=== PATIENT | male | born 1945 | race Caucasian/White ===

== ENCOUNTER 2022-08-15 14:15 | Observation (INO) ==
--- NOTE | 2022-08-15 14:29 | ED Triage Note ---
Date of Service August 15, 2022 History of Present Illness This patient was briefly evaluated while in triage. An abbreviated physical exam was performed. This patient is a 77-year-old Male who presents to the ED for evaluation of stroke like symptoms which have resolved. Patient had these symptoms yesterday which lasted for approximately 5 minutes. He reports numbness in the left arm and left side of the face as well as some difficulty with his speech. He had a similar episode of symptoms one week ago. He was at the [place] ED and waited for 20 hours before leaving. Physical Exam VITALS: Vitals are noted on the nurse's note and reviewed by myself. GENERAL: This is a 77-year-old male, in no acute distress, well-developed well- nourished. SKIN: The skin was without rashes. EYES: Pupils equal round and reactive to light and accommodation. MOUTH: Mucous membranes moist. HEART: Regular rate and rhythm without murmurs gallops or rubs. LUNGS: Clear to auscultation bilaterally without wheezes, rales or rhonchi. MUSCULOSKELETAL: Full ROM throughout. Strength 5/5 throughout. NEURO: Patient was alert and oriented to person place and time. Initial orders for labs and / or imaging were placed and patient was placed in the waiting area until a bed is available. Please see further documentation for the full ED course. MDM / Impression Impression Impression: Stroke-like symptoms
[2022-08-15 16:20] LABS: Basophils # (auto) 0.02 K/uL (0-0.2); Basophils % (auto) 0.2 %; Eosinophils # (auto) 0.19 K/uL (0-0.50); Eosinophils % (auto) 1.8 %; Hematocrit (blood only) 35.5 % (40.1-51.0); Immature Granulocytes # (auto) 0.04 K/uL (0.00-0.02); Immature Granulocytes % (auto) 0.4 %; Lymphocytes # (auto) 0.91 K/uL (1.2-3.4); Lymphocytes % (auto) 8.6 %; Mean Corpuscular Hemoglobin 29.2 pg (25.0-34.0); Mean Corpuscular Volume 94.2 fL (80.0-100.0); Mean Platelet Volume 10.9 fL (9.4-12.4); Monocytes # (auto) 1.32 K/uL (0.24-0.82); Monocytes % (auto) 12.4 %; Neutrophils # (auto) 8.14 K/uL (1.4-6.5); Neutrophils % (auto) 76.6 %; Platelet Count 222 K/uL (130-400); RDW Coefficient of Variation 13.5 % (11.5-14.5); RDW Standard Deviation 46.4 fL (36.4-46.3); Red Blood Count 3.77 M/uL (4.63-6.08); White Blood Count 10.62 K/ul (4.8-10.8)
[2022-08-15 16:32] LABS: INR 1.1 (0.9-1.1); Partial Thromboplastin Time 27.9 Seconds (21.0-31.0); Prothrombin Time 11.7 Seconds (9.0-12.0)
[2022-08-15 17:01] LABS: Albumin Globulin Ratio 1.2 (0.9-2); Albumin Level 4.4 gm/dl (3.4-5.0); BUN Creatinine Ratio 18.1 (10-20); Bilirubin,Total 0.7 mg/dl (0.2-1.0); Calcium 9.6 mg/dl (8.5-10.1); Est GFR (African American) 77.9 ml/min; Est GFR (Non-African American) 67.2 ml/min; Globulin 3.8 gm/dl (2.5-4.0); Magnesium 1.5 mg/dl (1.7-2.4); Potassium 4.9 mmol/L (3.5-5.1); Total Protein 8.2 gm/dl (6.0-8.3)
--- NOTE | 2022-08-15 17:40 | Emergency Department Note ---
Impression & Plan Stroke-like symptoms ED Provider Note INFORMANT: Patient and family ED PROVIDER(S): Ari Valdovinos MD CHIEF COMPLAINT: Stroke symptoms PLAN: Disposition: Admitted Condition: Good Outpatient prescription management: none Referral: None MEDICAL DECISION MAKING: Patient presented with history concerning for 2 episodes of strokelike symptoms. His examination was nonfocal. I did obtain old records from the [facility] visit. His CT angiography and CT of the head did not reveal any acute findings. I did not repeat the CT imaging as it was less than 24 hours from his contrast load. The patient was monitored and did well. His blood work was unremarkable. His ECG showed normal sinus rhythm. He will need further stroke evaluation in the hospital. [facility]. Patient was evaluated in the ER and admitted for further management. Triage Nursing notes reviewed and agree them. Vital Signs: reviewed and remarkable for no significant abnormalities Differential diagnosis: CVA, TIA, infection, dehydration, metabolic abnormality, hypo/hyperglycemia, electrolyte disturbance, anemia, hypoxia, cardiac sources, intracerebral event, toxicologic, neurologic, as well as other pathologies. Diagnostics interpreted by me: EC Lead ECG performed and revealed Normal sinus rhythm at 64, left [place], septal Q wave. No interval prolongation. No elevation or depression. No PACs or PVCs Cardiac Monitoring: Cardiac monitoring ordered by me: The patient was placed on continuous cardiac monitoring and observed. It revealed a normal sinus rhythm at 62 beats per minute without ectopy or evidence of dysrhythmia. Imaging studies: CT imaging report obtained from the [facility]. He not performed due to timing of contrast less than [address] angiography of the head neck reported as negative for any acute pathology. HPI: The patient is a 77year old male who presents to the Emergency Room with complaints of strokelike symptoms. This started yesterday around 5 PM and is described as lasting for 15 minutes. He states he had slurred speech and numbness in the left side of his face as well as left arm.. The patient also notes the following associated symptoms, none. Patient does state that he had an episode that was similar that lasted about 5 minutes 1 week prior. The patient has taken no medication for relieving factors. Current pain is rated as 0/10. Patient states that he went to the [facility]. He had work-up initiated in the waiting room. He stated after waiting for 20 hours he was frustrated and left to come here to complete his evaluation. Pt denies LOC, headache, fevers, chills, diaphoresis, visual changes, neck pain, chest pain, breathing difficulties, nausea, vomiting, abdominal pain, back pain, melena, hematochezia, urinary symptoms, lymphadenopathy, rash, or other complaints. ROS: See above HPI for pertinent positives & negatives. A total of 10 systems reviewed and were otherwise negative. PAST MEDICAL HISTORY:See Below , hypertension PAST SURGICAL HISTORY:See Below, FAMILY HISTORY:See Below SOCIAL HISTORY:See Below, HOME MEDICATIONS:See Below ALLERGIES:See Below VITALS:See Below PHYSICAL EXAMINATION: GENERAL: Awake, alert, well-appearing, in no distress HENT: Normocephalic, atraumatic. Oropharynx unremarkable. EYES: Normal conjunctiva. Sclera non-icteric. PERRLA. EOMI. NECK: Inspection normal. Non-tender. Supple. No nuchal rigidity. FROM. No masses. RESPIRATORY: Clear to auscultation. No wheezes. No rales. Normal respiratory effort. CARDIAC: Normal rate. Normal rhythm. No murmurs. No rubs. Extremities warm and well perfused. Pulses equal. No JVD. GI: Soft, non-distended. No tenderness to palpation. No rebound or guarding. No masses. RECTAL: Deferred. MUSCULOSKELETAL: Atraumatic. Chest examination reveals no tenderness. The back is symmetrical on inspection without obvious abnormality. There is no CVA te nderness to palpation. No joint edema. LOWER EXTREMITIES: Calves are equal size bilaterally and non-tender. No edema. No discoloration. NEURO: Normal sensorium. No sensory or motor deficits noted. Nerves II through XII intact. Speech normal. No drift. Normal rapid alternating movements. SKIN: No rash or jaundice noted. Ari Valdovinos MD Past Med/Surg History Social History Smoking Status: Never smoker Preferred Language: Nepali Feels Safe at Home: Yes Allergies Allergies Allergy/AdvReac Type Severity Reaction Status Date / Time No Known Allergies Allergy Unverified 08/15/22 17:59 Home Meds Home Medications Medication Instructions Recorded Confirmed amlodipine 5 mg tablet 5 mg PO DAILY 08/15/22 08/15/22 atenolol 50 mg tablet 50 mg PO DAILY 08/15/22 08/15/22 atorvastatin 20 mg tablet 20 mg PO DAILY 08/15/22 08/15/22 cyanocobalamin (vitamin B-12) 1,000 mcg PO DAILY 08/15/22 08/15/22 1,000 mcg tablet cyclobenzaprine 10 mg tablet 10 mg PO TID PRN Muscle Spasm 08/15/22 08/15/22 esomeprazole magnesium 40 mg 40 mg PO DAILY 08/15/22 08/15/22 capsule,delayed release olmesartan 40 mg tablet 40 mg PO DAILY 08/15/22 08/15/22 sildenafil 100 mg tablet 100 mg PO UD PRN Erectile 08/15/22 08/15/22 Dysfunction terazosin 2 mg capsule 2 mg PO DAILY 08/15/22 08/15/22 Results & Data (ED) Vital Signs Vital Signs - 24 hr 08/15/22 14:23 08/15/22 17:39 08/15/22 17:39 Temperature 36.2 C L Temperature Source Temporal Artery Scan Pulse Rate 70 Pulse Rate [Finger] 62 Pulse Rhythm Regular Pulse Rhythm [Finger] Regular Pulse Strength Normal Pulse Strength [Finger] Normal Respiratory Rate 20 18 Respiratory Effort / Characteristics Non-Labored Spontaneous Non-Labored Respiratory Depth Normal Normal Respiratory Pattern Regular Regular Blood Pressure 177/83 H Blood Pressure [Left Arm] 138/87 Blood Pressure Mean 114 Blood Pressure Mean [Left Arm] 104 Blood Pressure Position Sitting Blood Pressure Position [Left Arm] Lying Pulse Oximetry 98 99 98 Oxygen Delivery Method Room Air Room Air Room Air Sepsis Recent Fever Within 48 Hours No Sepsis New/Unexplained Change in Mental Status No Sepsis Action Taken by Nursing No Action Required 08/15/22 21:00 Temperature Temperature Source Pulse Rate Pulse Rate [Finger] Pulse Rhythm Pulse Rhythm [Finger] Pulse Strength Pulse Strength [Finger] Respiratory Rate Respiratory Effort / Characteristics Non-Labored Respiratory Depth Normal Respiratory Pattern Blood Pressure Blood Pressure [Left Arm] Blood Pressure Mean Blood Pressure Mean [Left Arm] Blood Pressure Position Blood Pressure Position [Left Arm] Pulse Oximetry Oxygen Delivery Method Sepsis Recent Fever Within 48 Hours Sepsis New/Unexplained Change in Mental Status Sepsis Action Taken by Nursing Laboratory Data Result diagrams: 08/15/22 16:05 08/15/22 16:05 Lab Results 08/15/22 08/15/22 08/15/22 Range/Units 16:05 16:05 16:05 WBC 10.62 (4.8-10.8) K/ul RBC 3.77 L (4.63-6.08) M/uL Hgb 11.0 L (14.0-18.0) g/dl Hct 35.5 L (40.1-51.0) % MCV 94.2 (80.0-100.0) fL MCH 29.2 (25.0-34.0) pg MCHC 31.0 L (32.0-36.0) g/dL RDW Std Deviation 46.4 H (36.4-46.3) fL RDW Coeff of Lane 13.5 (11.5-14.5) % Plt Count 222 (130-400) K/uL MPV 10.9 (9.4-12.4) fL Immature Gran % (Auto) 0.4 % Neut % (Auto) 76.6 % Lymph % (Auto) 8.6 % [place] % (Auto) 12.4 % Eos % (Auto) 1.8 % Baso % (Auto) 0.2 % Neut # (Auto) 8.14 H (1.4-6.5) K/uL Lymph # (Auto) 0.91 L (1.2-3.4) K/uL [place] # (Auto) 1.32 H (0.24-0.82) K/uL Eos # (Auto) 0.19 (0-0.50) K/uL Baso # (Auto) 0.02 (0-0.2) K/uL Immature Gran # (Auto) 0.04 H (0.00-0.02) K/uL PT 11.7 (9.0-12.0) Seconds INR 1.1 (0.9-1.1) APTT 27.9 (21.0-31.0) Seconds PTT Ratio 1.0 Sodium 136 (136-145) mmol/L Potassium 4.9 (3.5-5.1) mmol/L Chloride 102 (98-107) mmol/L Carbon Dioxide 26 (21-32) mmol/L Anion Gap 8 (3-11) BUN 19 (6-23) mg/dl Creatinine 1.05 (0.6-1.4) mg/dl Est Cr Clr Drug Dosing 62.0 ml/min Est GFR ( Amer) 77.9 ml/min Est GFR (Non-Af Amer) 67.2 ml/min BUN/Creatinine Ratio 18.1 (10-20) Glucose 82 (70-99(Fasting)) mg/dl Calcium 9.6 (8.5-10.1) mg/dl Magnesium 1.5 L (1.7-2.4) mg/dl Total Bilirubin 0.7 (0.2-1.0) mg/dl AST 18 (13-39) U/L ALT 11 (7-52) U/L Alkaline Phosphatase 108 H (34-104) U/L Troponin I High Sens 4.0 (0-20) pg/ml Total Protein 8.2 (6.0-8.3) gm/dl Albumin 4.4 (3.4-5.0) gm/dl Globulin 3.8 (2.5-4.0) gm/dl Albumin/Globulin Ratio 1.2 (0.9-2) SARS-CoV-2, RNA, NAAT (NEGATIVE) 08/15/22 Range/Units 17:15 WBC (4.8-10.8) K/ul RBC (4.63-6.08) M/uL Hgb (14.0-18.0) g/dl Hct (40.1-51.0) % MCV (80.0-100.0) fL MCH (25.0-34.0) pg MCHC (32.0-36.0) g/dL RDW Std Deviation (36.4-46.3) fL RDW Coeff of Lane (11.5-14.5) % Plt Count (130-400) K/uL MPV (9.4-12.4) fL Immature Gran % (Auto) % Neut % (Auto) % Lymph % (Auto) % [place] % (Auto) % Eos % (Auto) % Baso % (Auto) % Neut # (Auto) (1.4-6.5) K/uL Lymph # (Auto) (1.2-3.4) K/uL [place] # (Auto) (0.24-0.82) K/uL Eos # (Auto) (0-0.50) K/uL Baso # (Auto) (0-0.2) K/uL Immature Gran # (Auto) (0.00-0.02) K/uL PT (9.0-12.0) Seconds INR (0.9-1.1) APTT (21.0-31.0) Seconds PTT Ratio Sodium (136-145) mmol/L Potassium (3.5-5.1) mmol/L Chloride (98-107) mmol/L Carbon Dioxide (21-32) mmol/L Anion Gap (3-11) BUN (6-23) mg/dl Creatinine (0.6-1.4) mg/dl Est Cr Clr Drug Dosing ml/min Est GFR ( Amer) ml/min Est GFR (Non-Af Amer) ml/min BUN/Creatinine Ratio (10-20) Glucose (70-99(Fasting)) mg/dl Calcium (8.5-10.1) mg/dl Magnesium (1.7-2.4) mg/dl Total Bilirubin (0.2-1.0) mg/dl AST (13-39) U/L ALT (7-52) U/L Alkaline Phosphatase (34-104) U/L Troponin I High Sens (0-20) pg/ml Total Protein (6.0-8.3) gm/dl Albumin (3.4-5.0) gm/dl Globulin (2.5-4.0) gm/dl Albumin/Globulin Ratio (0.9-2) SARS-CoV-2, RNA, NAAT NEGATIVE (NEGATIVE) Discharge Plan Visit Data Chief Complaint: Stroke/CVA Symptoms Stated Complaint: LEFT SIDE NUMBNESS, EYE NUMBNESS, ED Provider: Ari Valdovinos Discharge Problem: Stroke-like symptoms Patient Disposition: Admitted As Inpatient Discharge Instructions Interventions: ED Discharge Assessment Last Done: 08/16/22 00:14
--- NOTE | 2022-08-15 22:49 | History and Physical Report ---
DATE OF ADMISSION: 08/15/2022. CHIEF COMPLAINT: Stroke-like symptoms. HISTORY OF PRESENT ILLNESS: A 77-year-old male with past medical history significant for hypertension, hyperlipidemia, GERD, presents with stroke-like symptoms. The patient says yesterday at 5:30 p.m., he had numbness on the left side of the face, left arm and hand and slurred speech, lasted for 15 minutes, started around 5:30 p.m. He was in [facility], he was there for 20 hours. 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 As it was getting too long before speaking to a physician, he came out of the hospital and he came here now. Since that episode, he is doing okay. No recurrence of systems. About a week ago, he had similar kind of systems, but milder, some numbness in the left face and the left hand that lasted for 5 minutes. The patient also complains of back pain, neck pain going on for several weeks, he has pain on movement of the neck. About a couple of weeks ago when he woke up, he could not walk because of pain in left ankle. He went to the [facility], had workup with MRI scan, everything looked good and nothing was found, and he is in a special boot, but it has not improved much. Denies any chest pain, no shortness of breath of breath. Once in a while, he gets cough, no difficulty swallowing. Appetite is okay. No dizziness, no blurred visions, no earache, no runny nose, no sore throat, no nausea, no abdominal pain. Normal bowel and bladder movements. Currently, resting comfortably and hemodynamically stable. ALLERGIES: No known drug allergies. PAST MEDICAL HISTORY: As mentioned above and also he had bowel obstructions and surgeries for that. PAST SURGICAL HISTORY: Cholecystectomy, appendectomy, bowel surgeries for bowel obstruction. He says no bowel resection was done, but they were untangled. He had back surgery, right carpal tunnel surgery and also bone spur taken out from the right fist, lower extremity bilateral bunionectomy. MEDICATIONS: The patient is on amlodipine 5 mg p.o. daily, atenolol 50 mg p.o. daily, atorvastatin 20 mg p.o. daily, vitamin B12 1000 mcg p.o. daily, cyclobenzaprine 10 mg p.o. t.i.d. p.r.n., esomeprazole 40 mg p.o. daily, olmesartan 40 mg p.o. daily, Viagra p.r.n., terazosin 2 mg p.o. daily. FAMILY HISTORY: Significant for mother had heart disease. SOCIAL HISTORY: No smoking. Alcohol, occasional. REVIEW OF SYSTEMS: As per HPI. Rest of review of systems is negative. PHYSICAL EXAMINATION: GENERAL: The patient is of moderate build, not in acute distress. VITAL SIGNS: Temperature 36.2, pulse 62, respiratory rate 18, blood pressure 138/87, oxygen 98% on room air. HEENT: Pupils equal, round and reactive to light. Extraocular muscles intact. Oral mucosa moist. NECK: No JVD. No neck masses. CARDIOVASCULAR: S1 and S2 heard. Regular rate and rhythm. No murmur, no gallop. RESPIRATORY SYSTEM: Normal AP diameter. No accessory muscle use. No wheezing, no crackles. ABDOMEN: Soft, bowel sounds present, nontender, no distention. CENTRAL NERVOUS SYSTEM: Alert and oriented. No facial droop. Speech is clear. Can raise his brows, close eyes. Power 5/5 in all extremities. Can raise and hold lower extremity for a few seconds. Coordination was normal. No pronator drift. [id number] test normal. Sensation is intact. EXTREMITIES: No edema, no erythema. LABORATORY DATA: WBC 10.6, hemoglobin 11, hematocrit 35.5, platelets 222. PT 11.7, INR 1.1, APTT 27.9. Sodium 136, potassium 4.9, chloride 102, bicarbonate 26, BUN 19, creatinine 1.05. Serum glucose 82, calcium 9.6, magnesium 1.5, total bilirubin 0.7, AST 18, ALT 11, alkaline phosphatase 108. Troponin I high sensitivity 4. SARS-CoV-2 rapid test negative. ELECTROCARDIOGRAM: Normal sinus rhythm at a rate of 64, left axis deviation, no acute ST-T changes seen. IMAGING: CTA of the head and neck, imaging studies reports are in the chart done in [place] yesterday. ASSESSMENT AND PLAN: This 77-year-old male presents with stroke-like symptoms. 1. Stroke-like symptoms: Possible transient ischemic attack versus cerebrovascular accident. He has left facial numbness, left upper extremity numbness and dysarthria, lasted for 15 minutes yesterday at 5:30 p.m.; , a week ago also similarly had some mild numbness in the left face and left hand, it lasted for 5 minutes. CTA of the head and neck done in [place] yesterday is unremarkable except for stenosis of the P1 segment of the left posterior cerebral artery. Imaging studies reports are on the chart. We will do full stroke workup with MRI of the head, echocardiogram, speech evaluation, neuro evaluation. Physical therapy and occupational therapy. Monitor in the med- telemetry. Holter per neurology. Started him on aspirin. The patient is on statin. We will follow the lipid profile, follow HbA1c levels. Closely monitor in the med-telemetry. 2. History of hypertension: Continue his home atenolol, olmesartan, terazosin and amlodipine. We will monitor the blood pressure. 3. Hyperlipidemia: On statin. Follow HbA1c levels. 4. Gastroesophageal reflux disease: On omeprazole. 5. Deep venous thrombosis prophylaxis: Sequential compression devices for now. DISPOSITION: Closely monitor in the med-tele. PT/OT prior to discharge. Social service to help with discharge planning. Level 1, full code. Job ID: [id number] [facility]
[2022-08-16] MEDS ORDERED: CYCLOBENZAPRINE HCL 10 MG TAB PO PRN (00:16)
[2022-08-16] MEDS ORDERED: ACETAMINOPHEN 325 MG TAB PO PRN (00:16)
[2022-08-16] MEDS ORDERED: NITROGLYCERIN SL 0.4 MG/TAB TAB SL PRN (00:16)
[2022-08-16] MEDS ORDERED: SODIUM CHLORIDE 0.9% 1000ML 1,000 ML IV SCH (00:16)
[2022-08-16] MEDS ORDERED: ASPIRIN 81 MG CHEW PO ONE (00:16)
[2022-08-16] MEDS ORDERED: POLYETHYLENE (MIRALAX) 17 GM PACK PO PRN (00:16)
[2022-08-16] MEDS ORDERED: PHARMACIST DISCHARGE MED REC CONSULT PRN (00:16)
[2022-08-16] MEDS: MAGNESIUM SULFATE / D5W 1 GM/100 ML BAG IV SCH ×4 (01:28→15:43)
[2022-08-16 05:23] LABS: Basophils # (auto) 0.03 K/uL (0-0.2); Basophils % (auto) 0.3 %; Eosinophils # (auto) 0.34 K/uL (0-0.50); Eosinophils % (auto) 3.3 %; Hematocrit (blood only) 31.6 % (40.1-51.0); Hemoglobin 9.9 g/dl (14.0-18.0); Immature Granulocytes # (auto) 0.04 K/uL (0.00-0.02); Immature Granulocytes % (auto) 0.4 %; Lymphocytes # (auto) 1.16 K/uL (1.2-3.4); Lymphocytes % (auto) 11.2 %; Mean Corpuscular Hemoglobin 29.4 pg (25.0-34.0); Mean Corpuscular Hgb Conc 31.3 g/dL (32.0-36.0); Mean Corpuscular Volume 93.8 fL (80.0-100.0); Mean Platelet Volume 11.2 fL (9.4-12.4); Monocytes % (auto) 19.3 %; Neutrophils % (auto) 65.5 %; Platelet Count 198 K/uL (130-400); RDW Coefficient of Variation 13.4 % (11.5-14.5); RDW Standard Deviation 46.3 fL (36.4-46.3); Red Blood Count 3.37 M/uL (4.63-6.08); White Blood Count 10.37 K/ul (4.8-10.8)
[2022-08-16 05:51] LABS: BUN Creatinine Ratio 18.2 (10-20); Calcium 8.7 mg/dl (8.5-10.1); Chol HDL Ratio 4.2 (0-5); Creatinine Clr Calc Pharmacy 66.4 ml/min; Est GFR (African American) 83.6 ml/min; Est GFR (Non-African American) 72.1 ml/min; Potassium 3.6 mmol/L (3.5-5.1)
[2022-08-16] MEDS ORDERED: ASPIRIN 81 MG ECTAB PO SCH (09:00)
--- NOTE | 2022-08-16 09:44 | CT Scan Report ---
CERVICAL SPINE CT CT DOSE: 963.73 mGy.cm HISTORY: neck pain TECHNIQUE: Multiaxial CT images of the cervical spine were performed and reformatted in the sagittal and coronal plane without the use of contrast. A dose lowering technique was utilized adhering to th e principles of ALARA. COMPARISON: None. FINDINGS: No fractures. No subluxation. Prevertebral soft tissues and the C1-C2 interval are intact. No pneumothorax. Severe disc space narrowing with endplate osteophytes at C5-C6 and C6-C7. There is s traightening of the cervical spine. Moderate facet degenerative changes within the upper cervical spi ne. Mild central canal narrowing from C4 through C6. Posterior fusion defect at C1 considered to be a normal variant. IMPRESSION: 1. No fracture or subluxation within the cervical spine. 2. Degenerative changes as described above. ACT 112: Negative or not required by law. Electronically signed by: Aj Churchill M.D. 08/16/2022 9:43 AM
--- NOTE | 2022-08-16 09:48 | CT Scan Report ---
LUMBAR SPINE CT CT DOSE: HISTORY: Low back pain TECHNIQUE: Multiaxial CT images of the lumbar spine were performed and reformatted in the sagittal an d coronal plane without the use of contrast. A dose lowering technique was utilized adhering to the principles of ALARA. COMPARISON: None. FINDINGS: No fracture or subluxation within the lumbar spine. There are severe disc space narrowing a t L5-S1. The remaining disc spaces are preserved. Moderate facet degenerative changes within the lowe r lumbar spine. The visualized sacrum is intact. There is 1 cm hypodense lesion within the left kidne y. This is incompletely characterized on this noncontrast study but statistically represents a cyst. Paravertebral soft tissues are unremarkable. Mild central canal narrowing at L4-5 due to a small broa d-based posterior disc bulge and ligamentum flavum and facet hypertrophy. No high-grade central canal narrowing. IMPRESSION: 1. No fracture or subluxation within the lumbar spine. 2. Degenerative changes as described above. ACT 112: Negative or not required by law. Electronically signed by: Aj Churchill M.D. 08/16/2022 9:46 AM
--- NOTE | 2022-08-16 09:59 | Neurology Consultation ---
Date of Consultation August 16, 2022 Assessment & Plan (1) Stroke-like symptoms: (2) Left upper extremity numbness: (3) Left facial numbness: (4) Dysarthria: (5) Hypertension: Plan this patient had the acute onset of left face and arm dysesthesias (numbness and tingling ) with some left facial droop and dysarthria lasting only 15 minutes in the evening of August 14. He had a very brief partial episode a week prior. Currently his neurologic examination is unremarkable with no focal findings, meningeal signs, or encephalopathy. I suspect he had a right hemispheric TIA likely secondary to small vessel disease ( history of hypertension and dyslipidemia). Embolic source cannot be excluded. Patient has had some nonspecific cervical and lumbar spine pain over the last month. CT scan of the cervical spine showed some mild to moderate diffuse degenerative changes with some mild spinal stenosis in the mid spine. CT scan of the lumbar spine again showed degenerative changes and some mild canal stenosis at L4-5 secondary to disc and bone. Recommendations: 1. Obtain all reports from [facility] emergency room from the last 2 days. 2. Awaiting MRI of the brain. 3. since the patient had some nose bleeds years ago on aspirin, I would initiate clopidogrel 75 mg once daily. 4. Control blood pressure as you are doing (already controlled ) 5. patients lipids are quite controlled on the current dose of atorvastatin 20 mg daily. I would not could increase this dose. 6. echocardiogram 7. Otherwise have no further neurologic testing or treatment recommendations as he is back to baseline. Overall, I spent a total of 60 minutes with this case including review of records, review of CT films, direct evaluation the patient at bedside, and discussion of the case with the patient as well as Dr. Narayan, including differential diagnosis and treatment options. History of Present Illness Reason for Consultation: Patient is a 77-year-old, who I was asked to see at the request of Dr. Solis, neurologic consultation regarding stroke versus TIA. Requesting Physician: Dr. Solis Attending Physician: Christopher Narayan MD History of Present Illness This patient has a 20-30 year history of hypertension and dyslipidemia. He has no heart disease or diabetes and was never a tobacco user. The patient was on aspirin about 5 years ago but stopped this on his own because of nosebleeds. he was in his usual state of health when approximately 5:30 p.m. on July 14, after waking from a nap and fixing himself something to eat, he had the sudden onset of numbness and tingling in his entire left upper extremity from fingers to shoulders as well as his left face particularly cheek and jaw. He also noted facial droop the left and some slurred speech. This entire event lasted 15 minutes and then resolved. It has not returned. In retrospect, he believes he had an episode about a week ago where he had the onset of numbness and tingling in the left 4th and 5th fingers into the left palm, slight numbness and tingling in his left cheek but no slurred speech or other issues. This episode lasted no more than 5 minutes. He has never had any other episodes before or since. He went to the [facility] Emergency room, and apparently had some evaluation including CT scan of the and CT angiography ( presumably of the head and neck ) which were unremarkable although I do not any of these reports. Because he was waiting for 20 hours in the waiting room (had some evaluation obviously while he was there ) he decided to come to [facility]. I do not have any records from [place] including vital signs either. He arrived at [facility] at 1422 on 08/15, with a temperature 36.2, pulse 70 regular, respiratory rate 20, blood pressure 177/83, and O2 sat of 98%. His neurologic examination was unremarkable here within an NIH stroke scale of 0. CBC showed some mild anemia M Chem profile was unremarkable. He had no further imaging here but he did have a CT scan of the cervical and lumbar spines about 5 minutes before I evaluated him. I do not have these results yet. The patient tells me that he has had some low back pain radiating up towards his cervical spine for about a month now on and off. He is now going for MRI. Currently he has no numbness, weakness, vision issues, speech problems, balance problems or cognitive issues. CBC this morning showed a more significant anemia with hemoglobin 9.9 and hematocrit 31.6. He has some elevated neutrophils. Chem profile was unremarkable although hemoglobin A1c is pending. Total cholesterol is 134 triglycerides are 94. blood pressure this morning is 128/63 with a pulse of 58 and regular. He is afebrile. Allergies Allergy/AdvReac Type Severity Reaction Status Date / Time No Known Allergies Allergy Unverified 08/15/22 17:59 Home Medications Medication Instructions Recorded Confirmed Type amlodipine 5 mg tablet 5 mg PO DAILY 08/15/22 08/15/22 History atenolol 50 mg tablet 50 mg PO DAILY 08/15/22 08/15/22 History atorvastatin 20 mg tablet 20 mg PO DAILY 08/15/22 08/15/22 History cyanocobalamin (vitamin B-12) 1,000 mcg PO DAILY 08/15/22 08/15/22 History 1,000 mcg tablet cyclobenzaprine 10 mg tablet 10 mg PO TID PRN Muscle Spasm 08/15/22 08/15/22 History esomeprazole magnesium 40 mg 40 mg PO DAILY 08/15/22 08/15/22 History capsule,delayed release olmesartan 40 mg tablet 40 mg PO DAILY 08/15/22 08/15/22 History sildenafil 100 mg tablet 100 mg PO UD PRN Erectile 08/15/22 08/15/22 History Dysfunction terazosin 2 mg capsule 2 mg PO DAILY 08/15/22 08/15/22 History Patient History Medical History Dyslipidemia Hypertension Family History Mother , age 82 with heart issues Heart disease Father , age 58 of diabetes complications Diabetes Social History Smoking Status: Never smoker Hx Alcohol Use: No Preferred Language: Bulgarian Current Living Situation: Spouse current occupational status: retired 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 Feels Safe at Home: Yes Review of Systems Constitutional: no fever, no fatigue and no weakness Eyes: no diplopia, no eye pain and no worsening vision Ear, Nose, Mouth, Throat: no ear pain, no tinnitus, no hearing loss, no dizziness, no snoring, no hoarseness and no dysphagia Respiratory: no cough and no dyspnea Cardiovascular: no chest pain, no palpitations and no lightheadedness Gastrointestinal: no abdominal pain, no nausea and no vomiting Musculoskeletal: + back pain and + neck pain; no radicular pain, no joint pain and no myalgia Integumentary: no rash and no lesions Neurologic: no gait abnormality, no localized weakness, no generalized weakness, no tingling, no numbness, no tremor(s), no abnormal movements, no headache(s), no abnormal speech, no confusion and no memory loss Psychiatric: no depression, no irritability, no anxiety, no difficulty concentrating, no confusion and no hallucinations Endocrine: no fatigue and no flushing Hematologic / Lymphatic: no easy bleeding and no easy bruising Allergy / Immunological: no urticaria and no problem reported Exam (Neuro) Physical Exam: The patient is right-handed. The patient is awake, alert, and attentive. Speech is normal without any aphasia or dysarthria. The patient can name objects, repeat phrases, and has normal spontaneous speech. Mentation and thought processes are intact, with orientation to person, place and time, and normal fund of knowledge. Attention and concentration are normal. Mood and affect are normal and appropriate. General appearance and grooming are normal. Short and long-term memory are in tact. Pupils are 4 mm bilaterally and reactive to light. Extraocular eye muscles are intact without nystagmus. Visual acuity and visual pulido seem normal grossly to confrontation. There are no deficits to sensation in the face in all 3 distributions of the fifth cranial nerve bilaterally. Corneal reflexes are positive bilaterally. Facial strength and symmetry was normal bilaterally. Hearing seems normal bilaterally. Palate moves well without asymmetry. There is normal sternocleidomastoid and trapezius (shoulder shrug) strength bilaterally. Tongue is midline with good strength bilaterally. Neck has a full range of motion without discomfort. There are no cervical bruits bilaterally. There are no cranial or ocular bruits. Heart is without murmur. There is a regular rhythm and rate. Cervical, thoracic, and lumbar spine are nontender to palpation. Gait is narrow based, with good arm swing, turns, and stance. Balance is normal eyes open. With outstretched arms there is no drift. There are no resting, postural, or action tremors. There is no ataxia with finger to nose testing. There is good facility in the hands. No other abnormal involuntary movements are noted. Motor strength is 5/5 diffusely in the arms bilaterally including deltoids, biceps, triceps, brachioradialis, wrist flexors and extensors, dry room operator, and intrinsic hand muscles. Motor strength is 5/5 diffusely in the legs bilaterally including hip flexors, quadriceps, hamstrings, gastrocnemius, tibialis anterior, tibialis posterior, and Peroneii muscles. Toe extensors are normal and there is good bulk in the extensor digitorum brevis muscles bilaterally. The limbs have good tone without rigidity or spasticity. There is no atrophy noted in the muscles. Muscle bulk is normal, there is no tenderness to palpation, no myotonia to percussion, and no fasciculations seen. Sensory examination is intact to touch and pin throughout all 4 limbs diffusely. Reflexes are 1/4 in the biceps, triceps, brachioradialis, and quadriceps tendons bilaterally. Achilles tendon reflexes are absent bilaterally. There is no clonus bilaterally. Toes are downgoing with plantar stimulation bilaterally. Peripheral pulses are present and of normal quality distally in all 4 limbs. There is no peripheral edema noted in the limbs. Results & Data ([facility]) Vital Signs (Past 12 Hours) Vital Signs Pulse Pulse Resp BP Pulse Ox O2 Del Method 08/16/22 06:00 58 L 16 128/63 96 Room Air 08/16/22 04:00 63 18 116/57 L 94 Room Air 08/16/22 02:58 57 L 20 92/44 L 97 Room Air 08/16/22 02:14 56 L 20 92/44 L 97 Room Air 08/16/22 00:40 58 L 18 96 Room Air 08/16/22 00:40 58 L 18 136/60 96 Room Air PG Care Time/CCT Total # of Minutes Spent Total Time Spent with Patient: Total time spent is greater than 50% in coordination of care (as documented) at patient's floor/unit and/or counseling patient: Coding Level of Care Code 42795 Initial Inpt Care Lvl 3 Diagnoses Stroke-like symptoms R29.90 Left upper extremity numbness R20.0 Left facial numbness R20.0 Dysarthria R47.1 Hypertension I10 Time Spent (min) 60
[2022-08-16] MEDS ORDERED: GADOBUTROL 65ML VIAL IV ONE (10:22)
[2022-08-16] MEDS: PANTOprazole 40 MG TAB PO SCH (10:51)
[2022-08-16] MEDS: amLODIPine BESYLATE 5 MG TAB PO SCH (10:51)
[2022-08-16] MEDS: ATENOLOL 50 MG TABLET PO SCH (10:51)
[2022-08-16 10:54] LABS: Estimated Average Glucose 105 mg/dl; Hemoglobin A1C 5.3 % (4.5-5.6)
--- NOTE | 2022-08-16 11:04 | Magnetic Resonance Report ---
Brain MRI WITH AND WITHOUT CONTRAST HISTORY: Left-sided arm and facial numbness with slurred speech. stroke like symptoms TECHNIQUE: Multiplanar multisequence MRI of the brain was performed both before and after the intrave nous administration of contrast. COMPARISON STUDY: None. FINDINGS: There is no mass, hematoma, midline shift, or acute infarct. The paranasal sinuses are enw r. The mastoid air cells are clear. The ventricles and sulci demonstrate mild age-related involutiona l changes. Scattered foci of T2 hyperintensity seen within the periventricular and subcortical white matter are nonspecific but suggestive of mild microvascular ischemic changes. The major vascular flow voids at the skull base are well-maintained. 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 Subt le asymmetric cortical thickening with increased cortical signal best seen on the coronal the FLAIR s equences involving the majority the right cerebral hemisphere most pronounced laterally. There is als o subtle leptomeningeal enhancement within the right cerebral hemisphere. These findings are concerni ng for a developing right-sided encephalitis/meningitis. IMPRESSION: 1. Subtle asymmetric cortical thickening with increased T2 signal and mild leptomeningeal enhancement involving the majority of the right cerebral hemisphere. This is concerning for a developing right-s ided encephalitis/meningitis. 2. No acute infarct or intracranial hemorrhage. ACT 112: Negative or not required by law. Electronically signed by: Aj Churchill M.D. 08/16/2022 11:01 AM
--- NOTE | 2022-08-16 12:45 | Hospitalist Progress Note ---
Date of Service August 16, 2022 Assessment & Plan (1) Stroke-like symptoms: (2) Hypertension: (3) Hyperlipidemia: Plan Patient is a 77-year-old male with past medical history of hypertension, hyperlipidemia, GERD presented to the ED after episode of left facial numbness, upper extremity weakness and dysarthria which lasted for 15 minutes a day prior to the admission. He had similar episode 1 week ago for 5 minutes. He had initially presented to [facility]; CTA head and neck was done which was unremarkable except for stenosis of the P1 segment of the left posterior cerebral artery. Admitted to the hospital for full stroke work-up. 1) Transient Ischemic Attack -Patient had left facial numbness, upper extremity weakness and dysarthria lasting for 15 minutes. -CTA head and neck was done which was unremarkable except for stenosis of the P1 segment of the left posterior cerebral artery -MRI brainno acute stroke or hemorrhage.Subtle asymmetric cortical thickening with increased T2 signal and mild leptomeningeal enhancement involving the majority of the right cerebral hemisphere. Plan: Discussed regarding the MRI brain findings with neurology and radiology. Nonspecific finding; no clinical correlation as patient is afebrile with normal mentation. No meningeal sign or symptoms. Plan to monitor him over the course of the day. Started on Plavix; no aspirin as patient had repeated nosebleed in the past. Continue on Lipitor 20 mg. Follow-up on echo. 2) Back pain -Complains of chronic back pain in cervical and lumbar region. -CT cervical and lumbar spine done; no fracture subluxation. Degenerative changes noted. Chronic conditions: 3. Hyperlipidemia: On statin.A1c- 5.3%. 4. Gastroesophageal reflux disease: On omeprazole. 5. Deep venous thrombosis prophylaxis: lovenox Admission and Anticipated Discharge Date Admission Date: August 15, 2022 Subjective Patient seen and examined at bedside. He is comfortably sitting up on the bed; not in any distress. He denies any fever, chills, altered mental status, weakness/numbness of any body part. Review of Systems Review of Systems: All systems reviewed & are unremarkable except as noted in Subjective Physical Exam Physical Exam: GENERAL: The patient is of moderate build, not in acute distress. HEENT: Pupils equal, round and reactive to light. Extraocular muscles intact. Oral mucosa moist. NECK: No JVD. No neck masses. CARDIOVASCULAR: S1 and S2 heard. Regular rate and rhythm. No murmur, no gallop. RESPIRATORY SYSTEM: Normal AP diameter. No accessory muscle use. No wheezing, no crackles. ABDOMEN: Soft, bowel sounds present, nontender, no distention. CENTRAL NERVOUS SYSTEM: Alert and oriented. No facial droop. Speech is clear. Cranial nerve II to XII intact. No focal deficit appreciated. EXTREMITIES: No edema, no erythema. Results & Data Results & Data ([facility]) Vital Signs (Past 12 Hours) Vital Signs Temp Pulse Resp BP Pulse Ox O2 Del Method 08/16/22 11:46 36.5 C 58 L 16 137/71 100 Room Air 08/16/22 06:00 58 L 16 128/63 96 Room Air 08/16/22 04:00 63 18 116/57 L 94 Room Air 08/16/22 02:58 57 L 20 92/44 L 97 Room Air 08/16/22 02:14 56 L 20 92/44 L 97 Room Air Laboratory Results Laboratory Results WBC 10.37 K/ul (4.8-10.8) 08/16/22 04:26 RBC 3.37 M/uL (4.63-6.08) L 08/16/22 04:26 Hgb 9.9 g/dl (14.0-18.0) L 08/16/22 04:26 Hct 31.6 % (40.1-51.0) L 08/16/22 04:26 MCV 93.8 fL (80.0-100.0) 08/16/22 04:26 MCH 29.4 pg (25.0-34.0) 08/16/22 04:26 MCHC 31.3 g/dL (32.0-36.0) L 08/16/22 04:26 RDW Std Deviation 46.3 fL (36.4-46.3) 08/16/22 04:[address] 13.4 % (11.5-14.5) 08/16/22 04:26 Plt Count 198 K/uL (130-400) 08/16/22 04:26 MPV 11.2 fL (9.4-12.4) 08/16/22 04:26 Immature Gran % (Auto) 0.4 % 08/16/22 04:26 Neut % (Auto) 65.5 % 08/16/22 04:26 Lymph % (Auto) 11.2 % 08/16/22 04:26 Stark % (Auto) 19.3 % 08/16/22 04:26 Eos % (Auto) 3.3 % 08/16/22 04:26 Baso % (Auto) 0.3 % 08/16/22 04:26 Neut # (Auto) 6.80 K/uL (1.4-6.5) H 08/16/22 04:26 Lymph # (Auto) 1.16 K/uL (1.2-3.4) L 08/16/22 04:26 Stark # (Auto) 2.00 K/uL (0.24-0.82) H 08/16/22 04:26 Eos # (Auto) 0.34 K/uL (0-0.50) 08/16/22 04:26 Baso # (Auto) 0.03 K/uL (0-0.2) 08/16/22 04:26 Immature Gran # (Auto) 0.04 K/uL (0.00-0.02) H 08/16/22 04:26 PT 11.7 Seconds (9.0-12.0) 08/15/22 16:05 INR 1.1 (0.9-1.1) 08/15/22 16:05 APTT 27.9 Seconds (21.0-31.0) 08/15/22 16:05 PTT Ratio 1.0 08/15/22 16:05 Sodium 136 mmol/L (136-145) 08/16/22 04:26 Potassium 3.6 mmol/L (3.5-5.1) D 08/16/22 04:26 Chloride 104 mmol/L (98-107) 08/16/22 04:26 Carbon Dioxide 24 mmol/L (21-32) 08/16/22 04:26 Anion Gap 8 (3-11) 08/16/22 04:26 BUN 18 mg/dl (6-23) 08/16/22 04:26 Creatinine 0.99 mg/dl (0.6-1.4) 08/16/22 04:26 Est Cr Clr Drug Dosing 66.4 ml/min 08/16/22 04:26 Est GFR ( Amer) 83.6 ml/min 08/16/22 04:26 Est GFR (Non-Af Amer) 72.1 ml/min 08/16/22 04:26 BUN/Creatinine Ratio 18.2 (10-20) 08/16/22 04:26 Glucose 84 mg/dl (70-99(Fasting)) 08/16/22 04:26 Estimat Average Glucose 105 mg/dl 08/16/22 04:26 Hemoglobin A1c 5.3 % (4.5-5.6) 08/16/22 04:26 Calcium 8.7 mg/dl (8.5-10.1) 08/16/22 04:26 Magnesium 1.5 mg/dl (1.7-2.4) L 08/15/22 16:05 Total Bilirubin 0.7 mg/dl (0.2-1.0) 08/15/22 16:05 AST 18 U/L (13-39) 08/15/22 16:05 ALT 11 U/L (7-52) 08/15/22 16:05 Alkaline Phosphatase 108 U/L (34-104) H 08/15/22 16:05 Troponin I High Sens 4.0 pg/ml (0-20) 08/15/22 16:05 Total Protein 8.2 gm/dl (6.0-8.3) 08/15/22 16:05 Albumin 4.4 gm/dl (3.4-5.0) 08/15/22 16:05 Globulin 3.8 gm/dl (2.5-4.0) 08/15/22 16:05 Albumin/Globulin Ratio 1.2 (0.9-2) 08/15/22 16:05 Triglycerides 94 mg/dl (0-150) 08/16/22 04:26 Cholesterol 134 mg/dl (0-200) 08/16/22 04:26 LDL Cholesterol, Calc 83 mg/dl 08/16/22 04:26 VLDL Cholesterol, Calc 19 mg/dl (0-30) 08/16/22 04:26 HDL Cholesterol 32 mg/dl 08/16/22 04:26 Cholesterol/HDL Ratio 4.2 (0-5) 08/16/22 04:26 SARS-CoV-2, RNA, NAAT NEGATIVE (NEGATIVE) 08/15/22 17:15 Impressions Brain MRI 08/16/22 00:16 Brain MRI WITH AND WITHOUT CONTRAST HISTORY: Left-sided arm and facial numbness with slurred speech. stroke like symptoms TECHNIQUE: Multiplanar multisequence MRI of the brain was performed both before and after the intravenous administration of contrast. COMPARISON STUDY: None. FINDINGS: There is no mass, hematoma, midline shift, or acute infarct. The paranasal sinuses are clear. The mastoid air cells are clear. The ventricles and sulci demonstrate mild age-related involutional changes. Scattered foci of T2 hyperintensity seen within the periventricular and subcortical white matter are nonspecific but suggestive of mild microvascular ischemic changes. The major vascular flow voids at the skull base are well-maintained. 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 Subtle asymmetric cortical thickening with increased cortical signal best seen on the coronal the FLAIR sequences involving the majority the right cerebral hemisphere most pronounced laterally. There is also subtle leptomeningeal enhancement within the right cerebral hemisphere. These findings are concerning for a developing right-sided encephalitis/meningitis. IMPRESSION: 1. Subtle asymmetric cortical thickening with increased T2 signal and mild leptomeningeal enhancement involving the majority of the right cerebral hemisphere. This is concerning for a developing right-sided encephalitis/mening itis. 2. No acute infarct or intracranial hemorrhage. ACT 112: Negative or not required by law. Electronically signed by: Aj Churchill M.D. 08/16/2022 11:[address] 08/16/22 08:[address] DOSE: 963.73 mGy.cm HISTORY: neck pain TECHNIQUE: Multiaxial CT images of the cervical spine were performed and reformatted in the sagittal and coronal plane without the use of contrast. A dose lowering technique was utilized adhering to the principles of ALARA. COMPARISON: None. FINDINGS: No fractures. No subluxation. Prevertebral soft tissues and the C1-C2 interval are intact. No pneumothorax. Severe disc space narrowing with endplate osteophytes at C5-C6 and C6-C7. There is straightening of the cervical spine. Moderate facet degenerative changes within the upper cervical spine. Mild central canal narrowing from C4 through C6. Posterior fusion defect at C1 considered to be a normal variant. IMPRESSION: 1. No fracture or subluxation within the cervical spine. 2. Degenerative changes as described above. ACT 112: Negative or not required by law. Electronically signed by: Aj Churchill M.D. 08/16/2022 9:[address] 08/16/22 08:[address] DOSE: HISTORY: Low back pain TECHNIQUE: Multiaxial CT images of the lumbar spine were performed and reformatted in the sagittal and coronal plane without the use of contrast. A dose lowering technique was utilized adhering to the principles of ALARA. COMPARISON: None. FINDINGS: No fracture or subluxation within the lumbar spine. There are severe disc space narrowing at L5-S1. The remaining disc spaces are preserved. Moderate facet degenerative changes within the lower lumbar spine. The visualized sacrum is intact. There is 1 cm hypodense lesion within the left kidney. This is incompletely characterized on this noncontrast study but statistically represents a cyst. Paravertebral soft tissues are unremarkable. Mild central canal narrowing at L4-5 due to a small broad-based posterior disc bulge and ligamentum flavum and facet hypertrophy. No high-grade central canal narrowing. IMPRESSION: 1. No fracture or subluxation within the lumbar spine. 2. Degenerative changes as described above. ACT 112: Negative or not required by law. Electronically signed by: Aj Churchill M.D. 08/16/2022 9:46 AM
[2022-08-16] MEDS: CYANOCOBALAMIN (B-12) 500 MCG TABLET PO SCH (13:41)
[2022-08-16] MEDS: OLMESARTAN MEDOXOMIL 40 MG TAB PO SCH (13:41)
[2022-08-16] MEDS: TERAZOSIN HCL 1 MG CAP PO SCH (13:41)
[2022-08-16] MEDS: ATORVASTATIN 20 MG TAB PO SCH (13:41)
[2022-08-17 05:55] LABS: Basophils # (auto) 0.01 K/uL (0-0.2); Basophils % (auto) 0.1 %; Eosinophils # (auto) 0.32 K/uL (0-0.50); Eosinophils % (auto) 2.8 %; Hematocrit (blood only) 33.5 % (40.1-51.0); Hemoglobin 10.3 g/dl (14.0-18.0); Immature Granulocytes # (auto) 0.04 K/uL (0.00-0.02); Immature Granulocytes % (auto) 0.3 %; Lymphocytes # (auto) 1.14 K/uL (1.2-3.4); Mean Corpuscular Hemoglobin 28.9 pg (25.0-34.0); Mean Corpuscular Hgb Conc 30.7 g/dL (32.0-36.0); Mean Corpuscular Volume 94.1 fL (80.0-100.0); Mean Platelet Volume 11.2 fL (9.4-12.4); Monocytes # (auto) 1.65 K/uL (0.24-0.82); Monocytes % (auto) 14.4 %; Neutrophils # (auto) 8.29 K/uL (1.4-6.5); Neutrophils % (auto) 72.4 %; Platelet Count 198 K/uL (130-400); RDW Coefficient of Variation 13.4 % (11.5-14.5); RDW Standard Deviation 46.4 fL (36.4-46.3); Red Blood Count 3.56 M/uL (4.63-6.08); White Blood Count 11.45 K/ul (4.8-10.8)
[2022-08-17 06:42] LABS: BUN Creatinine Ratio 18.5 (10-20); Calcium 8.5 mg/dl (8.5-10.1); Creatinine Clr Calc Pharmacy 50.4 ml/min; Est GFR (African American) 60.1 ml/min; Est GFR (Non-African American) 51.9 ml/min; Potassium 4.4 mmol/L (3.5-5.1)
--- NOTE | 2022-08-17 08:02 | Consultation ---
Date of Consultation August 17, 2022 Assessment & Plan (1) Cervicalgia: I have reviewed cervical and lumbar CT scans. He has modest findings of stenosis both cervical and lumbar imaging. He has axial neck and back pain only. No radicular component to this. There is no acute surgical indication. I would recommend following up with physical therapy upon discharge. Activity as tolerated. Should he develop upper or lower extremity radicular complaints would recommend more detailed testing in the form of an MRI. Otherwise we will sign off. Please do not hesitate to contact us if you have any further questions. History of Present Illness Reason for Consultation: Chronic neck and back pain Attending Physician: Christopher Narayan MD History of Present Illness This is a pleasant 77-year-old gentleman who presented to the emergency room with an acute TIA. We were asked to see him regarding chronic cervical and lumbar pain. He states the symptoms have been ongoing for several months. He has no upper or lower extremity pain, paresthesia, numbness or weakness. He is right-hand dominant. He states lately he has been out with a walker due to a left foot injury. He does not take anything for pain control at home. Nothing really exacerbates or alleviates it at home. He states last week he started physical therapy focusing on his cervical spine in [place]. Allergies Allergy/AdvReac Type Severity Reaction Status Date / Time No Known Allergies Allergy Unverified 08/15/22 17:59 Home Medications Medication Instructions Recorded Confirmed Type amlodipine 5 mg tablet 5 mg PO DAILY 08/15/22 08/15/22 History atenolol 50 mg tablet 50 mg PO DAILY 08/15/22 08/15/22 History atorvastatin 20 mg tablet 20 mg PO DAILY 08/15/22 08/15/22 History cyanocobalamin (vitamin B-12) 1,000 mcg PO DAILY 08/15/22 08/15/22 History 1,000 mcg tablet cyclobenzaprine 10 mg tablet 10 mg PO TID PRN Muscle Spasm 08/15/22 08/15/22 History esomeprazole magnesium 40 mg 40 mg PO DAILY 08/15/22 08/15/22 History capsule,delayed release olmesartan 40 mg tablet 40 mg PO DAILY 08/15/22 08/15/22 History sildenafil 100 mg tablet 100 mg PO UD PRN Erectile 08/15/22 08/15/22 History Dysfunction terazosin 2 mg capsule 2 mg PO DAILY 08/15/22 08/15/22 History Patient History Medical History Dyslipidemia Hypertension Family History Mother , age 82 with heart issues Heart disease Father , age 58 of diabetes complications Diabetes Social History Smoking Status: Never smoker Second Hand Exposure: No; Do You Dip or Chew Tobacco: No; Tobacco Cessation Education Requested by Patient: No Hx Alcohol Use: Yes (socially) Hx Substance Use: No Preferred Language: Brazilian Communication Ability: Effective Communication Ability Comment: wears reading glasses [employer] 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: No Beliefs That Will Affect Care: None marital status: Current Living Situation: Spouse Current Living Situation Comment: One story home with stairs to the basement and a few to get inside current occupational status: retired 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 Feels Safe at Home: Yes Safety Concerns: Feels Safe At This Time Assistive Devices: None Assistive Devices Comment: pt uses ankle brace Review of Systems Review of Systems: All systems reviewed & are unremarkable except as noted in HPI & below Physical Exam Physical Exam: He sitting on the edge of the bed in no acute distress Alert and oriented x3 He has 5/5 bilateral finger intrinsics , finger extensors, wrist flexors, wrist extensors, biceps, triceps, deltoid I am unable to elicit any upper motor neuron signs Negative Lhermitte's Negative Spurling He has decent range of motion with full flexion-extension side or side rotation of his neck which does not reproduce any significant pain No palpable step-offs upon palpation of the posterior cervical region Lower extremity strength is 5 5 bilateral EHL, dorsiflexion, plantarflexion, quadriceps, hamstring Negative tension signs bilateral No evidence of ankle clonus bilaterally Nontender to palpation to the midline lower lumbar region. Nontender over the sciatic notch region. Constitutional: WD/WN, vitals as above Eyes: normal visual pulido by confrontation ENMT: external ear and nose normal, oropharynx normal Neck: normal visual inspection Respiratory: normal respiratory effort Cardiovascular: Extremities: normal capillary refill Gastrointestinal (Abdomen): Inspection/Auscultation: abdomen normal to inspection Musculoskeletal: Spine: + loss of normal cervical lordosis Extremities: extremities normal to inspection and strength 5/5 throughout Skin: no rashes, warm and dry Neurologic: normal touch/pain/proprioception and moves all extremities Psychiatric: A+Ox3, euthymic affect Eye Contact: good eye contact Speech: normal rate/rhythm/volume of speech Results & Data ([facility]) Vital Signs (Past 12 Hours) Vital Signs Temp Pulse Pulse Resp BP Pulse Ox O2 Del Method 08/17/22 07:07 66 08/17/22 03:00 36.9 C 69 20 111/56 L 97 Room Air 08/16/22 22:20 66 08/16/22 23:05 37.2 C 66 20 126/69 96 Room Air Diagnostic Findings [place], [place] [phone] CT Scan Report Patient:CHLOE MANN Admit Date:08/15/22 MR#:[id number] Address1:[address] [place] [address] Acct ID:[id number] Address2: Date:1945 [facility] Zip:[place] [address] Age:77 Location:[facility] Sex:M Room/Bed:[facility] 1- Att Phy:Christopher Narayan MD Diagnosis:STROKE-LIKE SYMPTOMS Ashley Phy:PCP,NO Service Date:08/16/22 Fam Phy: Interpreting Phy:Aj Churchill MDAdmit Phy:Ap Solis MD Ordering Phy:Ap Solis MD cc: ~ LUMBAR SPINE CT CT DOSE: HISTORY: Low back pain TECHNIQUE: Multiaxial CT images of the lumbar spine were performed and reformatted in the sagittal and coronal plane without the use of contrast. A dose lowering technique was utilized adhering to the principles of ALARA. COMPARISON: None. FINDINGS: No fracture or subluxation within the lumbar spine. There are severe disc space narrowing at L5-S1. The remaining disc spaces are preserved. Moderate facet degenerative changes within the lower lumbar spine. The visualized sacrum is intact. There is 1 cm hypodense lesion within the left kidney. This is incompletely characterized on this noncontrast study but statistically represent s a cyst. Paravertebral soft tissues are unremarkable. Mild central canal narrowing at L4-5 due to a small broad-based posterior disc bulge and ligamentum flavum and facet hypertrophy. No high-grade central canal narrowing. IMPRESSION: 1. No fracture or subluxation within the lumbar spine. 2. Degenerative changes as described above. ACT 112: Negative or not required by law. Electronically signed by: Aj Churchill M.D. 08/16/2022 9:46 AM Dictated:08/16/2243 Transcribed: 08/16/22942 [place], [place] [phone] CT Scan Report Patient:CHLOE MANN Admit Date:08/15/22 MR#:[id number] Address1:[address] [facility] [address] [facility] Acct ID:[id number] Address2: Date:1945 [facility] Zip:[place] [id number] Age:77 Location:[facility] Sex:M Room/Bed:[facility] 1-10 Att Phy:Christopher Narayan MD Diagnosis:STROKE-LIKE SYMPTOMS Ashley Phy:PCP,NO Service Date:08/16/22 Fam Phy: Interpreting Phy:Aj Churchill MDAdmit Phy:Ap Solis MD Ordering Phy:Ap Solis MD cc: ~ CERVICAL SPINE CT CT DOSE: 963.73 mGy.cm HISTORY: neck pain TECHNIQUE: Multiaxial CT images of the cervical spine were performed and reformatted in the sagittal and coronal plane without the use of contrast. A dose lowering technique was utilized adhering to the principles of ALARA. COMPARISON: None. FINDINGS: No fractures. No subluxation. Prevertebral soft tissues and the C1-C2 interval are intact. No pneumothorax. Severe disc space narrowing with endplate osteophytes at C5-C6 and C6-C7. There is straightening of the cervical spine. Moderate facet degenerative changes within the upper cervical spine. Mild central canal narrowing from C4 through C6. Posterior fusion defect at C1 considered to be a normal variant. IMPRESSION: 1. No fracture or subluxation within the cervical spine. 2. Degenerative changes as described above. ACT 112: Negative or not required by law. Electronically signed by: Aj Churchill M.D. 08/16/2022 9:43 AM Dictated:08/16/2240 Transcribed: 08/16/2240
[2022-08-17] MEDS: amLODIPine BESYLATE 5 MG TAB PO SCH (08:20)
[2022-08-17] MEDS: ATENOLOL 50 MG TABLET PO SCH (08:20)
[2022-08-17] MEDS: CYANOCOBALAMIN (B-12) 500 MCG TABLET PO SCH (08:20)
[2022-08-17] MEDS: PANTOprazole 40 MG TAB PO SCH (08:20)
[2022-08-17] MEDS: OLMESARTAN MEDOXOMIL 40 MG TAB PO SCH (08:21)
[2022-08-17] MEDS: TERAZOSIN HCL 1 MG CAP PO SCH (08:21)
[2022-08-17] MEDS: ATORVASTATIN 20 MG TAB PO SCH (08:21)
[2022-08-17] MEDS ORDERED: ENOXAPARIN INJ 40 MG/0.4 ML SYR SQ SCH (09:00)
[2022-08-17] MEDS ORDERED: CLOPIDOGREL BISULFATE 75 MG TAB PO SCH (09:00)
[2022-08-17] MEDS ORDERED: STROKE PATIENT DISCHARGE STA (09:18)
--- NOTE | 2022-08-17 10:00 | Neurology Progress Note ---
Date of Service August 17, 2022 Assessment & Plan (1) Stroke-like symptoms: (2) Aseptic meningitis: Plan 77-year-old male presenting with recurrent strokelike symptoms localizing to the right cerebral hemisphere, now with brain MRI findings potentially suggestive of focal meningitis to the right cerebral hemisphere. It is interesting that patient relays a history of more significant subacute onset neck pain and stiffness about 1 month prior to symptom onset. He is afebrile and does not have a significant leukocytosis although I see that his white count is slightly elevated today. Nonetheless, no fever or headache and his neck stiffness is considerably improved compared to how it had been 1 month ago. I wonder if he has resolving viral/aseptic meningitis further complicated by 2 strokelike episodes. Would also consider focal sensorimotor seizures although clinical description of motor or sensory symptoms seems more consistent with TIA. At this point, given patient's clinical stability, lack of fever, lack of significant leukocytosis, lack of nuchal rigidity (neck stiffness significantly improved compared with 1 month ago), I do not think a lumbar puncture is immediately necessary. However, if patient were to develop progressive headache, neck stiffness and pain, fever, recurrent strokelike symptoms, would recommend further evaluation including probable lumbar puncture and EEG. I would not recommend starting an empiric trial of an anticonvulsant medication at this time. Patient may continue with clopidogrel and atorvastatin. I would recommend obtaining a follow-up brain MRI in 1 to 2 weeks to reassess for significant interval change. Patient may follow-up with either Dr. Mejia or myself in neurology clinic in 2 to 3 weeks. Admission and Anticipated Discharge Date Admission Date: August 15, 2022 Subjective Follow-up for MRI results, left-sided numbness and tingling The patient is a 77-year-old male who had presented to the emergency department on August 15 complaining of left upper extremity and left facial numbness and tingling with associated slurred speech, lasting about 15 minutes. He recalls having a similar episode about 1 week prior, lasting about 5 minutes. Approximately 1 month ago, he developed relatively acute neck pain and stiffness. Denies any fever, upper respiratory, or gastrointestinal illness. 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 Due to the prolonged wait time, however, the patient apparently left the [facility] emergency department and came to [facility] for further evaluation and management. He was seen by Dr. Mejia in neurological consultation yesterday regarding the brief episode of left face and arm numbness and tingling with associated dysarthria. [place] to potentially have a right hemispheric TIA or stroke. A brain MRI was pending at that time. Brain MRI results reviewed. There is evidence of subtle asymmetric cortical thickening/mild leptomeningeal enhancement involving the radha ority of the right cerebral hemisphere potentially concerning for right-sided meningoencephalitis. I did independently review the images and was able to appreciate these findings as described by the interpreting radiologist. Notably, the patient has been afebrile. He has not had a significant leukocytosis although his white blood cell count is very mildly elevated this morning. He currently denies headache and reports that his neck stiffness have been much worse about 1 month ago. An orthopedics consultation was obtained yesterday regarding patient's cervicalgia and CT cervical spine. No surgical process identified, however. An echocardiogram completed yesterday revealed an ejection fraction of 55 to 60%, mild aortic regurgitation, normal left atrial size, no interatrial shunt. Review of Systems Eyes: no blind spots and no diplopia Musculoskeletal: as per Subjective / HPI and + neck pain; no myalgia Neurologic: as per Subjective / HPI; no headache(s) Results & Data ([facility]) Vital Signs (Past 12 Hours) Vital Signs Temp Pulse Pulse Resp BP BP Pulse Ox 08/17/22 08:07 37.1 C 76 20 127/73 95 08/17/22 07:07 66 08/17/22 03:00 36.9 C 69 20 111/56 L 97 08/16/22 22:20 66 08/16/22 23:05 37.2 C 66 20 126/69 96 O2 Del Method 08/17/22 08:07 Room Air 08/17/22 07:07 08/17/22 03:00 Room Air 08/16/22 22:20 08/16/22 23:05 Room Air Laboratory Results WBC 11.45, hemoglobin 10.3, hematocrit 33.5, MCV 94.1, platelet count 198, sodiu m 134, potassium 4.4, BUN 24, creatinine 1.30, glucose 93, calcium 8.5, triglycerides 94, cholesterol 134, LDL 83, VLDL 19, HDL 32. SARS-CoV-2 testing negative. Diagnostic Findings Brain MRI results are as described above. CT of the cervical spine completed yesterday negative for fracture or subluxation. Endplate osteophytes at C5-6 and C6-7 noted with straightening of the cervical spine. Moderate facet degenerative changes within the upper cervical spine. Mild central canal narrowing from C4-C6. Posterior fusion defect at C1 noted, normal anatomic variant. CT of the lumbar spine completed yesterday negative for fracture or subluxation, severe disc base narrowing at L5-S1, moderate facet degenerative changes of the lower lumbar spine. Hypodense lesion within the left kidney. Probable cyst. Mild central canal narrowing at L4-5 due to a small broad-based posterior disc bulge and ligamentum flavum and facet hypertrophy, no high-grade central canal narrowing. Exam (Neuro) Neurologic: Oriented to:: Person, Place and Time Memory: Short Term Intact and Remote Intact Attention: Span Intact and Concentration Intact Speech Fluency: negative Dysarthria or Dysfluency Fund of Knowledge: Current Events, Past History and Vocabulary Cranial Nerves: Normal II, III, IV, , V, VII, VIII, IX, X, XI and XII Motor Strength: Normal Lower Extremities and Normal Upper Extremities Muscle Bulk/Involuntary Movements: No Involuntary Movements; negative Muscle Atrophy Sensation: Light Touch Intact and Pain/Temperature Intact Coordination: Normal; negative Finger-Nose Abnormal or Heel-Souza Abnormal Deep Tendon Reflexes: Rt Biceps: 2+, Lt Biceps: 2+, Rt Patellar: 2+ and Lt Patellar: 2+ Coding Level of Care Code 67937 Subseq Hosp Care Lvl 2 Diagnoses Stroke-like symptoms R29.90 Aseptic meningitis G03.0
--- NOTE | 2022-08-17 15:00 | Pharmacy Report ---
Pharmacist Stroke Counseling - Date of Service August 17, 2022 - Scope: Pharmacy has been consulted to provide medication discharge counseling for this patient admitted with [ischemic stroke] [hemorrhagic stroke] [transient ischemic attack] as per the Pharmacist Discharge Counseling for Stroke Patients Pr otocol. - Medications on Discharge: Home Medications Medication Instructions Recorded Confirmed amlodipine 5 mg tablet 5 mg PO DAILY 08/15/22 08/15/22 atenolol 50 mg tablet 50 mg PO DAILY 08/15/22 08/15/22 atorvastatin 20 mg tablet 20 mg PO DAILY 08/15/22 08/15/22 cyanocobalamin (vitamin B-12) 1,000 mcg PO DAILY 08/15/22 08/15/22 1,000 mcg tablet cyclobenzaprine 10 mg tablet 10 mg PO TID PRN Muscle Spasm 08/15/22 08/15/22 esomeprazole magnesium 40 mg 40 mg PO DAILY 08/15/22 08/15/22 capsule,delayed release olmesartan 40 mg tablet 40 mg PO DAILY 08/15/22 08/15/22 sildenafil 100 mg tablet 100 mg PO UD PRN Erectile 08/15/22 08/15/22 Dysfunction terazosin 2 mg capsule 2 mg PO DAILY 08/15/22 08/15/22 New Rx's Medication Instructions Recorded clopidogrel 75 mg tablet 75 mg PO QAM #30 tabs 08/17/22 - Action: The above medications, specifically ones for stroke treatment/prophylaxis, have been reviewed in detail with the patient and/or patient financial representative(s) prior to discharge. This includes indication, common adverse reactions, drug i nteractions, and medication administration. Medication counseling has been employed using the teach-back method to ensure understanding. - Outcome: The patient and/or patient financial representative(s) have demonstrated understanding of the medications. Additional comments: Spoke with patient about new medication, plavix on discharge. He is aware to monitor for any increase in bruising/bleeding. I reached out to provider about potential drug interaction with plavix/esomeprazole and potential for decrease effectiveness of plavix, but did not hear back with response. When counseling patient, I mentioned potential drug interaction with esomeprazole/plavix and recommended using protonix instead of esomeprazole. He wrote down the name of the medication (protonix) and will let his provider know at his next visit to discuss. No other pertinent positives on interview Thank you for allowing pharmacy to be involved in the care of this patient. Please call [phone] with any additional questions
--- NOTE | 2022-08-17 15:58 | Discharge Summary ---
Date of Service August 17, 2022 Admission HPI Per Admitting Provider A 77-year-old male with past medical history significant for hypertension, hyperlipidemia, GERD, presents with stroke-like symptoms. The patient says yesterday at 5:30 p.m., he had numbness on the left side of the face, left arm and hand and slurred speech, lasted for 15 minutes, started around 5:30 p.m. He was in [facility], he was there for 20 hours. 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 As it was getting too long before speaking to a physician, he came out of the hospital and he came here now. Since that episode, he is doing okay. No recurrence of systems. About a week ago, he had similar kind of systems, but milder, some numbness in the left face and the left hand that lasted for 5 minutes. The patient also complains of back pain, neck pain going on for several weeks, he has pain on movement of the neck. About a couple of weeks ago when he woke up, he could not walk because of pain in left ankle. He went to the [facility], had workup with MRI scan, everything looked good and nothing was found, and he is in a special boot, but it has not improved much. Denies any chest pain, no shortness of breath of breath. Once in a while, he gets cough, no difficulty swallowing. Appetite is okay. No dizziness, no blurred visions, no earache, no runny nose, no sore throat, no nausea, no abdomi nal pain. Normal bowel and bladder movements. Currently, resting comfortably and hemodynamically stable. Admission Exam Per Admitting Provider GENERAL: The patient is of moderate build, not in acute distress. VITAL SIGNS: Temperature 36.2, pulse 62, respiratory rate 18, blood pressure 138/87, oxygen 98% on room air. HEENT: Pupils equal, round and reactive to light. Extraocular muscles intact. Oral mucosa moist. NECK: No JVD. No neck masses. CARDIOVASCULAR: S1 and S2 heard. Regular rate and rhythm. No murmur, no gallop. RESPIRATORY SYSTEM: Normal AP diameter. No accessory muscle use. No wheezing, no crackles. ABDOMEN: Soft, bowel sounds present, nontender, no distention. CENTRAL NERVOUS SYSTEM: Alert and oriented. No facial droop. Speech is clear. Can raise his brows, close eyes. Power 5/5 in all extremities. Can raise and hold lower extremity for a few seconds. Coordination was normal. No pronator drift. [id number] test normal. Sensation is intact. EXTREMITIES: No edema, no erythema. Principal Diagnosis Transient ischemic attack Discharge Exam GENERAL: The patient is of moderate build, not in acute distress. HEENT: Pupils equal, round and reactive to light. Extraocular muscles intact. Oral mucosa moist. NECK: No JVD. No neck masses. CARDIOVASCULAR: S1 and S2 heard. Regular rate and rhythm. No murmur, no gallop. RESPIRATORY SYSTEM: Normal AP diameter. No accessory muscle use. No wheezing, no crackles. ABDOMEN: Soft, bowel sounds present, nontender, no distention. CENTRAL NERVOUS SYSTEM: Alert and oriented. No facial droop. Speech is clear. Cranial nerve II to XII intact. No focal deficit appreciated. EXTREMITIES: No edema, no erythema. Discharge Data Allergies Allergy/AdvReac Type Severity Reaction Status Date / Time No Known Allergies Allergy Unverified 08/15/22 17:59 Consultations 08/16/22 08:00 Consult Neurology Routine Consult Orthopedic Surgery Routine Ordered Studies 08/16/22 00:16 MR brain wo/w con Urgent 08/16/22 08:00 CT cervical spine wo con Routine CT lumbar spine wo con Routine Hospital Course (1) Stroke-like symptoms: (2) Hypertension: (3) Hyperlipidemia: Plan Patient is a 77-year-old male with past medical history of hypertension, hyperlipidemia, GERD presented to the ED after episode of left facial numbness, upper extremity weakness and dysarthria which lasted for 15 minutes a day prior to the admission. He had similar episode 1 week ago for 5 minutes. He had initially presented to [place]; CTA head and neck was done which was unremarkable except for stenosis of the P1 segment of the left posterior cerebral artery. Admitted to the hospital for full stroke work-up. MRI brain was done which did not show any acute stroke or hemorrhage. "Subtle asymmetric cortical thickening with increased T2 signal and mild leptomeningeal enhancement involving the majority of the right cerebral hemisphere" was reported in the MRI brain. Neurology was consulted. The findings and the MRI brain are nonspecific; patient was recommended to undergo follow-up brain MRI in 1 to 2 weeks to reassess for significant interval change. Patient was started on Plavix for prevention of future TIA events. CT cervical and lumbar spine was done; no acute changes were noted. Transthoracic echo showed ejection fraction of 55 to 60%; no intra-atrial shunt was present. Patient was discharged home with instruction to follow-up with PCP and neurology. Patient was recommended to undergo MRI brain in 1 to 2 weeks after follow-up with the PCP. The instructions were communicated to the patient's and daughter who verbalized understanding. Total Time Total Time Spent Total Time Spent (In Minutes): 35 Total Time Includes: Examination of the Patient, Discharge Planning, Medication Reconciliation, Communication With Other Providers and Other Discharge Plan Discharge Items Patient Disposition: Home - Self-Care Reason For Visit: STROKE-LIKE SYMPTOMS Discharge Diagnosis: Transient Ischemic Attack Activity: Resume your previous activity Non-emergency contact: Primary Care Provider Call non-emergency contact if: you have any medication questions Follow-up/Referrals: PCP,NO [Primary Care Provider] - Diet: Regular Addtl Attending Provider Instructions: You were admitted to the hospital with strokelike symptoms. MRI brain did not show any stroke. There was a subtle asymmetrical cortical thickening with increased T2 signal and mild leptomeningeal enhancement involving majority of the right cerebral hemisphere. This finding is nonspecific as per the discussion with neurology and radiology. Please follow-up with your primary care doctor and get a repeat MRI brain in 1 to 2 weeks. You are also started on Plavix 75 mg once daily to prevent future events such like this. Please continue to take your other medication as prescribed. Pending Studies at Discharge: No Stand-Alone Forms: [facility] Sm[facility] Cess[facility] Medications and DC Order Prescriptions: New clopidogrel 75 mg Tablet 75 mg PO QAM Qty: 30 0RF Continued cyclobenzaprine 10 mg tablet 10 mg PO TID PRN (Reason: Muscle Spasm) atorvastatin 20 mg tablet 20 mg PO DAILY terazosin 2 mg capsule 2 mg PO DAILY esomeprazole magnesium 40 mg capsule,delayed release(DR/EC) 40 mg PO DAILY atenolol 50 mg tablet 50 mg PO DAILY olmesartan 40 mg tablet 40 mg PO DAILY cyanocobalamin (vitamin B-12) 1,000 mcg Tablet 1,000 mcg PO DAILY amlodipine 5 mg tablet 5 mg PO DAILY sildenafil 100 mg tablet 100 mg PO UD PRN (Reason: Erectile Dysfunction) Rx Instructions: take 1 hour prior to intercourse Discharge Orders: Discharge Order (Routine); Ordered 08/17/22 Ordered By: Christopher Narayan Admission Data Admit Date/Time: 08/15/22 21:26 Attending Provider: Christopher Narayan Admit Provider: Ap Solis Primary Care Provider: PCP,NO Other Providers: Jaspal Fonseca ; Moody Mejia ; Sumaya Soriano ; Nilsa Knight ; Ari Soto Kathleen ; Marcus Guardado ; Nedra Tate ; Demetri Le ; Natalia Lewis ; Vannesa Jasmine ; Ammon Castro Other Interventions: Discharge Summary Assessment (RN) Last Done: 08/17/22 12:01
--- NOTE | 2022-09-22 10:35 | Clinical Documentation Query ---
CODING QUERY To promote full compliance with coding requirements relating to patient care, provider participation is requested in all cases of ampoule filler uncertainty. Please assist us with the question(s) below: Coding Question(s): CAN YOU VERIFY IF THIS PATIENT HAD A TIA OR NOT? Physician's Response(s): Thank you Nehal Ivy Principal Diagnosis: "that condition established after study, to be chiefly responsible for occasioning the admission of the patient to the hospital for care." Co-Existing Principal Diagnosis: "when two or more diagnoses equally meet the criteria for principal diagnosis as determined by the circumstances of admission, diagnostic work up, and/or therapy provided, and the Alphabetic Index, Tabular List, or another coding guideline does not provide sequencing direction, any one of the diagnoses may be sequenced first." "When the physician has documented what appears to be a current diagnosis in the body of the record, but has not included the diagnosis in the final diagnostic statement, the physician should be asked whether the diagnosis should be added." (Source [facility]oding [facility] 2 QTR90. p3-4) REBEKAH
--- NOTE | 2022-09-25 09:32 | Coding Query ---
CODING QUERY To promote full compliance with coding requirements relating to patient care, provider participation is requested in all cases of clerk to justice uncertainty. Please assist us with the question(s) below: Coding Question(s): CAN YOU VERIFY IF THIS PATIENT HAD A TIA? Physician's Response(s): Possible TIA Thank you Nehal Ivy Principal Diagnosis: "that condition established after study, to be chiefly responsible for occasioning the admission of the patient to the hospital for care." Co-Existing Principal Diagnosis: "when two or more diagnoses equally meet the criteria for principal diagnosis as determined by the circumstances of admission, diagnostic work up, and/or therapy provided, and the Alphabetic Index, Tabular List, or another coding guideline does not provide sequencing direction, any one of the diagnoses may be sequenced first." "When the physician has documented what appears to be a current diagnosis in the body of the record, but has not included the diagnosis in the final diagnostic statement, the physician should be asked whether the diagnosis should be added." (Source [facility]oding [facility] 2 QTR90. p3-4) REBEKAH
== END 2022-08-17 12:41 | disposition home or self-care (01) ==
LOC: ED 14:15 → EDINP 21:26 → INTOOBSV 21:26 → 2N 08-16 00:14
DX: E78.5 Hyperlipidemia, unspecified; R29.90 Unspecified symptoms and signs involving the nervous system; R47.1 Dysarthria and anarthria; I10 Essential (primary) hypertension; R20.0 Anesthesia of skin; Z79.899 Other long term (current) drug therapy

== ENCOUNTER 2023-08-01 11:16 | Observation (INO) ==
[2023-08-01 12:05] LABS: Hematocrit (blood only) 36.4 % (42.0-52.0); Hemoglobin 11.3 g/dl (14.0-18.0); Mean Corpuscular Hemoglobin 30.4 pg (25.0-34.0); Mean Corpuscular Volume 97.8 fL (80.0-100.0); Mean Platelet Volume 12.3 fL (9.4-12.4); Platelet Count 208 K/uL (130-400); RDW Coefficient of Variation 13.6 % (11.5-14.5); RDW Standard Deviation 49.2 fL (36.4-46.3); Red Blood Count 3.72 M/uL (4.70-6.10); White Blood Count 25.06 K/ul (4.8-10.8)
[2023-08-01 12:11] LABS: Albumin Globulin Ratio 1.8 (0.9-2); Albumin Level 4.3 gm/dl (3.4-5.0); Bilirubin,Total 0.6 mg/dl (0.2-1.0); Calcium 8.9 mg/dl (8.6-10.3); Creatinine Clr Calc Pharmacy 39.8 ml/min; Est GFR (African American) 47.2 ml/min; Est GFR (Non-African American) 40.7 ml/min; Globulin 2.4 gm/dl (2.5-4.0); Magnesium 1.8 mg/dl (1.7-2.4); Total Protein 6.7 gm/dl (6.0-8.3)
--- NOTE | 2023-08-01 12:13 | XRay Report ---
XR chest 1V portable CLINICAL HISTORY: syncope TECHNIQUE: Single frontal radiograph of the chest was obtained. Comparison: None available at the time of this dictation. FINDINGS: A loop recorder is seen. The cardiomediastinal silhouette is normal. The lungs are clear. No evidence of pleural effusion or pneumothorax. IMPRESSION: No acute chest disease. ACT 112: Negative or not required by law. Electronically signed by: Fitz Potts M.D. 08/01/2023 12:10 PM
[2023-08-01 12:18] LABS: Troponin I High Sensitivity 3.9 pg/ml (0-20)
[2023-08-01 12:22] LABS: Basophils # (auto) 0.06 K/uL (0.00-0.20); Basophils % (auto) 0.2 %; Echinocytes 2+; Eosinophils # (auto) 0.55 K/uL (0.00-0.50); Eosinophils % (auto) 2.2 %; Immature Granulocytes # (auto) 0.64 K/uL (0.01-0.20); Immature Granulocytes % (auto) 2.6 %; Lymphocytes # (auto) 1.09 K/uL (1.20-3.40); Lymphocytes % (auto) 4.3 %; Monocytes # (auto) 4.15 K/uL (0.11-0.59); Monocytes % (auto) 16.6 %; Neutrophils # (auto) 18.57 K/uL (1.40-6.50); Neutrophils % (auto) 74.1 %
[2023-08-01 12:27] LABS: Thyroid Stimulating Hormone 7.205 uIu/ml (0.300-4.500)
[2023-08-01] MEDS ORDERED: SODIUM CHLORIDE 0.9% 1,000 ML IV ONE (12:34)
[2023-08-01 13:02] LABS: T4 Free Thyroxine 0.95 ng/dl (0.61-1.60)
[2023-08-01] MEDS ORDERED: ACETAMINOPHEN 325 MG TAB PO PRN (14:01)
[2023-08-01] MEDS ORDERED: ALUMINUM/MAGNESIUM SUSP 30 ML UDC PO PRN (14:01)
[2023-08-01] MEDS ORDERED: MAGNESIUM HYDROXIDE SUSP 30 ML UDC PO PRN (14:01)
[2023-08-01] MEDS ORDERED: ONDANSETRON INJ 2 MG/ML 2 ML VIAL IV PRN (14:01)
[2023-08-01] MEDS ORDERED: POLYETHYLENE (MIRALAX) 17 GM PACK PO PRN (14:01)
[2023-08-01] MEDS: SODIUM CHLORIDE 0.9% 1,000 ML IV SCH (14:02)
--- NOTE | 2023-08-01 14:16 | History & Physical Report ---
Date of Service August 01, 2023 Assessment & Plan (1) Syncope: (2) Hypertension: (3) QI (acute kidney injury): (4) Hyperlipidemia: (5) GERD (gastroesophageal reflux disease): (6) BPH (benign prostatic hyperplasia): Plan 78 year old with syncopal episode with eyes rolling back into his head while tailgating. Incidental finding leukocytosis: 25.06; will check blood and urine cultures - does not appear toxic at this time. Repeat ECHO; Neuro consult. Hold nephrotoxic medications. Suspect patient had a syncopal episode in the setting of QI and leukocytosis. Will provide fluids, obtain ECHO, blood and urine cultures, procalcitonin, Neuro consult per admitting physician. Syncope: acute uncontrolled Orthostatic BP done in ED and HR remains normal with minimal BP change CN II-XII grossly intact; has returned to baseline mental status ECHO ordered CXR negative Neurology consultation ordered due to repeat episode and eyes rolling back in head Check Vitamin B12 Leukocytosis: Acute uncontrolled appears non toxic; euvolemic and normal BP leukocytosis: 25.06; blood and urine cultures ordered Blood and urine cultures ordered; based on results consider abx. Procalcitonin ordered CXR negative QI: acute uncontrolled Creatinine: 1.58; baseline 1.05-1.09 Suspect related to dehydration 1 LNSB given in ED Continue IV fluids until 08/02 @ 75mL/hour x 2 bags; reassess in AM BMP in AM Hold nephrotoxic agents HTN: Chronic stable Takes Olmesartan, Amlodipine and Atenolol Continue Amlodipine and Atenolol Hold Olmesartan as nephrotoxic HLD: Chronic stable Takes Atorvastatin;continue fasting lipid panel in AM H/O TIA: chronic stable 07/2022: Head/Neck CTA negative at that time 07/2022: MRI without stroke, midline shift or ICH; left cerebella artery stenosis noted Follows with Neurology via telemedicine; last appt 06/11/23 Takes Plavix;continue BPH: chronic stable takes Terazosin; continue GERD: Chronic stable Takes Nexium;continue Muscle spasms: Takes Methocarbamol; hold as possibly nephrotoxic Disposition: PCP; Dr. Mello Code status: Full Code VTE Prophylaxis: Lovenox SQ I spent a total of 87 minutes coordinating, documenting, and providing care for this patient excluding time spent in the performance of separately billed services. All of the aforementioned completed while collaborating with the assigned attending physician for a full treatment plan. Please see their addendum for further details. History of Present Illness Chief Complaint: syncope Primary Care Provider: Mihir Mello Mr. Dias is an 78 year old male that presents to the ED via EMS from [facility]. 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 He reports that he was standing around and thought he wanted to go to the restroom. He didnt feel that he was able to get to the bathroom in time, and felt lightheaded and hot, but not sweating. Denies dizziness, thought his eyes rolled back into his head. He did have urinary incontinence. reports LOC x a few seconds. Did not sustain any injuries. and son lowered him to the ground. Similar episode has happened before and follows with Dr. Mejia for follow up for this. Denies any symptoms leading up to this event. No history of known seizures. Drank coffee this morning, no alcohol use. Does take beta-blockers; did not take his medications this morning. Leukocytosis WBC 25.06, non-toxic appearing. Creatinine 1.58, baseline 1.02 Otherwise, labs unremarkable with negative troponin. Denies tobacco, alcohol or illicit drug use. Last ECHO was 07/2022: EF 55-60%, mild AR, trace TR. Previous inpatient hospitalization for stroke like symptoms in 07/2022 in [place]. Head/Neck CTA negative. MRI negative at that time outside of left cerebellar artery stenosis. Follows with [facility] Neurology via telehealth; last appointment 06/11/23. Additional PMH includes: HTN, HLD, hypothyroidism, TIA, and BPH. Denies fevers, cough, CP, palpitations, dizziness, SOB, abdominal pain or tenderness, urine or bowel changes, other recent falls or trauma. Follows with Dr. Mello with [facility] PCP. Confirmed patient is a Full Code. CN II-XII grossly intact without slurred speech or facial droop. Appears patient has returned to baseline functional status. Suspect patient had a syncopal episode in the setting of QI and leukocytosis. Will provide fluid resuscitation, obtain ECHO, blood, urine and procalcitonin. Patient will be admitted for further evaluation and management. Please see A/P for further details. Allergies Allergy/AdvReac Type Severity Reaction Status Date / Time No Known Allergies Allergy Verified 06/11/23 10:13 Home Medications Medication Instructions Recorded Confirmed Type amlodipine 5 mg tablet 5 mg PO QAM 08/15/22 08/01/23 History atenolol 50 mg tablet (Tenormin) 25 mg PO QAM 08/15/22 08/01/23 History cyanocobalamin (vitamin B-12) 1,000 mcg PO DAILY 08/15/22 08/01/23 History 1,000 mcg tablet esomeprazole magnesium 40 mg 40 mg PO QAM 08/15/22 08/01/23 History capsule,delayed release (Nexium) olmesartan 40 mg tablet (Benicar) 40 mg PO QAM 08/15/22 08/01/23 History sildenafil 100 mg tablet 100 mg PO UD PRN Erectile 08/15/22 08/01/23 History Dysfunction terazosin 2 mg capsule 2 mg PO QPM 08/15/22 08/01/23 History atorvastatin 20 mg tablet 40 mg PO QAM 06/11/23 08/01/23 History methocarbamol 750 mg tablet 750 mg PO BID #180 tabs 06/11/23 08/01/23 Rx magnesium oxide 400 mg PO BID 90 days #180 tabs 07/16/23 08/01/23 Rx clopidogrel 75 mg tablet (Plavix) 75 mg PO QAM 08/01/23 08/01/23 History levothyroxine 50 mcg tablet 50 mcg PO QAM 08/01/23 08/01/23 History (Synthroid) Past Med/Surg History Medical History (Updated 08/01/23 @ 14:32 by KALLIE Morel) QI (acute kidney injury) BPH (benign prostatic hyperplasia) Cervicalgia Dysarthria Dyslipidemia GERD (gastroesophageal reflux disease) Hypertension Syncope Surgical History (Updated 08/01/23 @ 14:09 by KALLIE Morel) No pertinent past surgical history Family History Mother , age 82 with heart issues Heart disease Father , age 58 of diabetes complications Diabetes Social History Smoking Status: Never smoker Second Hand Exposure: No; Do You Dip or Chew Tobacco: No; Hx Alcohol Use: Yes (socially) Hx Substance Use: No Preferred Language: Yoruba Communication Ability: Effective Communication Ability Comment: wears reading glasses Die Set Up Worker Required: No Beliefs That Will Affect Care: None marital status: Current Living Situation: Spouse Current Living Situation Comment: One story home with stairs to the basement and a few to get inside current occupational status: retired 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 Mcdaniels's addendum for PE Results & Data Results & Data Vital Signs (Past 12 Hours) Vital Signs Temp Pulse Resp BP Pulse Ox O2 Del Method 08/01/23 13:30 99 08/01/23 13:30 122/61 08/01/23 13:00 100 08/01/23 13:00 122/65 08/01/23 12:41 126/70 08/01/23 12:41 99 08/01/23 12:39 66 98 08/01/23 12:39 121/47 L 08/01/23 12:36 109/44 L 08/01/23 12:36 62 18 99 08/01/23 12:30 62 18 100 08/01/23 12:30 113/57 L 08/01/23 12:00 56 L 13 99 08/01/23 12:00 109/53 L 08/01/23 11:30 59 L 18 97 08/01/23 11:30 115/60 08/01/23 11:21 62 13 97 08/01/23 11:21 114/55 L 08/01/23 11:43 Room Air 08/01/23 11:38 59 L 08/01/23 11:27 Room Air 08/01/23 11:27 36.7 C 62 18 114/55 L 98 Room Air Laboratory Results Short CBC 08/01/23 Range/Units 11:25 WBC 25.06 H (4.8-10.8) K/ul Hgb 11.3 L (14.0-18.0) g/dl Hct 36.4 L (42.0-52.0) % Plt Count 208 (130-400) K/uL BMP 08/01/23 11:25 Sodium 136 Potassium 4.0 Chloride 108 H Carbon Dioxide 19 L BUN 30 H Creatinine 1.58 H Glucose 172 H Calcium 8.9 Liver Function 08/01/23 Range/Units 11:25 Total Bilirubin 0.6 (0.2-1.0) mg/dl AST 25 (13-39) U/L ALT 16 (7-52) U/L Alkaline Phosphatase 70 (34-104) U/L Albumin 4.3 (3.4-5.0) gm/dl Diagnostic Findings Chest X-Ray 08/01/23 11:43 XR chest 1V portable CLINICAL HISTORY: syncope TECHNIQUE: Single frontal radiograph of the chest was obtained. Comparison: None available at the time of this dictation. FINDINGS: A loop recorder is seen. The cardiomediastinal silhouette is normal. The lungs are clear. No evidence of pleural effusion or pneumothorax. IMPRESSION: No acute chest disease. ACT 112: Negative or not required by law. Electronically signed by: Fitz Potts M.D. 08/01/2023 12:10 PM Code Status & VTE Plan Code Status Full Code in the event of cardiac or respiratory arrest VTE Prophylaxis Plan VTE Prophylaxis will be ordered: Yes Supervising Physician Co-Signing Physician Notes 78-year-old gentleman with history stroke, HTN, HLD, BPH, GERD presented today with complaint of syncopal event. Patient was out in the sun at [facility], [facility], standing for couple of hours, as he moved to go to the restroom he felt lightheaded and fell down. His was able to lower him down. His noted rolling of both eyes upwards and urinary incontinence along w/ LOC for few seconds. No abnormal limb movements or bowel incontinence. No warmth/nausea/dry heaves prior to fall per pt. Didn't hit head. He follows with neurology, will consult neurology. Labs fairly unremarkable except for elevated creatinine and chronic elevation in leukocytes. We will continue with IV fluid. Labs in AM. Continue telemetry monitoring, neurology consult, orthostatic vitals, echo. Patient has history of leukocytosis which patient is aware of, will get procalcitonin, no signs and symptoms of infection upon history and exam. Follow-up blood and urine culture. CXR at admission negative. Monitor off antibiotic for now. Acute kidney injury, continue with IV fluids. On exam: GENERAL: Alert and oriented x3. NAD, on RA. HEENT: No pallor, no icterus. Pupils equal, round and reactive to light. Oral mucosa moist. NECK: No JVD, no neck masses. HEART: S1 and S2 heard. Regular rate and rhythm. No murmur, no gallop. RESPIRATORY SYSTEM: Normal AP diameter. No accessory muscle use. No wheezing, no crackles. ABDOMEN: Soft, bowel sounds present, nontender, no distention. CENTRAL NERVOUS SYSTEM: No facial droop. Speech is clear. Obeys simple commands. Moves extremities. EXTREMITIES: No edema, no erythema seen. I have seen and examined the patient and have discussed the case with the provider above. I agree with the assessment and plan as stated.
[2023-08-01] MEDS ORDERED: CLOPIDOGREL BISULFATE 75 MG TAB PO STA (14:53)
[2023-08-01] MEDS ORDERED: ATORVASTATIN 40 MG TAB PO STA (14:53)
[2023-08-01] MEDS ORDERED: amLODIPine BESYLATE 5 MG TAB PO STA (15:04)
[2023-08-01] MEDS ORDERED: ATENOLOL 25 MG TABLET PO STA (15:05)
[2023-08-01 15:11] LABS: Appearance Urine Clear (Clear); Bacteria Urine Automated Negative (Negative); Bilirubin Urine Negative (Negative); Blood Urine Negative (Negative); Color Urine Yellow; Epithelial Cell Urine Auto 0-5 /lpf (0-5); Glucose Urine UA Negative (Negative); Ketones Urine Negative (Negative); Leukocyte Esterase Urine Negative (Negative); Nitrite Urine Negative (Negative); Protein Urine Trace (Negative); RBC Urine Automated 0-4 /hpf (0-4); Urobilinogen Urine Negative (Negative); pH Urine 5.5 (4.5-7.5)
--- NOTE | 2023-08-01 16:16 | Emergency Department Note ---
Impression & Plan Syncope, Leukocytosis ED Provider Note CHIEF COMPLAINT: Syncope HISTORY OF PRESENT ILLNESS: This 78-year-old male patient with past medical history of hypertension, TIA, hyperlipidemia, aseptic meningitis, hypomagnesemia, and syncope presents to the emergency department after a syncopal event [place] the football field. The patient was cooking sandwiches on a grill in the sun per his . He began to feel syncopal and she was able to catch him. He did not injure himself and was sat in a chair. He states he may have briefly lost consciousness but it was not for long. He denied any chest pain or palpitations prior to the event. He denies any recent illnesses, vomiting or diarrhea. He states his primary care physician is in [place], he does follow with [facility] neurology REVIEW OF SYSTEMS: A review of systems was performed with positives and pertinent negatives listed in the history of present illness. 10 systems were reviewed and are otherwise negative. ALLERGIES: see below MEDICATIONS: see below PMH: see below SOCIAL HISTORY: see below DDx: Vasovagal event, dehydration, infection, hypoglycemia, electrolyte abnormalities, cardiac sources, pulmonary embolism, as well as other pathologies. PHYSICAL EXAM: Vital signs reviewed. General: Well-appearing 78-year-old male, in no significant distress. HEENT: No scleral icterus, PERRLA, neck supple. Moist mucous membranes Cardiovascular: Regular rate and rhythm, no extra sounds. Pulmonary: Clear to auscultation bilaterally, normal work of breathing. Abdomen: Soft, nontender, nondistended, positive bowel sounds. Musculoskeletal: Atraumatic, no peripheral edema. Neurologic: Patient awake alert and oriented x 3, speech is clear. Cranial nerves II through XII are grossly intact. Moves all extremities equally Skin: Warm, dry, no rash EMERGENCY DEPARTMENT COURSE/MDM: This patient was evaluated and appeared to be in no significant distress. IV access was obtained and laboratory work was drawn. Patient's external medical records were reviewed. Patient was placed on the cardiac tech and noted to be in a normal sinus rhythm. EKG reveals no evidence of acute ischemia. Head CT was performed with CT angiograms and reveals no evidence of stenosis or occlusion. There is no evidence of acute i ntracranial hemorrhage or sign of stroke. Patient's laboratory work reveals a marked leukocytosis of 25. He is a bit prerenal with an elevated BUN and creatinine. Troponin is normal. After several hours in the emergency department, patient's noted that he had a loop recorder in place. This information was passed to the hospitalist service after discussion for admission due to the patient's recurrent syncopal episodes and leukocytosis. Patient was made aware of the plan and agreed. MONITORING: An order for cardiac monitoring was placed and the patient is noted to be in a normal sinus rhythm at 62 beats per minute. RADIOLOGY: Chest x-ray to my interpretation reveals no evidence of acute focal lung consolidation or failure. Otherwise defer to radiology EKG: To my interpretation reveals a normal sinus rhythm at 60 bpm. Left axis deviation. QTc is 422. When compared to previous dated August 15, 2022, criteria for septal infarct are no longer present DISPOSITION: Admission Past Med/Surg History Medical History QI (acute kidney injury) BPH (benign prostatic hyperplasia) Cervicalgia Dysarthria Dyslipidemia GERD (gastroesophageal reflux disease) Hypertension Syncope Surgical History No pertinent past surgical history Family History Mother , age 82 with heart issues Heart disease Father , age 58 of diabetes complications Diabetes Social History Smoking Status: Never smoker Second Hand Exposure: No; Do You Dip or Chew Tobacco: No; Hx Alcohol Use: Yes (socially) Alcohol type: beer Hx Substance Use: No Preferred Language: Czech Communication Ability: Effective Communication Ability Comment: wears reading glasses Photographic Spotter Required: No Beliefs That Will Affect Care: None marital status: Current Living Situation: Spouse Current Living Situation Comment: One story home with stairs to the basement and a few to get inside current occupational status: retired 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 Feels Safe at Home: Yes Assistive Devices: Glasses Allergies Allergies Allergy/AdvReac Type Severity Reaction Status Date / Time No Known Allergies Allergy Verified 06/11/23 10:13 Home Meds Home Medications Medication Instructions Recorded Confirmed amlodipine 5 mg tablet 5 mg PO QAM 08/15/22 08/01/23 atenolol 50 mg tablet (Tenormin) 25 mg PO QAM 08/15/22 08/01/23 cyanocobalamin (vitamin B-12) 1,000 mcg PO DAILY 08/15/22 08/01/23 1,000 mcg tablet esomeprazole magnesium 40 mg 40 mg PO QAM 08/15/22 08/01/23 capsule,delayed release (Nexium) olmesartan 40 mg tablet (Benicar) 40 mg PO QAM 08/15/22 08/01/23 sildenafil 100 mg tablet 100 mg PO UD PRN Erectile 08/15/22 08/01/23 Dysfunction terazosin 2 mg capsule 2 mg PO QPM 08/15/22 08/01/23 atorvastatin 20 mg tablet 40 mg PO QAM 06/11/23 08/01/23 clopidogrel 75 mg tablet (Plavix) 75 mg PO QAM 08/01/23 08/01/23 levothyroxine 50 mcg tablet 50 mcg PO QAM 08/01/23 08/01/23 (Synthroid) Previous Rx's Medication Instructions Recorded methocarbamol 750 mg tablet 750 mg PO BID #180 tabs 06/11/23 magnesium oxide 400 mg PO BID 90 days #180 tabs 07/16/23 Results & Data (ED) Vital Signs Vital Signs - 24 hr 08/01/23 11:27 08/01/23 11:27 08/01/23 11:27 Temperature 36.7 C Temperature Source Oral Oral Pulse Rate - Lying Pulse Rate - Sitting Pulse Rate - Standing Pulse Rate 62 Pulse Rate from SpO2 Sensor Respiratory Rate 18 Respiratory Effort / Characteristics Non-Labored Respiratory Depth Normal Blood Pressure - Lying Blood Pressure - Sitting Blood Pressure- Standing Blood Pressure 114/55 L Blood Pressure Mean 74 Blood Pressure Position Sitting Pulse Oximetry 98 Oxygen Delivery Method Room Air Room Air Sepsis Recent Fever Within 48 Hours No Sepsis New/Unexplained Change in Mental Status No Sepsis Action Taken by Nursing No Action Required 08/01/23 11:38 08/01/23 11:43 08/01/23 12:27 Temperature Temperature Source Pulse Rate - Lying 60 Pulse Rate - Sitting 66 Pulse Rate - Standing 66 Pulse Rate 59 L Pulse Rate from SpO2 Sensor Respiratory Rate Respiratory Effort / Characteristics Respiratory Depth Blood Pressure - Lying 109/44 L Blood Pressure - Sitting 121/47 L Blood Pressure- Standing 126/70 Blood Pressure Blood Pressure Mean Blood Pressure Position Pulse Oximetry Oxygen Delivery Method Room Air Sepsis Recent Fever Within 48 Hours Sepsis New/Unexplained Change in Mental Status Sepsis Action Taken by Nursing 08/01/23 11:21 08/01/23 11:21 08/01/23 11:30 Temperature Temperature Source Pulse Rate - Lying Pulse Rate - Sitting Pulse Rate - Standing Pulse Rate 62 Pulse Rate from SpO2 Sensor 62 Respiratory Rate 13 Respiratory Effort / Characteristics Respiratory Depth Blood Pressure - Lying Blood Pressure - Sitting Blood Pressure- Standing Blood Pressure 114/55 L 115/60 Blood Pressure Mean 90 82 Blood Pressure Position Pulse Oximetry 97 Oxygen Delivery Method Sepsis Recent Fever Within 48 Hours Sepsis New/Unexplained Change in Mental Status Sepsis Action Taken by Nursing 08/01/23 11:30 08/01/23 12:00 08/01/23 12:00 Temperature Temperature Source Pulse Rate - Lying Pulse Rate - Sitting Pulse Rate - Standing Pulse Rate 59 L 56 L Pulse Rate from SpO2 Sensor 52 L 56 L Respiratory Rate 18 13 Respiratory Effort / Characteristics Respiratory Depth Blood Pressure - Lying Blood Pressure - Sitting Blood Pressure- Standing Blood Pressure 109/53 L Blood Pressure Mean 69 Blood Pressure Position Pulse Oximetry 97 99 Oxygen Delivery Method Sepsis Recent Fever Within 48 Hours Sepsis New/Unexplained Change in Mental Status Sepsis Action Taken by Nursing 08/01/23 12:30 08/01/23 12:30 08/01/23 12:36 Temperature Temperature Source Pulse Rate - Lying Pulse Rate - Sitting Pulse Rate - Standing Pulse Rate 62 62 Pulse Rate from SpO2 Sensor 59 L 61 Respiratory Rate 18 18 Respiratory Effort / Characteristics Respiratory Depth Blood Pressure - Lying Blood Pressure - Sitting Blood Pressure- Standing Blood Pressure 113/57 L Blood Pressure Mean 74 Blood Pressure Position Pulse Oximetry 100 99 Oxygen Delivery Method Sepsis Recent Fever Within 48 Hours Sepsis New/Unexplained Change in Mental Status Sepsis Action Taken by Nursing 08/01/23 12:36 08/01/23 12:39 08/01/23 12:39 Temperature Temperature Source Pulse Rate - Lying Pulse Rate - Sitting Pulse Rate - Standing Pulse Rate 66 Pulse Rate from SpO2 Sensor 66 Respiratory Rate Respiratory Effort / Characteristics Respiratory Depth Blood Pressure - Lying Blood Pressure - Sitting Blood Pressure- Standing Blood Pressure 109/44 L 121/47 L Blood Pressure Mean 53 71 Blood Pressure Position Pulse Oximetry 98 Oxygen Delivery Method Sepsis Recent Fever Within 48 Hours Sepsis New/Unexplained Change in Mental Status Sepsis Action Taken by Nursing 08/01/23 12:41 08/01/23 12:41 08/01/23 13:00 Temperature Temperature Source Pulse Rate - Lying Pulse Rate - Sitting Pulse Rate - Standing Pulse Rate Pulse Rate from SpO2 Sensor 72 Respiratory Rate Respiratory Effort / Characteristics Respiratory Depth Blood Pressure - Lying Blood Pressure - Sitting Blood Pressure- Standing Blood Pressure 126/70 122/65 Blood Pressure Mean 82 73 Blood Pressure Position Pulse Oximetry 99 Oxygen Delivery Method Sepsis Recent Fever Within 48 Hours Sepsis New/Unexplained Change in Mental Status Sepsis Action Taken by Nursing 08/01/23 13:00 08/01/23 13:30 08/01/23 13:30 Temperature Temperature Source Pulse Rate - Lying Pulse Rate - Sitting Pulse Rate - Standing Pulse Rate Pulse Rate from SpO2 Sensor 62 61 Respiratory Rate Respiratory Effort / Characteristics Respiratory Depth Blood Pressure - Lying Blood Pressure - Sitting Blood Pressure- Standing Blood Pressure 122/61 Blood Pressure Mean 95 Blood Pressure Position Pulse Oximetry 100 99 Oxygen Delivery Method Sepsis Recent Fever Within 48 Hours Sepsis New/Unexplained Change in Mental Status Sepsis Action Taken by Nursing 08/01/23 14:00 08/01/23 14:00 08/01/23 14:30 Temperature Temperature Source Pulse Rate - Lying Pulse Rate - Sitting Pulse Rate - Standing Pulse Rate Pulse Rate from SpO2 Sensor 64 Respiratory Rate Respiratory Effort / Characteristics Respiratory Depth Blood Pressure - Lying Blood Pressure - Sitting Blood Pressure- Standing Blood Pressure 143/73 H 155/80 H Blood Pressure Mean 97 113 Blood Pressure Position Pulse Oximetry 100 Oxygen Delivery Method Sepsis Recent Fever Within 48 Hours Sepsis New/Unexplained Change in Mental Status Sepsis Action Taken by Nursing 08/01/23 14:30 08/01/23 15:49 Temperature Temperature Source Pulse Rate - Lying Pulse Rate - Sitting Pulse Rate - Standing Pulse Rate 62 Pulse Rate from SpO2 Sensor 69 Respiratory Rate 17 Respiratory Effort / Characteristics Respiratory Depth Blood Pressure - Lying Blood Pressure - Sitting Blood Pressure- Standing Blood Pressure 134/71 Blood Pressure Mean Blood Pressure Position Pulse Oximetry 98 99 Oxygen Delivery Method Room Air Sepsis Recent Fever Within 48 Hours Sepsis New/Unexplained Change in Mental Status Sepsis Action Taken by [facility] Medications Current Medication List: was personally reviewed by me Laboratory Data Attestation: I reviewed the patient's lab results. 08/01/23 11:25 08/01/23 11:25 Lab Results 08/01/23 08/01/23 08/01/23 Range/Units 11:25 11:25 11:25 WBC 25.06 H (4.8-10.8) K/ul RBC 3.72 L (4.70-6.10) M/uL Hgb 11.3 L (14.0-18.0) g/dl Hct 36.4 L (42.0-52.0) % MCV 97.8 (80.0-100.0) fL MCH 30.4 (25.0-34.0) pg MCHC 31.0 L (32.0-36.0) g/dL RDW Std Deviation 49.2 H (36.4-46.3) fL RDW Coeff of Lane 13.6 (11.5-14.5) % Plt Count 208 (130-400) K/uL MPV 12.3 (9.4-12.4) fL Immature Gran % (Auto) 2.6 % Neut % (Auto) 74.1 % Lymph % (Auto) 4.3 % [place] % (Auto) 16.6 % Eos % (Auto) 2.2 % Baso % (Auto) 0.2 % Neut # (Auto) 18.57 H (1.40-6.50) K/uL Lymph # (Auto) 1.09 L (1.20-3.40) K/uL [place] # (Auto) 4.15 H (0.11-0.59) K/uL Eos # (Auto) 0.55 H (0.00-0.50) K/uL Baso # (Auto) 0.06 (0.00-0.20) K/uL Immature Gran # (Auto) 0.64 H (0.01-0.20) K/uL Echinocytes 2+ Sodium 136 (136-145) mmol/L Potassium 4.0 (3.5-5.1) mmol/L Chloride 108 H (98-107) mmol/L Carbon Dioxide 19 L (21-32) mmol/L Anion Gap 9 (3-11) BUN 30 H (6-23) mg/dl Creatinine 1.58 H (0.6-1.4) mg/dl Est Cr Clr Drug Dosing 39.8 ml/min Est GFR ( Amer) 47.2 ml/min Est GFR (Non-Af Amer) 40.7 ml/min BUN/Creatinine Ratio 19.0 (10-20) Glucose 172 H (70-99(Fasting)) mg/dl Calcium 8.9 (8.6-10.3) mg/dl Magnesium 1.8 (1.7-2.4) mg/dl Total Bilirubin 0.6 (0.2-1.0) mg/dl AST 25 (13-39) U/L ALT 16 (7-52) U/L Alkaline Phosphatase 70 (34-104) U/L Troponin I High Sens 3.9 (0-20) pg/ml Total Protein 6.7 (6.0-8.3) gm/dl Albumin 4.3 (3.4-5.0) gm/dl Globulin 2.4 L (2.5-4.0) gm/dl Albumin/Globulin Ratio 1.8 (0.9-2) TSH 7.205 H (0.300-4.500) uIu/ml Free T4 0.95 (0.61-1.60) ng/dl Administered Medications Discontinued Medications Amlodipine Besylate (Amlodipine Besylate 5 Mg Tab) 5 mg PO NOW STA Stop: 08/01/23 15:05 Last Admin: 08/01/23 15:21 Dose: 5 mg Documented By: MARYSE Amlodipine Besylate (Amlodipine Besylate 5 Mg Tab) 5 mg PO [facility] Stop: 09/01/23 08:59 Last Admin: 08/03/23 08:40 Dose: 5 mg Documented By: Admin: 08/02/23 12:25 Dose: 5 mg Documented By: BHARGAV Atenolol (Atenolol 25 Mg Tablet) 25 mg PO [facility] Stop: 09/01/23 08:59 Last Admin: 08/03/23 08:39 Dose: 25 mg Documented By: Admin: 08/02/23 09:39 Dose: 25 mg Documented By: BHARGAV Atenolol (Atenolol 25 Mg Tablet) 25 mg PO NOW STA Stop: 08/01/23 15:06 Last Admin: 08/01/23 15:21 Dose: 25 mg Documented By: MARYSE Atorvastatin Calcium (Atorvastatin 40 Mg Tab) 40 mg PO [facility] Stop: 09/01/23 08:59 Last Admin: 08/03/23 08:39 Dose: 40 mg Documented By: Admin: 08/02/23 09:39 Dose: 40 mg Documented By: BHARGAV Atorvastatin Calcium (Atorvastatin 40 Mg Tab) 40 mg PO NOW STA Stop: 08/01/23 14:54 Last Admin: 08/01/23 15:21 Dose: 40 mg Documented By: ML Clopidogrel Bisulfate (Clopidogrel Bisulfate 75 Mg Tab) 75 mg PO QAM JENNY Stop: 09/01/23 08:59 Last Admin: 08/03/23 08:40 Dose: 75 mg Documented By: Admin: 08/02/23 09:39 Dose: 75 mg Documented By: BHARGAV Clopidogrel Bisulfate (Clopidogrel Bisulfate 75 Mg Tab) 75 mg PO NOW STA Stop: 08/01/23 14:54 Last Admin: 08/01/23 15:22 Dose: 75 mg Documented By: MARYSE Enoxaparin Sodium (Enoxaparin Inj 40 Mg/0.4 Ml Syr) 40 mg SQ QAM JENNY Stop: 09/01/23 08:59 Last Admin: 08/03/23 08:41 Dose: 40 mg Documented By: Admin: 08/02/23 09:39 Dose: 40 mg Documented By: BHARGAV Gadobutrol (Gadobutrol 7.5ml Vial) 7.5 ml IV ONCE ONE Stop: 08/02/23 14:32 Last Admin: 08/02/23 14:31 Dose: 7.5 ml Documented By: LUIS FERNANDO Sodium Chloride (Nss 1000ml) 1,000 mls @ 999 mls/hr IV .Q1H1M ONE Stop: 08/01/23 13:34 Last Infusion: 08/01/23 13:58 Dose: 0 mls/hr Documented By: Admin: 08/01/23 12:40 Dose: 999 mls/hr Documented By: SUZANNE Sodium Chloride (Nss 1000ml) 1,000 mls @ 75 mls/hr IV .[id number] JENNY Stop: 08/02/23 14:21 Last Infusion: 08/02/23 10:26 Dose: 0 mls/hr Documented By: Admin: 08/02/23 01:32 Dose: 75 mls/hr Documented By: MARIA GUADALUPE Infusion: 08/02/23 01:32 Dose: 75 mls/hr Documented By: MARIA GUADALUPE Infusion: 08/01/23 16:32 Dose: 75 mls/hr Documented By: Admin: 08/01/23 14:02 Dose: 125 mls/hr Documented By: SUZANNE Ioversol (Ioversol 350 Mg 125ml Prefilled Syringe) 116 ml IV ONCE ONE Stop: 08/03/23 11:23 Last Admin: 08/03/23 11:23 Dose: 116 ml Documented By: CHI Levothyroxine Sodium (Levothyroxine Sodium 50 Mcg Tablet) 50 mcg PO DAILYBB [facility] Stop: 09/01/23 06:29 Last Admin: 08/03/23 05:26 Dose: 50 mcg Documented By: MARIA GUADALUPE Admin: 08/02/23 04:42 Dose: 50 mcg Documented By: MARIA GUADALUPE Methocarbamol (Methocarbamol 750 Mg Tablet) 750 mg PO BID JENNY Stop: 08/31/23 20:59 Last Admin: 08/03/23 08:40 Dose: 750 mg Documented By: Admin: 08/02/23 20:08 Dose: 750 mg Documented By: MARIA GUADALUPE Admin: 08/02/23 09:39 Dose: 750 mg Documented By: Admin: 08/01/23 20:29 Dose: 750 mg Documented By: MARIA GUADALUPE Pantoprazole Sodium (Pantoprazole 40 Mg Tab) 40 mg PO QAM [facility] Stop: 09/01/23 08:59 Last Admin: 08/03/23 08:40 Dose: 40 mg Documented By: Admin: 08/02/23 09:39 Dose: 40 mg Documented By: BHARGAV Terazosin HCl (Terazosin Hcl 1 Mg Cap) 2 mg PO QPM JENNY Stop: 08/31/23 20:59 Last Admin: 08/02/23 20:08 Dose: 2 mg Documented By: MARIA GUADALUPE Admin: 08/01/23 20:29 Dose: 2 mg Documented By: MARIA GUADALUPE Imaging Data Radiologist's Impression: Chest X-Ray 08/01/23 11:43 XR chest 1V portable CLINICAL HISTORY: syncope TECHNIQUE: Single frontal radiograph of the chest was obtained. Comparison: None available at the time of this dictation. FINDINGS: A loop recorder is seen. The cardiomediastinal silhouette is normal. The lungs are clear. No evidence of pleural effusion or pneumothorax. IMPRESSION: No acute chest disease. ACT 112: Negative or not required by law. Electronically signed by: Fitz Potts M.D. 08/01/2023 12:10 PM Discharge Plan Visit Data Chief Complaint: Syncope Stated Complaint: SYNCOPE ED Provider: Genesis Brice Discharge Problem: Syncope, Leukocytosis Patient Disposition: Admitted As Inpatient Discharge Instructions Interventions: ED Discharge Assessment Last Done: 08/01/23 15:49
[2023-08-01 18:42] LABS: Appearance Urine Clear (Clear); Bilirubin Urine Negative (Negative); Blood Urine Negative (Negative); Color Urine Yellow; Glucose Urine UA Negative (Negative); Ketones Urine Negative (Negative); Leukocyte Esterase Urine Negative (Negative); Nitrite Urine Negative (Negative); Protein Urine Negative (Negative); Specific Gravity Urine 1.008 (1.000-1.030); Urobilinogen Urine Negative (Negative)
[2023-08-01] MEDS: METHOCARBAMOL 750 MG TABLET PO SCH (20:29)
[2023-08-01] MEDS: TERAZOSIN HCL 1 MG CAP PO SCH (20:29)
[2023-08-02] MEDS: SODIUM CHLORIDE 0.9% 1,000 ML IV SCH (01:32)
[2023-08-02] MEDS: LEVOTHYROXINE SODIUM 50 MCG TABLET PO SCH (04:42)
[2023-08-02 06:53] LABS: Hematocrit (blood only) 32.9 % (42.0-52.0); Mean Corpuscular Hemoglobin 29.7 pg (25.0-34.0); Mean Corpuscular Hgb Conc 30.4 g/dL (32.0-36.0); Mean Corpuscular Volume 97.6 fL (80.0-100.0); Mean Platelet Volume 12.1 fL (9.4-12.4); Platelet Count 198 K/uL (130-400); RDW Coefficient of Variation 13.6 % (11.5-14.5); RDW Standard Deviation 49.1 fL (36.4-46.3); Red Blood Count 3.37 M/uL (4.70-6.10); White Blood Count 21.24 K/ul (4.8-10.8)
[2023-08-02 07:57] LABS: Alanine Aminotransferase 13 U/L (7-52); Albumin Globulin Ratio 1.3 (0.9-2); Albumin Level 3.6 gm/dl (3.4-5.0); Alkaline Phosphatase 62 U/L (34-104); Anion Gap 4 (3-11); Aspartate Aminotransferase 19 U/L (13-39); BUN Creatinine Ratio 17.9 (10-20); Bilirubin,Total 0.4 mg/dl (0.2-1.0); Blood Urea Nitrogen 22 mg/dl (6-23); Calcium 8.4 mg/dl (8.6-10.3); Carbon Dioxide 23 mmol/L (21-32); Chloride 114 mmol/L (98-107); Creatinine Clr Calc Pharmacy 50.3 ml/min; Est GFR (African American) 63.9 ml/min; Est GFR (Non-African American) 55.1 ml/min; Globulin 2.7 gm/dl (2.5-4.0); Glucose 83 mg/dl (70-99(Fasting)); Magnesium 1.7 mg/dl (1.7-2.4); Phosphorus 3.1 mg/dl (2.5-4.9); Potassium 4.4 mmol/L (3.5-5.1); Sodium 141 mmol/L (136-145); Total Protein 6.3 gm/dl (6.0-8.3)
--- NOTE | 2023-08-02 08:13 | Neurology Consultation ---
Date of Consultation August 02, 2023 Assessment & Plan (1) Syncope: (2) Hypotension: (3) Bradycardia: (4) Neck pain: (5) Fatigue: (6) Headache: (7) Aseptic meningitis: Plan This patient had an episode of brief syncope likely secondary to hypotension/bradycardia accompanied by dehydration. There was no potentially epileptogenic activity clinically and the event is not consistent with a seizure. His neurologic examination is unremarkable without focal findings, meningeal signs, or encephalopathy. Patient has had syncope prior. One year ago he had a probable TIA with some brief stroke-like symptoms. He has been on clopidogrel since. He has some chronic neck pain and headaches have an intermittent, mild nature and fatigue which is improved and likely was secondary to hypothyroidism. His MRI 1 year ago showed changes consistent with possible aseptic meningitis. Currently he has an elevated white count of uncertain etiology. He has no fever and does not appear toxic. Although the patient wants to go home today, his wants him to be evaluated further Recommendations: 1. Check his loop recorder regarding his event yesterday around 11:00 a.m.. 2. Consider MRI of the brain, with and without contrast, and compare to previous (see if his meningeal issue resolved) 3. Consider ESR, CRP, Lyme antibody titers 4. Consider evaluating blood vessels of his head and neck with CT angiography. 5. I see no need for an EEG or an anticonvulsant. 6. Continue clopidogrel 75 mg daily. 7. Consider increasing Synthroid to 75 mcg daily (his TSH is still elevated) 8. Consider MRI of the cervical spine (could be done as an outpatient) Overall, I spent a total of 80 minutes with this case including review of records, direct evaluation the patient at bedside, report generation, and discussion of the case with the patient at bedside, RN at bedside, patient's via telephone, and Dr. Narayan including differential diagnosis and treatment options History of Present Illness Reason for Consultation: Patient is an 78-year-old, who I was asked to see the request of KALLIE Patel, for neurologic consultation regarding syncope and other issues. Requesting Physician: Gerri ARREGUIN Attending Physician: Christopher Narayan MD History of Present Illness This patient has a near 30 year history of hypertension and dyslipidemia. He also has hypothyroidism more recently put on Synthroid 50 mcg daily. I 1st saw this patient in July of 2022 when he had a 15 minute episode of left upper extremity tingling, left facial droop, and some mild speech issues. Neurologic examination was unremarkable and he was noted to have some hypertension. MRI of the brain revealed an area of focal change consistent with hemispheric meningitic process. The patient had no fever, white count, and did not look ill. His symptoms resolved and it was postulated he may have had an episode of aseptic meningitis. He was having considerable neck pain and some headache at the time. Over the fall of 2021 meloxicam did not help much but methocarbamol helped his neck pain. He was given some magnesium and this helped his headache. In November of 2022, I saw the patient via telehealth and he was still having some intermittent headaches, neck pain, and significant fatigue. A little later that month he was in physical therapy and was getting he treatment to his neck. He was sitting and felt hot and sweaty. He had a brief episode of syncope. He went to the [facility] where he apparently was evaluated. He claims to have had test to look at the blood vessels in his head and neck but I do not have these results. He did well and he is had no further episodes until yesterday. He was last seen in clinic June 11. He was not having much headache and his neck still had some pain. He was on Synthroid and his methocarbamol was increased. He states that over the last month he is had some neck stiffness intermittently but unchanged. He will get an occasional achy/annoying pain at the top of his head which waxes and wanes, comes and goes, most every day. His energy level is better and he is starting to play golf. He has no new issues in his limbs, except he has been experiencing some left lower extremity weakness, left ankle pain, and a little bit of off-balance feelings, without falling. This has been for the last month or 2. His vision, speech, mentation, and mood have been unremarkable/normal. 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 He only had a cup of coffee to drink and had a breakfast sandwich. Around 11:00 a.m. he was standing in the sun grilling. He realized that he had to urinate and felt that he was not going to make it to the bathroom in time. I spoke to the patient's via telephone and she verified this history. He suddenly became lighthead ed (not vertiginous) and she helped him down to the ground. He did not injure himself. After he was on the ground he woke up within a second or 2 (only) and was back to himself, right away with no confusion. The patient's son, who is standing in front of them thought the patient's eyes rolled up in his head. There was no stiffening or jerking of the limbs. He did wet himself but he did not bite his tongue. EMS reports that he was not responding for perhaps a minute. He arrived to the emergency room at 1127 on August 01 with a temperature of 36.7, pulse 62 and regular, respiratory rate 18, blood pressure 114/55, and O2 saturation 98%. His neurologic examination and mental status were normal. Blood pressure lying was 109/44 with a pulse of 60, sitting 121/47 with a pulse of 66, and standing 126/70 with a pulse of 66. CBC showed mild anemia and a white count of 25. Chem profile showed a BUN of 30, creatinine 1.58, glucose 172, and TSH is 7.5. Troponin was negative and u rinalysis was unremarkable. Chest x-ray showed a loop recorder placed but no acute changes. Echocardiogram showed some mild left ventricular hypertrophy but was otherwise unremarkable. The patient had no further lightheaded or syncopal episodes. Nursing reports no new issues overnight. This morning he is in sinus rhythm with a rate in the 50s or 60s. CBC shows slightly lower white count and some more anemia (after hydration). Chem profile is now largely unremarkable with a normal BUN creatinine and glucose. B12 was 1260 and procalcitonin is normal Allergies Allergy/AdvReac Type Severity Reaction Status Date / Time No Known Allergies Allergy Verified 06/11/23 10:13 Home Medications Medication Instructions Recorded Confirmed Type amlodipine 5 mg tablet 5 mg PO QAM 08/15/22 08/01/23 History atenolol 50 mg tablet (Tenormin) 25 mg PO QAM 08/15/22 08/01/23 History cyanocobalamin (vitamin B-12) 1,000 mcg PO DAILY 08/15/22 08/01/23 History 1,000 mcg tablet esomeprazole magnesium 40 mg 40 mg PO QAM 08/15/22 08/01/23 History capsule,delayed release (Nexium) olmesartan 40 mg tablet (Benicar) 40 mg PO QAM 08/15/22 08/01/23 History sildenafil 100 mg tablet 100 mg PO UD PRN Erectile 08/15/22 08/01/23 History Dysfunction terazosin 2 mg capsule 2 mg PO QPM 08/15/22 08/01/23 History atorvastatin 20 mg tablet 40 mg PO QAM 06/11/23 08/01/23 History methocarbamol 750 mg tablet 750 mg PO BID #180 tabs 06/11/23 08/01/23 Rx magnesium oxide 400 mg PO BID 90 days #180 tabs 07/16/23 08/01/23 Rx clopidogrel 75 mg tablet (Plavix) 75 mg PO QAM 08/01/23 08/01/23 History levothyroxine 50 mcg tablet 50 mcg PO QAM 08/01/23 08/01/23 History (Synthroid) Patient History Medical History QI (acute kidney injury) BPH (benign prostatic hyperplasia) Cervicalgia Dysarthria Dyslipidemia GERD (gastroesophageal reflux disease) Hypertension Syncope Surgical History No pertinent past surgical history Family History Mother , age 82 with heart issues Heart disease Father , age 58 of diabetes complications Diabetes Social History Smoking Status: Never smoker Second Hand Exposure: No; Do You Dip or Chew Tobacco: No; Hx Alcohol Use: Yes (socially) Alcohol type: beer Hx Substance Use: No Preferred Language: French Communication Ability: Effective Communication Ability Comment: wears reading glasses Rehabilitation Engineer Required: No Beliefs That Will Affect Care: None marital status: Current Living Situation: Spouse Current Living Situation Comment: One story home with stairs to the basement and a few to get inside current occupational status: retired 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 Feels Safe at Home: Yes Assistive Devices: Glasses Review of Systems Constitutional: + fatigue; no fever and no weakness Eyes: no diplopia, no eye pain and no worsening vision Ear, Nose, Mouth, Throat: no ear pain, no tinnitus, no hearing loss, no dizziness, no snoring, no hoarseness and no dysphagia Respiratory: no cough and no dyspnea Cardiovascular: no chest pain, no palpitations and no lightheadedness Gastrointestinal: no abdominal pain, no nausea and no vomiting Musculoskeletal: + neck pain; no back pain, no radicular pain, no joint pain and no myalgia Integumentary: no rash and no lesions Neurologic: no gait abnormality, no localized weakness, no generalized weakness, no tingling, no numbness, no tremor(s), no abnormal movements, no headache(s), no abnormal speech, no confusion and no memory loss Psychiatric: no depression, no irritability, no anxiety, no difficulty concentrating, no confusion and no hallucinations Endocrine: no fatigue and no flushing Hematologic / Lymphatic: no easy bleeding and no easy bruising Allergy / Immunological: no urticaria and no problem reported Exam (Neuro) Physical Exam: The patient is right-handed. The patient is awake, alert, and attentive. Speech is normal without any aphasia or dysarthria. The patient can name objects, repeat phrases, and has normal spontaneous speech. Mentation and thought processes are intact, with orientation to person, place and time, and normal fund of knowledge. Attention and concentration are normal. Mood and affect are normal and appropriate. General appearance and grooming are normal. Short and long-term memory are intact. Pupils are 3 mm bilaterally and reactive to light. Extraocular eye muscles are intact without nystagmus. Visual acuity and visual pulido seem normal grossly to confrontation. There are no deficits to sensation in the face in all 3 distributions of the fifth cranial nerve bilaterally. Corneal reflexes are positive bilaterally. Facial strength and symmetry was normal bilaterally. Hearing seems normal bilaterally. Palate moves well without asymmetry. There is normal sternocleidomastoid and trapezius (shoulder shrug) strength bilaterally. Tongue is midline with good strength bilaterally. Neck has a full range of motion, with no discomfort moving. There are no cervical bruits bilaterally. There are no cranial or ocular bruits. Heart is without murmur. There is a regular rhythm and rate. Cervical spine is mildly tender to palpation in the left upper paraspinal muscles, near the cervical occipital junction extending down a few cm. Thoracic and lumbar spine are nontender to palpation. Gait is narrow based, with good arm swing, turns, and stance. Balance is normal eyes open or closed. With outstretched arms there is no drift. There are no resting, postural, or action tremors. There is no ataxia with finger to nose testing. There is good facility in the hands. No other abnormal involuntary movements are noted. Motor strength is 5/5 diffusely in the arms bilaterally including deltoids, biceps, triceps, brachioradialis, wrist flexors and extensors, human resources department supervisor, and intrinsic hand muscles. Motor strength is 5/5 diffusely in the legs bilaterally including hip flexors, quadriceps, hamstrings, gastrocnemius, tibialis anterior, tibialis posterior, and Peroneii muscles. Toe extensors are normal and there is good bulk in the extensor digitorum brevis muscles bilaterally. The limbs have good tone without rigidity or spasticity. There is no atrophy noted in the muscles. Muscle bulk is normal, there is no tenderness to palpation, no myotonia to percussion, and no fasciculations seen. Sensory examination is intact to touch and pin throughout all 4 limbs diffusely. Reflexes are 1/4 in the biceps, triceps, brachioradialis, quadriceps, and Achilles tendons bilaterally. There is no clonus bilaterally. Toes are downgoing with plantar stimulation bilaterally. Peripheral pulses are present and of normal quality distally in all 4 limbs. There is no peripheral edema noted in the limbs. Results & Data Vital Signs (Past 12 Hours) Vital Signs Temp Pulse Pulse Resp BP Pulse Ox O2 Del Method 08/02/23 06:53 56 L 08/02/23 03:24 36.6 C 59 L 18 121/65 97 Room Air 08/01/23 23:41 37.1 C 61 18 139/71 96 Room Air 08/01/23 23:40 77 PG Care Time/CCT Total # of Minutes Spent Total Time Spent with Patient: Total time spent is greater than 50% in coordination of care (as documented) at patient's floor/unit and/or counseling patient: Coding Level of Care Code 95186 INT INP/OBS CARE 3/75MIN Diagnoses Syncope R55 Hypotension I95.9 Bradycardia R00.1 Neck pain M54.2 Fatigue R53.83 Headache R51.9 Aseptic meningitis G03.0 Time Spent (min) 80
[2023-08-02] MEDS: METHOCARBAMOL 750 MG TABLET PO SCH ×2 (09:39→20:08)
[2023-08-02] MEDS: PANTOprazole 40 MG TAB PO SCH (09:39)
[2023-08-02] MEDS: ATORVASTATIN 40 MG TAB PO SCH (09:39)
[2023-08-02] MEDS: ATENOLOL 25 MG TABLET PO SCH (09:39)
[2023-08-02] MEDS: ENOXAPARIN INJ 40 MG/0.4 ML SYR SQ SCH (09:39)
[2023-08-02] MEDS: CLOPIDOGREL BISULFATE 75 MG TAB PO SCH (09:39)
[2023-08-02 09:41] LABS: C Reactive Protein < 0.50 mg/dl (0-0.5)
[2023-08-02 10:28] LABS: Lyme Ab IgG w/WB Rflx Negative (Negative); Lyme Ab IgM w/WB Rflx Negative (Negative)
--- NOTE | 2023-08-02 11:35 | Hospitalist Progress Note ---
Date of Service August 02, 2023 Assessment & Plan (1) Syncope: (2) Hypertension: (3) QI (acute kidney injury): (4) Hyperlipidemia: (5) GERD (gastroesophageal reflux disease): (6) BPH (benign prostatic hyperplasia): Plan 78 year old with syncopal episode with eyes rolling back into his head while tailgating. Incidental finding leukocytosis: 25.06; will check blood and urine cultures - does not appear toxic at this time. Repeat ECHO; Neuro consult. Hold nephrotoxic medications. Suspect patient had a syncopal episode in the setting of QI and leukocytosis. Will provide fluids, obtain ECHO, blood and urine cultures, procalcitonin, Neuro consult per admitting physician. Syncope: Likely secondary to heat exhaustion/dehydration. Presented to the ED with low blood pressure and acute kidney injury. EKG on admission personally reviewed; normal sinus rhythm; left axis deviation. No significant change from EKG last year. Echocardiogram done; EF of 60 to 65%. Grade 1 diastolic dysfunction. No other significant finding. CXR on admission personally reviewed; no acute chest disease. Vitamin B12 within normal limits. Neurology on board; recommended to consider MRI brain with and without contrast, ESR, CRP and Lyme antibodies. Lyme antibodies negative, ESR negative Contacted patient's loop recorder company; closed on holidays. Continue on telemetry while patient is here. MRI brain cannot be be done after obtaining results from the loop recorder. Leukocytosis: appears non toxic; euvolemic and normal BP Leukocytosis present Afebrile Blood culture pending. Procalcitonin ordered CXR negative QI: Creatinine: 1.58 on presentation Creatinine diet and trended with IV hydration. BMP in AM Hold nephrotoxic agents HTN: Chronic stable Takes Olmesartan, Amlodipine and Atenolol Continue Amlodipine and Atenolol We will resume olmesartan tomorrow AM. HLD: Chronic stable Takes Atorvastatin;continue H/O TIA: chronic stable 07/2022: Head/Neck CTA negative at that time 07/2022: MRI without stroke, midline shift or ICH; left cerebella artery stenosis noted Takes Plavix;continue BPH: chronic stable takes Terazosin; continue GERD: Chronic stable Takes Nexium;continue Muscle spasms: Takes Methocarbamol; hold as possibly nephrotoxic Disposition: PCP; Dr. Mello Code status: Full Code VTE Prophylaxis: Lovenox SQ Time spent evaluating patient, direct bedside care, chart review, placing o rders, interpretation of diagnostic studies, discussion with consultants, patient, and family members, as well as other required patient management activities is 60 minutes. Please note the above document was generated using voice recognition software. It may contain grammatical, syntax or spelling errors. Any formal questions or concerns about the content, text or information contained within the body of this dictation should be directly addressed to the provider for clarification Admission and Anticipated Discharge Date Admission Date: August 01, 2023 Subjective Patient seen and examined at bedside. He is lying in the bed comfortably; not in distress. No significant overnight events. He reports that he is feeling at baseline. He is going back and forth to the bathroom. Review of Systems Review of Systems: All systems reviewed & are unremarkable except as noted in Subjective Physical Exam Physical Exam: Constitutional: WD/WN, vitals as above, NAD, sitting up in bed, pleasant, conversing easily Chest- loop recorder in place. Respiratory: normal respiratory effort, lungs clear to auscultation, no wheeze, rales, rhonchi. Normal insp/exp effort, no accessory muscle use Cardiovascular: RRR, no murmur, no edema Vessels: no JVD or carotid bruit Chest: normal inspection of chest Abdomen: normal bowel sounds, soft, nontender, no hepatosplenomegaly Musculoskeletal: no cyanosis or clubbing, extremities motor strength 5/5 Skin: no rashes, warm and dry normal turgor Neurologic: PERRL, EOMI, accommodation nl, no face palsy, no dysarthria CN's II- XI intact bilaterally and moves all extremities Psychiatric: A+Ox3, euthymic affect Results & Data Results & Data Vital Signs (Past 12 Hours) Vital Signs Temp Pulse Pulse Resp BP BP Pulse Ox 08/02/23 08:03 36.5 C 61 14 150/72 H 98 08/02/23 06:53 56 L 08/02/23 03:24 36.6 C 59 L 18 121/65 97 08/01/23 23:41 37.1 C 61 18 139/71 96 08/01/23 23:40 77 O2 Del Method 08/02/23 08:03 Room Air 08/02/23 06:53 08/02/23 03:24 Room Air 08/01/23 23:41 Room Air 08/01/23 23:40 Laboratory Results Laboratory Results WBC 21.24 K/ul (4.8-10.8) H 08/02/23 06:10 RBC 3.37 M/uL (4.70-6.10) L 08/02/23 06:10 Hgb 10.0 g/dl (14.0-18.0) L 08/02/23 06:10 Hct 32.9 % (42.0-52.0) L 08/02/23 06:10 MCV 97.6 fL (80.0-100.0) 08/02/23 06:10 MCH 29.7 pg (25.0-34.0) 08/02/23 06:10 MCHC 30.4 g/dL (32.0-36.0) L 08/02/23 06:10 RDW Std Deviation 49.1 fL (36.4-46.3) H 08/02/23 06:[address] 13.6 % (11.5-14.5) 08/02/23 06:10 Plt Count 198 K/uL (130-400) 08/02/23 06:10 MPV 12.1 fL (9.4-12.4) 08/02/23 06:10 Immature Gran % (Auto) 2.6 % 08/01/23 11:25 Neut % (Auto) 74.1 % 08/01/23 11:25 Lymph % (Auto) 4.3 % 08/01/23 11:25 [place] % (Auto) 16.6 % 08/01/23 11:25 Eos % (Auto) 2.2 % 08/01/23 11:25 Baso % (Auto) 0.2 % 08/01/23 11:25 Neut # (Auto) 18.57 K/uL (1.40-6.50) H 08/01/23 11:25 Lymph # (Auto) 1.09 K/uL (1.20-3.40) L 08/01/23 11:25 [place] # (Auto) 4.15 K/uL (0.11-0.59) H 08/01/23 11:25 Eos # (Auto) 0.55 K/uL (0.00-0.50) H 08/01/23 11:25 Baso # (Auto) 0.06 K/uL (0.00-0.20) 08/01/23 11:25 Immature Gran # (Auto) 0.64 K/uL (0.01-0.20) H 08/01/23 11:25 Echinocytes 2+ 08/01/23 11:25 ESR < 1 mm/hr (0-20) 08/02/23 06:10 Sodium 141 mmol/L (136-145) 08/02/23 06:10 Potassium 4.4 mmol/L (3.5-5.1) 08/02/23 06:10 Chloride 114 mmol/L (98-107) H 08/02/23 06:10 Carbon Dioxide 23 mmol/L (21-32) 08/02/23 06:10 Anion Gap 4 (3-11) 08/02/23 06:10 BUN 22 mg/dl (6-23) 08/02/23 06:10 Creatinine 1.23 mg/dl (0.6-1.4) D 08/02/23 06:10 Est Cr Clr Drug Dosing 50.3 ml/min 08/02/23 06:10 Est GFR ( Amer) 63.9 ml/min 08/02/23 06:10 Est GFR (Non-Af Amer) 55.1 ml/min 08/02/23 06:10 BUN/Creatinine Ratio 17.9 (10-20) 08/02/23 06:10 Glucose 83 mg/dl (70-99(Fasting)) 08/02/23 06:10 Calcium 8.4 mg/dl (8.6-10.3) L 08/02/23 06:10 Phosphorus 3.1 mg/dl (2.5-4.9) 08/02/23 06:10 Magnesium 1.7 mg/dl (1.7-2.4) 08/02/23 06:10 Total Bilirubin 0.4 mg/dl (0.2-1.0) 08/02/23 06:10 AST 19 U/L (13-39) 08/02/23 06:10 ALT 13 U/L (7-52) 08/02/23 06:10 Alkaline Phosphatase 62 U/L (34-104) 08/02/23 06:10 Troponin I High Sens 3.8 pg/ml (0-20) 08/01/23 15:12 C-Reactive Protein < 0.50 mg/dl (0-0.5) 08/02/23 06:10 Total Protein 6.3 gm/dl (6.0-8.3) 08/02/23 06:10 Albumin 3.6 gm/dl (3.4-5.0) 08/02/23 06:10 Globulin 2.7 gm/dl (2.5-4.0) 08/02/23 06:10 Albumin/Globulin Ratio 1.3 (0.9-2) 08/02/23 06:10 Vitamin B12 1260 pg/ml (180-914) H 08/01/23 15:12 Procalcitonin < 0.05 ng/ml (0-0.5) 08/02/23 06:10 TSH 7.205 uIu/ml (0.300-4.500) H 08/01/23 11:25 Free T4 0.95 ng/dl (0.61-1.60) 08/01/23 11:25 Urine Color Yellow 08/01/23 18:15 Urine Appearance Clear (Clear) 08/01/23 18:15 Urine pH 6.0 (4.5-7.5) 08/01/23 18:15 Ur Specific [place] 1.008 (1.000-1.030) 08/01/23 18:15 Urine Protein Negative (Negative) 08/01/23 18:15 Urine Glucose (UA) Negative (Negative) 08/01/23 18:15 Urine Ketones Negative (Negative) 08/01/23 18:15 Urine Blood Negative (Negative) 08/01/23 18:15 Urine Nitrite Negative (Negative) 08/01/23 18:15 Urine Bilirubin Negative (Negative) 08/01/23 18:15 Urine Urobilinogen Negative (Negative) 08/01/23 18:15 Ur Leukocyte Esterase Negative (Negative) 08/01/23 18:15 Urine WBC (Auto) 1-5 /hpf (0-5) 08/01/23 14:40 Urine RBC (Auto) 0-4 /hpf (0-4) 08/01/23 14:40 U Hyaline Cast (Auto) 1-5 /lpf (0-5) 08/01/23 14:40 U Epithel Cells (Auto) 0-5 /lpf (0-5) 08/01/23 14:40 Urine Bacteria (Auto) Negative (Negative) 08/01/23 14:40 Lyme Disease IgG Ab Negative (Negative) 08/02/23 06:10 Lyme Disease IgM Ab Negative (Negative) 08/02/23 06:10 Impressions Chest X-Ray 08/01/23 11:43 XR chest 1V portable CLINICAL HISTORY: syncope TECHNIQUE: Single frontal radiograph of the chest was obtained. Comparison: None available at the time of this dictation. FINDINGS: A loop recorder is seen. The cardiomediastinal silhouette is normal. The lungs are clear. No evidence of pleural effusion or pneumothorax. IMPRESSION: No acute chest disease. ACT 112: Negative or not required by law. Electronically signed by: Fitz Potts M.D. 08/01/2023 12:10 PM
[2023-08-02] MEDS: amLODIPine BESYLATE 5 MG TAB PO SCH (12:25)
[2023-08-02] MEDS ORDERED: GADOBUTROL 7.5ML VIAL IV ONE (14:31)
--- NOTE | 2023-08-02 15:01 | Magnetic Resonance Report ---
Brain MRI WITH AND WITHOUT CONTRAST HISTORY: Syncopal episode, compared with previous TECHNIQUE: Multiplanar multisequence MRI of the brain was performed both before and after the intrave nous administration of contrast. COMPARISON STUDY: Brain MRI 08/19/2022. FINDINGS: There is no mass, hematoma, midline shift, or acute infarct. The paranasal sinuses are new r. The mastoid air cells are clear. The ventricles and sulci demonstrate mild age-related involutiona l changes. Scattered foci of T2 hyperintensity seen within the periventricular and subcortical white matter are nonspecific but suggestive of mild microvascular ischemic changes. The major vascular flow voids at the skull base are well-maintained. Small focus of encephalomalacia within the right fronta l lobe which is new from the prior study and is consistent with an old infarct. IMPRESSION: 1. No acute infarct or intracranial hemorrhage. 2. Atrophy and microvascular ischemic changes again noted. 3. 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 ACT 112: Negative or not required by law. Electronically signed by: Aj Churchill M.D. 08/02/2023 2:58 PM
[2023-08-02] MEDS: TERAZOSIN HCL 1 MG CAP PO SCH (20:08)
[2023-08-03] MEDS: LEVOTHYROXINE SODIUM 50 MCG TABLET PO SCH (05:26)
[2023-08-03 06:34] LABS: Hematocrit (blood only) 32.8 % (42.0-52.0); Hemoglobin 10.2 g/dl (14.0-18.0); Mean Corpuscular Hemoglobin 29.9 pg (25.0-34.0); Mean Corpuscular Hgb Conc 31.1 g/dL (32.0-36.0); Mean Corpuscular Volume 96.2 fL (80.0-100.0); Mean Platelet Volume 12.4 fL (9.4-12.4); Platelet Count 199 K/uL (130-400); RDW Coefficient of Variation 13.6 % (11.5-14.5); Red Blood Count 3.41 M/uL (4.70-6.10); White Blood Count 17.95 K/ul (4.8-10.8)
[2023-08-03 07:01] LABS: BUN Creatinine Ratio 17.2 (10-20); Calcium 8.4 mg/dl (8.6-10.3); Creatinine Clr Calc Pharmacy 47.8 ml/min; Est GFR (African American) 60.9 ml/min; Est GFR (Non-African American) 52.5 ml/min; Potassium 3.9 mmol/L (3.5-5.1)
[2023-08-03 07:02] LABS: ALC (manual) 1.26 K/uL (1.2-3.4); ANC (manual) 13.82 K/uL (1.4-6.5); Eosinophils # (manual) 0.54 K/uL (0-0.50); Eosinophils % (manual) 3 %; Lymphocytes # (manual) 1.26 K/uL (1.2-3.4); Lymphocytes % (manual) 7 %; Monocytes # (manual) 2.33 K/uL (0.11-0.59); Monocytes % (manual) 13 %; Neutrophils # (manual) 13.82 K/uL (1.40-6.50); Neutrophils % (manual) 77 %; RBC Morphology Unremarkable
[2023-08-03] MEDS: ATENOLOL 25 MG TABLET PO SCH (08:39)
[2023-08-03] MEDS: ATORVASTATIN 40 MG TAB PO SCH (08:39)
[2023-08-03] MEDS: CLOPIDOGREL BISULFATE 75 MG TAB PO SCH (08:40)
[2023-08-03] MEDS: amLODIPine BESYLATE 5 MG TAB PO SCH (08:40)
[2023-08-03] MEDS: PANTOprazole 40 MG TAB PO SCH (08:40)
[2023-08-03] MEDS: METHOCARBAMOL 750 MG TABLET PO SCH (08:40)
[2023-08-03] MEDS: ENOXAPARIN INJ 40 MG/0.4 ML SYR SQ SCH (08:41)
--- NOTE | 2023-08-03 09:29 | Neurology Progress Note ---
Date of Service August 03, 2023 Assessment & Plan (1) H/O: stroke: (2) H/O meningitis: Plan 78-year-old male with a history of focal right frontal leptomeningeal enhancement on MRI done in July 2022, without evidence of acute infarct at that time, now with evidence of a chronic right frontal infarct with associated encephalomalacia corresponding to the previous area of leptomeningeal enhancement. Differential diagnosis includes vasculitis, autoimmune, and viral etiologies. In any event, the recent findings are old and he does not endorse any significant current or active symptoms, other than perhaps mild neck pain which may not be related. A previous thromboembolic/ischemic infarct is also possible, in spite of the negative DWI on his 2 MRIs done last July. Would recommend additional evaluation for inflammatory/autoimmune. Recent ESR and CRP normal. Lyme screen normal. Would recommend PEYTON screen with titer, ANCA antibodies, SSA/SSB, CIARA. Given the normal inflammatory markers I think giant cell arteritis is unlikely and I would not recommend pursuing a temporal artery biopsy at this time. Would recommend CT angiography of the head and neck. I do not think a lumbar puncture is necessary at this time as he does not have symptoms or imaging findings suggestive of active meningitis or leptomeningeal disease at this time. Discussed with hospitalist. Admission and Anticipated Discharge Date Admission Date: August 01, 2023 Subjective Follow-up regarding brain MRI results The patient is an 78-year-old male who was admitted after a syncopal episode. Brain MRI completed yesterday negative for acute process although does reveal a chronic infarct within the right frontal lobe with associated encephalomalacia which corresponds to the previous area of leptomeningeal enhancement seen on MRI done August 27, 2022 and August 16, 2022. The leptomeningeal enhancement has resolved. I independently reviewed these images. Patient denies headache, myalgia, arthralgia, fevers. He complains of chronic low-grade neck pain. He denies episodes of vision loss, diplopia, dysarthria, or vertigo. He recalls his previous admission to the [facility] last July for strokelike symptoms characterized by left-sided weakness. It is notable that the above previous MRIs, done in July 2022 did not reveal any abnormalities on DWI which would tend to have ruled out an ischemic infarct at that time. He denies experiencing any interval strokelike episodes but does recall having a very similar syncopal episode about 3 months ago. Does not endorse any symptoms suggestive of seizure activity. Review of Systems Constitutional: no fever and no chills Eyes: no blind spots, no diplopia and no eye pain Musculoskeletal: no myalgia Results & Data Vital Signs (Past 12 Hours) Vital Signs Temp Pulse Pulse Resp BP BP Pulse Ox 08/03/23 08:46 36.8 C 55 L 17 143/73 H 96 08/03/23 07:07 51 L 08/03/23 02:58 36.8 C 63 16 114/66 97 08/02/23 23:34 61 08/02/23 22:59 36.9 C 61 16 148/71 H 97 O2 Del Method 08/03/23 08:46 Room Air 08/03/23 07:07 08/03/23 02:58 Room Air 08/02/23 23:34 08/02/23 22:59 Room Air Laboratory Results WBC 17.95, hemoglobin 10.2, hematocrit 32.8, platelet count 199, ESR less than 1, sodium 137, potassium 3.9, BUN 22, creatinine 1.28, glucose 83, magnesium 1.7, AST 19, ALT 13, high-sensitivity troponin 3.8, CRP less than 0.50, vitamin B12 1260, Lyme screening negative. Diagnostic Findings An echocardiogram completed yesterday revealed mild concentric LVH, normal left ventricular wall motion, EF 60 to 65%, normal left atrial size, no ASD Exam (Neuro) Constitutional: well developed; no acute distress Neurologic: Oriented to:: Person, Place and Time Memory: Short Term Intact and Remote Intact Attention: Span Intact and Concentration Intact Speech Fluency: negative Dysarthria or Dysfluency Fund of Knowledge: Current Events, Past History and Vocabulary Cranial Nerves: Normal II, III, IV, , V, VII, VIII, IX, X, XI and XII Motor Strength: Normal Lower Extremities and Normal Upper Extremities Coordination: Normal; negative Finger-Nose Abnormal Coding Level of Care Code 82326 SUB INP/OBS CARE 2/35MIN Diagnoses H/O: stroke Z86.73 H/O meningitis Z86.61
[2023-08-03] MEDS ORDERED: IOVERSOL 350 MG 125mL Prefilled Syringe IV ONE (11:22)
--- NOTE | 2023-08-03 12:06 | CT Scan Report ---
HEAD & NECK CTA HISTORY: Syncopal episode. old frontal stroke TECHNIQUE: Multiaxial CT images of the head were performed following the intravenous administration o f contrast to evaluate the major cerebral vessels. Multiaxial CT images of the neck were also perform ed following the intravenous administration of contrast to evaluate the major cervical vessels. 3D/NC P images were also obtained. Sagittal and coronal reformats were reviewed. A dose lowering technique was utilized adhering to the principles of ALARA. COMPARISON: Brain MRI 08/02/2023 FINDINGS: Small focus of encephalomalacia within the right frontal lobe again noted consistent with an old infa rct. There is no definite mass, hematoma, midline shift, or acute infarct. The visualized intracrania l internal carotid arteries and distal vertebral arteries are widely patent. The bilateral ACAs and M Liliana show no significant stenosis, occlusion, aneurysm. 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 There is moderate focal narrowing at the p roximal left OIL WELL ENGINEER on image 73. The remaining left OIL WELL ENGINEER branches are widely patent. The proximal right P CA may also represent a persistent circulation and is diminutive. The expected location of the mid right OIL WELL ENGINEER is not well visualized and may be severely hypoplastic or chronically occluded given th e lack of an infarct on the recent brain MRI. The distal branches of the right OIL WELL ENGINEER are attenuated but patent suggesting collaterals. Again, this could be developmental or due to chronic proximal occlusi on. The major dural venous sinuses appear patent. The aortic arch and proximal great vessels are widely patent. There is no significant stenosis, occ lusion, or dissection identified within the bilateral common carotid, internal carotid, or vertebral arteries. Mild calcified plaque within the bilateral carotid bulbs. IMPRESSION: 1. The expected location of the mid right OIL WELL ENGINEER is not well visualized and may be severely hypoplastic or chronically occluded given the lack of an infarct on the recent brain MRI. The distal branches of the right OIL WELL ENGINEER are attenuated but patent suggesting collaterals. Again, this could be developmental or due to chronic proximal occlusion of the right OIL WELL ENGINEER. 2. Focal moderate narrowing of the proximal left OIL WELL ENGINEER which also demonstrates a persistent circu lation. 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 3. No significant stenosis, occlusion, or dissection identified within the carotid or vertebral arter ies. ACT 112: Negative or not required by law. Electronically signed by: Aj Churchill M.D. 08/03/2023 12:04 PM
--- NOTE | 2023-08-03 12:06 | CT Scan Report ---
HEAD & NECK CTA HISTORY: Syncopal episode. old frontal stroke TECHNIQUE: Multiaxial CT images of the head were performed following the intravenous administration o f contrast to evaluate the major cerebral vessels. Multiaxial CT images of the neck were also perform ed following the intravenous administration of contrast to evaluate the major cervical vessels. 3D/NY P images were also obtained. Sagittal and coronal reformats were reviewed. A dose lowering technique was utilized adhering to the principles of ALARA. COMPARISON: Brain MRI 08/02/2023 FINDINGS: Small focus of encephalomalacia within the right frontal lobe again noted consistent with an old infa rct. There is no definite mass, hematoma, midline shift, or acute infarct. The visualized intracrania l internal carotid arteries and distal vertebral arteries are widely patent. The bilateral ACAs and M Liliana show no significant stenosis, occlusion, aneurysm. 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 There is moderate focal narrowing at the p roximal left SCALP TREATMENT SPECIALIST on image 73. The remaining left SCALP TREATMENT SPECIALIST branches are widely patent. The proximal right P CA may also represent a persistent circulation and is diminutive. The expected location of the mid right SCALP TREATMENT SPECIALIST is not well visualized and may be severely hypoplastic or chronically occluded given th e lack of an infarct on the recent brain MRI. The distal branches of the right SCALP TREATMENT SPECIALIST are attenuated but patent suggesting collaterals. Again, this could be developmental or due to chronic proximal occlusi on. The major dural venous sinuses appear patent. The aortic arch and proximal great vessels are widely patent. There is no significant stenosis, occ lusion, or dissection identified within the bilateral common carotid, internal carotid, or vertebral arteries. Mild calcified plaque within the bilateral carotid bulbs. IMPRESSION: 1. The expected location of the mid right SCALP TREATMENT SPECIALIST is not well visualized and may be severely hypoplastic or chronically occluded given the lack of an infarct on the recent brain MRI. The distal branches of the right SCALP TREATMENT SPECIALIST are attenuated but patent suggesting collaterals. Again, this could be developmental or due to chronic proximal occlusion of the right SCALP TREATMENT SPECIALIST. 2. Focal moderate narrowing of the proximal left SCALP TREATMENT SPECIALIST which also demonstrates a persistent circu lation. 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 3. No significant stenosis, occlusion, or dissection identified within the carotid or vertebral arter ies. ACT 112: Negative or not required by law. Electronically signed by: Aj Churchill M.D. 08/03/2023 12:04 PM
--- NOTE | 2023-08-03 12:52 | Discharge Summary ---
Date of Service August 03, 2023 Admission HPI Per Admitting Provider Mr. Dias is an 78 year old male that presents to the ED via EMS from [facility]. 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 He reports that he was standing around and thought he wanted to go to the restroom. He didnt feel that he was able to get to the bathroom in time, and felt lightheaded and hot, but not sweating. Denies dizziness, thought his eyes rolled back into his head. He did have urinary incontinence. reports LOC x a few seconds. Did not sustain any injuries. and son lowered him to the ground. Similar episode has happened before and follows with Dr. Mejia for follow up for this. Denies any symptoms leading up to this event. No history of known seizures. Drank coffee this morning, no alcohol use. Does take beta-blockers; did not take his medications this morning. Leukocytosis WBC 25.06, non-toxic appearing. Creatinine 1.58, baseline 1.02 Otherwise, labs unremarkable with negative troponin. Denies tobacco, alcohol or illicit drug use. Last ECHO was 07/2022: EF 55-60%, mild AR, trace TR. Previous inpatient hospitalization for stroke like symptoms in 07/2022 in [place]. Head/Neck CTA negative. MRI negative at that time outside of left cerebellar artery stenosis. Follows with [facility]rology via telehealth; last appointment 06/11/23. Additional PMH includes: HTN, HLD, hypothyroidism, TIA, and BPH. Denies fevers, cough, CP, palpitations, dizziness, SOB, abdominal pain or tenderness, urine or bowel changes, other recent falls or trauma. Follows with Dr. Mello with [facility]. Confirmed patient is a Full Code. CN II-XII grossly intact without slurred speech or facial droop. Appears patient has returned to baseline functional status. Suspect patient had a syncopal episode in the setting of QI and leukocytosis. Will provide fluid resuscitation, obtain ECHO, blood, urine and procalcitonin. Patient will be admitted for further evaluation and management. Please see A/P for further details. Admission Exam Per Admitting Provider GENERAL: Alert and oriented x3. NAD, on RA. HEENT: No pallor, no icterus. Pupils equal, round and reactive to light. Oral mucosa moist. NECK: No JVD, no neck masses. HEART: S1 and S2 heard. Regular rate and rhythm. No murmur, no gallop. RESPIRATORY SYSTEM: Normal AP diameter. No accessory muscle use. No wheezing, no crackles. ABDOMEN: Soft, bowel sounds present, nontender, no distention. CENTRAL NERVOUS SYSTEM: No facial droop. Speech is clear. Obeys simple comma nds. Moves extremities. EXTREMITIES: No edema, no erythema seen. Principal Diagnosis Syncope, likely digoxin stroke ruled out Discharge Exam Constitutional: WD/WN, vitals as above, NAD, sitting up in bed, pleasant, conversing easily Chest- loop recorder in place. Respiratory: normal respiratory effort, lungs clear to auscultation, no wheeze, rales, rhonchi. Normal insp/exp effort, no accessory muscle use Cardiovascular: RRR, no murmur, no edema Vessels: no JVD or carotid bruit Chest: normal inspection of chest Abdomen: normal bowel sounds, soft, nontender, no hepatosplenomegaly Musculoskeletal: no cyanosis or clubbing, extremities motor strength 5/5 Skin: no rashes, warm and dry normal turgor Neurologic: PERRL, EOMI, accommodation nl, no face palsy, no dysarthria CN's II- XI intact bilaterally and moves all extremities Psychiatric: A+Ox3, euthymic affect Discharge Data Allergies Allergy/AdvReac Type Severity Reaction Status Date / Time No Known Allergies Allergy Verified 06/11/23 10:13 Consultations 08/02/23 08:00 Consult Neurology Routine Ordered Studies 08/02/23 08:59 MRI Brain [MR brain wo/w con] Urgent 08/03/23 08:54 CT angio head w con Urgent CT angio neck with con Urgent Hospital Course (1) Syncope: (2) Hypertension: (3) QI (acute kidney injury): (4) Hyperlipidemia: (5) GERD (gastroesophageal reflux disease): (6) BPH (benign prostatic hyperplasia): Plan 78 year old with syncopal episode with eyes rolling back into his head while tailgating. Incidental finding leukocytosis: 25.06; will check blood and urine cultures - does not appear toxic at this time. Repeat ECHO; Neuro consult. Hold nephrotoxic medications. Suspect patient had a syncopal episode in the setting of QI and leukocytosis. Syncope: Likely secondary to heat exhaustion/dehydration. Presented to the ED with low blood pressure and acute kidney injury. EKG on admission personally reviewed; normal sinus rhythm; left axis deviation. No significant change from EKG last year. Echocardiogram done; EF of 60 to 65%. Grade 1 diastolic dysfunction. No other significant finding. CXR on admission personally reviewed; no acute chest disease. Vitamin B12 within normal limits. Neurology was consulted for comanagement. Recommended MRI brain with and without contrast. Also recommended ESR, CRP and Lyme antibodies which were negative. Discussion was done with renewals representative from loop recorder. No new events recently. MRI brain showed chronic right frontal infarct with associated encephalomalacia corresponding to the previous area of leptomeningeal enhancement seen in the MRI in July 2022. Neurology recommended CTA head and neck; the mid right BLACK AND WHITE PRINTER OPERATOR is not well visualized; may be severely hypoplastic/chronically occluded. Likely developmental or due to chronic proximal occlusion of right BLACK AND WHITE PRINTER OPERATOR. Also found to have focal moderate narrowing of proximal left BLACK AND WHITE PRINTER OPERATOR which also demonstrated a persistent circulation. Severely hypoplastic distal basilar artery; likely developmental. The findings were discussed with neurology; recommended PEYTON, ANCA and rheumatoid factor to check for inflammatory cause/vasculitis. Patient to follow-up with primary care doctor after discharged Please note the above document was generated using voice recognition software. It may contain grammatical, syntax or spelling errors. Any formal questions or concerns about the content, text or information contained within the body of this dictation should be directly addressed to the provider for clarification Total Time Total Time Spent Total Time Spent (In Minutes): 60 Total Time Includes: Examination of the Patient, Discharge Planning, Medication Reconciliation, Communication With Other Providers and Other Discharge Plan Discharge Items Patient Disposition: Home - Self-Care Reason For Visit: SYNCOPE Discharge Diagnosis: Syncope Likely secondary to heat exhaustion/dehydration Activity: Resume your previous activity Non-emergency contact: Primary Care Provider Call non-emergency contact if: you have any medication questions and your symptoms worsen Follow-up/Referrals: Mihir Mello [Primary Care Provider] - Diet: Regular Addtl Attending Provider Instructions: You were admitted to the hospital due to syncopal episode. The most likely cause for it is dehydration/CT exhaustion. You were evaluated by neurology during the hospitalization. MRI brain shows evidence of a chronic right frontal infarct corresponding to the area of leptomeningeal enhancement seen in the MRI last year. Differential diagnosis include vasculitis, autoimmune and viral etiology. Your inflammatory markers including ESR and CRP were within normal limits. Evaluation of the vessels of the head and neck was done with head and neck CT angiogram. It is reported as The expected location of the mid right BLACK AND WHITE PRINTER OPERATOR is not well visualized and may be severely hypoplastic or chronically occluded given the lack of an infarct on the recent brain MRI. The distal branches of the right BLACK AND WHITE PRINTER OPERATOR are attenuated but patent suggesting collaterals. Again, this could be developmental or due to chronic proximal occlusion of the right BLACK AND WHITE PRINTER OPERATOR. 2. Focal moderate narrowing of the proximal left BLACK AND WHITE PRINTER OPERATOR which also demonstrates a persistent circulation. 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 The findings were discussed with neurology; he recommended blood test to check for vasculitis. ANCA, PEYTON and rheumatoid factor test are sent. The results usually takes up to a week to come back. Please follow-up with your primary care doctor for next week. Continue to take your medication as prescribed. Keep yourself hydrated. Pending Studies at Discharge: Yes (ANCA, PEYTON and rheumatoid factor) Stand-Alone Forms: My [facility], Smoking Cessation Medications and DC Order Prescriptions: Continued magnesium oxide 400 mg magnesium tablet 400 mg PO BID 90 Days Qty: 180 3RF methocarbamol 750 mg tablet 750 mg PO BID Qty: 180 3RF levothyroxine [Synthroid] 50 mcg tablet 50 mcg PO QAM clopidogrel [Plavix] 75 mg tablet 75 mg PO QAM terazosin 2 mg capsule 2 mg PO QPM esomeprazole magnesium [Nexium] 40 mg capsule,delayed release(DR/EC) 40 mg PO QAM atenolol [Tenormin] 50 mg tablet 25 mg PO QAM olmesartan [Benicar] 40 mg tablet 40 mg PO QAM cyanocobalamin (vitamin B-12) 1,000 mcg Tablet 1,000 mcg PO DAILY amlodipine 5 mg tablet 5 mg PO QAM sildenafil 100 mg tablet 100 mg PO UD PRN (Reason: Erectile Dysfunction) Rx Instructions: take 1 hour prior to intercourse atorvastatin 20 mg tablet 40 mg PO QAM Discharge Orders: Discharge Order (Routine); Ordered 08/03/23 Ordered By: Christopher Narayan Admission Data Admit Date/Time: 08/01/23 14:01 Attending Provider: Christopher Narayan Admit Provider: Darrius Mcdaniels Primary Care Provider: Mihir Mello Other Providers: Moody Mejia ; Darrius Mcdaniels
--- NOTE | 2023-08-03 20:35 | Electrocardiogram Report ---
Test Reason : Blood Pressure : / mmHG Vent. Rate : 060 BPM Atrial Rate : 060 BPM P-R Int : 154 ms QRS Dur : 082 ms QT Int : 422 ms P-R-T Axes : 023 -36 055 degrees QTc Int : 422 ms Normal sinus rhythm Left axis deviation Abnormal ECG When compared with ECG of 15-AUG-2022 15:54, Criteria for Septal infarct are no longer Present Confirmed by Jono Levy ([id number]) on 08/03/2023 8:34:44 PM Referred By: REFERRED SELF Confirmed By:Jono Levy
[2023-08-09 16:18] LABS: ANCA Screen C-ANCA POS (Negative); Anti Nuclear Antibody Screen NEGATIVE (NEGATIVE); Rheumatoid Factor 20 IU/mL (<14)
== END 2023-08-03 14:44 | disposition home or self-care (01) | DRG 312 ==
LOC: ED 11:16 → INTOOBSV 14:01 → 2N 14:01 → SUATTDRO 14:01 → 2N 15:49

== ENCOUNTER 2023-11-18 05:47 | Inpatient (IN) ==
[2023-11-18] MEDS ORDERED: FAMOTIDINE 20MG IV PUSH 20 MG/5 ML SYR IV STA (05:58)
[2023-11-18] MEDS ORDERED: ACETAMINOPHEN 1,000 MG/100 ML VIAL IV STA (05:58)
[2023-11-18] MEDS ORDERED: SODIUM CHLORIDE 0.9% 1,000 ML IV STA (05:58)
[2023-11-18] MEDS ORDERED: ONDANSETRON INJ 2 MG/ML 2 ML VIAL IV STA (05:58)
[2023-11-18 06:30] LABS: Appearance Urine Clear (Clear); Bacteria Urine Automated Negative (Negative); Bilirubin Urine Negative (Negative); Blood Urine Negative (Negative); Color Urine Yellow; Epithelial Cell Urine Auto >30 /lpf (0-5); Glucose Urine UA Negative (Negative); Ketones Urine 1+ (Negative); Leukocyte Esterase Urine Negative (Negative); Nitrite Urine Negative (Negative); Protein Urine 1+ (Negative); RBC Urine Automated 0-4 /hpf (0-4); Specific Gravity Urine 1.016 (1.000-1.030); Urobilinogen Urine Negative (Negative)
--- NOTE | 2023-11-18 06:39 | Emergency Department Note ---
Impression & Plan Duodenitis, Elevated WBC count, Diverticulitis, Abdominal discomfort, epigastric ED Provider Note NAME: CHLOE MANN AGE: 78 SEX: M : 1945 ARRIVES VIA: Walk-In INFORMANT: Patient, ED PROVIDER(S): Ozzy Gudino DO CHIEF COMPLAINT: Abdominal pain HPI: The patient is an 78-year-old male who presented to the emergency department for an evaluation of abdominal pain. The patient has been noticing ongoing worsening abdominal pain over the last 3 to 4 days. He has a history of bowel obstruction in the past. The patient states that he has had bowel obstruction and had gone to the hospital in the past. He has started to manage this at home where he will start to treat himself by being n.p.o. until the pain resolves. Unfortunately this did not help his condition today. He presented to the emergency department for further evaluation. The patient denies having any fever. He does complain of some diarrhea as well as nausea and dry heaves. ROS: See above HPI for pertinent positives & negatives. A total of 10 systems reviewed and were otherwise negative. PAST MEDICAL HISTORY: See Below PAST SURGICAL HISTORY: See Below FAMILY HISTORY: See Below SOCIAL HISTORY: See Below HOME MEDICATIONS: See Below ALLERGIES: See Below VITALS: See Below PHYSICAL EXAMINATION: GENERAL: Patient is awake alert in no acute distress patient is resting comfortably and showing no signs of anxiety EYES: The conjunctivae are clear. The pupils are round and reactive. EARS, NOSE, MOUTH AND THROAT: The nose is without any evidence of any deformity. Mucous membranes are moist. Tongue is midline. NECK: The neck is nontender and supple. RESPIRATORY: Normal respiratory effort is noted there is no evidence of wheezing rhonchi or rales CARDIOVASCULAR: Regular rate and rhythm noted there no murmurs rubs or gallops normal S1 normal S2. GASTROINTESTINAL: The abdomen is soft and nondistended. There is periumbilical tenderness to palpation but no guarding or rigidity. MUSCULOSKELETAL/EXTREMITIES: There is no evidence of gross deformity full range of motion is noted in the hips and shoulders. SKIN: There is no obvious evidence of any rash. There are no petechiae, pallor or cyanosis noted. NEUROLOGIC: Patient is awake alert and oriented x3 MEDICAL DECISION MAKING: The patient is an 78-year-old male who presented to the emergency department for an evaluation of abdominal pain. The patient has a history of bowel obstruction in the past. Physical exam was not overly consistent with bowel obstruction but the patient was found to have a significant elevation in his white blood cell count. For this reason a peripheral smear was ordered and the patient was treated with IV antibiotics. CT angiography was obtained. I discussed the patient's laboratory and radiographic studies with him. CT angiography does appear to be consistent with duodenitis as well as some lymphadenopathy. It is possible that the patient's condition is tied together with his elevated white blood cell count and the duodenitis. He has been having some back pain as well as proteinuria as an outpatient. This also could be related to the patient's condition today. The patient was treated with IV fluids. He was reevaluated multiple times. He was also given Protonix and Pepcid. On reevaluation he was somewhat improved. Given the patient's findings however I do feel the patient would be a better candidate for inpatient management. He was agreeable with this plan. The [facility] hospitalist group was notified and will evaluate the patient in the emergency department. Triage Nursing notes reviewed. Prior medical records reviewed Vital Signs: reviewed and remarkable for elevated blood pressure. Differential diagnosis: Etiologies such as appendicitis, diverticulitis, obstruction, inflammatory bowel disease, renal colic, PUD, biliary pathology, pancreatitis, mesenteric ischemia, aortic pathology, infections, genitourinary, UTI, perforated viscus, as well as others were entertained. ER treatment provided: See below Diagnostics interpreted by me: ECG: EKG was obtained in the emergency department. My interpretation is normal sinus rhythm at 89 bpm. There is no ectopy. There is no acute ST segment abnormalities noted. This was compared to a tracing from August 01, 2023. No changes were noted. Cardiac Monitoring: An order was placed for continuous cardiac monitoring. The monitor shows a rate of 83 bpm with sinus rhythm. Laboratory studies: As stated above and show below. Imaging studies: See below. Radiographic imaging was reviewed by myself Consultation(s): The [facility] hospitalist group was notified about the patient. They will evaluate the patient in the emergency department for further management and disposition Past Med/Surg History Medical History H/O meningitis QI (acute kidney injury) BPH (benign prostatic hyperplasia) GERD (gastroesophageal reflux disease) Syncope Cervicalgia Dysarthria Dyslipidemia Hypertension Surgical History No pertinent past surgical history Family History Mother , age 82 with heart issues Heart disease Father , age 58 of diabetes complications Diabetes Social History Smoking Status: Never smoker Second Hand Exposure: No; Do You Dip or Chew Tobacco: No; Hx Alcohol Use: Yes (socially) Alcohol type: beer Hx Substance Use: No Preferred Language: Pashto Communication Ability: Effective Communication Ability Comment: wears reading glasses Pharmacy Innovation Assistant Required: No Beliefs That Will Affect Care: None marital status: Current Living Situation: Spouse Current Living Situation Comment: One story home with stairs to the basement and a few to get inside current occupational status: retired 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 Feels Safe at Home: Yes Assistive Devices: Glasses Allergies Allergies Allergy/AdvReac Type Severity Reaction Status Date / Time No Known Allergies Allergy Verified 06/11/23 10:13 Home Meds Home Medications Medication Instructions Recorded Confirmed amlodipine 5 mg tablet 5 mg PO QAM 08/15/22 11/18/23 atenolol 50 mg tablet (Tenormin) 25 mg PO QAM 08/15/22 11/18/23 cyanocobalamin (vitamin B-12) 1,000 mcg PO DAILY 08/15/22 11/18/23 1,000 mcg tablet esomeprazole magnesium 40 mg 40 mg PO QAM 08/15/22 11/18/23 capsule,delayed release (Nexium) olmesartan 40 mg tablet (Benicar) 40 mg PO QAM 08/15/22 11/18/23 sildenafil 100 mg tablet 100 mg PO UD PRN Erectile 08/15/22 11/18/23 Dysfunction terazosin 2 mg capsule 2 mg PO QPM 08/15/22 11/18/23 atorvastatin 20 mg tablet 40 mg PO QAM 06/11/23 11/18/23 clopidogrel 75 mg tablet (Plavix) 75 mg PO QAM 08/01/23 11/18/23 levothyroxine 50 mcg tablet 75 mcg PO QAM 08/01/23 11/18/23 (Synthroid) meloxicam 15 mg PO DAILY 11/18/23 11/18/23 methocarbamol 500 mg tablet 500 mg PO TID 11/18/23 11/18/23 tramadol 50 mg tablet 50 mg PO TID 11/18/23 11/18/23 Previous Rx's Medication Instructions Recorded magnesium oxide 400 mg PO BID 90 days #180 tabs 07/16/23 Results & Data (ED) Vital Signs Vital Signs - 24 hr 11/18/23 05:48 11/18/23 06:04 11/18/23 06:10 Temperature 36.8 C Temperature Source Oral Pulse Rate 95 H 77 72 Pulse Rhythm Regular Regular Pulse Strength Normal Respiratory Rate 18 14 Respiratory Effort / Characteristics Non-Labored Spontaneous Respiratory Depth Normal Respiratory Pattern Regular Blood Pressure 159/94 H Blood Pressure Mean 115 Blood Pressure Position Sitting Pulse Oximetry 99 99 Oxygen Delivery Method Room Air Room Air Sepsis Recent Fever Within 48 Hours No Sepsis New/Unexplained Change in Mental Status No Sepsis Action Taken by Nursing No Action Required 11/18/23 06:11 Temperature Temperature Source Pulse Rate 83 Pulse Rhythm Pulse Strength Respiratory Rate 16 Respiratory Effort / Characteristics Respiratory Depth Respiratory Pattern Blood Pressure 162/83 H Blood Pressure Mean 109 Blood Pressure Position Pulse Oximetry 98 Oxygen Delivery Method Room Air Sepsis Recent Fever Within 48 Hours Sepsis New/Unexplained Change in Mental Status Sepsis Action Taken by Residential Medications Current Medication List: was personally reviewed by me Laboratory Data Attestation: I reviewed the patient's lab results. 11/18/23 06:05 11/18/23 06:05 Lab Results 11/18/23 11/18/23 Range/Units 06:00 06:05 WBC 51.84 H* (4.8-10.8) K/ul RBC 3.80 L (4.70-6.10) M/uL Hgb 11.3 L (14.0-18.0) g/dl Hct 35.9 L (42.0-52.0) % MCV 94.5 (80.0-100.0) fL MCH 29.7 (25.0-34.0) pg MCHC 31.5 L (32.0-36.0) g/dL RDW Std Deviation 44.9 (36.4-46.3) fL RDW Coeff of Lane 13.1 (11.5-14.5) % Plt Count 337 (130-400) K/uL MPV 11.6 (9.4-12.4) fL Immature Gran % (Auto) 3.8 % Neut % (Auto) 73.1 % Lymph % (Auto) 3.0 % Loving % (Auto) 18.5 % Eos % (Auto) 1.2 % Baso % (Auto) 0.4 % Neut # (Auto) 37.88 H (1.40-6.50) K/uL Lymph # (Auto) 1.58 (1.20-3.40) K/uL Loving # (Auto) 9.60 H (0.11-0.59) K/uL Eos # (Auto) 0.62 H (0.00-0.50) K/uL Baso # (Auto) 0.21 H (0.00-0.20) K/uL Immature Gran # (Auto) 1.95 H (0.01-0.20) K/uL Sodium 133 L (136-145) mmol/L Potassium 4.7 (3.5-5.1) mmol/L Chloride 102 (98-107) mmol/L Carbon Dioxide 20 L (21-32) mmol/L Anion Gap 11 (3-11) BUN 31 H (6-23) mg/dl Creatinine 1.55 H (0.6-1.4) mg/dl Est Cr Clr Drug Dosing 37.2 ml/min Est GFR ( Amer) 48.3 ml/min Est GFR (Non-Af Amer) 41.7 ml/min BUN/Creatinine Ratio 20.0 (10-20) Glucose 103 H (70-99(Fasting)) mg/dl Calcium 9.7 (8.6-10.3) mg/dl Total Bilirubin 0.7 (0.2-1.0) mg/dl AST 32 (13-39) U/L ALT 26 (7-52) U/L Alkaline Phosphatase 97 (34-104) U/L Troponin I High Sens 5.4 (0-20) pg/ml Total Protein 8.5 H (6.0-8.3) gm/dl Albumin 4.9 (3.4-5.0) gm/dl Globulin 3.6 (2.5-4.0) gm/dl Albumin/Globulin Ratio 1.4 (0.9-2) Lipase 99 H (11-82) U/L Urine Color Yellow Urine Appearance Clear (Clear) Urine pH 5.0 (4.5-7.5) Ur Specific Trufant 1.016 (1.000-1.030) Urine Protein 1+ H (Negative) Urine Glucose (UA) Negative (Negative) Urine Ketones 1+ H (Negative) Urine Blood Negative (Negative) Urine Nitrite Negative (Negative) Urine Bilirubin Negative (Negative) Urine Urobilinogen Negative (Negative) Ur Leukocyte Esterase Negative (Negative) Urine WBC (Auto) 1-5 (0-5) /hpf Urine RBC (Auto) 0-4 (0-4) /hpf U Hyaline Cast (Auto) 1-5 (0-5) /lpf U Epithel Cells (Auto) >30 H (0-5) /lpf Urine Bacteria (Auto) Negative (Negative) Adenovirus (PCR) Not Detected (NotDetected) B. pertussis DNA (PCR) Not Detected (NotDetected) B.parapertussis DNA PCR Not Detected (NotDetected) C. pneumoniae DNA (PCR) Not Detected (NotDetected) Coronavirus OC43 (PCR) Not Detected (NotDetected) Coronavirus HKU1 (PCR) Not Detected (NotDetected) Coronavirus 229E (PCR) Not Detected (NotDetected) SARS-CoV-2 (PCR) Not Detected (NotDetected) Coronavirus NL63 (PCR) Not Detected (NotDetected) Human Metapneumovir PCR Not Detected (NotDetected) Influenza Type A (PCR) Not Detected (NotDetected) Influenza Type B (PCR) Not Detected (NotDetected) M. pneumoniae (PCR) Not Detected (NotDetected) Parainfluenza 1 (PCR) Not Detected (NotDetected) Parainfluenza 2 (PCR) Not Detected (NotDetected) Parainfluenza 3 (PCR) Not Detected (NotDetected) Parainfluenza 4 (PCR) Not Detected (NotDetected) RSV (PCR) Not Detected (NotDetected) Entero/Rhino (PCR) Not Detected (NotDetected) Administered Medications Discontinued Medications Sodium Chloride (Nss) 1,000 mls @ 999 mls/hr IV .Q1H1M STA Stop: 11/18/23 06:58 Last Infusion: 11/18/23 07:52 Dose: Infused Documented By: JUAN M Admin: 11/18/23 06:04 Dose: 999 mls/hr Documented By: ITALIA Acetaminophen (Ofirmev) 1,000 mg in 100 mls @ 400 mls/hr IV NOW STA Stop: 11/18/23 06:12 Last Infusion: 11/18/23 06:36 Dose: Infused Documented By: Admin: 11/18/23 06:04 Dose: 400 mls/hr Documented By: ITALIA Famotidine (Pepcid 20mg Iv Push) 20 mg in 5 mls @ 2.5 mls/min IV NOW STA Stop: 11/18/23 05:59 Last Admin: 11/18/23 06:04 Dose: 2.5 mls/min Documented By: ITALIA Piperacillin Sod/Tazobactam Sod (Zosyn) 4.5 gm in 100 mls @ 200 mls/hr IV NOW ONE Stop: 11/18/23 07:18 Last Infusion: 11/18/23 07:52 Dose: Infused Documented By: JUAN M Admin: 11/18/23 06:56 Dose: 200 mls/hr Documented By: ITALIA Ioversol (Optiray 320 125ml) 115 ml IV ONCE ONE Stop: 11/18/23 07:12 Last Admin: 11/18/23 07:12 Dose: 115 ml Documented By: KELI Ondansetron HCl (Ondansetron Inj 2 Mg/Ml 2 Ml Vial) 4 mg IV NOW STA Stop: 11/18/23 05:59 Last Admin: 11/18/23 06:05 Dose: 4 mg Documented By: ITALIA Imaging Data Attestation: I personally reviewed and interpreted this imaging study as follows: My Impression: 1 view chest x-ray was obtained in the emergency department. My interpretation is no free air or definite infiltrate, final report below. CT angiography of the abdomen was obtained. My interpretation is significant stranding and thickening in the right upper quadrant. This could be consistent with small intestine inflammation, there is no definite bowel obstruction or free air, final report below. Radiologist's Impression: Chest X-Ray 11/18/23 05:58 XR chest 1V portable CLINICAL HISTORY: Chest pain, nonspecific COMPARISON STUDY: Chest radiograph August 01, 2023. FINDINGS: A loop recorder is incidentally noted. Lung volumes are normal. Lungs are clear. There is no pneumothorax or pleural effusion. Cardiac size is normal. Mediastinal contours are normal. There is no evidence for pulmonary edema. IMPRESSION: No acute cardiopulmonary findings. ACT 112: Negative or not required by law. Electronically signed by: Kwabena De La Cruz M.D. 11/18/2023 6:51 AM Abdomen/Pelvis CTA 11/18/23 06:49 CT ANGIOGRAPHY OF THE ABDOMEN AND PELVIS CLINICAL HISTORY: Upper abdominal pain. COMPARISON STUDY: No previous studies for comparison. TECHNIQUE: Helical axial images of the abdomen and pelvis were obtained during arterial phase following intravenous injection 115 cc of Optiray 320 IV. Sagittal and coronal reconstructions were viewed as well as maximal intensity projections on an independent 3-D workstation. Automated exposure control was utilized for the study. A dose lowering technique was utilized adhering to the principles of ALARA. FINDINGS: Lung bases are unremarkable. No pneumatosis, free air or portal venous gas is present. Mild biliary ductal dilatation is likely related to cholecystectomy. No hepatic lesions are identified on arterial phase exam. There is mild splenomegaly. Adrenal glands and pancreas are unremarkable. Small low- attenuation bilateral renal lesions favor cysts although are difficult to characterize given small size. There is no hydronephrosis. There is mild wall thickening of the first and second portions of the duodenum with adjacent inflammation. No free air is present. There is no abscess. There is no evidence for a bowel obstruction. Extensive colonic diverticulosis is present. There is subtle stranding adjacent to the distal descending colon. There is no free air. There is no abscess. The appendix is surgically absent. Mildly enlarged marianela hepatis node on image 121 of 409 measures 1.8 x 1.4 cm. 1.2 x 1 cm enhancing nodule posterior to the duodenum on image 134 may also represent a prominent lymph node. There is no pelvic lymphadenopathy. Caliber of the abdominal aorta is normal. There is mild plaque within the abdominal aorta and branch vessels. The branch vessels are patent. 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 IMPRESSION: 1. Wall thickening of the first and second portions of the duodenum with adjacent inflammation. The findings favor duodenitis/peptic ulcer disease. No free air. No abscess. Although less likely, acute pancreatitis is also within the differential. 2. Normal caliber abdominal aorta with mild plaque. Patent vessels. 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 3. Extensive colonic diverticulosis. Subtle stranding adjacent to the distal descending colon. Mild acute diverticulitis would be difficult to exclude. 4. Mild splenomegaly. Several prominent upper abdominal lymph nodes. These may be reactive however a follow-up CT in 6 months to ensure stability/resolution is recommended. ACT 112: Negative or not required by law. Electronically signed by: Kwabena De La Cruz M.D. 11/18/2023 7:33 AM Discharge Plan Visit Data Chief Complaint: Abdominal Pain Stated Complaint: SEVERE STOMACH PAIN,SORENESS IN BACK LEFT SHOULDER ED Provider: Ozzy Gudino Discharge Problem: Duodenitis, Elevated WBC count, Diverticulitis, Abdominal discomfort, epigastric Patient Disposition: Being Evaluated by Hospitalist Forms Stand Alone Forms: [facility] Prescriptions Prescriptions: No Action magnesium oxide 400 mg magnesium tablet 400 mg PO BID 90 Days Qty: 180 3RF levothyroxine [Synthroid] 50 mcg tablet 75 mcg PO QAM clopidogrel [Plavix] 75 mg tablet 75 mg PO QAM methocarbamol 500 mg tablet 500 mg PO TID tramadol 50 mg tablet 50 mg PO TID meloxicam 15 mg 15 mg PO DAILY terazosin 2 mg capsule 2 mg PO QPM esomeprazole magnesium [Nexium] 40 mg capsule,delayed release(DR/EC) 40 mg PO QAM atenolol [Tenormin] 50 mg tablet 25 mg PO QAM olmesartan [Benicar] 40 mg tablet 40 mg PO QAM cyanocobalamin (vitamin B-12) 1,000 mcg Tablet 1,000 mcg PO DAILY amlodipine 5 mg tablet 5 mg PO QAM sildenafil 100 mg tablet 100 mg PO UD PRN (Reason: Erectile Dysfunction) Rx Instructions: take 1 hour prior to intercourse atorvastatin 20 mg tablet 40 mg PO QAM Referrals Referrals: Mihir Mello [Primary Care Provider] - Discharge Problem: Elevated WBC count Qualifiers: Leukocytosis type: unspecified Qualified Code(s): D72.829 - Elevated white blood cell count, unspecified
[2023-11-18 06:41] LABS: Hematocrit (blood only) 35.9 % (42.0-52.0); Hemoglobin 11.3 g/dl (14.0-18.0); Mean Corpuscular Hemoglobin 29.7 pg (25.0-34.0); Mean Corpuscular Hgb Conc 31.5 g/dL (32.0-36.0); Mean Corpuscular Volume 94.5 fL (80.0-100.0); Mean Platelet Volume 11.6 fL (9.4-12.4); Platelet Count 337 K/uL (130-400); RDW Coefficient of Variation 13.1 % (11.5-14.5); RDW Standard Deviation 44.9 fL (36.4-46.3); White Blood Count 51.84 K/ul (4.8-10.8)
[2023-11-18 06:47] LABS: Albumin Globulin Ratio 1.4 (0.9-2); Albumin Level 4.9 gm/dl (3.4-5.0); Bilirubin,Total 0.7 mg/dl (0.2-1.0); Calcium 9.7 mg/dl (8.6-10.3); Creatinine Clr Calc Pharmacy 37.2 ml/min; Est GFR (African American) 48.3 ml/min; Est GFR (Non-African American) 41.7 ml/min; Globulin 3.6 gm/dl (2.5-4.0); Potassium 4.7 mmol/L (3.5-5.1); Total Protein 8.5 gm/dl (6.0-8.3)
[2023-11-18] MEDS ORDERED: PIPERACILLIN/TAZOBACTAM 4.5 GM/100 ML BAG IV ONE (06:49)
[2023-11-18 06:50] LABS: Basophils # (auto) 0.21 K/uL (0.00-0.20); Basophils % (auto) 0.4 %; Eosinophils # (auto) 0.62 K/uL (0.00-0.50); Eosinophils % (auto) 1.2 %; Immature Granulocytes # (auto) 1.95 K/uL (0.01-0.20); Immature Granulocytes % (auto) 3.8 %; Lymphocytes # (auto) 1.58 K/uL (1.20-3.40); Monocytes % (auto) 18.5 %; Neutrophils # (auto) 37.88 K/uL (1.40-6.50); Neutrophils % (auto) 73.1 %
[2023-11-18 06:52] LABS: Troponin I High Sensitivity 5.4 pg/ml (0-20)
--- NOTE | 2023-11-18 06:52 | XRay Report ---
XR chest 1V portable CLINICAL HISTORY: Chest pain, nonspecific COMPARISON STUDY: Chest radiograph August 01, 2023. FINDINGS: A loop recorder is incidentally noted. Lung volumes are normal. Lungs are clear. There is n o pneumothorax or pleural effusion. Cardiac size is normal. Mediastinal contours are normal. There is no evidence for pulmonary edema. IMPRESSION: No acute cardiopulmonary findings. ACT 112: Negative or not required by law. Electronically signed by: Kwabena De La Cruz M.D. 11/18/2023 6:51 AM
[2023-11-18 07:10] LABS: Adenovirus PCR Not Detected (NotDetected); Bordetella parapertussis PCR Not Detected (NotDetected); Bordetella pertussis PCR Not Detected (NotDetected); Chlamydia pneumoniae PCR Not Detected (NotDetected); Coronavirus 229E PCR Not Detected (NotDetected); Coronavirus CoV-2 (COVID19)PCR Not Detected (NotDetected); Coronavirus HKU1 PCR Not Detected (NotDetected); Coronavirus NL63 PCR Not Detected (NotDetected); Coronavirus OC43PCR Not Detected (NotDetected); Human Metapneumovirus PCR Not Detected (NotDetected); Influenza A PCR Not Detected (NotDetected); Influenza B PCR Not Detected (NotDetected); Mycoplasma pneumoniae PCR Not Detected (NotDetected); Parainfluenza Virus 1 PCR Not Detected (NotDetected); Parainfluenza Virus 2 PCR Not Detected (NotDetected); Parainfluenza Virus 3 PCR Not Detected (NotDetected); Parainfluenza Virus 4 PCR Not Detected (NotDetected); Respiratory Syncytial VirusPCR Not Detected (NotDetected); Rhinovirus/Enterovirus PCR Not Detected (NotDetected)
[2023-11-18] MEDS ORDERED: OPTIRAY 320 125ml IV ONE (07:11)
[2023-11-18] MEDS ORDERED: SODIUM CHLORIDE 0.9% 1,000 ML IV ONE (07:26)
--- NOTE | 2023-11-18 07:36 | CT Scan Report ---
CT ANGIOGRAPHY OF THE ABDOMEN AND PELVIS CLINICAL HISTORY: Upper abdominal pain. COMPARISON STUDY: No previous studies for comparison. TECHNIQUE: Helical axial images of the abdomen and pelvis were obtained during arterial phase followi ng intravenous injection 115 cc of Optiray 320 IV. Sagittal and coronal reconstructions were viewed a s well as maximal intensity projections on an independent 3-D workstation. Automated exposure control was utilized for the study. A dose lowering technique was utilized adhering to the principles of AL SUNIL. FINDINGS: Lung bases are unremarkable. No pneumatosis, free air or portal venous gas is present. Mild biliary ductal dilatation is likely related to cholecystectomy. No hepatic lesions are identified on arterial phase exam. There is mild splenomegaly. Adrenal glands and pancreas are unremarkable. Small low-attenuation bilateral renal lesions favor cysts although are difficult to characterize given sma ll size. There is no hydronephrosis. There is mild wall thickening of the first and second portions o f the duodenum with adjacent inflammation. No free air is present. There is no abscess. There is no e vidence for a bowel obstruction. Extensive colonic diverticulosis is present. There is subtle strandi ng adjacent to the distal descending colon. There is no free air. There is no abscess. The appendix i s surgically absent. Mildly enlarged marianela hepatis node on image 121 of 409 measures 1.8 x 1.4 cm. 1. 2 x 1 cm enhancing nodule posterior to the duodenum on image 134 may also represent a prominent lymph node. There is no pelvic lymphadenopathy. Caliber of the abdominal aorta is normal. There is mild pl aque within the abdominal aorta and branch vessels. The branch vessels are patent. There is mild aneu rysmal dilatation of the proximal celiac axis, measuring 1.1 cm. IMPRESSION: 1. Wall thickening of the first and second portions of the duodenum with adjacent inflammation. The f indings favor duodenitis/peptic ulcer disease. No free air. No abscess. Although less likely, acute p ancreatitis is also within the differential. 2. Normal caliber abdominal aorta with mild plaque. Patent vessels. 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 3. Extensive colonic diverticulosis. Subtle stranding adjacent to the distal descending colon. Mild a cute diverticulitis would be difficult to exclude. 4. Mild splenomegaly. Several prominent upper abdominal lymph nodes. These may be reactive however a follow-up CT in 6 months to ensure stability/resolution is recommended. ACT 112: Negative or not required by law. Electronically signed by: Kwabena De La Cruz M.D. 11/18/2023 7:33 AM
[2023-11-18] MEDS ORDERED: PANTOprazole 40 MG in SYRINGE 0 ML IV ONE (07:41)
--- NOTE | 2023-11-18 10:01 | History & Physical Report ---
Date of Service November 18, 2023 Assessment & Plan (1) Abdominal discomfort, epigastric: (2) Duodenitis: (3) Leukocytosis: (4) QI (acute kidney injury): (5) Abnormal ANCA (antineutrophil cytoplasmic antibody): Plan This is an 78-year-old male who has a significant past medical history of HTN, HLD, TIA, hypothyroidism and BPH who presents to ED secondary to abdominal pain x 3 to 4 days. Abdominal pain Duodenitis admit to tele will keep NPO for now consult GI - discussed with KALLIE Connolly likely needs EGD - to be done today IV PPI BID continue IV zosyn for now obtain stool study if able - pt reports loose bowel last few days Leukocytosis consult Dr. Craven peripheral smear worrisome for MPD, possible CML may also be partially reactive in setting of possible infection, continue antibiotics for now QI baseline cr 1-1.1 cr 1.5 today with poor intake last several days continue IV LR for now given npo status re evaluate fluid needs daily and d/c as soon as able Elevated C-ANCA prior hospitalization 07/2023 was eval by neuro due to hx of stroke and imaging revealing chronic frontal infarct corresponding to previous area of leptomeningeal enhancement at that time autoimmune work up ordered revealed elevated RF at 20 and elevated C-anca titer 1:160 given additional constitutional sx, reported 20lb weight loss I did discuss with Rheumatology Dr. Booth at this point will order ANCA specific MPO and PR3 serologies, if positive will reach out to Dr. Leobardo Booth is product distribution specialist throughout the weekend and if any specific issues arises he is happy to discuss via phone and follow closely at discharge if needed Will repeat UA in a.m. as well to determine if protein possibly related to dehydration HTN given lack of PO intake and bp currently normal will hold olmesartan, amlodipine continue atenolol for now HLD chronic, stable on statin as op Hx of TIA/CVA on plavix, statin holding plavix due to upcoming egd procedure Hx of Syncope loop recorder in place DVT ppx: SCDS for now due to EGD today, initiate chemical ppx when able FULL CODE Dispo: admit to tele PCP: [facility] warner Pt was seen and examined in collaboration with Dr. Sanchez, please see addendum A total of 81 was spent coordinating, documenting, and providing care for this patient excluding time spent in the performance of separately billed services. This included personally viewing all current laboratories and imaging studies, medication reconciliation, outpatient chart review, and discussion with specialists. History of Present Illness Chief Complaint: abd pain x 3-4 days. Primary Care Provider: Mihir Mello This is an 78-year-old male who has a significant past medical history of HTN, HLD, TIA, hypothyroidism and BPH who presents to ED secondary to abdominal pain x 3 to 4 days. Unfortunately patient seeks medical care at [facility] and [facility] including his primary care, rheumatology and was recently got referred to nephrology there as well. Over the last 3 to 4 days he has had a persistent epigastric/umbilical abdominal pain. Pain has been constant, does not wax and wane in severity, has not tried anything at home to make it better, is rated consistently a 6 out of 10 and has not had anything to eat for the last 3 days. He states typically he gets these episodes at home and if he does not eat for 2 or 3 days it will resolve on its own. He does have prior history of small bowel obstruction and pancreatitis in the past. His previous small bowel obstruction he states was a long time ago and he previously did require exploratory surgery but never had any resections. He did state during 1 of those exploratory surgeries he did have his appendix removed. He does not have any associated nausea or vomiting. He has had approximately 20 pound weight loss unintentionally over the last year. Generally he just does not feel well. He has this chronic persistent left scapular pain for which she is scheduled a bone scan in the outpatient setting. The pain is significant enough that it keeps him up mostly every night. He has tried [id number]-hcg-rmenhyy analgesia and most recently PCP prescribed him tramadol without significant relief. He denies any fever, chills, sweats, lightheadedness, dizziness, chest pain, shortness with, cough, melena or hematochezia. His last normal bowel movement was approximately a week ago. Over the last few days he has has a very small loose bowel movements. is at bedside who also helps elicit history. He has no known prior history of cancer. states that he was referred to a camp housekeeper oncologist due to his elevated white count as an outpatient, but they were told he has nothing wrong. In ED patient remained hemodynamically stable. He has a significant leukocytosis at 51, anemia with H&H 11.3 and 35.9, monocytosis, elevated urine creatinine at 31 and 1.55 and elevated lipase at 99. His urinalysis is significant for +1 protein but otherwise negative. His bio fire is negative. He underwent CT abdomen pelvis which reveal wall thickening of his first and second portions of duodenum with adjacent inflammation which could favor duodenitis versus peptic ulcer disease. Also noted is several prominent upper abdominal lymph nodes and mild splenomegaly. Although these may be reactive it is recommended he has repeat CT in 6 months. Empirically he was placed on IV Zosyn. He also received IV Protonix, Tylenol, IV fluid and famotidine. Allergies Allergy/AdvReac Type Severity Reaction Status Date / Time No Known Allergies Allergy Verified 06/11/23 10:13 Home Medications Medication Instructions Recorded Confirmed Type amlodipine 5 mg tablet 5 mg PO QAM 08/15/22 11/18/23 History atenolol 50 mg tablet (Tenormin) 50 mg PO QAM 08/15/22 11/18/23 History cyanocobalamin (vitamin B-12) 1,000 mcg PO DAILY 08/15/22 11/18/23 History 1,000 mcg tablet esomeprazole magnesium 40 mg 40 mg PO QAM 08/15/22 11/18/23 History capsule,delayed release (Nexium) olmesartan 40 mg tablet (Benicar) 40 mg PO QAM 08/15/22 11/18/23 History sildenafil 100 mg tablet 100 mg PO UD PRN Erectile 08/15/22 11/18/23 History Dysfunction terazosin 2 mg capsule 2 mg PO QPM 08/15/22 11/18/23 History atorvastatin 20 mg tablet 40 mg PO QAM 06/11/23 11/18/23 History magnesium oxide 400 mg PO BID 90 days #180 tabs 07/16/23 11/18/23 Rx clopidogrel 75 mg tablet (Plavix) 75 mg PO QAM 08/01/23 11/18/23 History levothyroxine 50 mcg tablet 75 mcg PO QAM 08/01/23 11/18/23 History (Synthroid) meloxicam 15 mg PO DAILY 11/18/23 11/18/23 History methocarbamol 500 mg tablet 500 mg PO TID 11/18/23 11/18/23 History tramadol 50 mg tablet 50 mg PO TID PRN Pain 11/18/23 11/18/23 History Past Med/Surg History Medical History (Updated 11/18/23 @ 11:40 by Maurice Jones MD) Encounter for pre-operative examination H/O meningitis QI (acute kidney injury) BPH (benign prostatic hyperplasia) GERD (gastroesophageal reflux disease) Syncope Cervicalgia Dysarthria Dyslipidemia Hypertension Surgical History Hx of exploratory laparotomy Family History Mother , age 82 with heart issues Heart disease Father , age 58 of diabetes complications Diabetes Social History Smoking Status: Never smoker Second Hand Exposure: No; Do You Dip or Chew Tobacco: No; Hx Alcohol Use: Yes (socially) Alcohol type: beer Hx Substance Use: No Preferred Language: British Communication Ability: Effective Communication Ability Comment: wears reading glasses Stitcher Tape Controlled Machine Required: No Beliefs That Will Affect Care: None marital status: Current Living Situation: Spouse Current Living Situation Comment: One story home with stairs to the basement an d a few to get inside current occupational status: retired current occupation: former [employer] Other Information That Helps Us Care for You: No Feels Safe at Home: Yes Safety Concerns: Feels Safe At This Time Assistive Devices: Glasses Review of Systems Review of Systems: All systems reviewed & are unremarkable except as noted in HPI & below Physical Exam Physical Exam: Constitutional: WD/WN, appears acutely ill vitals as above, NAD, sitting up in bed, pleasant, conversing easily Head: Normocephalic, Atraumatic Eyes: PERRL, conjunctivae normal, anicteric sclerae ENMT: external ear and nose normal, oropharynx normal dry membranes Neck: trachea midline, no thyromegaly normal visual inspection Respiratory: normal respiratory effort, lungs clear to auscultation, no wheeze, rales, rhonchi. Normal insp/exp effort, no accessory muscle use Cardiovascular: RRR, no murmur, no edema Vessels: no JVD or carotid bruit Chest: normal inspection of chest Abdomen: normal bowel sounds, soft, nontender, no hepatosplenomegaly Musculoskeletal: no cyanosis or clubbing, extremities motor strength 5/5 Skin: no rashes, warm and dry normal turgor Neurologic: PERRL, EOMI, accommodation nl, no face palsy, no dysarthria CN's II-XI intact bilaterally and moves all extremities Psychiatric: A+Ox3, euthymic affect : deferred Results & Data Results & Data Vital Signs (Past 12 Hours) Vital Signs Temp Pulse Resp BP Pulse Ox O2 Del Method 11/18/23 07:30 72 15 121/61 99 11/18/23 06:11 83 16 162/83 H 98 Room Air 11/18/23 06:10 72 11/18/23 06:04 77 14 99 Room Air 11/18/23 05:48 36.8 C 95 H 18 159/94 H 99 Room Air Laboratory Results I have independently reviewed and interpreted patient's admitting labs including CBC, peripheral smear, CMP, lipase and troponin. UA and resp biofire also reviewed and independently interpreted by myself. Diagnostic Findings Chest X-Ray 11/18/23 05:58 XR chest 1V portable CLINICAL HISTORY: Chest pain, nonspecific COMPARISON STUDY: Chest radiograph August 01, 2023. FINDINGS: A loop recorder is incidentally noted. Lung volumes are normal. Lungs are clear. There is no pneumothorax or pleural effusion. Cardiac size is normal. Mediastinal contours are normal. There is no evidence for pulmonary edema. IMPRESSION: No acute cardiopulmonary findings. ACT 112: Negative or not required by law. Electronically signed by: Kwabena De La Cruz M.D. 11/18/2023 6:51 AM Abdomen/Pelvis CTA 11/18/23 06:49 CT ANGIOGRAPHY OF THE ABDOMEN AND PELVIS CLINICAL HISTORY: Upper abdominal pain. COMPARISON STUDY: No previous studies for comparison. TECHNIQUE: Helical axial images of the abdomen and pelvis were obtained during a rterial phase following intravenous injection 115 cc of Optiray 320 IV. Sagittal and coronal reconstructions were viewed as well as maximal intensity projections on an independent 3-D workstation. Automated exposure control was utilized for the study. A dose lowering technique was utilized adhering to the principles of ALARA. FINDINGS: Lung bases are unremarkable. No pneumatosis, free air or portal venous gas is present. Mild biliary ductal dilatation is likely related to cholecystectomy. No hepatic lesions are identified on arterial phase exam. There is mild splenomegaly. Adrenal glands and pancreas are unremarkable. Small low- attenuation bilateral renal lesions favor cysts although are difficult to characterize given small size. There is no hydronephrosis. There is mild wall thickening of the first and second portions of the duodenum with adjacent inflammation. No free air is present. There is no abscess. There is no evidence for a bowel obstruction. Extensive colonic diverticulosis is present. There is subtle stranding adjacent to the distal descending colon. There is no free air. There is no abscess. The appendix is surgically absent. Mildly enlarged marianela hepatis node on image 121 of 409 measures 1.8 x 1.4 cm. 1.2 x 1 cm enhancing nodule posterior to the duodenum on image 134 may also represent a prominent lymph node. There is no pelvic lymphadenopathy. Caliber of the abdominal aorta is normal. There is mild plaque within the abdominal aorta and branch vessels. The branch vessels are patent. 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 IMPRESSION: 1. Wall thickening of the first and second portions of the duodenum with adjacent inflammation. The findings favor duodenitis/peptic ulcer disease. No free air. No abscess. Although less likely, acute pancreatitis is also within the differential. 2. Normal caliber abdominal aorta with mild plaque. Patent vessels. 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 3. Extensive colonic diverticulosis. Subtle stranding adjacent to the distal descending colon. Mild acute diverticulitis would be difficult to exclude. 4. Mild splenomegaly. Several prominent upper abdominal lymph nodes. These may be reactive however a follow-up CT in 6 months to ensure stability/resolution is recommended. ACT 112: Negative or not required by law. Electronically signed by: Kwabena De La Cruz M.D. 11/18/2023 7:33 AM Medications Administered Medication List Discontinued Medications Sodium Chloride (Nss) 1,000 mls @ 999 mls/hr IV .Q1H1M STA Stop: 11/18/23 06:58 Last Infusion: 11/18/23 07:52 Dose: Infused Documented By: JUAN M Admin: 11/18/23 06:04 Dose: 999 mls/hr Documented By: ITALIA Acetaminophen (Ofirmev) 1,000 mg in 100 mls @ 400 mls/hr IV NOW STA Stop: 11/18/23 06:12 Last Infusion: 11/18/23 06:36 Dose: Infused Documented By: Admin: 11/18/23 06:04 Dose: 400 mls/hr Documented By: ITALIA Famotidine (Pepcid 20mg Iv Push) 20 mg in 5 mls @ 2.5 mls/min IV NOW STA Stop: 11/18/23 05:59 Last Admin: 11/18/23 06:04 Dose: 2.5 mls/min Documented By: ITALIA Piperacillin Sod/Tazobactam Sod (Zosyn) 4.5 gm in 100 mls @ 200 mls/hr IV NOW ONE Stop: 11/18/23 07:18 Last Infusion: 11/18/23 07:52 Dose: Infused Documented By: JUAN M Admin: 11/18/23 06:56 Dose: 200 mls/hr Documented By: ITALIA Sodium Chloride (Nss) 1,000 mls @ 999 mls/hr IV .Q1H1M ONE Stop: 11/18/23 08:26 Last Admin: 11/18/23 07:35 Dose: 999 mls/hr Documented By: JUAN M Pantoprazole Sodium 40 mg/ (Syringe) 10 mls @ 5 mls/min IV NOW ONE Stop: 11/18/23 07:42 Last Admin: 11/18/23 08:27 Dose: 5 mls/min Documented By: JUAN M Ioversol (Optiray 320 125ml) 115 ml IV ONCE ONE Stop: 11/18/23 07:12 Last Admin: 11/18/23 07:12 Dose: 115 ml Documented By: KELI Ondansetron HCl (Ondansetron Inj 2 Mg/Ml 2 Ml Vial) 4 mg IV NOW STA Stop: 11/18/23 05:59 Last Admin: 11/18/23 06:05 Dose: 4 mg Documented By: ITALIA ECG Additional Comments: I have independently reviewed and interpreted patient's admitting EKG which revealed: 89 nsr, no s t t wave changes, qtc 438ms - changes from 08/01 reveal q wave septally COVID-19 Results Results COVID-19 Adm Lab Results: RBC 3.80 M/uL (4.70-6.10) L 11/18/23 WBC 51.84 K/ul (4.8-10.8) H* 11/18/23 Hgb 11.3 g/dl (14.0-18.0) L 11/18/23 Hct 35.9 % (42.0-52.0) L 11/18/23 Plt Count 337 K/uL (130-400) 11/18/23 Neutrophils (%) (Auto) 73.1 % 11/18/23 Lymphocytes (%) (Auto) 3.0 % 11/18/23 Monocytes # (Auto) 9.60 K/uL (0.11-0.59) H 11/18/23 Eosinophils # (Auto) 0.62 K/uL (0.00-0.50) H 11/18/23 Immature Granulocyte % (Auto) 3.8 % 11/18/23 Neutrophils # (Auto) 37.88 K/uL (1.40-6.50) H 11/18/23 Lymphocytes # (Auto) 1.58 K/uL (1.20-3.40) 11/18/23 Monocytes # (Auto) 9.60 K/uL (0.11-0.59) H 11/18/23 Eosinophils # (Auto) 0.62 K/uL (0.00-0.50) H 11/18/23 Basophils # (Auto) 0.21 K/uL (0.00-0.20) H 11/18/23 Immature Granulocyte # (Auto) 1.95 K/uL (0.01-0.20) H 11/18 Na 133 mmol/L (136-145) L 11/18/23 K 4.7 mmol/L (3.5-5.1) 11/18/23 Cl 102 mmol/L (98-107) 11/18/23 CO2 20 mmol/L (21-32) L 11/18/23 Anion Gap 11 (3-11) 11/18/23 BUN 31 mg/dl (6-23) H 11/18/23 Creatinine 1.55 mg/dl (0.6-1.4) H 11/18/23 BUN/Creatinine Ratio 20.0 (10-20) 11/18/23 Glucose Level 103 mg/dl (70-99(Fasting)) H 11/18/23 Ca 9.7 mg/dl (8.6-10.3) 11/18/23 Total Bilirubin 0.7 mg/dl (0.2-1.0) 11/18/23 AST/SGOT 32 U/L (13-39) 11/18/23 ALT/SGPT 26 U/L (7-52) 11/18/23 Alkaline Phosphatase 97 U/L (34-104) 11/18/23 Total Protein 8.5 gm/dl (6.0-8.3) H 11/18/23 Albumin 4.9 gm/dl (3.4-5.0) 11/18/23 Globulin 3.6 gm/dl (2.5-4.0) 11/18/23 Albumin/Globulin Ratio 1.4 (0.9-2) 11/18/23 Adenovirus (PCR) Not Detected (NotDetected) 11/18/23 B. parapertussis DNA (PCR) Not Detected (NotDetected) 10/31 B. pertussis DNA (PCR) Not Detected (NotDetected) 11/18/23 C. pneumoniae DNA (PCR) Not Detected (NotDetected) 3 Coronavirus Type OC43 (PCR) Not Detected (NotDetected) Coronavirus Type HKU1 (PCR) Not Detected (NotDetected) Coronavirus Type 229E (PCR) Not Detected (NotDetected) COVID-19 PCR Not Detected (NotDetected) 11/18/23 Coronavirus Type NL63 (PCR) Not Detected (NotDetected) Human Metapneumovirus (PCR) Not Detected (NotDetected) Influenza Virus Type A (PCR) Not Detected (NotDetected) Influenza Virus Type B (PCR) Not Detected (NotDetected) M. pneumoniae (PCR) Not Detected (NotDetected) 11/18/23 Parainfluenza Type 1 (PCR) Not Detected (NotDetected) 10/31 Parainfluenza Type 2 (PCR) Not Detected (NotDetected) 10/31 Parainfluenza Type 3 (PCR) Not Detected (NotDetected) 10/31 0 Parainfluenza Type 4 (PCR) Not Detected (NotDetected) 10/31 RSV (PCR) Not Detected (NotDetected) 11/18/23 Enterovirus/Rhinovirus (PCR) Not Detected (NotDetected) Chest CT 11/18/23 Chest X-Ray 11/18/23 Code Status & VTE Plan Code Status FULL CODE VTE Prophylaxis Plan VTE Prophylaxis will be ordered: Yes Supervising Physician Co-Signing Physician Notes 11/18/2023 The patient was seen and examined in telemetry unit in presence of the He has been complaining of abdominal pain with distention for some time So far resolution of the symptoms at home with no food by mouth for a day or 2 Did not resolve this time and also complaining of chronic back pain, towards the left back of the chest No fever and or chills On examination Generally weak but denies any significant symptoms Has been feeling better since admission Chest-clear to auscultate bilaterally Heart-S1, S2 Abdomen-mildly tender in the lower quadrants and also in epigastric region, no guarding and no rigidity, bowel sound present Extremities-negative for any edema Local exam of the back of the left upper chest did show some tenderness over the scapular area without any lump His admission labs, EKG and imaging studies reviewed Has significant elevation of the white count at 51,000 and 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
--- NOTE | 2023-11-18 10:39 | CT Scan Report ---
CT OF THE CHEST WITHOUT IV CONTRAST CLINICAL HISTORY: Elevated white blood cell count. COMPARISON STUDY: Chest radiographs August 01, 2023 and November 18, 2023. CT DOSE: 340.89 mGy.cm TECHNIQUE: Axial images of the chest were obtained without IV contrast. Images were reviewed in the axial, sagittal, and coronal planes. IV contrast was not administered for this examination. Automat ed exposure control was utilized for the study. A dose lowering technique was utilized adhering to t he principles of ALARA. FINDINGS: A loop recorder is incidentally noted. No enlarged axillary, mediastinal or hilar lymph no jessica are present. Size of the heart is normal. There is no pericardial effusion. No pneumothorax or pl eural effusion is present. Central airways are patent. Subpleural densities represent atelectasis. Th ere is no consolidation to suggest pneumonia. No pulmonary nodules are present. No suspicious lesions within the bony thorax are present. The gallbladder is surgically absent. Stranding adjacent to the proximal duodenum is better depicted on abdominal CTA performed earlier today. IMPRESSION: 1. No acute intrathoracic findings. No consolidation to suggest pneumonia. 2. No thoracic lymphadenopathy. 3. Inflammation adjacent to the proximal duodenum, better depicted on CTA of the abdomen and pelvis p erformed earlier today. ACT 112: Negative or not required by law. Electronically signed by: Kwabena De La Cruz M.D. 11/18/2023 10:37 AM
--- NOTE | 2023-11-18 10:54 | Gastrointestinal Consultation ---
Date of Consultation November 18, 2023 Assessment & Plan (1) Abdominal discomfort, epigastric: Duodenal wall thickening; also mention of distal descending colon mild thickening (2) Abnormal abdominal CT scan: Plan EGD today by Dr. Mak. Appreciate primary hospitalist management of mild QI, need for fluid resuscitation, and workup of shoulder pain, leukocytosis. Keep NPO. Further recommendations to follow EGD. Supervising Physician Co-Signing Physician Notes I have seen and examined the patient with KALLIE Ann whose note reflects our findings and plan. EGD today for persistent abd pain and duodenal wall thickening on CT. History of Present Illness Reason for Consultation: Abd pain Requesting Physician: Dr. Sanchez Attending Physician: Dr. Sanchez History of Present Illness Mr. Waylon Marmolejo is an 78-year-old male who typically gets his care at [facility] but felt that his issues were not being addressed so came instead to our emergency department this morning. He carries a history of HTN, HLD, TIA (on Plavix, most recent dose on the morning, 3 days ago), leukocytosis (following with hematology oncology in [place] but w/o specific dx or tx recommendation as of yet). He carries a history of bowel obstruction about 20 years ago during which time he underwent exploratory lap. He and his state he did not have a bowel resection. Since then, about 2 or 3 times a year he gets obstructive symptoms which he describes as diffuse severe abdominal pain. He typically self treats by not eating or drinking anything and it usually resolves. He had the sudden onset of this generalized abdominal pain similar to prior episodes on Thursday. After 3 days of not eating or drinking anything, having some dry heaves, and constant, worsening pain they decided, early this morning to present to [facility] ED, arriving around 6AM. He also mentions that for about 4 days prior to the onset of pain (about a week ago), he was passing 1 black, formed bowel movement per day and is not on iron and was not taking Pepto-Bismol. He tends toward chronic constipation, but manages this with taking 1 MiraLAX dose per day. His most recent bowel movement was a few days ago and was formed and brown. He does not have any abdominal distention. Abdominal pain is mostly in the upper, epigastric area. But is also generalized. In addition to the abdominal pain he also has pain between the left shoulder blade and his lumbar spine. He has not had fever chills sweats rashes chest pain or shortness of breath. No bloody BMs. CTA of the abdomen and pelvis suggested duodenal wall thickening.there is also mention of mild stranding at the distal descending colon, no other GI abnormalities. His baseline creatinine is 1.2. Creatinine is 1.5 on arrival. Hemoglobin is 11.3. BUN is 31. LFTs are normal, lipase is mildly elevated at 99. The patient is seen and examined in the emergency department where he is awake alert oriented, moderately uncomfortable with abdominal pain but no acute distress. His who is a very pleasant woman is at the bedside. They tell me he has had colonoscopies for colon cancer screening, not recently and he has never had an EGD. They believe he is status postcholecystectomy and appendectomy. Allergies Allergy/AdvReac Type Severity Reaction Status Date / Time No Known Allergies Allergy Verified 06/11/23 10:13 Home Medications Medication Instructions Recorded Confirmed Type amlodipine 5 mg tablet 5 mg PO QAM 08/15/22 11/18/23 History atenolol 50 mg tablet (Tenormin) 50 mg PO QAM 08/15/22 11/18/23 History cyanocobalamin (vitamin B-12) 1,000 mcg PO DAILY 08/15/22 11/18/23 History 1,000 mcg tablet esomeprazole magnesium 40 mg 40 mg PO QAM 08/15/22 11/18/23 History capsule,delayed release (Nexium) olmesartan 40 mg tablet (Benicar) 40 mg PO QAM 08/15/22 11/18/23 History sildenafil 100 mg tablet 100 mg PO UD PRN Erectile 08/15/22 11/18/23 History Dysfunction terazosin 2 mg capsule 2 mg PO QPM 08/15/22 11/18/23 History atorvastatin 20 mg tablet 40 mg PO QAM 06/11/23 11/18/23 History magnesium oxide 400 mg PO BID 90 days #180 tabs 07/16/23 11/18/23 Rx clopidogrel 75 mg tablet (Plavix) 75 mg PO QAM 08/01/23 11/18/23 History levothyroxine 50 mcg tablet 75 mcg PO QAM 08/01/23 11/18/23 History (Synthroid) meloxicam 15 mg PO DAILY 11/18/23 11/18/23 History methocarbamol 500 mg tablet 500 mg PO TID 11/18/23 11/18/23 History tramadol 50 mg tablet 50 mg PO TID PRN Pain 11/18/23 11/18/23 History Patient History Medical History (Updated 11/18/23 @ 10:52 by KALLIE Chirinos) H/O meningitis QI (acute kidney injury) BPH (benign prostatic hyperplasia) GERD (gastroesophageal reflux disease) Syncope Cervicalgia Dysarthria Dyslipidemia Hypertension Surgical History (Updated 11/18/23 @ 10:04 by Jodie Forrester PA-C) Hx of exploratory laparotomy Family History Mother , age 82 with heart issues Heart disease Father , age 58 of diabetes complications Diabetes Social History Smoking Status: Never smoker Second Hand Exposure: No; Do You Dip or Chew Tobacco: No; Hx Alcohol Use: Yes (socially) Alcohol type: beer Hx Substance Use: No Preferred Language: Tuvaluan Communication Ability: Effective Communication Ability Comment: wears reading glasses Triage Licensed Practical Nurse Required: No Beliefs That Will Affect Care: None marital status: Current Living Situation: Spouse Current Living Situation Comment: One story home with stairs to the basement and a few to get inside current occupational status: 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 Feels Safe at Home: Yes Assistive Devices: Glasses Review of Systems Review of Systems: ROS: Gen: Denies weakness, fevers, weight loss Eyes: No eye redness, or pain, no recent vision changes Resp: No SOB, no cough Cardio: No palpitations/irregular beats, no chest pain GI: As per HPI, otherwise (-) : Denies pain on urination Skin: No jaundice, itching or new rashes M/S Shoulder/upper abd pain Physical Exam Constitutional: WD/WN, vitals as above Eyes: PERRL, conjunctivae normal, anicteric sclerae ENMT: external ear and nose normal, oropharynx normal Neck: trachea midline, no thyromegaly Respiratory: normal respiratory effort, lungs clear to auscultation Cardiovascular: RRR, no murmur, no edema Gastrointestinal (Abdomen): Soft, non distended, active BS, mild diffuse tenderness on palpation - no rebound or guarding Skin: no rashes, warm and dry Neurologic: PERRL, EOMI, accommodation nl, no face palsy, no dysarthria Psychiatric: A+Ox3, euthymic affect Lymphatic: no cervical or axillary lymphadenopathy Results & Data Vital Signs (Past 12 Hours) Vital Signs Temp Pulse Resp BP Pulse Ox O2 Del Method 11/18/23 10:16 Room Air 11/18/23 10:09 72 19 151/78 H 99 11/18/23 07:30 72 15 121/61 99 11/18/23 06:11 83 16 162/83 H 98 Room Air 11/18/23 06:10 72 11/18/23 06:04 77 14 99 Room Air 11/18/23 05:48 36.8 C 95 H 18 159/94 H 99 Room Air Laboratory Results WBC 51, Hb 11, HCT 35, PLT 337, NA 133, K4.7, CL 102, CO2 20, BUN 31, CR 1.5, glucose 103 T. bili 0.7, AST 32, ALT 36, alk phos 97, lipase 99. Diagnostic Findings CTA abd/pelvis 11/18/23: 1. Wall thickening of the first and second portions of the duodenum with adjacent inflammation. The findings favor duodenitis/peptic ulcer disease. No free air. No abscess. Although less likely, acute pancreatitis is also within the differential. 2. Normal caliber abdominal aorta with mild plaque. Patent vessels. 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 3. Extensive colonic diverticulosis. Subtle stranding adjacent to the distal descending colon. Mild acute diverticulitis would be difficult to exclude. 4. Mild splenomegaly. Several prominent upper abdominal lymph nodes. These may be reactive however a follow-up CT in 6 months to ensure stability/resolution is recommended.
--- NOTE | 2023-11-18 11:11 | Anesthesiology Consultation ---
Date of Service November 18, 2023 History Surgery Operation Date: 11/18/23 17:00 Proposed Procedures p Esophagogastroduodenoscopy Dr Mak - Aniyah Mak, DO Height/Weight Height: 6 ft Weight: 69.2 kg Allergies Allergy/AdvReac Type Severity Reaction Status Date / Time No Known Allergies Allergy Verified 06/11/23 10:13 Medications Home Medications Medication Instructions Recorded Confirmed Last Taken amlodipine 5 mg tablet 5 mg PO QAM 08/15/22 11/18/23 11/15/23 atenolol 50 mg tablet (Tenormin) 50 mg PO QAM 08/15/22 11/18/23 11/15/23 cyanocobalamin (vitamin B-12) 1,000 mcg PO DAILY 08/15/22 11/18/23 11/15/23 1,000 mcg tablet esomeprazole magnesium 40 mg 40 mg PO QAM 08/15/22 11/18/23 11/15/23 capsule,delayed release (Nexium) olmesartan 40 mg tablet (Benicar) 40 mg PO QAM 08/15/22 11/18/23 11/15/23 sildenafil 100 mg tablet 100 mg PO UD PRN Erectile 08/15/22 11/18/23 11/15/23 Dysfunction terazosin 2 mg capsule 2 mg PO QPM 08/15/22 11/18/23 11/15/23 atorvastatin 20 mg tablet 40 mg PO QAM 06/11/23 11/18/23 11/15/23 magnesium oxide 400 mg PO BID 90 days #180 tabs 07/16/23 11/18/23 11/15/23 clopidogrel 75 mg tablet (Plavix) 75 mg PO QAM 08/01/23 11/18/23 11/15/23 levothyroxine 50 mcg tablet 75 mcg PO QAM 08/01/23 11/18/23 11/15/23 (Synthroid) meloxicam 15 mg PO DAILY 11/18/23 11/18/23 11/15/23 methocarbamol 500 mg tablet 500 mg PO TID 11/18/23 11/18/23 11/15/23 tramadol 50 mg tablet 50 mg PO TID PRN Pain 11/18/23 11/18/23 11/15/23 Past Medical History Medical History (Updated 11/18/23 @ 10:52 by KALLIE Chirinos) H/O meningitis QI (acute kidney injury) BPH (benign prostatic hyperplasia) GERD (gastroesophageal reflux disease) Syncope Cervicalgia Dysarthria Dyslipidemia Hypertension Past Family History Family History Mother , age 82 with heart issues Heart disease Father , age 58 of diabetes complications Diabetes Past Surgical History Surgical History (Updated 11/18/23 @ 10:04 by Jodie Forrester PA-C) Hx of exploratory laparotomy Social History Smoking Status: Never smoker Do You Dip or Chew Tobacco: No Hx Alcohol Use: Yes (socially) Alcohol type: beer alcohol intake frequency: holidays/special occasions only Hx Substance Use: No Physical Exam Vital Signs Last Vital Signs Temp 36.8 C 11/18/23 05:48 Pulse 72 11/18/23 10:09 Resp 19 11/18/23 10:09 BP 151/78 H 11/18/23 10:09 Pulse Ox 99 11/18/23 10:09 O2 Del Method Room Air 11/18/23 10:16 Testing Laboratory Results 11/18/23 06:05 11/18/23 06:05 Urine Color Yellow 11/18/23 06:00 Urine Appearance Clear (Clear) 11/18/23 06:00 Urine pH 5.0 (4.5-7.5) 11/18/23 06:00 Ur Specific [place] 1.016 (1.000-1.030) 11/18/23 06:00 Urine Protein 1+ (Negative) H 11/18/23 06:00 Urine Glucose (UA) Negative (Negative) 11/18/23 06:00 Urine Ketones 1+ (Negative) H 11/18/23 06:00 Urine Nitrite Negative (Negative) 11/18/23 06:00 Ur Leukocyte Esterase Negative (Negative) 11/18/23 06:00 Urine WBC (Auto) 1-5 /hpf (0-5) 11/18/23 06:00 Urine RBC (Auto) 0-4 /hpf (0-4) 11/18/23 06:00 U Hyaline Cast (Auto) 1-5 /lpf (0-5) 11/18/23 06:00 U Epithel Cells (Auto) >30 /lpf (0-5) H 11/18/23 06:00 Urine Bacteria (Auto) Negative (Negative) 11/18/23 06:00 Chest X-Ray Date: 11/18/23
[2023-11-18] MEDS ORDERED: ALUMINUM/MAGNESIUM SUSP 30 ML UDC PO PRN (11:24)
[2023-11-18] MEDS ORDERED: MAGNESIUM HYDROXIDE SUSP 30 ML UDC PO PRN (11:24)
[2023-11-18] MEDS ORDERED: ONDANSETRON INJ 2 MG/ML 2 ML VIAL IV PRN (11:24)
[2023-11-18] MEDS ORDERED: POLYETHYLENE (MIRALAX) 17 GM PACK PO PRN (11:24)
--- NOTE | 2023-11-18 11:36 | Anesthesiology Consultation ---
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 initiated Consults Requested none Proposed Anesthesia Anesthesia Type: MAC History Surgery Operation Date: 11/18/23 17:00 Proposed Procedures p Esophagogastroduodenoscopy Dr Mak - Aniyah Mak, DO Height/Weight Height: 6 ft Weight: 69.2 kg Allergies Allergy/AdvReac Type Severity Reaction Status Date / Time No Known Allergies Allergy Verified 06/11/23 10:13 Medications Home Medications Medication Instructions Recorded Confirmed Last Taken amlodipine 5 mg tablet 5 mg PO QAM 08/15/22 11/18/23 11/15/23 atenolol 50 mg tablet (Tenormin) 50 mg PO QAM 08/15/22 11/18/23 11/15/23 cyanocobalamin (vitamin B-12) 1,000 mcg PO DAILY 08/15/22 11/18/23 11/15/23 1,000 mcg tablet esomeprazole magnesium 40 mg 40 mg PO QAM 08/15/22 11/18/23 11/15/23 capsule,delayed release (Nexium) olmesartan 40 mg tablet (Benicar) 40 mg PO QAM 08/15/22 11/18/23 11/15/23 sildenafil 100 mg tablet 100 mg PO UD PRN Erectile 08/15/22 11/18/23 11/15/23 Dysfunction terazosin 2 mg capsule 2 mg PO QPM 08/15/22 11/18/23 11/15/23 atorvastatin 20 mg tablet 40 mg PO QAM 06/11/23 11/18/23 11/15/23 magnesium oxide 400 mg PO BID 90 days #180 tabs 07/16/23 11/18/23 11/15/23 clopidogrel 75 mg tablet (Plavix) 75 mg PO QAM 08/01/23 11/18/23 11/15/23 levothyroxine 50 mcg tablet 75 mcg PO QAM 08/01/23 11/18/23 11/15/23 (Synthroid) meloxicam 15 mg PO DAILY 11/18/23 11/18/23 11/15/23 methocarbamol 500 mg tablet 500 mg PO TID 11/18/23 11/18/23 11/15/23 tramadol 50 mg tablet 50 mg PO TID PRN Pain 11/18/23 11/18/23 11/15/23 NPO Date Last Intake of Fluids: 11/18/23 Time Last Intake of Fluids: 04:00 Date Last Intake of Solids: 11/15/23 Past Medical History Medical History (Updated 11/18/23 @ 11:40 by Maurice Jones MD) Encounter for pre-operative examination H/O meningitis QI (acute kidney injury) BPH (benign prostatic hyperplasia) GERD (gastroesophageal reflux disease) Syncope Cervicalgia Dysarthria Dyslipidemia Hypertension Past Family History Family History Mother , age 82 with heart issues Heart disease Father , age 58 of diabetes complications Diabetes Past Surgical History Surgical History Hx of exploratory laparotomy Social History Smoking Status: Never smoker Do You Dip or Chew Tobacco: No Hx Alcohol Use: Yes (socially) Alcohol type: beer alcohol intake frequency: holidays/special occasions only Hx Substance Use: No Physical Exam Vital Signs Last Vital Signs Temp 36.8 C 11/18/23 10:30 Pulse 61 11/18/23 10:30 Resp 18 11/18/23 10:30 BP 150/69 H 11/18/23 10:30 Pulse Ox 99 11/18/23 10:30 O2 Del Method Room Air 11/18/23 10:30 Testing Laboratory Results 11/18/23 06:05 11/18/23 06:05 Urine Color Yellow 11/18/23 06:00 Urine Appearance Clear (Clear) 11/18/23 06:00 Urine pH 5.0 (4.5-7.5) 11/18/23 06:00 Ur Specific [place] 1.016 (1.000-1.030) 11/18/23 06:00 Urine Protein 1+ (Negative) H 11/18/23 06:00 Urine Glucose (UA) Negative (Negative) 11/18/23 06:00 Urine Ketones 1+ (Negative) H 11/18/23 06:00 Urine Nitrite Negative (Negative) 11/18/23 06:00 Ur Leukocyte Esterase Negative (Negative) 11/18/23 06:00 Urine WBC (Auto) 1-5 /hpf (0-5) 11/18/23 06:00 Urine RBC (Auto) 0-4 /hpf (0-4) 11/18/23 06:00 U Hyaline Cast (Auto) 1-5 /lpf (0-5) 11/18/23 06:00 U Epithel Cells (Auto) >30 /lpf (0-5) H 11/18/23 06:00 Urine Bacteria (Auto) Negative (Negative) 11/18/23 06:00 Electrocardiogram Date: 11/18/23 ID:[id number] 18-NOV-2023 06:07:03 [facility]-EDSTAT ROUTINE RETRIEVAL Normal sinus rhythm Left axis deviation Septal infarct , age undetermined Abnormal ECG When compared with ECG of 01-AUG-2023 11:23, Vent. rate has increased BY 29 BPM Septal infarct is now Present 25mm/s10mm/[id number]: [id number] by: REFERRED SELF Unconfirmed Vent. rate 89 BPM NH interval 148 ms QRS duration 78 ms QT/QTc 360/438 ms Chest X-Ray Date: 11/18/23 XR chest 1V portable CLINICAL HISTORY: Chest pain, nonspecific COMPARISON STUDY: Chest radiograph August 01, 2023. FINDINGS: A loop recorder is incidentally noted. Lung volumes are normal. Lungs are clear. There is no pneumothorax or pleural effusion. Cardiac size is normal. Mediastinal contours are normal. There is no evidence for pulmonary edema. IMPRESSION: No acute cardiopulmonary findings. Echocardiogram Date: 08/01/23 EF: 60-65 LV Function: normal RWMA: + none Other Findings: + LVH (mild) and + diastolic dysfunction (Grade 1)
[2023-11-18] MEDS ORDERED: LIDOCAINE 2% 2 ML VIAL/AMP(20MG/ML) INFIL ONE ×2 (12:03→12:04)
[2023-11-18] MEDS ORDERED: PROPOFOL IV EMULSION 10 MG/ML 20 ML VIAL IV ONE (12:03)
--- NOTE | 2023-11-18 12:09 | GI REPORT ---
Patient Name: Waylon Marmolejo Procedure Date: 11/18/2023 11:31 AM Date of : 1945 Admit Type: Emergency Department Age: 78 Gender: Male Attending MD: Aniyah Mak DO, Procedure: Upper GI endoscopy Providers: Aniyah Mak DO Referring MD: Ozzy Gudino Indications: Upper abdominal pain, Abnormal CT of the GI tract Medicines: Monitored Anesthesia Care Complications: No immediate complications. Estimated blood loss: Minimal. Estimated Blood Loss: Estimated blood loss was minimal. Procedure: Pre-Anesthesia Assessment: - Prior to the procedure, a History and Physical was performed, and patient medications, allergies and sensitivities were reviewed. The patient's tolerance of previous anesthesia was reviewed. - The risks and benefits of the procedure and the sedation options and risks were discussed with the patient. All questions were answered and informed consent was obtained. - Patient identification and proposed procedure were verified prior to the procedure by the physician and the nurse. The procedure was verified in the pre-procedure area in the procedure room. - Mental Status Examination: alert and oriented. Airway Examination: normal oropharyngeal airway and neck mobility. Respiratory Examination: clear to auscultation. CV Examination: normal. Abdominal Examination: bowel sounds present, abdomen soft and non-tender, no masses or organomegaly noted. - ASA Grade Assessment: II - A patient with mild systemic disease. After obtaining informed consent, the endoscope was passed under direct vision. Throughout the procedure, the patient's blood pressure, pulse, and oxygen saturations were monitored continuously. The Endoscope was introduced through the mouth, and advanced to the second part of duodenum. The upper GI endoscopy was accomplished without difficulty. The patient tolerated the procedure well. Findings: The esophagus was normal. The entire examined stomach was normal. Biopsies were taken with a cold forceps for Helicobacter pylori testing. Verification of patient identification for the specimen was done by the physician and nurse using the patient's name and date. Estimated blood loss was minimal. Few non-bleeding cratered duodenal ulcers with no stigmata of bleeding were found in the duodenal bulb. Biopsies were taken with a cold forceps for histology. Verification of patient identification for the specimen was done by the physician and nurse using the patient's name and date. Estimated blood loss was minimal. The second portion of the duodenum was normal. Impression: - Normal esophagus. - Normal stomach. Biopsied. - Non-bleeding duodenal ulcers with no stigmata of bleeding. Biopsied. - Normal second portion of the duodenum. Recommendation: - Await pathology results. - Follow an antireflux regimen. - No ibuprofen, naproxen, or other non-steroidal anti-inflammatory drugs. - Use a proton pump inhibitor PO BID. - Return patient to hospital [facility]. Aniyah Mak D.O. Aniyah Mak, 11/18/2023 12:08:36 PM This report has been signed electronically. Note Initiated On: 11/18/2023 11:31 AM Number of Addenda: 0 I attest to the content of the Intraoperative Record and orders documented therein, exceptions below {[id number]}
--- NOTE | 2023-11-18 12:33 | Oncology Consultation ---
Date of Consultation November 18, 2023 Assessment & Plan (1) Elevated WBC count: (2) Duodenitis: (3) Abnormal ANCA (antineutrophil cytoplasmic antibody): Plan 78-year-old gentleman with weight loss of unclear etiology presenting with abdominal pain possibly due to duodenitis/duodenal ulcer. Imaging revealed mild splenomegaly mildly enlarged abdominal lymph nodes. Review of labs and history from indicates that he has had leukocytosis for close to 1 year with monocytosis. -Recommend MPN mutation analysis on peripheral blood -Anemia panel including iron studies, B12 and folate level -Bone marrow biopsy to evaluate for CMML -Consider obtaining bone scan inpatient Thank you for this consult. Oncology will continue following while patient is in the hospital. Please feel free to call if you have any other questions History of Present Illness Reason for Consultation: Leukocytosis Attending Physician: Tae Sanchez MD History of Present Illness 78-year-old gentleman who presented to [facility] with epigastric pain. labs obtained on admission revealed leukocytosis with white cell count of 51,000, anemia with hemoglobin of 11.3 and hematocrit of 35.9. Peripheral smear review by pathology revealed absolute monocyte count of 9,600 with findings concerning for myeloproliferative disorder such as CMML. Hematology was consulted for this reason. Patient was not present at the time of visit today as he is still in the recovery room after recent EGD. However, his was in the room and indicated that he has lost close to 20 pounds over the past few months. [facility] indicates [facility] been [facility] him. Denies ever having bone marrow biopsy. Patient's also indicates that he has had left scapular and mid back pain for several months now of unclear etiology. PCP recently ordered a bone scan which is scheduled for next week. CT chest obtained today was unremarkable except for inflammation adjacent to the proximal duodenum. CT abdomen and pelvis revealed wall thickening of the first and second portions of the duodenum with adjacent inflammation favoring duodenitis/peptic ulcer disease, extensive colonic diverticulosis and mild splenomegaly with several prominent upper abdominal lymph nodes.EGD which was performed today revealed duodenal ulcers.Of note, patient was recently [facility] in July, and white cell count was also elevated at 17,000 to 25,000 at that time with elevated monocyte count of 2330 Allergies Allergy/AdvReac Type Severity Reaction Status Date / Time No Known Allergies Allergy Verified 06/11/23 10:13 Home Medications Medication Instructions Recorded Confirmed Type amlodipine 5 mg tablet 5 mg PO QAM 08/15/22 11/18/23 History atenolol 50 mg tablet (Tenormin) 50 mg PO QAM 08/15/22 11/18/23 History cyanocobalamin (vitamin B-12) 1,000 mcg PO DAILY 08/15/22 11/18/23 History 1,000 mcg tablet esomeprazole magnesium 40 mg 40 mg PO QAM 08/15/22 11/18/23 History capsule,delayed release (Nexium) olmesartan 40 mg tablet (Benicar) 40 mg PO QAM 08/15/22 11/18/23 History sildenafil 100 mg tablet 100 mg PO UD PRN Erectile 08/15/22 11/18/23 History Dysfunction terazosin 2 mg capsule 2 mg PO QPM 08/15/22 11/18/23 History atorvastatin 20 mg tablet 40 mg PO QAM 06/11/23 11/18/23 History magnesium oxide 400 mg PO BID 90 days #180 tabs 07/16/23 11/18/23 Rx clopidogrel 75 mg tablet (Plavix) 75 mg PO QAM 08/01/23 11/18/23 History levothyroxine 50 mcg tablet 75 mcg PO QAM 08/01/23 11/18/23 History (Synthroid) meloxicam 15 mg PO DAILY 11/18/23 11/18/23 History methocarbamol 500 mg tablet 500 mg PO TID 11/18/23 11/18/23 History tramadol 50 mg tablet 50 mg PO TID PRN Pain 11/18/23 11/18/23 History Patient History Medical History (Updated 11/18/23 @ 11:40 by Maurice Jones MD) Encounter for pre-operative examination H/O meningitis QI (acute kidney injury) BPH (benign prostatic hyperplasia) GERD (gastroesophageal reflux disease) Syncope Cervicalgia Dysarthria Dyslipidemia Hypertension Surgical History Hx of exploratory laparotomy Family History Mother , age 82 with heart issues Heart disease Father , age 58 of diabetes complications Diabetes Social History Smoking Status: Never smoker Second Hand Exposure: No; Do You Dip or Chew Tobacco: No; Hx Alcohol Use: Yes (socially) Alcohol type: beer Hx Substance Use: No Preferred Language: Azerbaijani Communication Ability: Effective Communication Ability Comment: wears reading glasses Yacht Hand Required: No Beliefs That Will Affect Care: None marital status: Current Living Situation: Spouse Current Living Situation Comment: One story home with stairs to the basement and a few to get inside current occupational status: retired 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 Other Information That Helps Us Care for You: No Feels Safe at Home: Yes Safety Concerns: Feels Safe At This Time Assistive Devices: Glasses Results & Data Vital Signs (Past 12 Hours) Vital Signs Temp Pulse Pulse Resp BP BP Pulse Ox 11/18/23 12:20 58 L 16 126/69 98 11/18/23 12:05 63 14 105/50 L 100 11/18/23 11:30 36.7 C 60 16 153/67 H 98 11/18/23 10:30 36.8 C 61 18 150/69 H 99 11/18/23 10:16 11/18/23 10:09 72 19 151/78 H 99 11/18/23 07:30 72 15 121/61 99 11/18/23 06:11 83 16 162/83 H 98 11/18/23 06:10 72 11/18/23 06:04 77 14 99 11/18/23 05:48 36.8 C 95 H 18 159/94 H 99 O2 Del Method 11/18/23 12:20 Room Air 11/18/23 12:05 Room Air 11/18/23 11:30 Room Air 11/18/23 10:30 Room Air 11/18/23 10:16 Room Air 11/18/23 10:09 11/18/23 07:30 11/18/23 06:11 Room Air 11/18/23 06:10 11/18/23 06:04 Room Air 11/18/23 05:48 Room Air (1) Elevated WBC count Leukocytosis type: unspecified Qualified Code(s): D72.829 - Elevated white blood cell count, unspecified
[2023-11-18] MEDS: PIPERACILLIN/TAZOBACTAM 4.5 GM in DEXTROSE 5% MINI-B 100 ML IV SCH ×2 (13:20→20:23)
[2023-11-18] MEDS: LACTATED RINGER'S 1,000 ML IV SCH ×2 (13:24→21:41)
--- NOTE | 2023-11-18 15:06 | Anesthesiology Progress Note ---
Date of Service November 18, 2023 Anesthesia Post Procedure Vital Signs Vital Signs: Temp Pulse Pulse Resp BP BP Pulse Ox 11/18/23 12:38 61 16 134/67 99 11/18/23 12:20 58 L 16 126/69 98 11/18/23 12:05 63 14 105/50 L 100 11/18/23 11:30 36.7 C 60 16 153/67 H 98 11/18/23 10:48 62 11/18/23 10:30 36.8 C 61 18 150/69 H 99 11/18/23 10:16 11/18/23 10:09 72 19 151/78 H 99 11/18/23 07:30 72 15 121/61 99 11/18/23 06:11 83 16 162/83 H 98 11/18/23 06:10 72 11/18/23 06:04 77 14 99 11/18/23 05:48 36.8 C 95 H 18 159/94 H 99 O2 Del Method 11/18/23 12:38 Room Air 11/18/23 12:20 Room Air 11/18/23 12:05 Room Air 11/18/23 11:30 Room Air 11/18/23 10:48 11/18/23 10:30 Room Air 11/18/23 10:16 Room Air 11/18/23 10:09 11/18/23 07:30 11/18/23 06:11 Room Air 11/18/23 06:10 11/18/23 06:04 Room Air 11/18/23 05:48 Room Air Pain Intensity Abdomen: Pain Intensity: 6 Transfer of Care Handoff Completed per policy Notes Mental Status: alert / awake / arousable and participated in evaluation Patient Amnestic to Procedure: Yes Nausea / Vomiting: adequately controlled Pain: adequately controlled Airway Patency, RR, SpO2: stable & adequate BP & HR: stable & adequate Hydration State: stable & adequate Anesthetic Complications: no major complications apparent
[2023-11-18] MEDS: ACETAMINOPHEN 325 MG TAB PO PRN ×2 (16:29→21:34)
[2023-11-18] MEDS: PANTOprazole 40 MG in SYRINGE 0 ML IV SCH (20:23)
[2023-11-19] MEDS: PIPERACILLIN/TAZOBACTAM 4.5 GM in DEXTROSE 5% MINI-B 100 ML IV SCH ×3 (04:47→20:46)
[2023-11-19] MEDS: LEVOTHYROXINE SODIUM 75 MCG TABLET PO SCH (04:48)
[2023-11-19] MEDS: LACTATED RINGER'S 1,000 ML IV SCH ×4 (04:52→23:15)
[2023-11-19 06:16] LABS: Hematocrit (blood only) 32.6 % (42.0-52.0); Mean Corpuscular Hgb Conc 30.7 g/dL (32.0-36.0); Mean Corpuscular Volume 97.9 fL (80.0-100.0); Mean Platelet Volume 11.7 fL (9.4-12.4); Platelet Count 277 K/uL (130-400); RDW Coefficient of Variation 13.2 % (11.5-14.5); Red Blood Count 3.33 M/uL (4.70-6.10); White Blood Count 27.46 K/ul (4.8-10.8)
[2023-11-19] MEDS: ACETAMINOPHEN 325 MG TAB PO PRN (06:28)
[2023-11-19 06:35] LABS: Albumin Globulin Ratio 1.4 (0.9-2); Bilirubin,Total 0.5 mg/dl (0.2-1.0); Calcium 8.9 mg/dl (8.6-10.3); Creatinine Clr Calc Pharmacy 36.2 ml/min; Est GFR (African American) 46.1 ml/min; Est GFR (Non-African American) 39.8 ml/min; Globulin 2.9 gm/dl (2.5-4.0); Magnesium 1.8 mg/dl (1.7-2.4); Potassium 4.2 mmol/L (3.5-5.1); Total Protein 6.9 gm/dl (6.0-8.3)
[2023-11-19 06:41] LABS: INR 1.2 (0.9-1.1); Prothrombin Time 12.6 Seconds (9.0-12.0)
[2023-11-19 06:46] LABS: Basophils # (auto) 0.11 K/uL (0.00-0.20); Basophils % (auto) 0.4 %; Eosinophils % (auto) 2.2 %; Immature Granulocytes # (auto) 1.09 K/uL (0.01-0.20); Lymphocytes # (auto) 1.27 K/uL (1.20-3.40); Lymphocytes % (auto) 4.6 %; Monocytes % (auto) 19.3 %; Neutrophils # (auto) 19.09 K/uL (1.40-6.50); Neutrophils % (auto) 69.5 %; RBC Morphology Unremarkable
[2023-11-19] MEDS: PANTOprazole 40 MG in SYRINGE 0 ML IV SCH ×2 (08:38→20:46)
[2023-11-19 08:52] LABS: Bone Marrow Smear SLHOLD
--- NOTE | 2023-11-19 09:32 | Gastroenterology Progress Note ---
Date of Service November 19, 2023 Assessment & Plan (1) Abdominal discomfort, epigastric: (2) Abnormal abdominal CT scan: (3) Duodenal ulcer disease: Plan IV BID PPI here. On discharge po BID PPI x 2 months then back to daily (was on Nexium 40mg daily prior to arrival). Discussed no Meloxicam w the pt - no other NSAIDs. OK to take Tylenol prn shoulder pain. In the future if abd pain, OK to stop eating solids but continue liquid diet. No GI indication for antibiotics. Will defer w/u of leukocytosis to primary - and pt is seeing OP hem/onc. No further GI w/u. GI will sign off. Admission and Anticipated Discharge Date Admission Date: November 18, 2023 Supervising Physician Co-Signing Physician Notes I have seen and examined the patient with KALLIE Ann whose note reflects our findings and plan. Subjective 78 yr old male admitted yesterday for abd pain. EGD w non bleeding duodenal ulcers, likely secondary to NSAIDs (meloxicam for shoulder pain). Pt tells me feels better this morning. Still mild epigastric tenderness on exam. Review of Systems Review of Systems: ROS: Gen: Denies weakness, fevers, weight loss Eyes: No eye redness, or pain, no recent vision changes Resp: No SOB, no cough Cardio: No palpitations/irregular beats, no chest pain GI: As per HPI, otherwise (-) : Denies pain on urination Skin: No jaundice, itching or new rashes M/S Shoulder/upper abd pain Physical Exam Constitutional: WD/WN, vitals as above Eyes: PERRL, conjunctivae normal, anicteric sclerae ENMT: external ear and nose normal, oropharynx normal Neck: trachea midline, no thyromegaly Respiratory: normal respiratory effort, lungs clear to auscultation Cardiovascular: RRR, no murmur, no edema Gastrointestinal (Abdomen): BS present, soft, non distended, + mild epigastric tenderness. Skin: no rashes, warm and dry Neurologic: PERRL, EOMI, accommodation nl, no face palsy, no dysarthria Psychiatric: A+Ox3, euthymic affect Lymphatic: no cervical or axillary lymphadenopathy Results & Data Vital Signs (Past 12 Hours) Vital Signs Temp Pulse Pulse Resp BP Pulse Ox O2 Del Method 11/19/23 07:27 36.5 C 58 L 19 134/69 98 Room Air 11/19/23 06:00 53 L 11/19/23 04:10 36.6 C 58 L 17 141/66 H 98 Room Air 11/18/23 23:28 57 L 11/18/23 22:40 36.7 C 58 L 16 147/64 H 98 Room Air Laboratory Results WBC 27, Hb 10, Hct 32.6, Plts 277, PT 12.6, INR 12, Na 139, K 42. Cl 22, Co2 7, BUN 21, Cr 1.6, glucose 81. Diagnostic Findings CTA 11/18/23: 1. Wall thickening of the first and second portions of the duodenum with adjacent inflammation. The findings favor duodenitis/peptic ulcer disease. No free air. No abscess. Although less likely, acute pancreatitis is also within the differential. 2. Normal caliber abdominal aorta with mild plaque. Patent vessels. 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 3. Extensive colonic diverticulosis. Subtle stranding adjacent to the distal descending colon. Mild acute diverticulitis would be difficult to exclude. 4. Mild splenomegaly. Several prominent upper abdominal lymph nodes. These may be reactive however a follow-up CT in 6 months to ensure stability/resolution is recommended.
[2023-11-19 10:46] LABS: Adenovirus F 40/41 PCR Not Detected (NotDetected); Astrovirus PCR Not Detected (NotDetected); Campylobacter PCR Not Detected (NotDetected); Cryptosporidium PCR Not Detected (NotDetected); Cyclospora cayetanensis PCR Not Detected (NotDetected); Entamoeba histolytica PCR Not Detected (NotDetected); Enteroaggregative E.coli(EAEC) Not Detected (NotDetected); Enteropathogenic E.coli (EPEC) Not Detected (NotDetected); Enterotoxigenic E.coli (ETEC) Not Detected (NotDetected); Giardia lamblia PCR Not Detected (NotDetected); Norovirus GI/GII PCR Not Detected (NotDetected); Plesiomonas shigelloides PCR Not Detected (NotDetected); Rotavirus A PCR Not Detected (NotDetected); Salmonella PCR Not Detected (NotDetected); Sapovirus PCR Not Detected (NotDetected); Shiga-like Toxin E.coli (STEC) Not Detected (NotDetected); Shigella/Enteroinvasive E.coli Not Detected (NotDetected); Vibrio cholerae PCR Not Detected (NotDetected); Vibrio species PCR Not Detected (NotDetected); Yersinia enterocolitica PCR Not Detected (NotDetected)
[2023-11-19] MEDS ORDERED: fentaNYL citrate PF 100 MCG/2 ML VIAL ONE (10:53)
[2023-11-19] MEDS ORDERED: ACETAMINOPHEN 1000 MG/100 ML IV IV ONE (10:53)
[2023-11-19] MEDS: HYDROmorphone INJ 0.5 MG/0.5 ML SYR IV PRN ×2 (10:56→19:52)
--- NOTE | 2023-11-19 12:46 | CT Scan Report ---
CT-guided bone marrow biopsy INDICATION: Leukocytosis PROCEDURE: Procedure and risks were explained. Informed consent was obtained. A final timeout was com pleted. The patient was placed prone on the CT exam table. The left gluteal region was prepped and dr aped in sterile fashion. 1% buffered lidocaine was utilized for skin anesthesia. Utilizing CT guidance, an 11-gauge bone biopsy needle was advanced into the left iliac bone. Multiple aspirations and one bone core was obtained and given to the lab. The needle was removed and Band-Aid applied. The patient tolerated the procedure well. Vital signs will be monitored postprocedure. IMPRESSION: Bone marrow biopsy as detailed above. Performed, dictated, and signed by Demetrio Stanford PA-C; to be co-signed by Dr. Aj Churchill. Electronically signed by: Aj Churchill M.D. 11/19/2023 12:47 PM
[2023-11-19 14:48] LABS: Appearance Urine Clear (Clear); Bacteria Urine Automated Negative (Negative); Bilirubin Urine Negative (Negative); Blood Urine Negative (Negative); Cast Urine Automated 0 /lpf (0-5); Color Urine Yellow; Glucose Urine UA Negative (Negative); Ketones Urine Negative (Negative); Leukocyte Esterase Urine Negative (Negative); Nitrite Urine Negative (Negative); Protein Urine Trace (Negative); RBC Urine Automated 0-4 /hpf (0-4); Urobilinogen Urine Negative (Negative)
--- NOTE | 2023-11-19 14:52 | Hospitalist Progress Note ---
Date of Service November 19, 2023 Assessment & Plan (1) Abdominal discomfort, epigastric: (2) Duodenitis: (3) Leukocytosis: (4) QI (acute kidney injury): (5) Abnormal ANCA (antineutrophil cytoplasmic antibody): Plan This is an 78-year-old male who has a significant past medical history of HTN, HLD, TIA, hypothyroidism and BPH who presents to ED secondary to abdominal pain x 3 to 4 days. Abdominal pain-possible acute diverticulitis Duodenitis-nonbleeding duodenal ulcer disease admit to tele will keep NPO for now consult GI - discussed with KALLIE Connolly likely needs EGD - to be done today IV PPI BID continue IV zosyn for now obtain stool study if able - pt reports loose bowel last few days Stool has been negative for any C. difficile or other Has been getting intravenous Zosyn for possible diverticulitis Status post EGD which showed nonbleeding duodenal ulcer disease He has been feeling better and now on IV Protonix twice daily Will discharge on oral Protonix twice daily Leukocytosis consult Dr. Craven peripheral smear worrisome for MPD, possible CML may also be partially reactive in setting of possible infection, continue antibiotics for now Appreciate hematology input and recommendation Status post bone marrow biopsy today there is 11/18/2023 Will have bone scan today as well QI baseline cr 1-1.1 cr 1.5 today with poor intake last several days continue IV LR for now given npo status re evaluate fluid needs daily and d/c as soon as able Kidney function remains stable and was advised to drink more fluid Elevated C-ANCA prior hospitalization 07/2023 was eval by neuro due to hx of stroke and imaging revealing chronic frontal infarct corresponding to previous area of leptomeningeal enhancement at that time autoimmune work up ordered revealed elevated RF at 20 and elevated C-anca titer 1:160 given additional constitutional sx, reported 20lb weight loss I did discuss with Rheumatology Dr. Booth at this point will order ANCA specific MPO and PR3 serologies, if positive will reach out to Dr. Leobardo Booth is station baggage porter throughout the weekend and if any specific issues arises he is happy to discuss via phone and follow closely at discharge if needed Will repeat UA in a.m. as well to determine if protein possibly related to dehydration HTN given lack of PO intake and bp currently normal will hold olmesartan, amlodipine continue atenolol for now HLD chronic, stable on statin as op Hx of TIA/CVA on plavix, statin holding plavix due to upcoming egd procedure Hx of Syncope loop recorder in place DVT ppx: SCDS for now due to EGD today, initiate chemical ppx when able FULL CODE Dispo: admit to tele PCP: [facility] warner Will get PT and OT evaluation Possible discharge tomorrow Admission and Anticipated Discharge Date Admission Date: November 18, 2023 Subjective 11/19/2023 The patient was seen and examined in telemetry unit in presence of the He has been feeling much better Still has pain in the left posterior chest wall and scapular region Denies any abdominal pain and no nausea and or vomiting Review of Systems Review of Systems: All systems reviewed and are unremarkable except as noted below Physical Exam Physical Exam: Lying in bed without any acute distress Constitutional: well developed, well nourished, + ill appearing and average body habitus Eyes: PERRL, conjunctivae normal, anicteric sclerae ENMT: external ear and nose normal, oropharynx normal Neck: trachea midline, no thyromegaly Respiratory: normal respiratory effort, lungs clear to auscultation Cardiovascular: Rate/Rhythm: regular rate and regular rhythm; not tachycardic Heart Sounds: normal S1 and normal S2; no murmur Extremities: no edema Gastrointestinal (Abdomen): Inspection/Auscultation: normal bowel sounds; abdomen not distended Percussion/Palpation: + abdomen tender (Minimally tender lower quadrants) and abdomen soft Musculoskeletal: No acute arthritis involving any joint. Tender areas medial to the left scapula Neurologic: normal touch/pain/proprioception and moves all extremities; no focal motor deficits Lymphatic: no cervical or axillary lymphadenopathy Results & Data Results & Data Vital Signs (Past 12 Hours) Vital Signs Temp Pulse Pulse Resp BP BP Pulse Ox 11/19/23 10:38 36.5 C 61 20 150/67 H 99 11/19/23 07:27 36.5 C 58 L 19 134/69 98 11/19/23 06:00 53 L 11/19/23 04:10 36.6 C 58 L 17 141/66 H 98 O2 Del Method 11/19/23 10:38 Room Air 11/19/23 07:27 Room Air 11/19/23 06:00 11/19/23 04:10 Room Air Laboratory Results Short CBC 11/19/23 Range/Units 05:34 WBC 27.46 H (4.8-10.8) K/ul Hgb 10.0 L (14.0-18.0) g/dl Hct 32.6 L (42.0-52.0) % Plt Count 277 (130-400) K/uL BMP 11/19/23 05:34 Sodium 139 Potassium 4.2 Chloride 110 H Carbon Dioxide 22 BUN 21 Creatinine 1.61 H Glucose 81 Calcium 8.9 Liver Function 11/19/23 Range/Units 05:34 Total Bilirubin 0.5 (0.2-1.0) mg/dl AST 22 (13-39) U/L ALT 17 (7-52) U/L Alkaline Phosphatase 72 (34-104) U/L Albumin 4.0 (3.4-5.0) gm/dl Medications Administered Current Inpatient Medications Acetaminophen (Acetaminophen 325 Mg Tab) 650 mg PO Q4H PRN PRN Reason: Pain or Fever Stop: 12/18/23 11:23 Last Admin: 11/19/23 06:28 Dose: 650 mg Al Hydrox/Mg Hydrox/Simethicone (Aluminum/Magnesium Susp 30 Ml Udc) 15 ml PO Q4H PRN PRN Reason: Dyspepsia Stop: 12/18/23 11:23 Hydromorphone HCl (Hydromorphone Inj 0.5 Mg/0.5 Ml Syr) 0.5 mg IV Q6H PRN PRN Reason: Pain Stop: 12/03/23 08:36 Last Admin: 11/19/23 10:56 Dose: 0.5 mg Pantoprazole Sodium 40 mg/ (Syringe) 10 mls @ 5 mls/min IV BID JENNY Stop: 12/18/23 20:59 Last Admin: 11/19/23 08:38 Dose: 5 mls/min Piperacillin Sod/Tazobactam (Sod 4.5 gm/ Dextrose) 100 mls @ 25 mls/hr IV Q8H [facility]; Protocol Stop: 11/28/23 12:59 Last Admin: 11/19/23 14:12 Dose: 25 mls/hr Lactated Ringer's (Lr) 1,000 mls @ 125 mls/hr IV .Q8H JENNY Stop: 12/18/23 11:23 Last Admin: 11/19/23 14:13 Dose: 125 mls/hr Levothyroxine Sodium (Levothyroxine Sodium 75 Mcg Tablet) 75 mcg PO DAILYBB JENNY Stop: 12/19/23 06:29 Last Admin: 11/19/23 04:48 Dose: 75 mcg Magnesium Hydroxide (Magnesium Hydroxide Susp 30 Ml Udc) 30 ml PO Q12H PRN PRN Reason: Constipation Stop: 12/18/23 11:23 Ondansetron HCl (Ondansetron Inj 2 Mg/Ml 2 Ml Vial) 4 mg IV Q6H PRN PRN Reason: Nausea Stop: 12/18/23 11:23 Polyethylene Glycol (Polyethylene (Miralax) 17 Gm Pack) 17 gm PO DAILY PRN PRN Reason: Constipation Stop: 12/18/23 11:23 (3) Leukocytosis Leukocytosis type: unspecified Qualified Code(s): D72.829 - Elevated white blood cell count, unspecified
--- NOTE | 2023-11-19 16:53 | Nuclear Medicine Report ---
WHOLE BODY BONE SCAN HISTORY: Leukocytosis. bone pain, weight loss RADIOTRACER: 23.5 mCi Tc-99m MDP STUDY/IMAGES: Planar anterior and posterior whole body imaging was performed 3 hours following the i ntravenous administration of radiotracer. COMPARISON: Chest abdomen pelvis CT 11/18/2023. FINDINGS: Mild radiotracer uptake seen within the cervical spine, shoulders, sternoclavicular joints, and ankle/feet consistent with degenerative changes. Otherwise, no suspicious areas of radiotracer u ptake seen within the axial or appendicular skeleton. IMPRESSION: No suspicious areas of radiotracer uptake identified. ACT 112: Negative or not required by law. Electronically signed by: Aj Churchill M.D. 11/19/2023 4:51 PM
[2023-11-20] MEDS: PIPERACILLIN/TAZOBACTAM 4.5 GM in DEXTROSE 5% MINI-B 100 ML IV SCH ×3 (05:35→19:42)
[2023-11-20] MEDS: LEVOTHYROXINE SODIUM 75 MCG TABLET PO SCH (05:36)
[2023-11-20] MEDS: LACTATED RINGER'S 1,000 ML IV SCH ×2 (07:17→16:21)
[2023-11-20] MEDS: PANTOprazole 40 MG in SYRINGE 0 ML IV SCH ×2 (08:24→19:42)
[2023-11-20] MEDS: ACETAMINOPHEN 325 MG TAB PO PRN ×2 (09:29→16:16)
[2023-11-20 09:39] LABS: Hematocrit (blood only) 30.7 % (42.0-52.0); Hemoglobin 9.4 g/dl (14.0-18.0); Mean Corpuscular Hgb Conc 30.6 g/dL (32.0-36.0); Mean Corpuscular Volume 98.1 fL (80.0-100.0); Mean Platelet Volume 11.6 fL (9.4-12.4); Platelet Count 243 K/uL (130-400); RDW Coefficient of Variation 13.2 % (11.5-14.5); RDW Standard Deviation 47.4 fL (36.4-46.3); Red Blood Count 3.13 M/uL (4.70-6.10); White Blood Count 21.38 K/ul (4.8-10.8)
[2023-11-20 09:55] LABS: BUN Creatinine Ratio 8.1 (10-20); Calcium 8.5 mg/dl (8.6-10.3); Creatinine Clr Calc Pharmacy 36.6 ml/min; Est GFR (African American) 46.1 ml/min; Est GFR (Non-African American) 39.8 ml/min; Potassium 4.2 mmol/L (3.5-5.1)
[2023-11-20 10:01] LABS: Basophils # (auto) 0.07 K/uL (0.00-0.20); Basophils % (auto) 0.3 %; Eosinophils # (auto) 0.69 K/uL (0.00-0.50); Eosinophils % (auto) 3.2 %; Immature Granulocytes # (auto) 0.97 K/uL (0.01-0.20); Immature Granulocytes % (auto) 4.5 %; Lymphocytes % (auto) 5.1 %; Monocytes # (auto) 3.23 K/uL (0.11-0.59); Monocytes % (auto) 15.1 %; Neutrophils # (auto) 15.32 K/uL (1.40-6.50); Neutrophils % (auto) 71.8 %; Polychromasia 1+
[2023-11-20] MEDS: LOPERAMIDE HCL 2 MG CAP PO PRN ×2 (15:34→19:42)
--- NOTE | 2023-11-20 17:32 | Hospitalist Progress Note ---
Date of Service November 20, 2023 Assessment & Plan (1) Abdominal discomfort, epigastric: (2) Duodenitis: (3) Leukocytosis: (4) QI (acute kidney injury): (5) Abnormal ANCA (antineutrophil cytoplasmic antibody): Plan This is an 78-year-old male who has a significant past medical history of HTN, HLD, TIA, hypothyroidism and BPH who presents to ED secondary to abdominal pain x 3 to 4 days. Abdominal pain-possible acute diverticulitis Duodenitis-nonbleeding duodenal ulcer disease admit to tele will keep NPO for now consult GI - discussed with KALLIE Connolly likely needs EGD - to be done today IV PPI BID continue IV zosyn for now obtain stool study if able - pt reports loose bowel last few days Stool has been negative for any C. difficile or other Has been getting intravenous Zosyn for possible diverticulitis Status post EGD which showed nonbleeding duodenal ulcer disease He has been feeling better and now on IV Protonix twice daily Will discharge on oral Protonix twice daily Still has some abdominal discomfort without any nausea or vomiting Will continue current management Will get records from [facility] Leukocytosis consult Dr. Craven peripheral smear worrisome for MPD, possible CML may also be partially reactive in setting of possible infection, continue antibiotics for now Appreciate hematology input and recommendation Status post bone marrow biopsy today there is 11/18/2023 Will have bone scan today as well-bone scan and remained unremarkable Awaiting results of bone marrow biopsy but the white count has been improving QI baseline cr 1-1.1 cr 1.5 today with poor intake last several days continue IV LR for now given npo status re evaluate fluid needs daily and d/c as soon as able Kidney function remains stable and was advised to drink more fluid Creatinine remains stable with level at 1.67 as of 11/20/2023 Elevated C-ANCA prior hospitalization 07/2023 was eval by neuro due to hx of stroke and imaging revealing chronic frontal infarct corresponding to previous area of leptomeningeal enhancement at that time autoimmune work up ordered revealed elevated RF at 20 and elevated C-anca titer 1:160 given additional constitutional sx, reported 20lb weight loss I did discuss with Rheumatology Dr. Booth at this point will order ANCA specific MPO and PR3 serologies, if positive will reach out to Dr. Leobardo Booth is aeronautics teacher throughout the weekend and if any specific issues arises he is happy to discuss via phone and follow closely at discharge if needed Will repeat UA in a.m. as well to determine if protein possibly related to dehydration HTN given lack of PO intake and bp currently normal will hold olmesartan, amlodipine continue atenolol for now HLD chronic, stable on statin as op Hx of TIA/CVA on plavix, statin holding plavix due to upcoming egd procedure Hx of Syncope loop recorder in place DVT ppx: SCDS for now due to EGD today, initiate chemical ppx when able FULL CODE Dispo: admit to tele PCP: [facility] warner Will get PT and OT evaluation Possible discharge tomorrow Admission and Anticipated Discharge Date Admission Date: November 18, 2023 Subjective 11/19/2023 The patient was seen and examined in telemetry unit in presence of the He has been feeling much better Still has pain in the left posterior chest wall and scapular region Denies any abdominal pain and no nausea and or vomiting 11/20/2023 The patient was seen and examined in telemetry unit in presence of the He has been complaining of some abdominal pain mainly in the epigastrium Denies any shortness of breath, chest pain or palpitation Review of Systems Review of Systems: All systems reviewed and are unremarkable except as noted below Physical Exam Physical Exam: Lying in bed without any acute distress Constitutional: well developed, well nourished, + ill appearing and average body habitus Eyes: PERRL, conjunctivae normal, anicteric sclerae ENMT: external ear and nose normal, oropharynx normal Neck: trachea midline, no thyromegaly Respiratory: normal respiratory effort, lungs clear to auscultation Cardiovascular: Rate/Rhythm: regular rate and regular rhythm; not tachycardic Heart Sounds: normal S1 and normal S2; no murmur Extremities: no edema Gastrointestinal (Abdomen): Inspection/Auscultation: normal bowel sounds; abdomen not distended Percussion/Palpation: + abdomen tender (Minimally tender lower quadrants) and abdomen soft Musculoskeletal: No acute arthritis involving any joint Neurologic: normal touch/pain/proprioception and moves all extremities; no focal motor deficits Lymphatic: no cervical or axillary lymphadenopathy Results & Data Results & Data Vital Signs (Past 12 Hours) Vital Signs Temp Pulse Resp BP Pulse Ox O2 Del Method 11/20/23 10:42 36.4 C L 57 L 21 151/64 H 100 Room Air 11/20/23 07:36 36.6 C 62 19 168/74 H 98 Room Air Laboratory Results Short CBC 11/20/23 Range/Units 08:58 WBC 21.38 H (4.8-10.8) K/ul Hgb 9.4 L (14.0-18.0) g/dl Hct 30.7 L (42.0-52.0) % Plt Count 243 (130-400) K/uL BMP 11/20/23 08:58 Sodium 139 Potassium 4.2 Chloride 109 H Carbon Dioxide 25 BUN 13 Creatinine 1.61 H Glucose 138 H Calcium 8.5 L Medications Administered Current Inpatient Medications Acetaminophen (Acetaminophen 325 Mg Tab) 650 mg PO Q4H PRN PRN Reason: Pain or Fever Stop: 12/18/23 11:23 Last Admin: 11/20/23 16:16 Dose: 650 mg Al Hydrox/Mg Hydrox/Simethicone (Aluminum/Magnesium Susp 30 Ml Udc) 15 ml PO Q4H PRN PRN Reason: Dyspepsia Stop: 12/18/23 11:23 Hydromorphone HCl (Hydromorphone Inj 0.5 Mg/0.5 Ml Syr) 0.5 mg IV Q6H PRN PRN Reason: Pain Stop: 12/03/23 08:36 Last Admin: 11/19/23 19:52 Dose: 0.5 mg Pantoprazole Sodium 40 mg/ (Syringe) 10 mls @ 5 mls/min IV BID [facility] Stop: 12/18/23 20:59 Last Admin: 11/20/23 08:24 Dose: 5 mls/min Piperacillin Sod/Tazobactam (Sod 4.5 gm/ Dextrose) 100 mls @ 25 mls/hr IV Q8H [facility]; Protocol Stop: 11/28/23 12:59 Last Infusion: 11/20/23 17:10 Dose: Infused Lactated Ringer's (Lr) 1,000 mls @ 125 mls/hr IV .Q8H [facility] Stop: 12/18/23 11:23 Last Admin: 11/20/23 16:21 Dose: 125 mls/hr Levothyroxine Sodium (Levothyroxine Sodium 75 Mcg Tablet) 75 mcg PO DAILYBB [facility] Stop: 12/19/23 06:29 Last Admin: 11/20/23 05:36 Dose: 75 mcg Loperamide HCl (Loperamide Hcl 2 Mg Cap) 2 mg PO Q4H PRN PRN Reason: Diarrhea Stop: 12/20/23 15:18 Last Admin: 11/20/23 15:34 Dose: 2 mg Magnesium Hydroxide (Magnesium Hydroxide Susp 30 Ml Udc) 30 ml PO Q12H PRN PRN Reason: Constipation Stop: 12/18/23 11:23 Ondansetron HCl (Ondansetron Inj 2 Mg/Ml 2 Ml Vial) 4 mg IV Q6H PRN PRN Reason: Nausea Stop: 12/18/23 11:23 Last Admin: 11/20/23 07:22 Dose: 4 mg Polyethylene Glycol (Polyethylene (Miralax) 17 Gm Pack) 17 gm PO DAILY PRN PRN Reason: Constipation Stop: 12/18/23 11:23 (3) Leukocytosis Leukocytosis type: unspecified Qualified Code(s): D72.829 - Elevated white blood cell count, unspecified
--- NOTE | 2023-11-20 18:30 | Electrocardiogram Report ---
Test Reason : Blood Pressure : / mmHG Vent. Rate : 089 BPM Atrial Rate : 089 BPM P-R Int : 148 ms QRS Dur : 078 ms QT Int : 360 ms P-R-T Axes : 051 -37 069 degrees QTc Int : 438 ms Normal sinus rhythm Left axis deviation Septal infarct , age undetermined Abnormal ECG When compared with ECG of 01-AUG-2023 11:23, Vent. rate has increased BY 29 BPM Septal infarct is now Present Confirmed by Jono Levy ([id number]) on 11/20/2023 6:30:25 PM Referred By: REFERRED SELF Confirmed By:Jono Levy
[2023-11-20] MEDS: HYDROmorphone INJ 0.5 MG/0.5 ML SYR IV PRN (22:50)
[2023-11-21] MEDS: LACTATED RINGER'S 1,000 ML IV SCH ×3 (00:06→16:51)
[2023-11-21] MEDS: LEVOTHYROXINE SODIUM 75 MCG TABLET PO SCH (05:20)
[2023-11-21] MEDS: PIPERACILLIN/TAZOBACTAM 4.5 GM in DEXTROSE 5% MINI-B 100 ML IV SCH ×3 (05:21→20:46)
[2023-11-21 06:37] LABS: Hematocrit (blood only) 29.3 % (42.0-52.0); Mean Corpuscular Hemoglobin 29.9 pg (25.0-34.0); Mean Corpuscular Hgb Conc 30.7 g/dL (32.0-36.0); Mean Corpuscular Volume 97.3 fL (80.0-100.0); Mean Platelet Volume 11.9 fL (9.4-12.4); Platelet Count 243 K/uL (130-400); RDW Coefficient of Variation 13.2 % (11.5-14.5); RDW Standard Deviation 47.4 fL (36.4-46.3); Red Blood Count 3.01 M/uL (4.70-6.10); White Blood Count 18.78 K/ul (4.8-10.8)
[2023-11-21 06:59] LABS: ALC (manual) 1.13 K/uL (1.2-3.4); Basophils # (manual) 0.19 K/uL (0-0.2); Basophils % (manual) 1 %; Eosinophils # (manual) 0.94 K/uL (0-0.50); Eosinophils % (manual) 5 %; Lymphocytes # (manual) 1.13 K/uL (1.2-3.4); Lymphocytes % (manual) 6 %; Metamyelocytes # (manual) 0.19 K/uL (0-0); Metamyelocytes % (manual) 1 %; Monocytes # (manual) 2.44 K/uL (0.11-0.59); Monocytes % (manual) 13 %; Neutrophils % (manual) 74 %
[2023-11-21 07:04] LABS: BUN Creatinine Ratio 5.7 (10-20); Calcium 8.5 mg/dl (8.6-10.3); Creatinine Clr Calc Pharmacy 38.2 ml/min; Est GFR (African American) 47.2 ml/min; Est GFR (Non-African American) 40.7 ml/min; Potassium 4.2 mmol/L (3.5-5.1)
[2023-11-21] MEDS: PANTOprazole 40 MG in SYRINGE 0 ML IV SCH (08:52)
[2023-11-21] MEDS ORDERED: oxyCODONE HCL IR 5 MG TAB (IMMEDIATE RELEASE) PO PRN (15:06)
--- NOTE | 2023-11-21 15:12 | Hospitalist Progress Note ---
Date of Service November 21, 2023 Assessment & Plan (1) Abdominal discomfort, epigastric: (2) Duodenitis: (3) Leukocytosis: (4) QI (acute kidney injury): (5) Abnormal ANCA (antineutrophil cytoplasmic antibody): Plan This is an 78-year-old male who has a significant past medical history of HTN, HLD, TIA, hypothyroidism and BPH who presents to ED secondary to abdominal pain x 3 to 4 days. Abdominal pain-possible acute diverticulitis Duodenitis-nonbleeding duodenal ulcer disease admit to tele will keep NPO for now consult GI - discussed with KALLIE Connolly likely needs EGD - to be done today IV PPI BID continue IV zosyn for now obtain stool study if able - pt reports loose bowel last few days Stool has been negative for any C. difficile or other Has been getting intravenous Zosyn for possible diverticulitis Status post EGD which showed nonbleeding duodenal ulcer disease He has been feeling better and now on IV Protonix twice daily Will discharge on oral Protonix twice daily Still has some abdominal discomfort without any nausea or vomiting Will continue current management Will get records from [facility] Abdominal symptoms are better but having loose stool Has been getting Imodium and milk of magnesia just stopped Stool is negative for any blood and hemoglobin remains stable Left scapular pain Has been getting occasional Dilaudid intravenously Pain has been bothering him Bone scan has been negative Will try local Voltaren gel Start oral oxycodone Leukocytosis consult Dr. Craven peripheral smear worrisome for MPD, possible CML may also be partially reactive in setting of possible infection, continue antibiotics for now Appreciate hematology input and recommendation Status post bone marrow biopsy today there is 11/18/2023 Will have bone scan today as well-bone scan and remained unremarkable Awaiting results of bone marrow biopsy but the white count has been improving White count is a little better but awaiting bone marrow biopsy result QI baseline cr 1-1.1 cr 1.5 today with poor intake last several days continue IV LR for now given npo status re evaluate fluid needs daily and d/c as soon as able Kidney function remains stable and was advised to drink more fluid Creatinine remains stable with level at 1.67 as of 11/20/2023 Kidney function has been improving and was advised to drink more fluid Elevated C-ANCA prior hospitalization 07/2023 was eval by neuro due to hx of stroke and imaging revealing chronic frontal infarct corresponding to previous area of leptomeningeal enhancement at that time autoimmune work up ordered revealed elevated RF at 20 and elevated C-anca titer 1:160 given additional constitutional sx, reported 20lb weight loss I did discuss with Rheumatology Dr. Booth at this point will order ANCA specific MPO and PR3 serologies, if positive will reach out to Dr. Leobardo Booth is professional architect throughout the weekend and if any specific issues arises he is happy to discuss via phone and follow closely at discharge if needed Will repeat UA in a.m. as well to determine if protein possibly related to dehydration HTN given lack of PO intake and bp currently normal will hold olmesartan, amlodipine continue atenolol for now HLD chronic, stable on statin as op Hx of TIA/CVA on plavix, statin holding plavix due to upcoming egd procedure Will restart Plavix Hx of Syncope loop recorder in place DVT ppx: SCDS for now due to EGD today, initiate chemical ppx when able Will start Lovenox FULL CODE Dispo: admit to tele PCP: [facility] warner Will get PT and OT evaluation Possible discharge tomorrow Admission and Anticipated Discharge Date Admission Date: November 18, 2023 Subjective 11/19/2023 The patient was seen and examined in telemetry unit in presence of the He has been feeling much better Still has pain in the left posterior chest wall and scapular region Denies any abdominal pain and no nausea and or vomiting 11/20/2023 The patient was seen and examined in telemetry unit in presence of the He has been complaining of some abdominal pain mainly in the epigastrium Denies any shortness of breath, chest pain or palpitation 11/21/2023 The patient was seen and examined in telemetry unit in presence of the He has been feeling well Has been having diarrhea with magnet colitis stool but negative for any blood No nausea no vomiting Back pain is persisting Review of Systems Review of Systems: All systems reviewed and are unremarkable except as noted below Physical Exam Physical Exam: Lying in bed without any acute distress Constitutional: well developed, well nourished, + ill appearing and average body habitus Eyes: PERRL, conjunctivae normal, anicteric sclerae ENMT: external ear and nose normal, oropharynx normal Neck: trachea midline, no thyromegaly Respiratory: normal respiratory effort, lungs clear to auscultation Cardiovascular: Rate/Rhythm: regular rate and regular rhythm; not tachycardic Heart Sounds: normal S1 and normal S2; no murmur Extremities: no edema Gastrointestinal (Abdomen): Inspection/Auscultation: normal bowel sounds; abdomen not distended Percussion/Palpation: + abdomen tender (Minimally tender lower quadrants) and abdomen soft Neurologic: normal touch/pain/proprioception and moves all extremities; no focal motor deficits Lymphatic: no cervical or axillary lymphadenopathy Results & Data Results & Data Vital Signs (Past 12 Hours) Vital Signs Temp Pulse Resp BP BP Pulse Ox O2 Del Method 11/21/23 08:00 36.5 C 60 18 158/86 H 97 Room Air 11/21/23 03:29 36.4 C L 60 18 161/67 H 98 Room Air Laboratory Results Short CBC 11/21/23 Range/Units 05:29 WBC 18.78 H (4.8-10.8) K/ul Hgb 9.0 L (14.0-18.0) g/dl Hct 29.3 L (42.0-52.0) % Plt Count 243 (130-400) K/uL BMP 11/21/23 05:29 Sodium 141 Potassium 4.2 Chloride 110 H Carbon Dioxide 25 BUN 9 Creatinine 1.58 H Glucose 82 Calcium 8.5 L Medications Administered Current Inpatient Medications Acetaminophen (Acetaminophen 325 Mg Tab) 650 mg PO Q4H PRN PRN Reason: Pain or Fever Stop: 12/18/23 11:23 Last Admin: 11/20/23 16:16 Dose: 650 mg Al Hydrox/Mg Hydrox/Simethicone (Aluminum/Magnesium Susp 30 Ml Udc) 15 ml PO Q4H PRN PRN Reason: Dyspepsia Stop: 12/18/23 11:23 Diclofenac Sodium (Diclofenac Sod 1% Gel 100 Gm Tube) 2 gm EXT QID [facility]; Protocol Stop: 12/21/23 16:59 Piperacillin Sod/Tazobactam (Sod 4.5 gm/ Dextrose) 100 mls @ 25 mls/hr IV Q8H [facility]; Protocol Stop: 11/28/23 12:59 Last Admin: 11/21/23 13:48 Dose: 25 mls/hr Lactated Ringer's (Lr) 1,000 mls @ 125 mls/hr IV .Q8H [facility] Stop: 12/18/23 11:23 Last Admin: 11/21/23 08:52 Dose: 125 mls/hr Levothyroxine Sodium (Levothyroxine Sodium 75 Mcg Tablet) 75 mcg PO DAILYBB [facility] Stop: 12/19/23 06:29 Last Admin: 11/21/23 05:20 Dose: 75 mcg Loperamide HCl (Loperamide Hcl 2 Mg Cap) 2 mg PO Q4H PRN PRN Reason: Diarrhea Stop: 12/20/23 15:18 Last Admin: 11/20/23 19:42 Dose: 2 mg Ondansetron HCl (Ondansetron Inj 2 Mg/Ml 2 Ml Vial) 4 mg IV Q6H PRN PRN Reason: Nausea Stop: 12/18/23 11:23 Last Admin: 11/20/23 07:22 Dose: 4 mg Oxycodone HCl (Oxycodone Hcl Ir 5 Mg Tab (Immediate Release)) 5 mg PO Q6H PRN PRN Reason: Pain Stop: 12/05/23 15:05 Pantoprazole Sodium (Pantoprazole 40 Mg Tab) 40 mg PO BID [facility] Stop: 12/21/23 20:59 Polyethylene Glycol (Polyethylene (Miralax) 17 Gm Pack) 17 gm PO DAILY PRN PRN Reason: Constipation Stop: 12/18/23 11:23 (3) Leukocytosis Leukocytosis type: unspecified Qualified Code(s): D72.829 - Elevated white blood cell count, unspecified
[2023-11-21] MEDS: ACETAMINOPHEN 325 MG TAB PO PRN ×2 (15:59→23:45)
[2023-11-21] MEDS: ENOXAPARIN INJ 40 MG/0.4 ML SYR SQ SCH (16:47)
[2023-11-21] MEDS: DICLOFENAC SOD 1% GEL 100 GM TUBE EXT SCH ×2 (16:47→20:47)
[2023-11-21] MEDS: PANTOprazole 40 MG TAB PO SCH (20:48)
[2023-11-22] MEDS: LACTATED RINGER'S 1,000 ML IV SCH ×2 (01:54→10:13)
[2023-11-22] MEDS: PIPERACILLIN/TAZOBACTAM 4.5 GM in DEXTROSE 5% MINI-B 100 ML IV SCH ×2 (05:11→12:31)
[2023-11-22] MEDS: LEVOTHYROXINE SODIUM 75 MCG TABLET PO SCH (05:28)
[2023-11-22 06:11] LABS: Hematocrit (blood only) 28.8 % (42.0-52.0); Hemoglobin 9.1 g/dl (14.0-18.0); Mean Corpuscular Hemoglobin 30.3 pg (25.0-34.0); Mean Corpuscular Hgb Conc 31.6 g/dL (32.0-36.0); Mean Platelet Volume 11.8 fL (9.4-12.4); Platelet Count 244 K/uL (130-400); RDW Coefficient of Variation 13.2 % (11.5-14.5); RDW Standard Deviation 45.4 fL (36.4-46.3); White Blood Count 18.85 K/ul (4.8-10.8)
[2023-11-22 06:25] LABS: BUN Creatinine Ratio 5.4 (10-20); Calcium 8.3 mg/dl (8.6-10.3); Creatinine Clr Calc Pharmacy 36.4 ml/min; Est GFR (African American) 43.8 ml/min; Est GFR (Non-African American) 37.8 ml/min; Potassium 4.2 mmol/L (3.5-5.1)
[2023-11-22 06:37] LABS: Basophils # (auto) 0.06 K/uL (0.00-0.20); Basophils % (auto) 0.3 %; Eosinophils # (auto) 1.01 K/uL (0.00-0.50); Eosinophils % (auto) 5.4 %; Immature Granulocytes # (auto) 0.89 K/uL (0.01-0.20); Immature Granulocytes % (auto) 4.7 %; Lymphocytes % (auto) 7.4 %; Monocytes # (auto) 3.94 K/uL (0.11-0.59); Monocytes % (auto) 20.9 %; Neutrophils # (auto) 11.55 K/uL (1.40-6.50); Neutrophils % (auto) 61.3 %
[2023-11-22] MEDS: DICLOFENAC SOD 1% GEL 100 GM TUBE EXT SCH ×2 (08:30→12:29)
[2023-11-22] MEDS: PANTOprazole 40 MG TAB PO SCH (08:31)
[2023-11-22] MEDS: ENOXAPARIN INJ 40 MG/0.4 ML SYR SQ SCH (08:31)
[2023-11-22] MEDS: LOPERAMIDE HCL 2 MG CAP PO PRN (12:32)
--- NOTE | 2023-11-22 13:48 | Hospitalist Progress Note ---
Date of Service November 22, 2023 Assessment & Plan (1) Abdominal discomfort, epigastric: (2) Duodenitis: (3) Leukocytosis: (4) QI (acute kidney injury): (5) Abnormal ANCA (antineutrophil cytoplasmic antibody): Plan This is an 78-year-old male who has a significant past medical history of HTN, HLD, TIA, hypothyroidism and BPH who presents to ED secondary to abdominal pain x 3 to 4 days. Abdominal pain-possible acute diverticulitis Duodenitis-nonbleeding duodenal ulcer disease admit to tele will keep NPO for now consult GI - discussed with KALLIE Connolly likely needs EGD - to be done today IV PPI BID continue IV zosyn for now obtain stool study if able - pt reports loose bowel last few days Stool has been negative for any C. difficile or other Has been getting intravenous Zosyn for possible diverticulitis Status post EGD which showed nonbleeding duodenal ulcer disease He has been feeling better and now on IV Protonix twice daily Will discharge on oral Protonix twice daily Still has some abdominal discomfort without any nausea or vomiting Will continue current management Will get records from [facility] Abdominal symptoms are better but having loose stool Has been getting Imodium and milk of magnesia just stopped Diarrhea is controlled and hemoglobin remains stable just above 9 Has been tolerating diet and willing to go home this afternoon He will try more Imodium to improve the diarrhea and if it is better he will be discharged this afternoon Left scapular pain Has been getting occasional Dilaudid intravenously Pain has been bothering him Bone scan has been negative Will try local Voltaren gel Start oral oxycodone Pain is much better with local diclofenac Leukocytosis consult Dr. Craven peripheral smear worrisome for MPD, possible CML may also be partially reactive in setting of possible infection, continue antibiotics for now Appreciate hematology input and recommendation Status post bone marrow biopsy today there is 11/18/2023 Will have bone scan today as well-bone scan and remained unremarkable Awaiting results of bone marrow biopsy but the white count has been improving White count is a little better but awaiting bone marrow biopsy result White count remains stable at 810.85 thousand-awaiting bone marrow biopsy result Also awaiting bone marrow chromosome analysis, BCR/ABL FRANK that is FISH test, flow cytometry and miscellaneous pathology result QI baseline cr 1-1.1 cr 1.5 today with poor intake last several days continue IV LR for now given npo status re evaluate fluid needs daily and d/c as soon as able Kidney function remains stable and was advised to drink more fluid Creatinine remains stable with level at 1.67 as of 11/20/2023 Kidney function has been improving and was advised to drink more fluid Creatinine is slightly worse at 1.68-strongly advised to drink more fluid Elevated C-ANCA prior hospitalization 07/2023 was eval by neuro due to hx of stroke and imaging revealing chronic frontal infarct corresponding to previous area of leptomeningeal enhancement at that time autoimmune work up ordered revealed elevated RF at 20 and elevated C-anca titer 1:160 given additional constitutional sx, reported 20lb weight loss I did discuss with Rheumatology Dr. Booth at this point will order ANCA specific MPO and PR3 serologies, if positive will reach out to Dr. Leobardo Booth is tar distillation supervisor throughout the weekend and if any specific issues arises he is happy to discuss via phone and follow closely at discharge if needed Will repeat UA in a.m. as well to determine if protein possibly related to dehydration HTN given lack of PO intake and bp currently normal will hold olmesartan, amlodipine continue atenolol for now HLD chronic, stable on statin as op Hx of TIA/CVA on plavix, statin holding plavix due to upcoming egd procedure Will restart Plavix Hx of Syncope loop recorder in place DVT ppx: SCDS for now due to EGD today, initiate chemical ppx when able Will start Lovenox FULL CODE Dispo: admit to tele PCP: [facility] warner Will get PT and OT evaluation Possible discharge today if he has been feeling much better Admission and Anticipated Discharge Date Admission Date: November 18, 2023 Subjective 11/19/2023 The patient was seen and examined in telemetry unit in presence of the He has been feeling much better Still has pain in the left posterior chest wall and scapular region Denies any abdominal pain and no nausea and or vomiting 11/20/2023 The patient was seen and examined in telemetry unit in presence of the He has been complaining of some abdominal pain mainly in the epigastrium Denies any shortness of breath, chest pain or palpitation 11/21/2023 The patient was seen and examined in telemetry unit in presence of the He has been feeling well Has been having diarrhea with magnet colitis stool but negative for any blood No nausea no vomiting Back pain is persisting 11/22/2023 The patient was seen and examined in telemetry unit in presence of the He has been feeling much better Diarrhea seems to be stable but he has not been using any Imodium as was prescribed His pain at the scapular area has improved a lot with Voltaren and he has not used any narcotic pain medication He has been ambulating in the hallway without any difficulties and wants to go home in the afternoon if possible Review of Systems Review of Systems: All systems reviewed and are unremarkable except as noted below Physical Exam Physical Exam: Lying in bed without any acute distress Constitutional: well developed, well nourished, + ill appearing and average body habitus Eyes: PERRL, conjunctivae normal, anicteric sclerae ENMT: external ear and nose normal, oropharynx normal Neck: trachea midline, no thyromegaly Respiratory: normal respiratory effort, lungs clear to auscultation Cardiovascular: Rate/Rhythm: regular rate and regular rhythm; not tachycardic Heart Sounds: normal S1 and normal S2; no murmur Extremities: no edema Gastrointestinal (Abdomen): Inspection/Auscultation: normal bowel sounds; abdomen not distended Percussion/Palpation: + abdomen tender (Minimally tender lower quadrants) and abdomen soft Neurologic: normal touch/pain/proprioception and moves all extremities; no focal motor deficits Lymphatic: no cervical or axillary lymphadenopathy Results & Data Results & Data Vital Signs (Past 12 Hours) Vital Signs Temp Pulse Resp BP BP Pulse Ox O2 Del Method 11/22/23 08:00 36.5 C 71 20 158/79 H 138/79 96 Room Air 11/22/23 03:57 36.4 C L 67 18 162/82 H 99 Room Air Laboratory Results Short CBC 11/22/23 Range/Units 05:32 WBC 18.85 H (4.8-10.8) K/ul Hgb 9.1 L (14.0-18.0) g/dl Hct 28.8 L (42.0-52.0) % Plt Count 244 (130-400) K/uL BMP 11/22/23 05:32 Sodium 141 Potassium 4.2 Chloride 109 H Carbon Dioxide 27 BUN 9 Creatinine 1.68 H Glucose 82 Calcium 8.3 L Medications Administered Current Inpatient Medications Acetaminophen (Acetaminophen 325 Mg Tab) 650 mg PO Q4H PRN PRN Reason: Pain or Fever Stop: 12/18/23 11:23 Last Admin: 11/21/23 23:45 Dose: 650 mg Al Hydrox/Mg Hydrox/Simethicone (Aluminum/Magnesium Susp 30 Ml Udc) 15 ml PO Q4H PRN PRN Reason: Dyspepsia Stop: 12/18/23 11:23 Diclofenac Sodium (Diclofenac Sod 1% Gel 100 Gm Tube) 2 gm EXT QID [facility]; Protocol Stop: 12/21/23 16:59 Last Admin: 11/22/23 12:29 Dose: Not Given Enoxaparin Sodium (Enoxaparin Inj 40 Mg/0.4 Ml Syr) 40 mg SQ QAM [facility] Stop: 12/21/23 15:14 Last Admin: 11/22/23 08:31 Dose: 40 mg Piperacillin Sod/Tazobactam (Sod 4.5 gm/ Dextrose) 100 mls @ 25 mls/hr IV Q8H [facility]; Protocol Stop: 11/28/23 12:59 Last Admin: 11/22/23 12:31 Dose: 25 mls/hr Lactated Ringer's (Lr) 1,000 mls @ 125 mls/hr IV .Q8H [facility] Stop: 12/18/23 11:23 Last Admin: 11/22/23 10:13 Dose: 125 mls/hr Levothyroxine Sodium (Levothyroxine Sodium 75 Mcg Tablet) 75 mcg PO DAILYBB [facility] Stop: 12/19/23 06:29 Last Admin: 11/22/23 05:28 Dose: 75 mcg Loperamide HCl (Loperamide Hcl 2 Mg Cap) 2 mg PO Q4H PRN PRN Reason: Diarrhea Stop: 12/20/23 15:18 Last Admin: 11/22/23 12:32 Dose: 2 mg Ondansetron HCl (Ondansetron Inj 2 Mg/Ml 2 Ml Vial) 4 mg IV Q6H PRN PRN Reason: Nausea Stop: 12/18/23 11:23 Last Admin: 11/20/23 07:22 Dose: 4 mg Oxycodone HCl (Oxycodone Hcl Ir 5 Mg Tab (Immediate Release)) 5 mg PO Q6H PRN PRN Reason: Pain Stop: 12/05/23 15:05 Pantoprazole Sodium (Pantoprazole 40 Mg Tab) 40 mg PO BID [facility] Stop: 12/21/23 20:59 Last Admin: 11/22/23 08:31 Dose: 40 mg Polyethylene Glycol (Polyethylene (Miralax) 17 Gm Pack) 17 gm PO DAILY PRN PRN Reason: Constipation Stop: 12/18/23 11:23 (3) Leukocytosis Leukocytosis type: unspecified Qualified Code(s): D72.829 - Elevated white blood cell count, unspecified
--- NOTE | 2023-11-22 16:32 | Discharge Summary ---
Date of Service November 22, 2023 Admission HPI Per Admitting Provider This is an 78-year-old male who has a significant past medical history of HTN, HLD, TIA, hypothyroidism and BPH who presents to ED secondary to abdominal pain x 3 to 4 days. Unfortunately patient seeks medical care at [facility] and [facility] including his primary care, rheumatology and was recently got referred to nephrology there as well. Over the last 3 to 4 days he has had a persistent epigastric/umbilical abdominal pain. Pain has been constant, does not wax and wane in severity, has not tried anything at home to make it better, is rated consistently a 6 out of 10 and has not had anything to eat for the last 3 days. He states typically he gets these episodes at home and if he does not eat for 2 or 3 days it will resolve on its own. He does have prior history of small bowel obstruction and pancreatitis in the past. His previous small bowel obstruction he states was a long time ago and he previously did require exploratory surgery but never had any resections. He did state during 1 of those exploratory surgeries he did have his appendix removed. He does not have any associated nausea or vomiting. He has had approximately 20 pound weight loss unintentionally over the last year. Generally he just does not feel well. He has this chronic persistent left scapular pain for which she is scheduled a bone scan in the outpatient setting. The pain is significant enough that it keeps him up mostly every night. He has tried [id number] analgesia and most recently PCP prescribed him tramadol without significant relief. He denies any fever, chills, sweats, lightheadedness, dizziness, chest pain, shortness with, cough, melena or hematochezia. His last normal bowel movement was approximately a week ago. Over the last few days he has has a very small loose bowel movements. is at bedside who also helps elicit history. He has no known prior history of cancer. states that he was referred to a air bag stripper oncologist due to his elevated white count as an outpatient, but they were told he has nothing wrong. In ED patient remained hemodynamically stable. He has a significant leukocytosis at 51, anemia with H&H 11.3 and 35.9, monocytosis, elevated urine creatinine at 31 and 1.55 and elevated lipase at 99. His urinalysis is significant for +1 protein but otherwise negative. His bio fire is negative. He underwent CT abdomen pelvis which reveal wall thickening of his first and second portions of duodenum with adjacent inflammation which could favor duodenitis versus peptic ulcer disease. Also noted is several prominent upper abdominal lymph nodes and mild splenomegaly. Although these may be reactive it is recommended he has repeat CT in 6 months. Empirically he was placed on IV Zosyn. He also received IV Protonix, Tylenol, IV fluid and famo tidine. Admission Exam Per Admitting Provider Physical Exam: Constitutional: WD/WN, appears acutely ill vitals as above, NAD, sitting up in bed, pleasant, conversing easily Head: Normocephalic, Atraumatic Eyes: PERRL, conjunctivae normal, anicteric sclerae ENMT: external ear and nose normal, oropharynx normal dry membranes Neck: trachea midline, no thyromegaly normal visual inspection Respiratory: normal respiratory effort, lungs clear to auscultation, no wheeze, rales, rhonchi. Normal insp/exp effort, no accessory muscle use Cardiovascular: RRR, no murmur, no edema Vessels: no JVD or carotid bruit Chest: normal inspection of chest Abdomen: normal bowel sounds, soft, nontender, no hepatosplenomegaly Musculoskeletal: no cyanosis or clubbing, extremities motor strength 5/5 Skin: no rashes, warm and dry normal turgor Neurologic: PERRL, EOMI, accommodation nl, no face palsy, no dysarthria CN's II-XI intact bilaterally and moves all extremities Psychiatric: A+Ox3, euthymic affect : deferred Principal Diagnosis Acute diverticulitis, nonbleeding duodenal ulcer, leukocytosis to rule out CMML, left scapular pain Discharge Exam Lying in bed without any acute distress Constitutional well developed, well nourished, + ill appearing and average body habitus Eyes PERRL, conjunctivae normal, anicteric sclerae ENMT external ear and nose normal, oropharynx normal Neck trachea midline, no thyromegaly Respiratory normal respiratory effort, lungs clear to auscultation Cardiovascular Rate/Rhythm: regular rate and regular rhythm; not tachycardic Heart Sounds: normal S1 and normal S2; no murmur Extremities: no edema Gastrointestinal (Abdomen) Inspection/Auscultation: normal bowel sounds; abdomen not distended Percussion/Palpation: + abdomen tender (Minimally tender lower quadrants) and abdomen soft Neurologic normal touch/pain/proprioception and moves all extremities; no focal motor deficits Lymphatic no cervical or axillary lymphadenopathy Discharge Data Allergies Allergy/AdvReac Type Severity Reaction Status Date / Time No Known Allergies Allergy Verified 06/11/23 10:13 Consultations 11/18/23 07:49 ED Decision to Admit Stat 11/18/23 09:10 Consult Gastroenterology Routine 11/18/23 09:49 Consult Hematology Routine Procedures Performed Operation Date: 11/18/23 17:00 Actual Procedures p EGD Biopsy Cytology - Aniyah Mak, Ordered Studies 11/18/23 06:49 CT angio abdomen pelvis w con Stat 11/18/23 09:48 CT chest diagnostic wo con Stat 11/19/23 11:00 IR bone marrow bx & asp Routine Hospital Course (1) Abdominal discomfort, epigastric: (2) Duodenitis: (3) Leukocytosis: (4) QI (acute kidney injury): (5) Abnormal ANCA (antineutrophil cytoplasmic antibody): Plan This is an 78-year-old male who has a significant past medical history of HTN, HLD, TIA, hypothyroidism and BPH who presents to ED secondary to abdominal pain x 3 to 4 days. Abdominal pain-possible acute diverticulitis Duodenitis-nonbleeding duodenal ulcer disease admit to tele will keep NPO for now consult GI - discussed with KALLIE Connolly likely needs EGD - to be done today IV PPI BID continue IV zosyn for now obtain stool study if able - pt reports loose bowel last few days Stool has been negative for any C. difficile or other Has been getting intravenous Zosyn for possible diverticulitis Status post EGD which showed nonbleeding duodenal ulcer disease He has been feeling better and now on IV Protonix twice daily Will discharge on oral Protonix twice daily Still has some abdominal discomfort without any nausea or vomiting Will continue current management Will get records from [facility] Abdominal symptoms are better but having loose stool Has been getting Imodium and milk of magnesia just stopped Diarrhea is controlled and hemoglobin remains stable just above 9 Has been tolerating diet and willing to go home this afternoon He will try more Imodium to improve the diarrhea and if it is better he will be discharged this afternoon Left scapular pain Has been getting occasional Dilaudid intravenously Pain has been bothering him Bone scan has been negative Will try local Voltaren gel Start oral oxycodone Pain is much better with local diclofenac Leukocytosis consult Dr. Craven peripheral smear worrisome for MPD, possible CML may also be partially reactive in setting of possible infection, continue antibiotics for now Appreciate hematology input and recommendation Status post bone marrow biopsy today there is 11/18/2023 Will have bone scan today as well-bone scan and remained unremarkable Awaiting results of bone marrow biopsy but the white count has been improving White count is a little better but awaiting bone marrow biopsy result White count remains stable at 810.85 thousand-awaiting bone marrow biopsy result Also awaiting bone marrow chromosome analysis, BCR/ABL FRANK that is FISH test, flow cytometry and miscellaneous pathology result QI baseline cr 1-1.1 cr 1.5 today with poor intake last several days continue IV LR for now given npo status re evaluate fluid needs daily and d/c as soon as able Kidney function remains stable and was advised to drink more fluid Creatinine remains stable with level at 1.67 as of 11/20/2023 Kidney function has been improving and was advised to drink more fluid Creatinine is slightly worse at 1.68-strongly advised to drink more fluid Elevated C-ANCA prior hospitalization 07/2023 was eval by neuro due to hx of stroke and imaging revealing chronic frontal infarct corresponding to previous area of leptomeningeal enhancement at that time autoimmune work up ordered revealed elevated RF at 20 and elevated C-anca titer 1:160 given additional constitutional sx, reported 20lb weight loss I did discuss with Rheumatology Dr. Booth at this point will order ANCA specific MPO and PR3 serologies, if positive will reach out to Dr. Leobardo Booth is instrument/control technician throughout the weekend and if any specific issues arises he is happy to discuss via phone and follow closely at discharge if needed Will repeat UA in a.m. as well to determine if protein possibly related to dehydration HTN given lack of PO intake and bp currently normal will hold olmesartan, amlodipine continue atenolol for now HLD chronic, stable on statin as op Hx of TIA/CVA on plavix, statin holding plavix due to upcoming egd procedure Will restart Plavix Hx of Syncope loop recorder in place DVT ppx: SCDS for now due to EGD today, initiate chemical ppx when able Will start Lovenox FULL CODE Dispo: admit to tele PCP: [facility] warner Will get PT and OT evaluation Possible discharge today if he has been feeling much better Total Time Total Time Spent Total Time Spent (In Minutes): 35 minutes Discharge Plan Discharge Items Patient Disposition: Home - Self-Care Reason For Visit: ABDOMINAL PAIN Discharge Diagnosis: Acute diverticulitis, nonbleeding duodenal ulcer, leukocytosis to rule out CMML, left scapular pain Condition on Discharge: Fair Activity: Resume your previous activity Non-emergency contact: Primary Care Provider Call non-emergency contact if: you have any medication questions and your symptoms worsen Follow-up/Referrals: Mihir Mello [Primary Care Provider] - (Please make an appointment with your PCP within 7 days) Diet: Heart Healthy Addtl Attending Provider Instructions: Please take precautions to avoid falls Finish the course of antibiotic as advised You can try Imodium [id number] to control diarrhea Do not take any NSAIDs like aspirin, ibuprofen, Motrin, naproxen You will be seeing the air bag stripper Dr. Craven as an outpatient-will make an appointment with her in 1 week or so Pending Studies at Discharge: Yes Studies:: Bone marrow biopsy result Stand-Alone Forms: My [facility] [place], Smoking Cessation Medications and DC Order Prescriptions: New pantoprazole 40 mg Tablet,Delayed Release (Dr/Ec) 40 mg PO BID Qty: 60 0RF diclofenac sodium [Voltaren Arthritis Pain] 1 % Gel 2 g EXT QID Qty: 50 0RF amoxicillin-pot clavulanate 875-125 mg tablet 1 tab PO BID Qty: 10 0RF Continued magnesium oxide 400 mg magnesium tablet 400 mg PO BID 90 Days Qty: 180 3RF levothyroxine [Synthroid] 50 mcg tablet 75 mcg PO QAM clopidogrel [Plavix] 75 mg tablet 75 mg PO QAM methocarbamol 500 mg tablet 500 mg PO TID tramadol 50 mg tablet 50 mg PO TID PRN (Reason: Pain) terazosin 2 mg capsule 2 mg PO QPM atenolol [Tenormin] 50 mg tablet 50 mg PO QAM olmesartan [Benicar] 40 mg tablet 40 mg PO QAM cyanocobalamin (vitamin B-12) 1,000 mcg Tablet 1,000 mcg PO DAILY amlodipine 5 mg tablet 5 mg PO QAM sildenafil 100 mg tablet 100 mg PO UD PRN (Reason: Erectile Dysfunction) Rx Instructions: take 1 hour prior to intercourse atorvastatin 20 mg tablet 40 mg PO QAM Discontinued meloxicam 15 mg 15 mg PO DAILY esomeprazole magnesium [Nexium] 40 mg capsule,delayed release(DR/EC) 40 mg PO QAM Discharge Orders: Discharge Order (Routine); Ordered 11/22/23 Ordered By: Tae Sanchez Admission Data Admit Date/Time: 11/18/23 08:32 Attending Provider: Tae Sanchez Admit Provider: Tae Sanchez Primary Care Provider: Mihir Mello Other Providers: Aniyah Mak; Tae Sanchez; Michelle Craven Other Interventions: Discharge Summary Assessment (RN) Last Done: 11/22/23 15:44
[2023-11-24 21:42] LABS: ANCA Screen C-ANCA POS (Negative); Myeloperoxidase Ab <1.0 AI (<1.0); Proteinase-3 AB <1.0 AI (<1.0)
== END 2023-11-22 16:15 | disposition home or self-care (01) | DRG 392 ==
LOC: ED 05:47 → 4W 08:32

== ENCOUNTER 2025-10-05 16:33 | Inpatient (IN) ==
[2025-10-05] MEDS: ASPIRIN CHEW 324 MG ONE (17:19)
[2025-10-05 17:34] LABS: Base Excess VBG -5.8 mEq/L; HCO3 VBG 20 mmol/L; Oxygen Saturation VBG < 60.0 %; PCO2 VBG 37 mmHg (38-50); PO2 VBG 30 mmHg; pH VBG 7.33 (7.36-7.41)
[2025-10-05 17:56] LABS: Alanine Aminotransferase 17.0 U/L (7-52); Albumin Level 3.7 gm/dl (3.4-5.0); Alkaline Phosphatase 65.0 U/L (34-104); Anion Gap 13.0 (3-11); Bilirubin,Total 0.5 mg/dl (0.2-1.0); Blood Urea Nitrogen 71.0 mg/dl (6-23); Calcium 9.3 mg/dl (8.6-10.3); Carbon Dioxide 20.0 mmol/L (21-32); Chloride 105.0 mmol/L (98-107); Creatinine Clr Calc Pharmacy 14.7 ml/min; Glucose 107.0 mg/dl (70-99(Fasting)); Magnesium 1.8 mg/dl (1.7-2.4); Potassium 4.2 mmol/L (3.5-5.1); Sodium 138.0 mmol/L (136-145); Total Protein 7.4 gm/dl (6.0-8.3)
[2025-10-05 18:02] LABS: INR 1.2 (0.9-1.1); Partial Thromboplastin Time 33 Seconds (21-31); Prothrombin Time 12.6 Seconds (9.0-12.0)
--- NOTE | 2025-10-05 18:03 | History & Physical Report ---
Date of Service October 05, 2025 Assessment & Plan (1) Pericarditis: (2) Chronic kidney disease, stage 4 (severe): (3) Chronic myelomonocytic leukemia: (4) Hypertension: (5) BPH (benign prostatic hyperplasia): (6) Gout: Plan This is an 80 year old male with a PMH of CML, CKD stage 4, HTN, BPH - coming in with chest pain. Chest Pain - with recent pericardiocentesis (10/03) with 650cc removed - EKG changes likely due to the pericardial effusion recently; pericarditis? - cardiology consult - CT chest ordered and pending - likely needs limited echo to revaluate pericardial effusion - will use Vanc + Rocephin for possible bacterial pericarditis - cont Plavix CML - follows with Dr. Craven CKD stage 4 - creatinine at 3.66 around his baseline - avoid nephrotoxic agents if able BPH - cont home medications History of Present Illness Chief Complaint: chest Pain Primary Care Provider: Mihir Mello This is an 80 year old male with a PMH of CML, CKD stage 4, HTN, BPH - coming in with chest pain. Was at [facility] on Thursday for chest pain and on 10/03/25 was found to have significant fluid around the heart and had a pericardiocentesis with 650cc fluid removed. He was discharged yesterday with abx (family unsure of which ones). at home, patient felt palpitations and low oxygen level; found to have SPO2 at home of 87% and HR of 113; the geometry teacher at [place] was contacted and recommended ER visit. Patient decided to come to our ER instead of [place]. On arrival here, EKG was done and shows ST elevation; a heart alert was called and cardiology (Dr. Fry) saw the patient. He stated that this was not likely an acute NE, so patient not sent to the laboratory scientist. CT chest done and results pending. Allergies Allergy/AdvReac Type Severity Reaction Status Date / Time meloxicam Allergy Intermediate Gastrointestinal Verified 10/05/25 17:23 Upset Home Medications Medication Instructions Recorded Confirmed Type cyanocobalamin (vitamin B-12) 1,000 mcg PO DAILY 08/15/22 10/05/25 History 1,000 mcg tablet sildenafil 100 mg tablet 100 mg PO UD PRN Erectile 08/15/22 10/05/25 History Dysfunction terazosin 2 mg capsule 2 mg PO QPM 08/15/22 10/05/25 History clopidogrel 75 mg tablet (Plavix) 75 mg PO QAM 08/01/23 10/05/25 History TENS unit and electrodes combo pack #1 ea 12/04/23 08/29/25 Rx levothyroxine 75 mcg tablet 75 mcg PO QAM 01/19/24 10/05/25 History polyethylene glycol 3350 17 17 g PO HS 01/19/24 10/05/25 History gram/dose oral powder (Miralax) cholecalciferol (vitamin D3) 50 50 mcg PO DAILY 05/02/24 10/05/25 History mcg (2,000 unit) capsule pantoprazole 40 mg tablet,delayed 40 mg PO DAILY 04/10/25 10/05/25 History release atorvastatin 40 mg tablet 40 mg PO DAILY 07/05/25 10/05/25 History magnesium oxide 400 mg (241.3 mg 400 mg PO BID 07/05/25 10/05/25 History magnesium) tablet allopurinol 300 mg tablet 300 mg PO DAILY #90 tabs 08/08/25 10/05/25 Rx sodium bicarbonate 650 mg tablet 650 mg PO DAILY #90 tabs 09/06/25 10/05/25 Rx amlodipine 5 mg tablet 0 mg PO DAILY 10/05/25 10/05/25 History amoxicillin 500 mg-potassium 1 tab PO UD 10/05/25 10/05/25 History clavulanate 125 mg tablet colchicine 0.6 mg tablet 0.6 mg PO UD 10/05/25 10/05/25 History metoprolol succinate 25 mg 25 mg PO DAILY 10/05/25 10/05/25 History tablet,extended release 24 hr prednisone 5 mg tablet 0 mg PO DAILY 10/05/25 10/05/25 History Past Med/Surg History Problem List (Updated 10/05/25 @ 18:43 by Jonna Salamanca DO) Pericarditis Fistula Frequent epistaxis Chronic kidney disease, stage 4 (severe) Hyperuricemia Gout Stage 3b chronic kidney disease Vitamin D deficiency Pain of left scapula Paresthesia of left upper extremity Colon cancer screening Degeneration of cervical intervertebral disc Pre-procedural laboratory examination Duodenal ulcer disease Encounter for pre-operative examination Abnormal abdominal CT scan Abnormal ANCA (antineutrophil cytoplasmic antibody) Abdominal discomfort, epigastric (Acute) Diverticulitis (Acute) Elevated WBC count (Acute) Duodenitis (Acute) Leukocytosis (Acute) Syncope (Acute) H/O: stroke Bradycardia Hypotension QI (acute kidney injury) resolved Elevated C-reactive protein (CRP) Hypomagnesemia Nutritional deficiency Neck pain Anemia Fatigue Hypersomnolence Headache Cerebrovascular disease Aseptic meningitis Hyperlipidemia Left facial numbness Left upper extremity numbness Stroke-like symptoms (Acute) Cervical radiculopathy Facet joint disease of cervical region Cervical spondylosis ROM "is fine" Chronic myelomonocytic leukemia dx 11/2023; f/u dr. craven BPH (benign prostatic hyperplasia) GERD (gastroesophageal reflux disease) Syncope has had a couple of these episodes, none since fall 2022>had loop recorder implanted 05/2023 Hypertension Medical History History of stroke ~2021, taken to [place], lt arm and face numbness and tingling for a few minutes; f/u dr. felton, neuro>no current issues Hypothyroidism H/O meningitis ~2021 Cervicalgia Dysarthria Dyslipidemia Surgical History History of bunionectomy of both great toes Hx laparoscopic cholecystectomy History of carpal tunnel surgery of right wrist 09/2021, w/thumb joint replacement Hx of colonoscopy History of bone marrow biopsy 11/2023 Hx of myringoplasty lt ear History of loop recorder implanted 05/2023, for f/u of TIA and syncopal episodes, [facility]; f/u [facility] History of esophagogastroduodenoscopy (EGD) Hx of exploratory laparotomy x3, "for my bowels that kept kinking up, never removed any of them," w/removal appendix Family History Mother , age 82 with heart issues Heart disease Father , age 58 of diabetes complications Diabetes Other No family history of adverse response to anesthesia No family history of bleeding disorder Social History Smoking Status: Never smoker Second Hand Exposure: Yes (hx as child); Do You Dip or Chew Tobacco: No; Hx Alcohol Use: No Hx Substance Use: No Preferred Language: Welsh Communication Ability: Effective Communication Ability Comment: wears reading glasses Visual Impairment: No Limitations Hearing Ability: Normal Relief Master Required: No Beliefs That Will Affect Care: None marital status: Current Living Situation: Spouse Current Living Situation Comment: One story home with stairs to the basement and a few to get inside current occupational status: retired 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 Feels Safe at Home: Yes Diet: regular caffeine: Yes (2-3 coffee cups daily) during the past year weight has: remained stable Dental Care, Regularly: Yes Physical Activity Frequency: Does not Exercise Seatbelt Use: always Do you think of yourself as: straight/heterosexual Gender Identity: Male Assistive Devices: Glasses Review of Systems Review of Systems: Constitutional: No Weight Change, No Fever, No Chills, No Night Sweats, No Fatigue, No Malaise ENT/Mouth: No Hearing Changes, No Ear Pain, No Nasal Congestion, No Sinus Pain, No Hoarseness, No sore throat, No Rhinorrhea, No Swallowing Difficulty Eyes: No Eye Pain, No Swelling, No Redness, No Foreign Body, No Discharge, No Vision Changes Cardiovascular: No Chest Pain, No SOB, No PND, No Dyspnea on Exertion, No Orthopnea, No Claudication, No Edema, No Palpitations Respiratory: No Cough, No Sputum, No Wheezing, No Smoke Exposure, No Dyspnea Gastrointestinal: No Nausea, No Vomiting, No Diarrhea, No Constipation, No Pain, No Heartburn, No Anorexia, No Dysphagia, No Hematochezia, No Melena, No Flatulence, No Jaundice Genitourinary: No Dysmenorrhea, No DUB, No Dyspareunia, No Dysuria, No Urinary Frequency, No Hematuria, No Urinary Incontinence, No Urgency, No Flank Pain, No Urinary Flow Changes, No Hesitancy Musculoskeletal: No Arthralgias, No Myalgias, No Joint Swelling, No Joint Stiffness, No Back Pain, No Neck Pain, No Injury History Skin: No Skin Lesions, No Pruritis, No Hair Changes, No Breast/Skin Changes, No Nipple Discharge Neuro: No Weakness, No Numbness, No Paresthesias, No Loss of Consciousness, No Syncope, No Dizziness, No Headache, No Coordination Changes, No Recent Falls Psych: No Anxiety/Panic, No Depression, No Insomnia, No Personality Changes, No Delusions, No Rumination, No SI/HI/AH/VH, No Social Issues, No Memory Changes, No Violence/Abuse Hx., No Eating Concerns Heme/Lymph: No Bruising, No Bleeding, No Transfusions History, No Lymphadenopathy Endocrine: No Polyuria, No Polydipsia, No Temperature Intolerance Physical Exam Physical Exam: VITALS: Reviewed. WEIGHT/BMI reviewed. GEN: Healthy appearing, well-developed, NAD. PSYCH: Good Judgment. AOx3. Normal memory, mood, and affect. HEENT -Head: NC/AT; -Eyes: PERRL, EOMI. No discharge or redn ess; -Ears: External ears are normal. Normal TMs. -Nose: Normal nares. -Mouth and throat: MMM. Normal gums, muc claudia, palate,. Good dentition. NECK: Supple, with no masses. CV: RRR, no m/r/g. LUNGS: CTAB, no w/r/c. ABD: Soft, NT/ND, NBS, no masses or organomegaly. : N/A SKIN: Warm, well perfused. No skin rashes or abnormal lesions. MSK: No deformities, Normal gait. EXT: No clubbing, cyanosis, or edema. NEURO: Ambulating with no limitations. Normal muscle strength and tone. No focal deficits. Results & Data Results & Data Vital Signs (Past 12 Hours) Vital Signs Temp Pulse Pulse Resp BP BP Pulse Ox 10/05/25 17:45 115 H 18 113/73 94 10/05/25 17:35 119 H 10/05/25 17:30 116 H 22 94 10/05/25 17:30 125/75 10/05/25 17:30 125/75 10/05/25 17:30 125/75 10/05/25 17:30 125/75 10/05/25 17:25 133/89 10/05/25 17:25 133/89 10/05/25 17:25 133/89 10/05/25 17:25 133/89 10/05/25 17:25 133/89 10/05/25 17:24 114 H 26 H 95 10/05/25 17:21 118 H 17 94 10/05/25 17:15 117 H 23 94 10/05/25 16:58 114 H 18 94 10/05/25 16:58 114 H 18 94 10/05/25 16:37 36.8 C 120 H 20 137/75 96 10/05/25 16:34 117 H 18 135/76 94 10/05/25 16:34 96 O2 Del Method 10/05/25 17:45 Room Air 10/05/25 17:35 10/05/25 17:30 10/05/25 17:30 10/05/25 17:30 10/05/25 17:30 10/05/25 17:30 10/05/25 17:25 10/05/25 17:25 10/05/25 17:25 10/05/25 17:25 10/05/25 17:25 10/05/25 17:24 10/05/25 17:21 10/05/25 17:15 10/05/25 16:58 Room Air 10/05/25 16:58 Room Air 10/05/25 16:37 Room Air 10/05/25 16:34 10/05/25 16:34 Room Air PG Care Time/CCT Total # of Minutes Spent Total Time Spent with Patient: Total time spent is greater than 50% in coordination of care (as documented) at patient's floor/unit and/or counseling patient: Coding Level of Care Code 64788 INT INP/OBS CARE 3MIN Diagnoses Pericarditis I31.9 Chronic kidney disease, stage 4 (severe) N18.4 Chronic myelomonocytic leukemia C93.10 Hypertension I10 BPH (benign prostatic hyperplasia) N40.0 Gout, unspecified cause, unspecified chronicity, unspecified site M10.9 Gout site: unspecified site Gout etiology: unspecified cause Chronicity: unspecified (6) Gout Gout site: unspecified site Gout etiology: unspecified cause Chronicity: unspecified Qualified Code(s): M10.9 - Gout, unspecified
--- NOTE | 2025-10-05 18:04 | Emergency Department Note ---
History of Present Illness General Chief complaint: Cardiac Assessment Stated complaint: Illness Time Seen by Provider: 10/05/25 16:45 History of Present Illness Provider complaint: Illness 80-year-old male presents emergency department for illness. Patient reports that he feels weak and nauseous. Patient reports he was having diarrhea. No melena or medic easier. Daughter at bedside reports the patient is not eating well. Daughter at bedside reports the patient is currently on antibiotics to be prescribed after being discharged from [facility] yesterday. She states while he was in [place] they did a "drainage of his heart". Daughter states that they did not go back to [place] because they thought they were rushed out and they "like the care better here.". Home Medications Medication Instructions Recorded Confirmed Type cyanocobalamin (vitamin B-12) 1,000 mcg PO DAILY 08/15/22 10/05/25 History 1,000 mcg tablet sildenafil 100 mg tablet 100 mg PO UD PRN Erectile 08/15/22 10/05/25 History Dysfunction terazosin 2 mg capsule 2 mg PO QPM 08/15/22 10/05/25 History clopidogrel 75 mg tablet (Plavix) 75 mg PO QAM 08/01/23 10/05/25 History TENS unit and electrodes combo pack #1 ea 12/04/23 08/29/25 Rx levothyroxine 75 mcg tablet 75 mcg PO QAM 01/19/24 10/05/25 History polyethylene glycol 3350 17 17 g PO HS 01/19/24 10/05/25 History gram/dose oral powder (Miralax) cholecalciferol (vitamin D3) 50 50 mcg PO DAILY 05/02/24 10/05/25 History mcg (2,000 unit) capsule pantoprazole 40 mg tablet,delayed 40 mg PO DAILY 04/10/25 10/05/25 History release atorvastatin 40 mg tablet 40 mg PO DAILY 07/05/25 10/05/25 History magnesium oxide 400 mg (241.3 mg 400 mg PO BID 07/05/25 10/05/25 History magnesium) tablet allopurinol 300 mg tablet 300 mg PO DAILY #90 tabs 08/08/25 10/05/25 Rx sodium bicarbonate 650 mg tablet 650 mg PO DAILY #90 tabs 09/06/25 10/05/25 Rx amlodipine 5 mg tablet 0 mg PO DAILY 10/05/25 10/05/25 History amoxicillin 500 mg-potassium 1 tab PO UD 10/05/25 10/05/25 History clavulanate 125 mg tablet colchicine 0.6 mg tablet 0.6 mg PO UD 10/05/25 10/05/25 History metoprolol succinate 25 mg 25 mg PO DAILY 10/05/25 10/05/25 History tablet,extended release 24 hr prednisone 5 mg tablet 0 mg PO DAILY 10/05/25 10/05/25 History Allergies Allergy/AdvReac Type Severity Reaction Status Date / Time meloxicam Allergy Intermediate Gastrointestinal Verified 10/05/25 17:23 Upset Past Med/Surg History Problem List (Updated 10/05/25 @ 23:16 by Tan Simmons MD) Pericardial effusion (Acute) ST elevation Pleural effusion Pericarditis Fistula Frequent epistaxis Chronic kidney disease, stage 4 (severe) Hyperuricemia Gout Stage 3b chronic kidney disease Vitamin D deficiency Pain of left scapula Paresthesia of left upper extremity Colon cancer screening Degeneration of cervical intervertebral disc Pre-procedural laboratory examination Duodenal ulcer disease Encounter for pre-operative examination Abnormal abdominal CT scan Abnormal ANCA (antineutrophil cytoplasmic antibody) Abdominal discomfort, epigastric (Acute) Diverticulitis (Acute) Elevated WBC count (Acute) Duodenitis (Acute) Leukocytosis (Acute) Syncope (Acute) H/O: stroke Bradycardia Hypotension QI (acute kidney injury) resolved Elevated C-reactive protein (CRP) Hypomagnesemia Nutritional deficiency Neck pain Anemia Fatigue Hypersomnolence Headache Cerebrovascular disease Aseptic meningitis Hyperlipidemia Left facial numbness Left upper extremity numbness Stroke-like symptoms (Acute) Cervical radiculopathy Facet joint disease of cervical region Cervical spondylosis ROM "is fine" Chronic myelomonocytic leukemia dx 11/2023; f/u dr. cooper BPH (benign prostatic hyperplasia) GERD (gastroesophageal reflux disease) Syncope has had a couple of these episodes, none since fall 2022>had loop recorder implanted 05/2023 Hypertension Medical History History of stroke ~2021, taken to [place], lt arm and face numbness and tingling for a few minutes; f/u dr. felton, neuro>no current issues Hypothyroidism H/O meningitis ~2021 Cervicalgia Dysarthria Dyslipidemia Surgical History History of bunionectomy of both great toes Hx laparoscopic cholecystectomy History of carpal tunnel surgery of right wrist 09/2021, w/thumb joint replacement Hx of colonoscopy History of bone marrow biopsy 11/2023 Hx of myringoplasty lt ear History of loop recorder implanted 05/2023, for f/u of TIA and syncopal episodes, [facility]; f/u [facility] History of esophagogastroduodenoscopy (EGD) Hx of exploratory laparotomy x3, "for my bowels that kept kinking up, never removed any of them," w/removal appendix Family History Mother , age 82 with heart issues Heart disease Father , age 58 of diabetes complications Diabetes Other No family history of adverse response to anesthesia No family history of bleeding disorder Social History Smoking Status: Never smoker Second Hand Exposure: Yes (hx as child); Do You Dip or Chew Tobacco: No; Hx Alcohol Use: No Hx Substance Use: No Preferred Language: Vietnamese Communication Ability: Effective Communication Ability Comment: wears reading glasses Visual Impairment: No Limitations Hearing Ability: Normal 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 Beliefs That Will Affect Care: None marital status: Current Living Situation: Spouse Current Living Situation Comment: One story home with stairs to the basement and a few to get inside current occupational status: retired current occupation: former [employer] Other Information That Helps Us Care for You: No Feels Safe at Home: Yes Safety Concerns: Feels Safe At This Time Diet: regular caffeine: Yes (2-3 coffee cups daily) during the past year weight has: remained stable Dental Care, Regularly: Yes Physical Activity Frequency: Does not Exercise Seatbelt Use: always Do you think of yourself as: straight/heterosexual Gender Identity: Male Assistive Devices: Glasses Physical Exam Vital Signs Vital Signs - 24 hr 10/05/25 16:34 10/05/25 16:34 10/05/25 16:37 Temperature 36.8 C Temperature Source Temporal Artery Scan Pulse Rate 120 H Pulse Rate [Left Finger] 117 H Pulse Rate from SpO2 Sensor Respiratory Rate 18 20 Respiratory Effort / Characteristics Respiratory Depth Respiratory Pattern Blood Pressure 137/75 Blood Pressure [Right Arm] 135/76 Blood Pressure Mean 95 Blood Pressure Mean [Right Arm] 95 Pulse Oximetry 96 94 96 Oxygen Delivery Method Room Air Room Air Sepsis Recent Fever Within 48 Hours No Sepsis New/Unexplained Change in Mental Status No Sepsis Action Taken by Nursing No Action Required 10/05/25 16:58 10/05/25 16:58 10/05/25 17:15 Temperature Temperature Source Pulse Rate 114 H 117 H Pulse Rate [Left Finger] 114 H Pulse Rate from SpO2 Sensor 117 H Respiratory Rate 18 18 23 Respiratory Effort / Characteristics Respiratory Depth Respiratory Pattern Blood Pressure Blood Pressure [Right Arm] Blood Pressure Mean Blood Pressure Mean [Right Arm] Pulse Oximetry 94 94 94 Oxygen Delivery Method Room Air Room Air Sepsis Recent Fever Within 48 Hours Sepsis New/Unexplained Change in Mental Status Sepsis Action Taken by Nursing 10/05/25 17:21 10/05/25 17:24 10/05/25 17:25 Temperature Temperature Source Pulse Rate 118 H 114 H Pulse Rate [Left Finger] Pulse Rate from SpO2 Sensor 115 H 114 H Respiratory Rate 17 26 H Respiratory Effort / Characteristics Respiratory Depth Respiratory Pattern Blood Pressure 133/89 Blood Pressure [Right Arm] Blood Pressure Mean 97 Blood Pressure Mean [Right Arm] Pulse Oximetry 94 95 Oxygen Delivery Method Sepsis Recent Fever Within 48 Hours Sepsis New/Unexplained Change in Mental Status Sepsis Action Taken by Nursing 10/05/25 17:25 10/05/25 17:25 10/05/25 17:25 Temperature Temperature Source Pulse Rate Pulse Rate [Left Finger] Pulse Rate from SpO2 Sensor Respiratory Rate Respiratory Effort / Characteristics Respiratory Depth Respiratory Pattern Blood Pressure 133/89 133/89 133/89 Blood Pressure [Right Arm] Blood Pressure Mean 97 97 97 Blood Pressure Mean [Right Arm] Pulse Oximetry Oxygen Delivery Method Sepsis Recent Fever Within 48 Hours Sepsis New/Unexplained Change in Mental Status Sepsis Action Taken by Nursing 10/05/25 17:25 10/05/25 17:30 10/05/25 17:30 Temperature Temperature Source Pulse Rate Pulse Rate [Left Finger] Pulse Rate from SpO2 Sensor Respiratory Rate Respiratory Effort / Characteristics Respiratory Depth Respiratory Pattern Blood Pressure 133/89 125/75 125/75 Blood Pressure [Right Arm] Blood Pressure Mean 97 94 94 Blood Pressure Mean [Right Arm] Pulse Oximetry Oxygen Delivery Method Sepsis Recent Fever Within 48 Hours Sepsis New/Unexplained Change in Mental Status Sepsis Action Taken by Nursing 10/05/25 17:30 10/05/25 17:30 10/05/25 17:30 Temperature Temperature Source Pulse Rate 116 H Pulse Rate [Left Finger] Pulse Rate from SpO2 Sensor 116 H Respiratory Rate 22 Respiratory Effort / Characteristics Respiratory Depth Respiratory Pattern Blood Pressure 125/75 125/75 Blood Pressure [Right Arm] Blood Pressure Mean 94 94 Blood Pressure Mean [Right Arm] Pulse Oximetry 94 Oxygen Delivery Method Sepsis Recent Fever Within 48 Hours Sepsis New/Unexplained Change in Mental Status Sepsis Action Taken by Nursing 10/05/25 17:33 10/05/25 17:35 10/05/25 17:45 Temperature Temperature Source Pulse Rate 119 H Pulse Rate [Left Finger] 115 H Pulse Rate from SpO2 Sensor 115 H Respiratory Rate 18 Respiratory Effort / Characteristics Respiratory Depth Respiratory Pattern Blood Pressure Blood Pressure [Right Arm] 113/73 Blood Pressure Mean Blood Pressure Mean [Right Arm] 86 Pulse Oximetry 94 94 Oxygen Delivery Method Room Air Sepsis Recent Fever Within 48 Hours Sepsis New/Unexplained Change in Mental Status Sepsis Action Taken by Nursing 10/05/25 17:47 10/05/25 17:47 10/05/25 17:47 Temperature Temperature Source Pulse Rate Pulse Rate [Left Finger] Pulse Rate from SpO2 Sensor Respiratory Rate Respiratory Effort / Characteristics Respiratory Depth Respiratory Pattern Blood Pressure 113/73 113/73 113/73 Blood Pressure [Right Arm] Blood Pressure Mean 82 82 82 Blood Pressure Mean [Right Arm] Pulse Oximetry Oxygen Delivery Method Sepsis Recent Fever Within 48 Hours Sepsis New/Unexplained Change in Mental Status Sepsis Action Taken by Nursing 10/05/25 17:47 10/05/25 17:47 10/05/25 17:48 Temperature Temperature Source Pulse Rate 116 H Pulse Rate [Left Finger] Pulse Rate from SpO2 Sensor 116 H Respiratory Rate 25 H Respiratory Effort / Characteristics Respiratory Depth Respiratory Pattern Blood Pressure 113/73 113/73 Blood Pressure [Right Arm] Blood Pressure Mean 82 82 Blood Pressure Mean [Right Arm] Pulse Oximetry 96 Oxygen Delivery Method Sepsis Recent Fever Within 48 Hours Sepsis New/Unexplained Change in Mental Status Sepsis Action Taken by Nursing 10/05/25 17:51 10/05/25 18:00 10/05/25 18:00 Temperature Temperature Source Pulse Rate 116 H Pulse Rate [Left Finger] 115 H Pulse Rate from SpO2 Sensor 116 H Respiratory Rate 22 18 Respiratory Effort / Characteristics Respiratory Depth Respiratory Pattern Blood Pressure 118/66 Blood Pressure [Right Arm] 118/66 Blood Pressure Mean 83 Blood Pressure Mean [Right Arm] 83 Pulse Oximetry 95 94 Oxygen Delivery Method Room Air Sepsis Recent Fever Within 48 Hours Sepsis New/Unexplained Change in Mental Status Sepsis Action Taken by Nursing 10/05/25 18:00 10/05/25 18:00 10/05/25 18:00 Temperature Temperature Source Pulse Rate Pulse Rate [Left Finger] Pulse Rate from SpO2 Sensor Respiratory Rate Respiratory Effort / Characteristics Respiratory Depth Respiratory Pattern Blood Pressure 118/66 118/66 118/66 Blood Pressure [Right Arm] Blood Pressure Mean 83 83 83 Blood Pressure Mean [Right Arm] Pulse Oximetry Oxygen Delivery Method Sepsis Recent Fever Within 48 Hours Sepsis New/Unexplained Change in Mental Status Sepsis Action Taken by Nursing 10/05/25 18:00 10/05/25 18:00 10/05/25 18:12 Temperature Temperature Source Pulse Rate 115 H 113 H Pulse Rate [Left Finger] Pulse Rate from SpO2 Sensor 116 H 114 H Respiratory Rate 21 19 Respiratory Effort / Characteristics Respiratory Depth Respiratory Pattern Blood Pressure 118/66 Blood Pressure [Right Arm] Blood Pressure Mean 83 Blood Pressure Mean [Right Arm] Pulse Oximetry 94 94 Oxygen Delivery Method Sepsis Recent Fever Within 48 Hours Sepsis New/Unexplained Change in Mental Status Sepsis Action Taken by Nursing 10/05/25 18:21 10/05/25 18:30 10/05/25 18:30 Temperature Temperature Source Pulse Rate 115 H 114 H Pulse Rate [Left Finger] Pulse Rate from SpO2 Sensor 114 H 115 H Respiratory Rate 23 22 Respiratory Effort / Characteristics Respiratory Depth Respiratory Pattern Blood Pressure 95/65 L Blood Pressure [Right Arm] Blood Pressure Mean 73 Blood Pressure Mean [Right Arm] Pulse Oximetry 92 93 Oxygen Delivery Method Sepsis Recent Fever Within 48 Hours Sepsis New/Unexplained Change in Mental Status Sepsis Action Taken by Nursing 10/05/25 18:30 10/05/25 18:30 10/05/25 18:30 Temperature Temperature Source Pulse Rate Pulse Rate [Left Finger] Pulse Rate from SpO2 Sensor Respiratory Rate Respiratory Effort / Characteristics Respiratory Depth Respiratory Pattern Blood Pressure 95/65 L 95/65 L 95/65 L Blood Pressure [Right Arm] Blood Pressure Mean 73 73 73 Blood Pressure Mean [Right Arm] Pulse Oximetry Oxygen Delivery Method Sepsis Recent Fever Within 48 Hours Sepsis New/Unexplained Change in Mental Status Sepsis Action Taken by Nursing 10/05/25 18:30 10/05/25 18:42 10/05/25 19:00 Temperature Temperature Source Pulse Rate 113 H Pulse Rate [Left Finger] 114 H Pulse Rate from SpO2 Sensor 113 H Respiratory Rate 22 18 Respiratory Effort / Characteristics Respiratory Depth Respiratory Pattern Blood Pressure 95/65 L Blood Pressure [Right Arm] Blood Pressure Mean 73 Blood Pressure Mean [Right Arm] Pulse Oximetry 91 93 Oxygen Delivery Method Room Air Sepsis Recent Fever Within 48 Hours Sepsis New/Unexplained Change in Mental Status Sepsis Action Taken by Nursing 10/05/25 20:20 10/05/25 20:20 10/05/25 20:21 Temperature 36.4 C L Temperature Source Oral Pulse Rate Pulse Rate [Left Finger] 110 H Pulse Rate from SpO2 Sensor Respiratory Rate 18 Respiratory Effort / Characteristics Non-Labored Spontaneous Non-Labored Spontaneous Respiratory Depth Normal Normal Respiratory Pattern Regular Blood Pressure 101/77 Blood Pressure [Right Arm] 101/77 Blood Pressure Mean 90 Blood Pressure Mean [Right Arm] 85 Pulse Oximetry 95 Oxygen Delivery Method Room Air Room Air Sepsis Recent Fever Within 48 Hours Sepsis New/Unexplained Change in Mental Status Sepsis Action Taken by Nursing 10/05/25 20:21 Temperature Temperature Source Pulse Rate 111 H Pulse Rate [Left Finger] Pulse Rate from SpO2 Sensor 111 H Respiratory Rate 18 Respiratory Effort / Characteristics Respiratory Depth Respiratory Pattern Blood Pressure Blood Pressure [Right Arm] Blood Pressure Mean Blood Pressure Mean [Right Arm] Pulse Oximetry 95 Oxygen Delivery Method Room Air Sepsis Recent Fever Within 48 Hours Sepsis New/Unexplained Change in Mental Status Sepsis Action Taken by Nursing Physical Exam HENT: Exam performed. - Head: Normocephalic and atraumatic. EYES: Conjunctivae and EOM are normal. Right eye exhibits no discharge. Left eye exhibits no discharge. No scleral icterus. NECK: Normal range of motion. Neck supple. No JVD present. CV: Tachycardic rate, regular rhythm, normal heart sounds and intact distal pulses. There is no peripheral edema. Palpable radial pulses bue. PULM/CHEST: Effort normal and breath sounds normal. No respiratory distress. No stridor. no wheezes. no rales. ABD: The abdomen is soft. There is no tenderness. MUSC: Left upper extremity AV fistula present. NEURO: Motor and sensation grossly intact. SKIN: Dressing over the patient's anterior chest in the subxiphoid area. No surrounding erythema discharge bleeding or drainage. Course Course 164: The patient was evaluated in room B11. A complete history and physical exam was performed Cardiac monitoring: An order was placed for continuous cardiac monitoring. The monitor shows a rate of 120 with sinus tachycardia rhythm interpreted by me Bedside ultrasound performed by me shows a slight pericardial effusion no pericardial tamponade. 1706: EKG shows slight ST elevation in leads I II III V5 V6 with ST depression in aVR and T wave inversion in lead aVL. Heart alert paged. 1712: Stefania ZAPATA with Dr. Fry down to evaluate the patient. 1722: Daughter was able to obtain some results from the patient's [facility] portal on her laptop. On October 01, [address] of the chest which showed pericardial effusion and bilateral pleural effusions. On October 02, 2025 the patient had a VQ scan which showed no PE. On October 03, 2025 the patient had a TTE which showed a circumferential pericardial effusion with tamponade. Patient had 650 cc of fluid drained via pericardiocentesis. The results from the pericardiocentesis showed cloudy fluid with RBCs 83,573 nucleated cells 2689 protein 5.9 glucose 161% neutrophil 31% monocytes/macrophages. On October 04, 2025 the patient had a repeat echocardiogram done at [facility] which showed ejection fraction of 55 to 60% with a mass noted by the right ventricular apex that could be concerning for pericardial fat versus thrombus versus mass. There was no pericardial tamponade. Dr. Fry at bedside now. We reviewed the patient's results from pericardiocentesis his EKG and performed bedside ultrasound together. He confirmed there is no pericardial tamponade and confirmed that the patient has good cardiac activity. He states no need for emergent pericardiocentesis or cardiac catheterization at this time. Will continue with medical workup 173: [facility] hospitalist Dr. Salamanca came down to evaluate the patient. He will plan on admitting the patient but we are waiting on the remainder of the patient's workup to be completed including CTs. 2000: Vital signs stable. Labs show a white blood cell count of 188.64. Hemoglobin 10.1. Patient has 2% blast cells. On September 14, 2025 the patient did have 1% blast cells.Coagulation studies are unremarkable. VBG is unremarkable. Creatinine 3.66 at baseline. Procalcitonin 1.42. Imaging shows hepatosplenomegaly and diverticulosis. There is a T12 vertebral body compression fracture. CT chest shows moderate pericardial effusion. Large bilateral pleural effusions. Discussed case with Dr. Antonio on-call for oncology. He states that the patient can be admitted to the ICU here. Patient be admitted to the medicine team. Administered Medications Ceftriaxone Sodium (Rocephin) 2,000 mg in 50 mls @ 100 mls/hr IV Q24H JENNY Stop: 10/07/25 20:35 Last Infusion: 10/05/25 22:03 Dose: Infused Documented By: Admin: 10/05/25 21:33 Dose: 100 mls/hr Documented By: CR Lactated Ringer's (Lr) 1,000 mls @ 50 mls/hr IV .Q20H JENNY Stop: 10/08/25 22:14 Last Admin: 10/05/25 22:57 Dose: 50 mls/hr Documented By: ADAN Miscellaneous (Icu Protocol For Hyperglycemia) 1 each N/A ACHS JENNY Stop: 10/07/25 20:59 Last Admin: 10/05/25 20:59 Dose: Not Given Documented By: CR Polyethylene Glycol (Polyethylene (Miralax) 17 Gm Pack) 17 gm PO HS JENNY Stop: 11/04/25 20:59 Last Admin: 10/05/25 21:34 Dose: Not Given Documented By: CR Terazosin HCl (Terazosin Hcl 1 Mg Cap) 2 mg PO QPM JENNY Stop: 11/04/25 20:59 Last Admin: 10/05/25 21:31 Dose: 2 mg Documented By: ANITA Discontinued Medications Aspirin (Aspirin Chew 324 Mg) Confirm Administered Dose 324 mg .ROUTE .STK-MED ONE Stop: 10/05/25 17:16 Last Admin: 10/05/25 17:19 Dose: 324 mg Documented By: sybil Vancomycin HCl 1,250 mg/ (Sodium Chloride) 275 mls @ 200 mls/hr IV NOW STA Stop: 10/05/25 22:37 Last Infusion: 10/05/25 23:03 Dose: Infused Documented By: Admin: 10/05/25 21:33 Dose: 200 mls/hr Documented By: ANITA Critical Care Time Critical Care Time: Yes Total Critical Care Time: 43 I have personally spent greater than 43 minutes of critical care time in the direct management of this patient. This includes bedside care, interpretation of diagnostic studies, and testing, discussion with consultants, patient, and family members, and other required patient management activities. This 43 minutes is in excess of all separately billable procedures. Medical Decision Making Medical Records Attestation: I reviewed the patient's medical records. On October 01, [address] of the chest which showed pericardial effusion and bilateral pleural effusions. On October 02, 2025 the patient had a VQ scan which showed no PE. On October 03, 2025 the patient had a TTE which showed a circumferential pericardial effusion with tamponade. Patient had 650 cc of fluid drained via pericardiocentesis. The results from the pericardiocentesis showed cloudy fluid with RBCs 83,573 nucleated cells 2689 protein 5.9 glucose 161% neutrophil 31% monocytes/macrophages. On October 04, 2025 the patient had a repeat echocardiogram done at [facility] which showed ejection fraction of 55 to 60% with a mass noted by the right ventricular apex that could be concerning for pericardial fat versus thrombus versus mass. There was no pericardial tamponade. Laboratory Data Attestation: I reviewed the patient's lab results. 10/05/25 17:07 10/05/25 17:07 Lab Results 10/05/25 10/05/25 10/05/25 Range/Units 17:07 17:12 17:13 WBC 188.64 H* (4.8-10.8) K/ul RBC 3.25 L (4.70-6.10) M/uL Hgb 10.1 L (14.0-18.0) g/dl POC Hgb 12.6 L (14.0-18.0) g/dl Hct 31.8 L (42.0-52.0) % POC Hct 37 L (42-52) % MCV 97.8 (80.0-100.0) fL MCH 31.1 (25.0-34.0) pg MCHC 31.8 L (32.0-36.0) g/dL RDW Std Deviation 53.4 H (36.4-46.3) fL RDW Coeff of Lane 15.2 H (11.5-14.5) % Plt Count 140 (130-400) K/uL MPV 11.5 (9.4-12.4) fL Absolute Nucleated RBC 0.07 (0.00-0.12) K/uL Neutrophils % (Manual) 64 % Lymphocytes % (Manual) 4 % Monocytes % (Manual) 18 % Eosinophils % (Manual) 1 % Metamyelocytes % (Man) 4 % Myelocytes % (Man) 7 % Blast Cells % (Manual) 2 % Neutrophils # (Manual) 120.73 H (1.40-6.50) K/uL Total Absolute Neuts 120.73 H (1.4-6.5) K/uL Lymphocytes # (Manual) 7.55 H (1.2-3.4) K/uL Total Abs Lymphocytes 7.55 H (1.2-3.4) K/uL Monocytes # (Manual) 33.96 H (0.11-0.59) K/uL Eosinophils # (Manual) 1.89 H (0-0.50) K/uL Metamyelocytes # (Man) 7.55 H (0-0) K/uL Myelocytes # (Manual) 13.20 H (0-0) K/uL Blast Cells # (Man) 3.77 H (0-0) K/uL Polychromasia 2+ Tear Drop Cells 1+ Echinocytes 1+ PT 12.6 H (9.0-12.0) Seconds INR 1.2 H (0.9-1.1) APTT 33 H (21-31) Seconds PTT Ratio 1.2 VBG pH 7.33 L (7.36-7.41) VBG pCO2 37 L (38-50) mmHg VBG pO2 30 mmHg VBG HCO3 20 mmol/L VBG O2 Saturation < 60.0 % VBG Base Excess -5.8 mEq/L POC Sodium 137 (135-144) mmol/L Sodium 138 (136-145) mmol/L POC Potassium 4.4 (3.3-5.0) mmol/L Potassium 4.2 (3.5-5.1) mmol/L POC Chloride 106 (101-112) mmol/L Chloride 105 (98-107) mmol/L Carbon Dioxide 20 L (21-32) mmol/L POC Total CO2 19 L (24-31) mmol/L Anion Gap 13 H (3-11) POC Anion Gap 17.0 (16-25) mmol/L POC BUN 70 H (7-18) mg/dl BUN 71 H (6-23) mg/dl Creatinine 3.66 H (0.6-1.4) mg/dl POC Creatinine 4.3 H (0.6-1.3) mg/dl Est Cr Clr Drug Dosing 14.7 ml/min eGFR 15.84 BUN/Creatinine Ratio 19.4 (10-20) Glucose 107 H (70-99(Fasting)) mg/dl POC Glucose (other) 107 H (70-99) mg/dl Lactate 1.6 (0.4-2.0) mmol/L Calcium 9.3 (8.6-10.3) mg/dl POC Ioniz Calcium Niecy 1.21 (1.12-1.32) mmol/l Magnesium 1.8 (1.7-2.4) mg/dl Total Bilirubin 0.5 (0.2-1.0) mg/dl Direct Bilirubin 0.2 (0-0.2) mg/dl AST 26 (13-39) U/L ALT 17 (7-52) U/L Alkaline Phosphatase 65 (34-104) U/L Troponin I High Sens 19.2 (0-20) pg/ml Total Protein 7.4 (6.0-8.3) gm/dl Albumin 3.7 (3.4-5.0) gm/dl Procalcitonin 1.42 H (0-0.5) ng/ml Nasal Screen MRSA (PCR) (Negative) 10/05/25 10/05/25 Range/Units 20:07 20:21 WBC (4.8-10.8) K/ul RBC (4.70-6.10) M/uL Hgb (14.0-18.0) g/dl POC Hgb (14.0-18.0) g/dl Hct (42.0-52.0) % POC Hct (42-52) % MCV (80.0-100.0) fL MCH (25.0-34.0) pg MCHC (32.0-36.0) g/dL RDW Std Deviation (36.4-46.3) fL RDW Coeff of Lane (11.5-14.5) % Plt Count (130-400) K/uL MPV (9.4-12.4) fL Absolute Nucleated RBC (0.00-0.12) K/uL Neutrophils % (Manual) % Lymphocytes % (Manual) % Monocytes % (Manual) % Eosinophils % (Manual) % Metamyelocytes % (Man) % Myelocytes % (Man) % Blast Cells % (Manual) % Neutrophils # (Manual) (1.40-6.50) K/uL Total Absolute Neuts (1.4-6.5) K/uL Lymphocytes # (Manual) (1.2-3.4) K/uL Total Abs Lymphocytes (1.2-3.4) K/uL Monocytes # (Manual) (0.11-0.59) K/uL Eosinophils # (Manual) (0-0.50) K/uL Metamyelocytes # (Man) (0-0) K/uL Myelocytes # (Manual) (0-0) K/uL Blast Cells # (Man) (0-0) K/uL Polychromasia Tear Drop Cells Echinocytes PT (9.0-12.0) Seconds INR (0.9-1.1) APTT (21-31) Seconds PTT Ratio VBG pH (7.36-7.41) VBG pCO2 (38-50) mmHg VBG pO2 mmHg VBG HCO3 mmol/L VBG O2 Saturation % VBG Base Excess mEq/L POC Sodium (135-144) mmol/L Sodium (136-145) mmol/L POC Potassium (3.3-5.0) mmol/L Potassium (3.5-5.1) mmol/L POC Chloride (101-112) mmol/L Chloride (98-107) mmol/L Carbon Dioxide (21-32) mmol/L POC Total CO2 (24-31) mmol/L Anion Gap (3-11) POC Anion Gap (16-25) mmol/L POC BUN (7-18) mg/dl BUN (6-23) mg/dl Creatinine (0.6-1.4) mg/dl POC Creatinine (0.6-1.3) mg/dl Est Cr Clr Drug Dosing ml/min eGFR BUN/Creatinine Ratio (10-20) Glucose (70-99(Fasting)) mg/dl POC Glucose (other) (70-99) mg/dl Lactate (0.4-2.0) mmol/L Calcium (8.6-10.3) mg/dl POC Ioniz Calcium Niecy (1.12-1.32) mmol/l Magnesium (1.7-2.4) mg/dl Total Bilirubin (0.2-1.0) mg/dl Direct Bilirubin (0-0.2) mg/dl AST (13-39) U/L ALT (7-52) U/L Alkaline Phosphatase (34-104) U/L Troponin I High Sens 17.2 (0-20) pg/ml Total Protein (6.0-8.3) gm/dl Albumin (3.4-5.0) gm/dl Procalcitonin (0-0.5) ng/ml Nasal Screen MRSA (PCR) Negative (Negative) Imaging Data Attestation: I personally reviewed and interpreted this imaging study as follows: My Impression: Chest x-ray: Airway clear. No cardiomegaly or cephalization.. No free air under the diaphragm. No fractures of the skeletal structures. Left-sided pleural effusion Radiologist's Impression: Chest CT 10/05/25 16:57 EXAMINATION: Chest CT without CLINICAL HISTORY: Weakness, nausea, diarrhea COMPARISON: 11/27/2023 TECHNIQUE: Contiguous axial images were obtained through the chest without the use of intravenous contrast. Sagittal and coronal reformations are supplied. FINDINGS: Large bilateral pleural effusions are present, left greater than right with compressive atelectasis and/or airspace consolidation in the lung bases with air bronchograms. Heart size mildly enlarged. Moderate pericardial effusion present, appearing in the interval, measuring 1.4 cm. No mediastinal adenopathy. Trachea and mainstem bronchi are patent. No pneumothorax. Lung upper lobes are normal. In bone windows, no acute osseous abnormality. IMPRESSION: 1. Large bilateral pleural effusions, left greater than right. 2. Bibasilar airspace consolidation and air bronchograms, left greater than right, which could represent compressive atelectasis or possibly pneumonia in the proper clinical setting. 3. Moderate pericardial effusion. ACT 112: Positive. There are findings on this examination that require communication between the performing entity and the patient following Patient Test Result Information Act ([place] ACT 112) guidelines. Electronically signed by Ivanna Gaines 10-05-2025 7:00 PM Abdomen/Pelvis CT 10/05/25 16:58 EXAMINATION: Abdomen and pelvis CT without CLINICAL HISTORY: Weakness, nausea, diarrhea (chest CT dictated under separate heading) PRIORS: 11/18/2023 TECHNIQUE: Contiguous axial images were obtained through the abdomen and pelvis without the use of intravenous contrast. Sagittal and coronal reformations are supplied. FINDINGS: Pleural effusions present, left greater than right. Chest CT dictated under separate heading. Moderate pericardial effusion. The spleen is enlarged measuring 20 cm in craniocaudal dimension which compares to 15 cm on 11/18/2023. The liver is enlarged measuring 18.6 cm which compares to 16 cm previously. No ascites. Gallbladder surgically absent. Pancreas not well-seen and appears predominantly fatty replaced. The stomach is under distended. Aorta and IVC within normal limits. Moderate atherosclerotic disease of the abdominal aorta. Kidneys are symmetric. No obstructing calculus. Is small right renal cyst present, unchanged. Small retroperitoneal lymph nodes noted. Moderate to severe diverticulosis of the sigmoid colon. No pericolonic inflammatory change. No formed stool identified in the colon. Urinary bladder distends normally. Prostate mildly to moderately enlarged. No free fluid or adenopathy in the pelvis. Mild to moderate osseous demineralization. Moderate to advanced degenerative change at L5-S1. Moderate compression deformity of the superior endplate of T12, appearing in the interval. No high-grade compression fracture. IMPRESSION: 1. Hepatosplenomegaly, increased interval with severe enlargement of the spleen measuring 20 cm which compares to 15 cm on 11/18/2023. Please correlate clinically. 2. Moderate sigmoid colon diverticulosis without pericolonic inflammatory change. 3. Mild to moderate prostamegaly. 4. New mild compression fracture of the T12 vertebral body, appearing since 2022. ACT 112: Positive. There are findings on this examination that require communication between the performing entity and the patient following Patient Test Result Information Act ([place] ACT 112) guidelines. Electronically signed by Ivanna Gaines 10-05-2025 7:08 PM Chest X-Ray 10/05/25 16:58 EXAM: X-ray chest one-view portable CLINICAL HISTORY: Sepsis, weakness PRIORS: None TECHNIQUE: Frontal view chest FINDINGS: Left-sided cardiac device projecting over the chest. Pulmonary emphysema is suggested. Lung volumes are diminished. Small right and moderate left pleural effusion noted. Heart size is normal. No pneumothorax. Trachea is patent. Osseous structures demonstrate no acute abnormality. No radiopaque foreign body. IMPRESSION: Small to moderate bilateral pleural effusions. ACT 112: Positive. There are findings on this examination that require communication between the performing entity and the patient following Patient Test Result Information Act [place] ACT 112) guidelines. Electronically signed by Ivanna Gaines 10-05-2025 6:32 PM ECG Data Attestation: I personally reviewed and interpreted this ECG as follows: Additional Comments: EKG #1 at 1659: Sinus tachycardia with rate 117. CT 136 QRS [address] elevation in leads I II III, V5, V6. Mild ST depression in lead aVR. Mild T wave inversion in lead aVL. EKG #2 at 1701: Sinus tachycardia with a rate of 117. CT 138 QRS [address] elevation in leads I II III, V5, V6. Mild ST depression in lead aVR. Mild T wave inversion lead aVL. [facility] Narrative 1645: The patient was evaluated in room B11. A complete history and physical exam was performed Cardiac monitoring: An order was placed for continuous cardiac monitoring. The monitor shows a rate of 120 with sinus tachycardia rhythm interpreted by me Bedside ultrasound performed by me shows a slight pericardial effusion no pericardial tamponade. 1706: EKG shows slight ST elevation in leads I II III V5 V6 with ST depression in aVR and T wave inversion in lead aVL. Heart alert paged. 1712: Stefania ZAPATA with Dr. Fry down to evaluate the patient. 1722: Daughter was able to obtain some results from the patient's [facility] portal on her laptop. On October 01, [address] of the chest which showed pericardial effusion and bilateral pleural effusions. On October 02, 2025 the patient had a VQ scan which showed no PE. On October 03, 2025 the patient had a TTE which showed a circumferential pericardial effusion with tamponade. Patient had 650 cc of fluid drained via pericardiocentesis. The results from the pericardiocentesis showed cloudy fluid with RBCs 83,573 nucleated cells 2689 protein 5.9 glucose 161% neutrophil 31% monocytes/macrophages. On October 04, 2025 the patient had a repeat echocardiogram done at [facility] which showed ejection fraction of 55 to 60% with a mass noted by the right ventricular apex that could be concerning for pericardial fat versus thrombus versus mass. There was no pericardial tamponade. Dr. Fry at bedside now. We reviewed the patient's results from pericardiocentesis his EKG and performed bedside ultrasound together. He confirmed there is no pericardial tamponade and confirmed that the patient has good cardiac activity. He states no need for emergent pericardiocentesis or cardiac catheterization at this time. Will continue with medical workup [facility] the patient. He will plan on admitting the patient but we are waiting on the remainder of the patient's workup to be completed including CTs. 2001: Vital signs stable. Labs show a white blood cell count of 188.64. Hemoglobin 10.1. Patient has 2% blast cells. On September 14, 2025 the patient did have 1% blast cells.Coagulation studies are unremarkable. VBG is unremarkable. Creatinine 3.66 at baseline. Procalcitonin 1.42. Imaging shows hepatosplenomegaly and diverticulosis. There is a T12 vertebral body compression fracture. CT chest shows moderate pericardial effusion. Large bilateral pleural effusions. Discussed case with Dr. Antonio on-call for oncology. He states that the patient can be admitted to the ICU here. Patient be admitted to the medicine team. Impression & Plan Pericardial effusion Discharge Plan Visit Data Chief Complaint: Cardiac Assessment Stated Complaint: Illness ED Provider: Tan Simmons Discharge Problem: Pericardial effusion Patient Disposition: Admitted As Inpatient Condition: Serious Discharge Instructions Interventions: ED Discharge Assessment Last Done: 10/05/25 20:42
[2025-10-05 18:20] LABS: Hematocrit (blood only) 31.8 % (42.0-52.0); Hemoglobin 10.1 g/dl (14.0-18.0); Mean Corpuscular Hemoglobin 31.1 pg (25.0-34.0); Mean Corpuscular Volume 97.8 fL (80.0-100.0); Platelet Count 140 K/uL (130-400); RDW Standard Deviation 53.4 fL (36.4-46.3); Red Blood Count 3.25 M/uL (4.70-6.10); White Blood Count 188.64 K/ul (4.8-10.8)
--- NOTE | 2025-10-05 18:33 | XRay Report ---
EXAM: X-ray chest one-view portable CLINICAL HISTORY: Sepsis, weakness PRIORS: None TECHNIQUE: Frontal view chest FINDINGS: Left-sided cardiac device projecting over the chest. Pulmonary emphysema is suggested. Lung volumes are diminished. Small right and moderate left pleural effusion noted. Heart size is normal. No pneumothorax. Trachea is patent. Osseous structures demonstrate no acute abnormality. No radiopaque foreign body. IMPRESSION: Small to moderate bilateral pleural effusions. ACT 112: Positive. There are findings on this examination that require communication between the performing entity and the patient following Patient Test Result Information Act ([place] ACT 112) guidelines. Electronically signed by Ivanna Gaines 10-05-2025 6:32 PM
--- NOTE | 2025-10-05 19:01 | CT Scan Report ---
EXAMINATION: Chest CT without CLINICAL HISTORY: Weakness, nausea, diarrhea COMPARISON: 11/27/2023 TECHNIQUE: Contiguous axial images were obtained through the chest without the use of intravenous contrast. Sagittal and coronal reformations are supplied. FINDINGS: Large bilateral pleural effusions are present, left greater than right with compressive atelectasis and/or airspace consolidation in the lung bases with air bronchograms. Heart size mildly enlarged. Moderate pericardial effusion present, appearing in the interval, measuring 1.4 cm. No mediastinal adenopathy. Trachea and mainstem bronchi are patent. No pneumothorax. Lung upper lobes are normal. In bone windows, no acute osseous abnormality. IMPRESSION: 1. Large bilateral pleural effusions, left greater than right. 2. Bibasilar airspace consolidation and air bronchograms, left greater than right, which could represent compressive atelectasis or possibly pneumonia in the proper clinical setting. 3. Moderate pericardial effusion. ACT 112: Positive. There are findings on this examination that require communication between the performing entity and the patient following Patient Test Result Information Act ([place] ACT 112) guidelines. Electronically signed by Ivanna Gaines 10-05-2025 7:00 PM
--- NOTE | 2025-10-05 19:08 | CT Scan Report ---
EXAMINATION: Abdomen and pelvis CT without CLINICAL HISTORY: Weakness, nausea, diarrhea (chest CT dictated under separate heading) PRIORS: 11/18/2023 TECHNIQUE: Contiguous axial images were obtained through the abdomen and pelvis without the use of intravenous contrast. Sagittal and coronal reformations are supplied. FINDINGS: Pleural effusions present, left greater than right. Chest CT dictated under separate heading. Moderate pericardial effusion. The spleen is enlarged measuring 20 cm in craniocaudal dimension which compares to 15 cm on 11/18/2023. The liver is enlarged measuring 18.6 cm which compares to 16 cm previously. No ascites. Gallbladder surgically absent. Pancreas not well-seen and appears predominantly fatty replaced. The stomach is under distended. Aorta and IVC within normal limits. Moderate atherosclerotic disease of the abdominal aorta. Kidneys are symmetric. No obstructing calculus. Is small right renal cyst present, unchanged. Small retroperitoneal lymph nodes noted. Moderate to severe diverticulosis of the sigmoid colon. No pericolonic inflammatory change. No formed stool identified in the colon. Urinary bladder distends normally. Prostate mildly to moderately enlarged. No free fluid or adenopathy in the pelvis. Mild to moderate osseous demineralization. Moderate to advanced degenerative change at L5-S1. Moderate compression deformity of the superior endplate of T12, appearing in the interval. No high-grade compression fracture. IMPRESSION: 1. Hepatosplenomegaly, increased interval with severe enlargement of the spleen measuring 20 cm which compares to 15 cm on 11/18/2023. Please correlate clinically. 2. Moderate sigmoid colon diverticulosis without pericolonic inflammatory change. 3. Mild to moderate prostamegaly. 4. New mild compression fracture of the T12 vertebral body, appearing since 2022. ACT 112: Positive. There are findings on this examination that require communication between the performing entity and the patient following Patient Test Result Information Act ([place] ACT 112) guidelines. Electronically signed by Ivanna Gaines 10-05-2025 7:08 PM
[2025-10-05 19:15] LABS: ALC (manual) 7.55 K/uL (1.2-3.4); ANC (manual) 120.73 K/uL (1.4-6.5); Blast # (manual) 3.77 K/uL (0-0); Polychromasia 2+; Tear Drop Cells 1+
[2025-10-05] MEDS ORDERED: VANCOMYCIN CONSULT ACTIVE PRN (20:36)
[2025-10-05] MEDS ORDERED: MELATONIN 3 MG TAB PO PRN (20:36)
[2025-10-05] MEDS: TERAZOSIN HCL 1 MG CAP PO SCH (21:31)
[2025-10-05] MEDS: VANCOMYCIN HCL 1,250 MG in SODIUM CHLORIDE 0.9% 250 ML IV STA (21:33)
[2025-10-05] MEDS: cefTRIAXone SODIUM 2,000 MG/50 ML BAG IV SCH (21:33)
[2025-10-05] MEDS: POLYETHYLENE (MIRALAX) 17 GM PACK PO SCH (21:34)
--- NOTE | 2025-10-05 22:00 | Critical Care Consultation ---
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 Of note the patient was recently evaluated at [facility] on 10/03/2025 for chest pain and was found to have a pericardial effusion for which he had a pericardicentesis with 650ml of fluid removed. Patient was discharged on 10/04/25 after being started on antibiotics and colchicine for pericarditis. Today the patient felt palpitations and hypoxemia. Neuro: Hx of CVA -No acute issues -Monitor and image as appropriate -Cont plavix and atorvastatin CV: Pericarditis; pericardial effusion; Reactive ST changes in setting of pericardiocentesis -Seen at [facility] on 10/03 and had pericardiocentesis on with 650 ml drained -CT chest shows moderate pericardial effusion without tamponade -Cont colchicine and ABX. Concern for bacterial effusion and was ABX after d/c from [facility]. -Dr. Fry cardiology following HTN;HLD -Cont metoprolol -Cont amlodipine -Continue atorvastatin Pulm: Pleural effusions L>R -Small right and moderate left pleural effusion noted -No recent concerns for pneumonia -No smoking history GI: Nausea; Diarrhea -Zofran PRN -Monitor -C diff and stool biofire pending : CKD stage IIIb -Follow with Dr. Martinez with [place] [facility] -Left AV fistula approximately 4 weeks ago w/ Dr. Contreras at [facility] -Creatinine 3.66 on admission -Cont Bicarbonate Gout -Cont colchicine -Cont allopurinol BPH -Cont terazosin Heme/onc: CML -Follows with Dr. Craven and [facility] -WBC 188. Historically 30-80. -Noted splenomegaly on CT abdomen -Blast % 2 Mild Thrombocytopenia -Plts 140 -likely related to CML -Monitor Endo: Stress Hyperglycemia -BG 96-107 -Monitor and initiate hyperglycemia protocol if needed -Maintain BG 140-180 Hypothyroidism -Continue Synthroid ID: Possible bacterial pericarditis -WBC 188.64 -Afebrile -Procal 1.42 -Blood cultures pending -Was on vanco and zosyn at [facility] and transitioned to Augmentin -Cont ceftriaxone at this time -MRSA negative -C. Diff pending -Moderate effusion noted on CT chest Prophylaxis: -PPI for GI prophylaxis (Home med) -SCD for mechanical DVT prophylaxis -Consider sub q heparin in am once sure no procedure indicated. Disposition: ICU for continued evaluation and management of reactive ST elevations in setting of pericardial effusion related to likely pericarditis with high risk for decline. Patient is full code. Patient, , and daughter updated at bedside by ICU provider on 10/05/2025. I have personally spent 45 minutes of critical care time in the direct management of this patient. This is a life/limb threatening event. This includes time spent evaluating patient, direct bedside care, chart review, placing orders, interpretation of diagnostic studies, discussion with consultants, patient, and family members, as well as other required patient management activities. This time is exclusive of all separately billable procedures, and teaching time and separate from and in addition to any other critical care service time. 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 Of note the patient was recently evaluated at [facility] on 10/03/2025 for chest pain and was found to have a pericardial effusion for which he had a pericardicentesis with 650ml of fluid removed. Patient was discharged on 10/04/25 after being started on antibiotics and colchicine for pericarditis. Today the patient felt palpitations and noted his pulse oximeter was reading 87%. The patient came to [facility] ED where and EKG showed some generalized mild ST elevations in I, II, III, V5, V6, and ST depression in aVR. A heart alert was initiated and patient was evaluated by cardiology who reviewed the EKG and felt this was not likely a STEMI but rather reactive ST changes in setting of recent pericardiocentesis and did not need PCI at this time. CXR was performed which showed no consolidation but a small right and moderate left pleural effusion. CT chest showed the L>R effusion and moderate pericardial effusion. Patient was admitted to the ICU for continued evaluation and management of reactive ST elevations in setting of pericardial effusion related to likely pericarditis with high risk for decline. Allergies Allergy/AdvReac Type Severity Reaction Status Date / Time meloxicam Allergy Intermediate Gastrointestinal Verified 10/05/25 17:23 Upset Home Medications Medication Instructions Recorded Confirmed Type cyanocobalamin (vitamin B-12) 1,000 mcg PO DAILY 08/15/22 10/05/25 History 1,000 mcg tablet sildenafil 100 mg tablet 100 mg PO UD PRN Erectile 08/15/22 10/05/25 History Dysfunction terazosin 2 mg capsule 2 mg PO QPM 08/15/22 10/05/25 History clopidogrel 75 mg tablet (Plavix) 75 mg PO QAM 08/01/23 10/05/25 History TENS unit and electrodes combo pack #1 ea 12/04/23 08/29/25 Rx levothyroxine 75 mcg tablet 75 mcg PO QAM 01/19/24 10/05/25 History polyethylene glycol 3350 17 17 g PO HS 01/19/24 10/05/25 History gram/dose oral powder (Miralax) cholecalciferol (vitamin D3) 50 50 mcg PO DAILY 05/02/24 10/05/25 History mcg (2,000 unit) capsule pantoprazole 40 mg tablet,delayed 40 mg PO DAILY 04/10/25 10/05/25 History release atorvastatin 40 mg tablet 40 mg PO DAILY 07/05/25 10/05/25 History magnesium oxide 400 mg (241.3 mg 400 mg PO BID 07/05/25 10/05/25 History magnesium) tablet allopurinol 300 mg tablet 300 mg PO DAILY #90 tabs 08/08/25 10/05/25 Rx sodium bicarbonate 650 mg tablet 650 mg PO DAILY #90 tabs 09/06/25 10/05/25 Rx amlodipine 5 mg tablet 0 mg PO DAILY 10/05/25 10/05/25 History amoxicillin 500 mg-potassium 1 tab PO UD 10/05/25 10/05/25 History clavulanate 125 mg tablet colchicine 0.6 mg tablet 0.6 mg PO UD 10/05/25 10/05/25 History metoprolol succinate 25 mg 25 mg PO DAILY 10/05/25 10/05/25 History tablet,extended release 24 hr prednisone 5 mg tablet 0 mg PO DAILY 10/05/25 10/05/25 History Patient History Medical History History of stroke ~2021, taken to [place], lt arm and face numbness and tingling for a few minutes; f/u dr. felton, neuro>no current issues Hypothyroidism H/O meningitis ~2021 Cervicalgia Dysarthria Dyslipidemia Surgical History History of bunionectomy of both great toes Hx laparoscopic cholecystectomy History of carpal tunnel surgery of right wrist 09/2021, w/thumb joint replacement Hx of colonoscopy History of bone marrow biopsy 11/2023 Hx of myringoplasty lt ear History of loop recorder implanted 05/2023, for f/u of TIA and syncopal episodes, [facility]; f/u [facility] History of esophagogastroduodenoscopy (EGD) Hx of exploratory laparotomy x3, "for my bowels that kept kinking up, never removed any of them," w/removal appendix Family History Mother , age 82 with heart issues Heart disease Father , age 58 of diabetes complications Diabetes Other No family history of adverse response to anesthesia No family history of bleeding disorder Social History Smoking Status: Never smoker Second Hand Exposure: Yes (hx as child); Do You Dip or Chew Tobacco: No; Hx Alcohol Use: No Hx Substance Use: No Preferred Language: Kinyarwanda Communication Ability: Effective Communication Ability Comment: wears reading glasses Visual Impairment: No Limitations Hearing Ability: Normal Special Needs Bus Driver Required: No Beliefs That Will Affect Care: None marital status: Current Living Situation: Spouse Current Living Situation Comment: One story home with stairs to the basement and a few to get inside current occupational status: retired current occupation: former [employer] Other Information That Helps Us Care for You: No Feels Safe at Home: Yes Safety Concerns: Feels Safe At This Time Diet: regular caffeine: Yes (2-3 coffee cups daily) during the past year weight has: remained stable Dental Care, Regularly: Yes Physical Activity Frequency: Does not Exercise Seatbelt Use: always Do you think of yourself as: straight/heterosexual Gender Identity: Male Assistive Devices: Glasses Review of Systems Review of Systems: All systems reviewed & are unremarkable except as noted in HPI & below Physical Exam Physical Exam: VITALS: Reviewed. WEIGHT/BMI reviewed. GEN: Pleasant, well-developed, NAD. PSYCH: Good Judgment. AOx3. Normal memory, mood, and affect. HEENT -Head: NC/AT; -Eyes: PERRL, EOMI. No discharge or redn ess; -Ears: External ears are normal. -Nose: Normal nares. NECK: Supple, with no masses. CV: Sinus tachycardia, S1/S2 present though diminished. No murmurs, rubs, or gallops. LUNGS: Clear in b/l upper lobes, Diminished in b/l lower lobes. Chest rise symmetrical. Breathing nonlabored. ABD: Soft, NT/ND, NBS, no masses or organomegaly. : N/A SKIN: Warm, well perfused. No skin rashes or abnormal lesions. MSK: No deformities, Normal gait. EXT: No clubbing, cyanosis, or edema. NEURO: Normal muscle strength and tone. No focal deficits. Results & Data Results & Data Vital Signs (Past 12 Hours) Vital Signs Temp Pulse Pulse Resp BP BP Pulse Ox 10/05/25 20:20 36.4 C L 110 H 18 101/77 95 10/05/25 19:00 114 H 18 93 10/05/25 18:42 113 H 22 91 10/05/25 18:30 95/65 L 10/05/25 18:30 95/65 L 10/05/25 18:30 95/65 L 10/05/25 18:30 95/65 L 10/05/25 18:30 114 H 22 93 10/05/25 18:30 95/65 L 10/05/25 18:21 115 H 23 92 10/05/25 18:12 113 H 19 94 10/05/25 18:00 115 H 21 94 10/05/25 18:00 118/66 10/05/25 18:00 118/66 10/05/25 18:00 118/66 10/05/25 18:00 118/66 10/05/25 18:00 118/66 10/05/25 18:00 115 H 18 118/66 94 10/05/25 17:51 116 H 22 95 10/05/25 17:48 116 H 25 H 96 10/05/25 17:47 113/73 10/05/25 17:47 113/73 10/05/25 17:47 113/73 10/05/25 17:47 113/73 10/05/25 17:47 113/73 10/05/25 17:45 115 H 18 113/73 94 10/05/25 17:35 119 H 10/05/25 17:33 94 10/05/25 17:30 116 H 22 94 10/05/25 17:30 125/75 10/05/25 17:30 125/75 10/05/25 17:30 125/75 10/05/25 17:30 125/75 10/05/25 17:25 133/89 10/05/25 17:25 133/89 10/05/25 17:25 133/89 10/05/25 17:25 133/89 10/05/25 17:25 133/89 10/05/25 17:24 114 H 26 H 95 10/05/25 17:21 118 H 17 94 10/05/25 17:15 117 H 23 94 10/05/25 16:58 114 H 18 94 10/05/25 16:58 114 H 18 94 10/05/25 16:37 36.8 C 120 H 20 137/75 96 10/05/25 16:34 117 H 18 135/76 94 10/05/25 16:34 96 O2 Del Method 10/05/25 20:20 Room Air 10/05/25 19:00 Room Air 10/05/25 18:42 10/05/25 18:30 10/05/25 18:30 10/05/25 18:30 10/05/25 18:30 10/05/25 18:30 10/05/25 18:30 10/05/25 18:21 10/05/25 18:12 10/05/25 18:00 10/05/25 18:00 10/05/25 18:00 10/05/25 18:00 10/05/25 18:00 10/05/25 18:00 10/05/25 18:00 Room Air 10/05/25 17:51 10/05/25 17:48 10/05/25 17:47 10/05/25 17:47 10/05/25 17:47 10/05/25 17:47 10/05/25 17:47 10/05/25 17:45 Room Air 10/05/25 17:35 10/05/25 17:33 10/05/25 17:30 10/05/25 17:30 10/05/25 17:30 10/05/25 17:30 10/05/25 17:30 10/05/25 17:25 10/05/25 17:25 10/05/25 17:25 10/05/25 17:25 10/05/25 17:25 10/05/25 17:24 10/05/25 17:21 10/05/25 17:15 10/05/25 16:58 Room Air 10/05/25 16:58 Room Air 10/05/25 16:37 Room Air 10/05/25 16:34 10/05/25 16:34 Room Air Critical Care Results & Data Vital Signs (Past 12 Hours) Vital Signs Temp Pulse Pulse Resp BP BP Pulse Ox 10/05/25 20:20 36.4 C L 110 H 18 101/77 95 10/05/25 19:00 114 H 18 93 10/05/25 18:42 113 H 22 91 10/05/25 18:30 95/65 L 10/05/25 18:30 95/65 L 10/05/25 18:30 95/65 L 10/05/25 18:30 95/65 L 10/05/25 18:30 114 H 22 93 10/05/25 18:30 95/65 L 10/05/25 18:21 115 H 23 92 10/05/25 18:12 113 H 19 94 10/05/25 18:00 115 H 21 94 10/05/25 18:00 118/66 10/05/25 18:00 118/66 10/05/25 18:00 118/66 10/05/25 18:00 118/66 10/05/25 18:00 118/66 10/05/25 18:00 115 H 18 118/66 94 10/05/25 17:51 116 H 22 95 10/05/25 17:48 116 H 25 H 96 10/05/25 17:47 113/73 10/05/25 17:47 113/73 10/05/25 17:47 113/73 10/05/25 17:47 113/73 10/05/25 17:47 113/73 10/05/25 17:45 115 H 18 113/73 94 10/05/25 17:35 119 H 10/05/25 17:33 94 10/05/25 17:30 116 H 22 94 10/05/25 17:30 125/75 10/05/25 17:30 125/75 10/05/25 17:30 125/75 10/05/25 17:30 125/75 10/05/25 17:25 133/89 10/05/25 17:25 133/89 10/05/25 17:25 133/89 10/05/25 17:25 133/89 10/05/25 17:25 133/89 10/05/25 17:24 114 H 26 H 95 10/05/25 17:21 118 H 17 94 10/05/25 17:15 117 H 23 94 10/05/25 16:58 114 H 18 94 10/05/25 16:58 114 H 18 94 10/05/25 16:37 36.8 C 120 H 20 137/75 96 10/05/25 16:34 117 H 18 135/76 94 10/05/25 16:34 96 O2 Del Method 10/05/25 20:20 Room Air 10/05/25 19:00 Room Air 10/05/25 18:42 10/05/25 18:30 10/05/25 18:30 10/05/25 18:30 10/05/25 18:30 10/05/25 18:30 10/05/25 18:30 10/05/25 18:21 10/05/25 18:12 10/05/25 18:00 10/05/25 18:00 10/05/25 18:00 10/05/25 18:00 10/05/25 18:00 10/05/25 18:00 10/05/25 18:00 Room Air 10/05/25 17:51 10/05/25 17:48 10/05/25 17:47 10/05/25 17:47 10/05/25 17:47 10/05/25 17:47 10/05/25 17:47 10/05/25 17:45 Room Air 10/05/25 17:35 10/05/25 17:33 10/05/25 17:30 10/05/25 17:30 10/05/25 17:30 10/05/25 17:30 10/05/25 17:30 10/05/25 17:25 10/05/25 17:25 10/05/25 17:25 10/05/25 17:25 10/05/25 17:25 10/05/25 17:24 10/05/25 17:21 10/05/25 17:15 10/05/25 16:58 Room Air 10/05/25 16:58 Room Air 10/05/25 16:37 Room Air 10/05/25 16:34 10/05/25 16:34 Room Air Lab & Micro Results (Past 24 Hours) RBC 2.83 M/uL (4.70-6.10) L 10/06/25 WBC 137.45 K/ul (4.8-10.8) H* 10/06/25 Hgb 8.6 g/dl (14.0-18.0) L 10/06/25 Hct 27.7 % (42.0-52.0) L 10/06/25 MCV 97.9 fL (80.0-100.0) 10/06/25 MCH 30.4 pg (25.0-34.0) 10/06/25 MCHC 31.0 g/dL (32.0-36.0) L 10/06/25 RDW Standard Deviation 53.3 fL (36.4-46.3) H 10/06/25 RDW Coefficient of Variation 15.1 % (11.5-14.5) H 10/06/25 Plt Count 117 K/uL (130-400) L 10/06/25 MPV 11.4 fL (9.4-12.4) 10/06/25 Nucleated Red Blood Cells % (auto) 0.1 % 10/06 Nucleated RBC Absolute Count (auto) 0.07 K/uL (0.00-0.12) 1 12/06/24 ANC 94.84 K/uL (1.4-6.5) H 10/06/25 ALC 2.75 K/uL (1.2-3.4) 10/06/25 Neutrophils % (Manual) 69 % 10/06/25 Lymphocytes % (Manual) 2 % 10/06/25 Monocytes % (Manual) 14 % 10/06/25 Eosinophils % (Manual) 1 % 10/06/25 Basophils % (Manual) 1 % 10/06/25 Metamyelocytes % (manual) 5 % 10/06/25 Myelocytes % (Manual) 8 % 10/06/25 Blast Cells % (Manual) 2 % 10/05/25 Neutrophils # (Manual) 94.84 K/uL (1.40-6.50) H 10/06/25 Lymphocytes # (Manual) 2.75 K/uL (1.2-3.4) 10/06/25 Monocytes # (Manual) 19.24 K/uL (0.11-0.59) H 10/06/25 Eosinophils # (Manual) 1.37 K/uL (0-0.50) H 10/06/25 Basophils # (Manual) 1.37 K/uL (0-0.2) H 10/06/25 Metamyelocytes # (Manual) 6.87 K/uL (0-0) H 10/06/25 Myelocytes # (Manual) 11.00 K/uL (0-0) H 10/06/25 Blast Cells # (Manual) 3.77 K/uL (0-0) H 10/05/25 Polychromasia 1+ 10/06/25 Echinocytes 1+ 10/05/25 Tear Drop Cells 1+ 10/06/25 Toxic Vacuolation 1+ 10/06/25 Na 139 mmol/L (136-145) 10/06/25 K 4.2 mmol/L (3.5-5.1) 10/06/25 Cl 108 mmol/L (98-107) H 10/06/25 CO2 19 mmol/L (21-32) L 10/06/25 Anion Gap 12 (3-11) H 10/06/25 BUN 75 mg/dl (6-23) H 10/06/25 Creatinine 3.89 mg/dl (0.6-1.4) H 10/06/25 BUN/Creatinine Ratio 19.3 (10-20) 10/06/25 Glu 106 mg/dl (70-99(Fasting)) H 10/06/25 Ca 8.6 mg/dl (8.6-10.3) 10/06/25 Phosphorus Level 6.1 mg/dl (2.5-4.9) H 10/06/25 Total Bilirubin 0.4 mg/dl (0.2-1.0) 10/06/25 Direct Bilirubin 0.2 mg/dl (0-0.2) 10/05/25 AST 22 U/L (13-39) 10/06/25 ALT 14 U/L (7-52) 10/06/25 Alkaline Phosphatase 59 U/L (34-104) 10/06/25 TP 6.0 gm/dl (6.0-8.3) 10/06/25 Albumin 2.9 gm/dl (3.4-5.0) L 10/06/25 Globulin 3.1 gm/dl (2.5-4.0) 10/06/25 Albumin/Globulin Ratio 0.9 (0.9-2) 10/06/25 Lactate Dehydrogenase 249 U/L (86-244) H 10/06/25 2 Mg 1.7 mg/dl (1.7-2.4) 10/06/25 08:38 Calcium Level 8.6 mg/dl (8.6-10.3) 10/06/25 08:38 Ionized Calcium 1.19 mmol/L (1.12-1.32) 10/06/25 08:47 Prothromb Time International Ratio 1.2 (0.9-1.1) H 10/06/25 09 :49 Venous Blood pH 7.33 (7.36-7.41) L 10/05/25 17:13 Venous Blood Partial Pressure CO2 37 mmHg (38-50) L 10/05/25 17 :13 Venous Blood Partial Pressure O2 30 mmHg 10/05/25 17:13 Venous Blood HCO3 20 mmol/L 10/05/25 17:13 Venous Blood Base Excess -5.8 mEq/L 10/05/25 17:13 Venous Blood Oxygen Saturation < 60.0 % 10/05/25 17:13 Diagnostic Findings (Past 24 Hours) Chest CT 10/05/25 16:57 EXAMINATION: Chest CT without CLINICAL HISTORY: Weakness, nausea, diarrhea COMPARISON: 11/27/2023 TECHNIQUE: Contiguous axial images were obtained through the chest without the use of intravenous contrast. Sagittal and coronal reformations are supplied. FINDINGS: Large bilateral pleural effusions are present, left greater than right with compressive atelectasis and/or airspace consolidation in the lung bases with air bronchograms. Heart size mildly enlarged. Moderate pericardial effusion present, appearing in the interval, measuring 1.4 cm. No mediastinal adenopathy. Trachea and mainstem bronchi are patent. No pneumothorax. Lung upper lobes are normal. In bone windows, no acute osseous abnormality. IMPRESSION: 1. Large bilateral pleural effusions, left greater than right. 2. Bibasilar airspace consolidation and air bronchograms, left greater than right, which could represent compressive atelectasis or possibly pneumonia in the proper clinical setting. 3. Moderate pericardial effusion. ACT 112: Positive. There are findings on this examination that require communication between the performing entity and the patient following Patient Test Result Information Act ([place] ACT 112) guidelines. Electronically signed by Ivanna aGines 10-05-2025 7:00 PM Abdomen/Pelvis CT 10/05/25 16:58 EXAMINATION: Abdomen and pelvis CT without CLINICAL HISTORY: Weakness, nausea, diarrhea (chest CT dictated under separate heading) PRIORS: 11/18/2023 TECHNIQUE: Contiguous axial images were obtained through the abdomen and pelvis without the use of intravenous contrast. Sagittal and coronal reformations are supplied. FINDINGS: Pleural effusions present, left greater than right. Chest CT dictated under separate heading. Moderate pericardial effusion. The spleen is enlarged measuring 20 cm in craniocaudal dimension which compares to 15 cm on 11/18/2023. The liver is enlarged measuring 18.6 cm which compares to 16 cm previously. No ascites. Gallbladder surgically absent. Pancreas not well-seen and appears predominantly fatty replaced. The stomach is under distended. Aorta and IVC within normal limits. Moderate atherosclerotic disease of the abdominal aorta. Kidneys are symmetric. No obstructing calculus. Is small right renal cyst present, unchanged. Small retroperitoneal lymph nodes noted. Moderate to severe diverticulosis of the sigmoid colon. No pericolonic inflammatory change. No formed stool identified in the colon. Urinary bladder distends normally. Prostate mildly to moderately enlarged. No free fluid or adenopathy in the pelvis. Mild to moderate osseous demineralization. Moderate to advanced degenerative change at L5-S1. Moderate compression deformity of the superior endplate of T12, appearing in the interval. No high-grade compression fracture. IMPRESSION: 1. Hepatosplenomegaly, increased interval with severe enlargement of the spleen measuring 20 cm which compares to 15 cm on 11/18/2023. Please correlate clinically. 2. Moderate sigmoid colon diverticulosis without pericolonic inflammatory change. 3. Mild to moderate prostamegaly. 4. New mild compression fracture of the T12 vertebral body, appearing since 2022. ACT 112: Positive. There are findings on this examination that require communication between the performing entity and the patient following Patient Test Result Information Act ([place] ACT 112) guidelines. Electronically signed by Ivanna Gaines 10-05-2025 7:08 PM Chest X-Ray 10/05/25 16:58 EXAM: X-ray chest one-view portable CLINICAL HISTORY: Sepsis, weakness PRIORS: None TECHNIQUE: Frontal view chest FINDINGS: Left-sided cardiac device projecting over the chest. Pulmonary emphysema is suggested. Lung volumes are diminished. Small right and moderate left pleural effusion noted. Heart size is normal. No pneumothorax. Trachea is patent. Osseous structures demonstrate no acute abnormality. No radiopaque foreign body. IMPRESSION: Small to moderate bilateral pleural effusions. ACT 112: Positive. There are findings on this examination that require communication between the performing entity and the patient following Patient Test Result Information Act ([place] ACT 112) guidelines. Electronically signed by Ivanna Gaines 10-05-2025 6:32 PM I & O Totals 24 Hours 10/04/25 10/05/25 10/06/25 06:59 06:59 06:59 Intake Total 0 / 0 Balance 0 / 0 Cumulative 10/05/25 16:33 thru 10/05/25 20:20 Intake Total 0 Balance 0 RT Ventilator Mngmt (Last Documented) Ventilator Ordered Settings Respiratory Rate 18 10/05/25 20:20 Ventilator - PT Measurements Respiratory Rate 18 Coding Level of Care Code 37562 CRITICAL CARE 1ST 30-74M Diagnoses Pericarditis I31.9 Chronic kidney disease, stage 4 (severe) N18.4 Fistula L98.8 GERD (gastroesophageal reflux disease) K21.9 BPH (benign prostatic hyperplasia) N40.0 Hypertension I10 Hyperlipidemia E78.5 Gout, unspecified cause, unspecified chronicity, unspecified site M10.9 Chronicity: unspecified Gout etiology: unspecified cause Gout site: unspecified site Pleural effusion J90 ST elevation R94.31 (8) Gout Chronicity: unspecified Gout etiology: unspecified cause Gout site: unspecified site Qualified Code(s): M10.9 - Gout, unspecified
[2025-10-05] MEDS: LACTATED RINGER'S 1,000 ML IV SCH (22:57)
[2025-10-05 23:46] LABS: Appearance Urine Cloudy (Clear); Bacteria Urine Automated None Seen (None Seen); Glucose Urine UA Negative (Negative); RBC Urine Automated 0-2 /hpf (0-2); WBC Urine Automated 0-5 /hpf (0-5)
[2025-10-06 00:39] LABS: Cdiff Toxin B Gene (2yr or >) Positive Cdiff Gene (Neg)
[2025-10-06 01:07] LABS: Adenovirus F 40/41 PCR Not Detected (NotDetected); Campylobacter PCR Not Detected (NotDetected); Enteroaggregative E.coli(EAEC) Not Detected (NotDetected); Shiga-like Toxin E.coli (STEC) Not Detected (NotDetected); Vibrio species PCR Not Detected (NotDetected)
[2025-10-06 01:23] LABS: Cdiff Toxin A+B Negative Cdiff Toxin (Negative)
[2025-10-06] MEDS: LEVOTHYROXINE SODIUM 75 MCG TABLET PO SCH (05:54)
[2025-10-06] MEDS: 4.5GM X1 IV ONE (09:05)
[2025-10-06 09:06] LABS: Hematocrit (blood only) 27.7 % (42.0-52.0); Hemoglobin 8.6 g/dl (14.0-18.0); Mean Corpuscular Hemoglobin 30.4 pg (25.0-34.0); Mean Corpuscular Volume 97.9 fL (80.0-100.0); Platelet Count 117 K/uL (130-400); RDW Standard Deviation 53.3 fL (36.4-46.3); Red Blood Count 2.83 M/uL (4.70-6.10); White Blood Count 137.45 K/ul (4.8-10.8)
[2025-10-06 09:19] LABS: Uric Acid 7.8 mg/dl (2.6-7.2)
[2025-10-06 09:21] LABS: Alanine Aminotransferase 14.0 U/L (7-52); Albumin Globulin Ratio 0.9 (0.9-2); Albumin Level 2.9 gm/dl (3.4-5.0); Alkaline Phosphatase 59.0 U/L (34-104); Anion Gap 12.0 (3-11); Bilirubin,Total 0.4 mg/dl (0.2-1.0); Blood Urea Nitrogen 75.0 mg/dl (6-23); Calcium 8.6 mg/dl (8.6-10.3); Carbon Dioxide 19.0 mmol/L (21-32); Chloride 108.0 mmol/L (98-107); Creatinine Clr Calc Pharmacy 13.9 ml/min; Globulin 3.1 gm/dl (2.5-4.0); Glucose 106.0 mg/dl (70-99(Fasting)); Magnesium 1.7 mg/dl (1.7-2.4); Potassium 4.2 mmol/L (3.5-5.1); Sodium 139.0 mmol/L (136-145); Total Protein 6.0 gm/dl (6.0-8.3)
[2025-10-06] MEDS: PLASMA-LYTE A 1,000 ML IV SCH (09:23)
[2025-10-06 09:42] LABS: ALC (manual) 2.75 K/uL (1.2-3.4); ANC (manual) 94.84 K/uL (1.4-6.5); Polychromasia 1+; Tear Drop Cells 1+; Toxic Vacuolation 1+
[2025-10-06] MEDS: METOPROLOL SUCC 25MG EXT REL TAB PO SCH (10:06)
[2025-10-06] MEDS: SODIUM BICARBONATE 650 MG TAB PO SCH (10:07)
[2025-10-06] MEDS: CLOPIDOGREL BISULFATE 75 MG TAB PO SCH (10:07)
[2025-10-06 10:08] LABS: Fibrinogen 407 mg/dl (184-400)
[2025-10-06] MEDS: COLCHICINE 0.6 MG TAB PO SCH (10:11)
--- NOTE | 2025-10-06 10:28 | XCELERA ---
[id number] \\[email or web address]\[id number]
[2025-10-06 10:37] LABS: INR 1.2 (0.9-1.1); Prothrombin Time 12.8 Seconds (9.0-12.0)
[2025-10-06] MEDS: ATORVASTATIN 40 MG TAB PO SCH (10:41)
--- NOTE | 2025-10-06 10:45 | Cardiology Consultation ---
Date of Consultation October 06, 2025 Assessment & Plan (1) Pericardial effusion: -Trivial on current echocardiogram. -s/p pericardiocentesis yielding 650 cc of fluid, October 03. -Continue Zosyn for possible bacterial pericarditis. (2) Hypertension: - Adequate control on current regimen. (3) Hyperlipidemia: -Continue atorvastatin. (4) Chronic myelomonocytic leukemia: -Management per primary care team and oncology. History of Present Illness Attending Physician: Thiago Rosenthal MD, PhD History of Present Illness Mr. Marmolejo is an 80-year-old male admitted yesterday because of a recurrent pericardial effusion. This consultation was ordered to assist in his cardiac management. Of note, the patient typically follows with Dr. Zayas from [place]. The patient was in his usual state of health until October 01 when he developed the chest pain syndrome. He was eventually hospitalized on October 03 and found to have a significant pericardial effusion. He underwent a pericardiocentesis which resulted in 650 cc of pericardial fluid. He was placed on intravenous vancomycin and Zosyn for possible bacterial pericarditis. He was discharged home on oral Augmentin. On the day of presentation, the patient was noticing chest discomfort, palpi tations, and nausea. Therefore, he presented to our emergency room. He did experience a TIA back in May 2023 and a loop recorder was placed at that time. According to the patient's report, no atrial fibrillation has been identified. Currently, patient is resting comfortably in bed without complaints. Past medical and surgical history 1. Hypertension 2. Hypercholesterolemia 3. TIAJuly 2022 4. Loop recorderJuly 2022 5. Chronic myelomonocytic leukemia 6. Chronic renal failure 7. Hypothyroidism 8. GERD 9. Gout 10. Cervical spinal stenosis 11. Left upper extremity AV fistula 12. Appendectomy 13. Laparoscopic cholecystectomy 14. Right carpal tunnel release Social history and lives with his No tobacco or alcohol Family history No early coronary artery disease Review of systems A 10 point review of system was undertaken and negative except that described above. Allergies Allergy/AdvReac Type Severity Reaction Status Date / Time meloxicam Allergy Intermediate Gastrointestinal Verified 10/05/25 17:23 Upset Home Medications Medication Instructions Recorded Confirmed Type cyanocobalamin (vitamin B-12) 1,000 mcg PO DAILY 08/15/22 10/05/25 History 1,000 mcg tablet sildenafil 100 mg tablet 100 mg PO UD PRN Erectile 08/15/22 10/05/25 History Dysfunction terazosin 2 mg capsule 2 mg PO QPM 08/15/22 10/05/25 History clopidogrel 75 mg tablet (Plavix) 75 mg PO QAM 08/01/23 10/05/25 History TENS unit and electrodes combo pack #1 ea 12/04/23 08/29/25 Rx levothyroxine 75 mcg tablet 75 mcg PO QAM 01/19/24 10/05/25 History polyethylene glycol 3350 17 17 g PO HS 01/19/24 10/05/25 History gram/dose oral powder (Miralax) cholecalciferol (vitamin D3) 50 50 mcg PO DAILY 05/02/24 10/05/25 History mcg (2,000 unit) capsule pantoprazole 40 mg tablet,delayed 40 mg PO DAILY 04/10/25 10/05/25 History release atorvastatin 40 mg tablet 40 mg PO DAILY 07/05/25 10/05/25 History magnesium oxide 400 mg (241.3 mg 400 mg PO BID 07/05/25 10/05/25 History magnesium) tablet allopurinol 300 mg tablet 300 mg PO DAILY #90 tabs 08/08/25 10/05/25 Rx sodium bicarbonate 650 mg tablet 650 mg PO DAILY #90 tabs 09/06/25 10/05/25 Rx amlodipine 5 mg tablet 0 mg PO DAILY 10/05/25 10/05/25 History amoxicillin 500 mg-potassium 1 tab PO UD 10/05/25 10/05/25 History clavulanate 125 mg tablet colchicine 0.6 mg tablet 0.6 mg PO UD 10/05/25 10/05/25 History metoprolol succinate 25 mg 25 mg PO DAILY 10/05/25 10/05/25 History tablet,extended release 24 hr prednisone 5 mg tablet 0 mg PO DAILY 10/05/25 10/05/25 History Patient History Medical History History of stroke ~2021, taken to [place], lt arm and face numbness and tingling for a few minutes; f/u dr. felton, neuro>no current issues Hypothyroidism H/O meningitis ~2021 Cervicalgia Dysarthria Dyslipidemia Surgical History History of bunionectomy of both great toes Hx laparoscopic cholecystectomy History of carpal tunnel surgery of right wrist 09/2021, w/thumb joint replacement Hx of colonoscopy History of bone marrow biopsy 11/2023 Hx of myringoplasty lt ear History of loop recorder implanted 05/2023, for f/u of TIA and syncopal episodes, [facility]; f/u [facility] History of esophagogastroduodenoscopy (EGD) Hx of exploratory laparotomy x3, "for my bowels that kept kinking up, never removed any of them," w/removal appendix Family History Mother , age 82 with heart issues Heart disease Father , age 58 of diabetes complications Diabetes Other No family history of adverse response to anesthesia No family history of bleeding disorder Social History Smoking Status: Never smoker Second Hand Exposure: Yes (hx as child); Do You Dip or Chew Tobacco: No; Hx Alcohol Use: No Hx Substance Use: No Preferred Language: Upper Sorbian Communication Ability: Effective Communication Ability Comment: wears reading glasses Visual Impairment: No Limitations Hearing Ability: Normal Mannequin Decorator Required: No Beliefs That Will Affect Care: None marital status: Current Living Situation: Spouse Current Living Situation Comment: One story home with stairs to the basement and a few to get inside current occupational status: retired 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 HEENT exam is negative. Neck reveals normal carotid upstrokes without bruits. Jugular venous pressure is flat at 90. There is no thyromegaly. Cardiovascular exam reveals a regular rhythm with distant heart sounds. No obvious murmurs. Lungs are clear without rales, rhonchi, or wheezes. Abdomen is soft without bruits. Extremities reveal intact radial artery pulses bilaterally. There is no peripheral edema. Results & Data Vital Signs (Past 12 Hours) Vital Signs Temp Pulse Resp BP Pulse Ox O2 Del Method O2 Flow Rate 10/06/25 08:49 36.9 C 10/06/25 08:00 117 H 24 93 10/06/25 08:00 135/60 10/06/25 07:00 117 H 27 H 96 10/06/25 07:00 120/71 10/06/25 05:00 115 H 17 96 10/06/25 04:51 116 H 23 86 L 10/06/25 04:42 117 H 22 92 10/06/25 04:30 113 H 23 92 10/06/25 04:21 118 H 21 93 10/06/25 04:12 117 H 24 94 10/06/25 04:00 113/64 10/06/25 04:00 117 H 24 94 10/06/25 03:51 117 H 26 H 94 10/06/25 03:42 115 H 26 H 91 10/06/25 03:30 109 H 20 92 10/06/25 03:21 109 H 23 94 10/06/25 03:12 115 H 26 H 93 10/06/25 03:00 114 H 24 91 10/06/25 03:00 98/51 L 10/06/25 02:51 115 H 28 H 90 10/06/25 02:42 114 H 25 H 91 Nasal Cannula 1 10/06/25 02:30 112 H 26 H 89 L 10/06/25 02:21 114 H 21 93 10/06/25 02:12 117 H 27 H 91 10/06/25 02:00 108/63 10/06/25 02:00 116 H 23 93 10/06/25 01:51 116 H 20 92 10/06/25 01:42 115 H 26 H 92 10/06/25 01:30 116 H 25 H 93 10/06/25 01:21 116 H 23 92 10/06/25 01:12 120 H 24 93 10/06/25 01:00 106/58 L 10/06/25 01:00 117 H 25 H 92 10/06/25 00:51 116 H 26 H 92 10/06/25 00:42 117 H 25 H 91 10/06/25 00:30 118 H 24 92 10/06/25 00:21 118 H 27 H 90 10/06/25 00:12 119 H 26 H 93 10/06/25 00:00 96/54 L 10/06/25 00:00 96/54 L 10/06/25 00:00 96/54 L 10/06/25 00:00 96/54 L 10/06/25 00:00 96/54 L 10/06/25 00:00 117 H 25 H 93 10/05/25 23:59 115 H 10/05/25 23:51 117 H 26 H 93 10/05/25 23:42 118 H 24 93 10/05/25 23:30 117 H 21 94 10/05/25 23:21 116 H 20 94 10/05/25 23:12 120 H 19 94 10/05/25 23:00 117 H 20 92 10/05/25 23:00 122/83 10/05/25 22:51 117 H 19 95 10/05/25 22:42 120 H 22 93 Laboratory Results CBC notes hemoglobin of 8.6, hematocrit 27.7, white count 137.5, and a platelet count of 117,000. Electrolytes noted sodium 139, potassium 4.2, chloride 108, bicarb 19, BUN 75, creatinine 3.9, and a glucose of 106. Initial high- sensitivity troponin was 19 with follow-up values of 17 and 16. Diagnostic Findings Echocardiogram notes hyperdynamic left ventricular systolic function with ejection fraction of greater than 70%. There was mild LVH. There is a trivial pericardial effusion. EKG notes diffuse ST elevation. Chest x-ray notes bilateral pleural effusions, left greater than right. CT scan of the chest notes bilateral pleural effusions with left greater than right. There is a moderate pericardial effusion. PG Care Time/CCT Total # of Minutes Spent Total Time Spent with Patient: Total time spent is greater than 50% in coordination of care (as documented) at patient's floor/unit and/or counseling patient: Coding Level of Care Code 86629 INT INP/OBS CARE 3/75MIN Diagnoses Pericardial effusion I31.39 Hypertension I10 Hyperlipidemia E78.5 Chronic myelomonocytic leukemia C93.10
--- NOTE | 2025-10-06 11:49 | Critical Care Progress Note ---
Date of Service October 06, 2025 Assessment & Plan (1) QI (acute kidney injury): (2) Chronic kidney disease, stage 4 (severe): (3) Fistula: (4) CML (chronic myeloid leukemia): (5) Hyperuricemia: (6) ST elevation: (7) Pericarditis: (8) Gout: (9) GERD (gastroesophageal reflux disease): (10) Pleural effusion: (11) Diarrhea: Plan Patient is an 80-year-old male with a history of CMML, thrombocytopenia, splenomegaly, chronic anemia, hyperuricemia, CKD stage IIIb (fistula created approximately 1 month previously), history of duodenal ulcers previous CVA, hypertension, hyperlipidemia, BPH and GERD. The patient has a significant recent medical history of pericardial effusion and underwent pericardiocentesis on 10/03/2025 at [facility] with 650 cc of fluid drained. He was admitted to [facility] and discharged on 10/04/2025 with antibiotics and culture seen for p ericarditis. The patient presented back to our facility on 10/05/2025 with a complaints of nausea, diarrhea and chest pain. He had also had a low oxygen saturation at home at 87%. In the emergency department the patient was found to have mild diffuse ST elevation. Heart alert was called. Cardiology reviewed the EKG and did not think that this was likely a STEMI rather ST changes secondary to pericardiocentesis recently. Imaging of the chest with x-ray showed pleural effusions. A CT of the chest was also obtained which showed bilateral effusions, greater on the left as well as a pericardial effusion. Labs were significant for WBC of 188,000, mild anemia and thrombocytopenia. Procalcitonin around 1. Creatinine 3.66. The patient was started on Rocephin and vancomycin. Started on Osmolite fluid resuscitation and admitted to the medical ICU. Reason critically ill: Chronic myelomonocytic leukemia with WC 188 on admission, concern for hyperviscosity syndrome, TLS, blast crisis QI on top of CKD Pericarditis with diffuse ST elevation Pericardial effusion with recent drainage at [facility] 10/03/2025 with 650 cc removed Pleural effusions Diarrhea, C. difficile gene present, toxin negative Hyperuricemia with chronic gout Neuro: History of CVA, no acute neurologic concerns at this time. Cardiovascular: Pericarditis with diffuse ST elevation Pericardial effusion with recent drainage at [facility] 10/03/2025 with 650 cc removed Records were requested from [facility]. CT read as moderate pericardial effusion, echo was done today, this shows hyperdynamic LV without regional wall motion abnormalities, concentric LVH, EF greater than 70%, trivial pericardial effusion without evidence of cardiac tamponade. Patient was on colchicine after discharge from [facility] for pericarditis, given worsening renal function we will stop this for now. Continue antibiotics. Cardiology was consulted, they recommend continuing antibiotics for possible bacterial pericarditis. Holding amlodipine given acute illness, will continue metoprolol. Respiratory: Pleural effusions appreciated, left greater than right. Echo does not show any evidence of reduced EF. No respiratory distress, on room air. Will repeat x-ray in the morning. If effusion is worsening we could consider thoracentesis. GI: Nausea and diarrhea on presentation. C. difficile PCR is positive but toxin is negative. Zofran as needed. Can resume diet. Renal diet. Renal/electrolytes: CKD stage IIIb. Had fistula created approximately [address] a Lucas catheter for strict I's and O's. Renal function is slightly worse today. Uric acid is 7.8. We will increase IV fluids to 150 an hour with LR. Nephrology has been consulted, appreciate assistance with case. Will hold colchicine given worsening renal dysfunction. Continue bicarb tablets. Continue allopurinol. : Place Lucas catheter, hold terazosin. Heme: Underlying CMML, usually WBCs are around 100. Significant leukocytosis. Could represent blast crisis, hyperviscosity syndrome, tumor lysis syndrome. Uric acid is slightly elevated at 7.8. LDH is slightly elevated as well. Serum viscosity is pending. Did peripheral smear today due to seeing blasts on initial differential, per oncology there are no significant blast to warrant a blast crisis. Hematology is consulted, appreciate assistance with case. Will increase IV fluids. May need Lasix. Continue allopurinol. No evidence of DIC. Peripheral smear Performed. Final results pending. Endo: Monitor blood glucose every 6. Acceptable at this time. Hypothyroidism, continue Synthroid. ID: Possible bacterial pericarditis. Immunocompromise state with CMML. Will broaden antibiotics to Zosyn and vancomycin. Follow cultures. MRSA is negative. C. difficile toxin is negative. Will get ESR and CRP. Prophylaxis: -PPI for GI prophylaxis (Home med) -SCD for mechanical DVT prophylaxis Plan: Patient will remain in the ICU. We have changed IV fluids to LR at 150-hour. Hematology and nephrology have been consulted. Case was discussed with subspecialty services, appreciate assistance with case. Place Lucsa catheter, strict I's and O's. Follow serum viscosity. Cardiology recommending continuing antibiotics for possible pericarditis. Ideally we need the records from [facility] to see if anything grew from the pericardial fluid. Follow-up peripheral smear. I have personally spent 65 minutes of critical care time in the direct management of this patient. This is a life/limb threatening event. This includes time spent evaluating patient, direct bedside care, chart review, placing orders, interpretation of diagnostic studies, discussion with consultants, patient, and family members, as well as other required patient management act ivities. This time is exclusive of all separately billable procedures, and teaching time and separate from and in addition to any other critical care service time. Admission and Anticipated Discharge Date Admission Date: October 05, 2025 Subjective Past 24-hour events: Patient admitted to ICU overnight from ER. Had complained of chest pain, EKG showed some ST elevations, cardiology was consulted and did not believe that NC was occurring. Patient was found to have significant leukocytosis at 188,000. Imaging of the chest with left-sided effusion and pericardial effusion. The patient remained hemodynamically stable overnight. He was started on Rocephin and vancomycin. Had adequate urine output overnight. Had intermittent chest pain most significant when lying on his side last night. Repeat EKG this morning showing persistent ST elevation. Rounding: On evaluate the patient this morning he is resting company in bed. Hemodynamically stable, not on pressors. On room air. Family is at bedside. Questions addressed. Not having a significant shortness of breath or chest discomfort at this time. Intake: 904 mL Output: 876 mL Net: +28 mL Mechanical ventilation: None, ORA Feeding: N.p.o. IV infusions: Osmolite, switching to LR at 150 cc an hour Indwelling catheters: Peripheral IVs, placing Lucas catheter Laboratory: CBC: WBC 137, hemoglobin 8.6, platelet 117 Coags: INR 1.2, fibrinogen 407 Chemistry: Sodium 139, potassium 4.2, chloride 108, bicarb 19, BUN 75, creatinine 3.89, glucose 106, lactate 0.9, uric acid 7.8, calcium 8.6, phosphorus 6.1, magnesium 1.7, normal LFTs, LDH 249 ABG: None today, yesterday VBG was 7.33 pH. Review of Systems Review of Systems: Negative except as in HPI. Physical Exam Physical Exam: Physical examination: General: Appears stated age, well-kept, not in distress. HEENT: Normocephalic, atraumatic. Extraocular movements intact. Sclera are nonicteric. No JVD appreciated. Skin: Warm and dry. No rashes appreciated. No jaundice appreciated. Cardiovascular: Heart is a regular rate and rhythm, no murmurs appreciated on my exam. No significant lower extremity edema. Lungs: Clear bilaterally, no wheezing appreciated. No crackles. Nontachypneic. Resting comfortably on room air. Abdomen: Nondistended, nontender to palpation. Splenomegaly. Musculoskeletal: Normal muscle mass and tone. No gross joint deformity abnormalities. No effusions appreciated. Neurologic: Awake and alert, oriented. CN II through XII are grossly intact. Speech is fluent. Nonfocal exam. Psychiatric: Appropriate cooperative during my exam. Results & Data Results & Data Vital Signs (Past 12 Hours) Vital Signs Temp Pulse Resp BP Pulse Ox O2 Del Method O2 Flow Rate 10/06/25 11:25 Room Air 10/06/25 08:49 36.9 C 10/06/25 08:00 117 H 24 93 10/06/25 08:00 135/60 10/06/25 07:00 117 H 27 H 96 10/06/25 07:00 120/71 10/06/25 05:00 115 H 17 96 10/06/25 04:51 116 H 23 86 L 10/06/25 04:42 117 H 22 92 10/06/25 04:30 113 H 23 92 10/06/25 04:21 118 H 21 93 10/06/25 04:12 117 H 24 94 10/06/25 04:00 113/64 10/06/25 04:00 117 H 24 94 10/06/25 03:51 117 H 26 H 94 10/06/25 03:42 115 H 26 H 91 10/06/25 03:30 109 H 20 92 10/06/25 03:21 109 H 23 94 10/06/25 03:12 115 H 26 H 93 10/06/25 03:00 114 H 24 91 10/06/25 03:00 98/51 L 10/06/25 02:51 115 H 28 H 90 10/06/25 02:42 114 H 25 H 91 Nasal Cannula 1 10/06/25 02:30 112 H 26 H 89 L 10/06/25 02:21 114 H 21 93 10/06/25 02:12 117 H 27 H 91 10/06/25 02:00 108/63 10/06/25 02:00 116 H 23 93 10/06/25 01:51 116 H 20 92 10/06/25 01:42 115 H 26 H 92 10/06/25 01:30 116 H 25 H 93 10/06/25 01:21 116 H 23 92 10/06/25 01:12 120 H 24 93 10/06/25 01:00 106/58 L 10/06/25 01:00 117 H 25 H 92 10/06/25 00:51 116 H 26 H 92 10/06/25 00:42 117 H 25 H 91 10/06/25 00:30 118 H 24 92 10/06/25 00:21 118 H 27 H 90 10/06/25 00:12 119 H 26 H 93 10/06/25 00:00 96/54 L 10/06/25 00:00 96/54 L 10/06/25 00:00 96/54 L 10/06/25 00:00 96/54 L 10/06/25 00:00 96/54 L 10/06/25 00:00 117 H 25 H 93 10/05/25 23:59 115 H 10/05/25 23:51 117 H 26 H 93 10/05/25 23:42 118 H 24 93 Coding Level of Care Code 24376 CRITICAL CARE 1ST 30-74M Diagnoses QI (acute kidney injury) N17.9 Chronic kidney disease, stage 4 (severe) N18.4 Fistula L98.8 CML (chronic myeloid leukemia) C92.[address] elevation R94.31 Pericarditis I31.9 Gout, unspecified cause, unspecified chronicity, unspecified site M10.9 Gout site: unspecified site Gout etiology: unspecified cause Chronicity: unspecified GERD (gastroesophageal reflux disease) K21.9 Pleural effusion J90 Diarrhea R19.7 (8) Gout Gout site: unspecified site Gout etiology: unspecified cause Chronicity: unspecified Qualified Code(s): M10.9 - Gout, unspecified
[2025-10-06] MEDS: ONDANSETRON INJ 2 MG/ML 2 ML VIAL IV PRN (12:12)
--- NOTE | 2025-10-06 12:35 | Electrocardiogram Report ---
Test Reason : Blood Pressure : */* mmHG Vent. Rate : 117 BPM Atrial Rate : 117 BPM P-R Int : 136 ms QRS Dur : 72 ms QT Int : 320 ms P-R-T Axes : 19 -12 58 degrees QTcB Int : [address] elevation, consider early repolarization, pericarditis, or injury Abnormal ECG When compared with ECG of 27-Nov-2023 05:17, Vent. rate has increased by [address] elevation now present in Inferior leads ST elevation now present in Anterolateral leads Confirmed by Ozzy Banks ([id number]) on 10/06/2025 12:35:31 PM Referred By: REFERRED SELF Confirmed By: Ozzy Banks
[2025-10-06 12:38] LABS: Chlamydia pneumoniae PCR Not Detected (NotDetected); Coronavirus 229E PCR Not Detected (NotDetected); Coronavirus CoV-2 (COVID19)PCR Not Detected (NotDetected); Coronavirus HKU1 PCR Not Detected (NotDetected); Coronavirus NL63 PCR Not Detected (NotDetected); Coronavirus OC43PCR Not Detected (NotDetected); Human Metapneumovirus PCR Not Detected (NotDetected); Parainfluenza Virus 1 PCR Not Detected (NotDetected); Parainfluenza Virus 2 PCR Not Detected (NotDetected); Parainfluenza Virus 3 PCR Not Detected (NotDetected); Parainfluenza Virus 4 PCR Not Detected (NotDetected); Respiratory Syncytial VirusPCR Not Detected (NotDetected); Rhinovirus/Enterovirus PCR Not Detected (NotDetected)
--- NOTE | 2025-10-06 12:41 | Electrocardiogram Report ---
Test Reason : Blood Pressure : */* mmHG Vent. Rate : 108 BPM Atrial Rate : 108 BPM P-R Int : 144 ms QRS Dur : 74 ms QT Int : 332 ms P-R-T Axes : 32 -26 67 degrees QTcB Int : [address] elevation, consider early repolarization, pericarditis, or injury Abnormal ECG When compared with ECG of 05-Oct-2025 17:01, (unconfirmed) Premature atrial complexes are no longer Present Confirmed by Ozzy Banks ([id number]) on 10/06/2025 12:40:57 PM Referred By: REFERRED SELF Confirmed By: Ozzy Banks
--- NOTE | 2025-10-06 12:43 | Electrocardiogram Report ---
Test Reason : Blood Pressure : */* mmHG Vent. Rate : 104 BPM Atrial Rate : 104 BPM P-R Int : 152 ms QRS Dur : 80 ms QT Int : 338 ms P-R-T Axes : 73 42 57 degrees QTcB Int : 444 ms Sinus tachycardia Nonspecific ST abnormality Abnormal ECG When compared with ECG of 05-Oct-2025 20:43, (unconfirmed) QRS axis Shifted right ST no longer elevated in Anterolateral leads Confirmed by Ozzy Banks ([id number]) on 10/06/2025 12:43:29 PM Referred By: REFERRED SELF Confirmed By: Ozzy Banks
--- NOTE | 2025-10-06 13:01 | Hospitalist Progress Note ---
Date of Service October 06, 2025 Assessment & Plan (1) HAP (hospital-acquired pneumonia): Plan: cf., Retrocardiac infiltrate reported on 10/04/2025 portable CXR (performed at [facility], prior to hospital discharge home from [facility] on 10/04/2025, 4:00pm). Such retrocardiac infiltrate was not reported on 10/01/2025 admission portable CXR (performed at [facility] ER). CT chest without IV contrast (10/05/2025, 4:57pm): 1. Large bilateral pleural effusions, left greater than right. 2. Bibasilar airspace consolidation and air bronchograms, left greater than right, which could represent compressive atelectasis or possibly pneumonia in the proper clinical setting. 3. Moderate pericardial effusion. s/p vancomycin 1.25g IV x 1 dose (10/05/2025, 9:33pm). s/p ceftriaxone 2g IV daily x 1 dose (10/05/2025, 9:33pm). s/p zosyn 4.5g IV x 1 dose (10/06/2025, 9:05am). s/p vancomycin 750mg IV x 1 dose (10/06/2025, 2:28pm) with subsequent vancomycin dosing as per Hospital Pharmacy Service to treat acute bibasilar HAP with bilateral effusions.. Continue zosyn 4.5g IV q12 (start date/time, 10/06/2025, 5:00pm) to treat acute bibasilar HAP with bilateral effusions. I will check repeat vitals with patient breathing comfortably on room air with O2 saturation 94% (10/06/2025, 2:00pm), chest exam, WBC w/differential, lactic acid, and procalcitonin level in the 10/07/2025 am. (2) Chronic kidney disease, stage 4 (severe): Plan: cf., progressive decline in renal function in 2024 with CKD stage III: crea tinine 1.90 mg/dL (01/06/2025, 9:09am) to creatinine 2.21 mg/dL (02/01/2025, 10:36am). cf., progressive decline in renal function in 2024 with CKD stage IV : creatinine 3.50 mg/dL (09/21/2025, 8:43am) to creatinine 3.79 mg/dL (09/28/2025, 9:43am). cf., BUN 71, creatinine 3.66, GFR 15.84 (10/05/2025, 5:07pm)(admission date). cf., BUN 75, creatinine 3.89, GFR 14.72 (10/06/2025, 8:38am) Etiology of CKD stage III/stage IV is most probably due to long-standing HTN. (3) Chronic myelomonocytic leukemia: Plan: cf., WBC 188.64, N64 L4 M18 E1 metamyelocytes 4, myelocytes 7, blasts 2 (10/05/2025, 5:07pm). cf., WBC 137.45, N69 L2 M14 E1 B1, metamyelocytes 5, myelocytes 8, (10/06/2025, 8:47am). cf., WBC 25.06. N74 L4 M17 E2 (08/01/2023, 11:25am)(pre-CMML diagnosis WBC). cf., bone marrow biopsy (11/19/2023, [facility] Pathologist Dr. Dacia Driver): Chronic myelomonocytic leukemia-1 cf., bone marrow biopsy (12/11/2023, [facility] Pathologist Dr. Loly Reed): chronic myelomonocytic leukemia-1 Patient reports that he follows with [facility] Heme-Onc Dr. Michelle Craven, who has recommended continued observation. (4) Hypertension: Plan: Well-controlled with BP 116/60 (10/06/2025, 3:00pm) on home-scheduled metoprolol succinate 25mg PO daily, home-scheduled amlodipine 5mg PO daily. (5) BPH (benign prostatic hyperplasia): Plan: Asymptomatic OFF home-scheduled terazosin 2mg PO qpm and (6) Gout: Plan: Chronic gouty arthritis of left ankle, currently asymptomatic. Continue home- scheduled allopurinol 200mg PO daily. (7) Duodenal ulcer disease: Plan: Asymptomatic on home-scheduled protonix 40mg PO daily. (8) Hypothyroidism: Plan: Asymptomatic on home-scheduled levothyroxine 75ug PO daily with normal screening TSH 3.559 uIU/mL (03/07/2025, 12:00am). (9) Secondary hyperparathyroidism: Plan: Secondary hyperparathyroidism is most probably due to CKD stage III / stage IV, resulting in acute hyperphosphatemia as shown below: cf., Ca 8.6, PO4 6.1 (10/06/2025, 8:38am). Check iPTH (10/06/2025, 8:38am). In the interim, start non-calcium containing sevelamer 800mg PO tid with meals (10/06/2025, 5:00pm) to lower serum PO4 levels (in order to mitigate HTN, vascular calcification, and prophylax against CHF). I will check repeat PO4 level in the 10/07/2025 am to see if acute hyperphosphatemia resolves. (10) Pericarditis: Plan: NOT present on admission date 10/05/2025 or current date 10/06/2025. Plan This is an 80 year old male with a PMH of CML, CKD stage 4, HTN, BPH - coming in with chest pain. Chest Pain - with recent pericardiocentesis (10/03) with 650cc removed - EKG changes likely due to the pericardial effusion recently; pericarditis? - cardiology consult - CT chest ordered and pending - likely needs limited echo to revaluate pericardial effusion - will use Vanc + Rocephin for possible bacterial pericarditis - cont Plavix CML - follows with Dr. Craven CKD stage 4 - creatinine at 3.66 around his baseline - avoid nephrotoxic agents if able BPH - cont home medications Admission and Anticipated Discharge Date Admission Date: October 05, 2025 Subjective "I am feeling better today. My chest doesn't hurt anymore. I don't feel short of breath. No cough. No wheeze. The antibiotics (e.g., vancomycin 1.25g IV x 1 dose on 10/05/2025, 9:33pm, rocephi 2g IV daily x 1 dose on 10/05/2025, 9:33pm) are helping me." Review of Systems Constitutional: Negative for antecedent/coincident fevers, chills, diaphoresis, cough, wheeze, sore throat, hemoptysis, chest pains, palpitations, pleurisy, nausea, vomiting, diarrhea, abdominal pain, pelvic pain, hematemesis, hematochezia, melena, hematuria, dysuria, frequency, urgency, headaches, dizziness, lightheadedness, visual changes, hearing changes, weakness, falls, syncope, trauma, travel history, sick contacts, or food/drug ingestions novel or new. All other review of systems are reported as negative by the patient on 10/06/2025. Physical Exam Eyes: General: Comfortable, cooperative and coherent. Wide awake and alert. Not confused, lethargic, or obtunded. Patient speaks in complete, fluent, and articulate sentences, without pause, interruption, cough, or wheeze. HEENT: NC/AT. EOMI. PERRL. No nystagmus, gaze paresis, anisocoria, miosis, mydriasis, chemosis, hyphema, scleral injection, conjunctivitis, pterygium. No otorrhea. No rhinorrhea. Neck: Supple, no stridor, bruit, or goiter. Jugular venous pressure 3 cm above the sternal angle of [place], which is typically 5 cm above the right atrium. Lymph: No anterior/posterior cervical lymphadenopathy, supraclavicular/infraclavicular lymphadenopathy, axilla/epitrochlear/inguinal lymphadenopathy. Chest: Symmetric rise and fall with respirations. Non-tender to palpation. Heart: RRR, S1 and S2. No S3 or S4 summation gallop. No tripartite friction rub. No murmur. Lungs: Clear to auscultation and percussion. No audible expiratory wheeze, egophony, pectoriloquy, increase in tactile fremitus, or flatness/dullness to percussion at the bases. Abd: Soft, non-tender, non-distended. Bowel sounds auscultated in all 4 quadrants. No rebound, guarding, Tate's sign. Hepatosplenomegaly present. Ext: No clubbing, cyanosis, or edema. 2+ pedal pulses bilaterally. Skin: No decubitus ulcer or enanthem or exanthem. Neuro: Alert and oriented in regards to person, place, time, and situation. No tremors, tics, or myoclonus. DTR+. 5/5 motor strength in all 4 extremities, both proximally and distally. Urology: No rousseau catheter. No diaper. No urethral discharge. Results & Data Results & Data Vital Signs (Past 12 Hours) Vital Signs Temp Pulse Resp BP Pulse Ox O2 Del Method O2 Flow Rate 10/06/25 11:25 Room Air 10/06/25 08:49 36.9 C 10/06/25 08:00 115 H 10/06/25 08:00 117 H 24 93 10/06/25 08:00 135/60 10/06/25 07:00 117 H 27 H 96 10/06/25 07:00 120/71 10/06/25 05:00 115 H 17 96 10/06/25 04:51 116 H 23 86 L 10/06/25 04:42 117 H 22 92 10/06/25 04:30 113 H 23 92 10/06/25 04:21 118 H 21 93 10/06/25 04:12 117 H 24 94 10/06/25 04:00 113/64 10/06/25 04:00 117 H 24 94 10/06/25 03:51 117 H 26 H 94 10/06/25 03:42 115 H 26 H 91 10/06/25 03:30 109 H 20 92 10/06/25 03:21 109 H 23 94 10/06/25 03:12 115 H 26 H 93 10/06/25 03:00 114 H 24 91 10/06/25 03:00 98/51 L 10/06/25 02:51 115 H 28 H 90 10/06/25 02:42 114 H 25 H 91 Nasal Cannula 1 10/06/25 02:30 112 H 26 H 89 L 10/06/25 02:21 114 H 21 93 10/06/25 02:12 117 H 27 H 91 10/06/25 02:00 108/63 10/06/25 02:00 116 H 23 93 10/06/25 01:51 116 H 20 92 10/06/25 01:42 115 H 26 H 92 10/06/25 01:30 116 H 25 H 93 10/06/25 01:21 116 H 23 92 10/06/25 01:12 120 H 24 93 10/06/25 01:00 106/58 L 10/06/25 01:00 117 H 25 H 92 10/06/25 00:51 116 H 26 H 92 10/06/25 00:42 117 H 25 H 91 Laboratory Results WBC 188.64, N64 L4 M18 E1 metamyelocytes 4, myelocytes 7, blasts 2, RBC 3.25, Hb 10.1, MCV 97.8, MCHC 31.8, platelet 140 (10/05/2025, 5:07pm). WBC 137.45, N69 L2 M14 E1 B1, metamyelocytes 5, myelocytes 8, RBC 2.83, Hb 8.6, MCV 97.9, MCHC 31.0, platelet 117 (10/06/2025, 8:47am). Procalcitonin #1 1.42 ng/mL (10/05/2025, 5:07pm). Procalcitonin #2 1.10 ng/mL (10/06/2025, 8:38am). Lactic acid #1 1.6 mmol/L (10/05/2025, 5:07pm). Lactic acid #2 0.9 mmol/L (10/06/2025, 8:38am). U/A (10/05/2025, 4:58pm): cloudy yellow, LE 1+, nitrite-, WBC 0-5, RBC 0-5, epithelial cells 3-5, bacteria none seen Blood culture #1 (10/05/2025, 5:07pm): Blood culture #2 (10/05/2025, 5:15pm): Blood culture #3 (10/06/2025, 8:38am): BUN 71, creatinine 3.66, GFR 15.84 (10/05/2025, 5:07pm). BUN 75, creatinine 3.89, GFR 14.72 (10/06/2025, 8:38am). Ca 8.6, PO4 6.1, Mg 1.7 (10/06/2025, 8:38am). INR 1.2 (10/05/2025, 5:07pm). INR 1.2 (10/06/2025, 9:49am). Diagnostic Findings CT chest without IV contrast (10/05/2025, 4:57pm): 1. Large bilateral pleural effusions, left greater than right. 2. Bibasilar airspace consolidation and air bronchograms, left greater than right, which could represent compressive atelectasis or possibly pneumonia in the proper clinical setting. 3. Moderate pericardial effusion. CT abd/pelvis without IV contrast (10/05/2025, 4:58pm): 1. Hepatosplenomegaly, increased interval with severe enlargement of the spleen measuring 20 cm which compares to 15 cm on 11/18/2023. Please correlate clinically. 2. Moderate sigmoid colon diverticulosis without pericolonic inflammatory change. 3. Mild to moderate prostamegaly. 4. New mild compression fracture of the T12 vertebral body, appearing since 2022. Portable CXR (10/05/2025, 4:58pm): 1. Small to moderate bilateral pleural effusions. 2. No infiltrates, cardiomegaly, pulmonary vascular congestion, or pneumothorax (by my review). EKG #1 (10/05/2025, 8:43pm): sinus tach @ 108, [place] 144, QTC 444, 1mm ST elevations in II, III, aVF, V3, V4, V5; 0.5mmm ST elevations in V6, consistent with benign early repolarization, NOT acute pericarditis; no acute ST depressions (by my review). EKG #2 (10/06/2025, 11:01am): sinus tach @ 104, [place] 152, QTC 444, no acute ST elevations; no acute ST depressions (by my review). TTE (10/06/2025, 8:56am): 1. LVEF > 70%. 2. No regional wall motion abnormalities. 3. Mild concentric LVH. 4. RV systolic function normal. 5. LA normal size. Borderline KT. No ASD. Resolution does not allow assessment for PFO. 6. No . No AR. 7. PV not well visualized. 8. No MS. No MR. 9. No TS. No TR. 10.Aortic root normal size. 11.Trivial pericardial effusion. No cardiac tamponade. (as per CARDS Dr. Ozzy Banks). PG Care Time/CCT Total # of Minutes Spent Total Time Spent with Patient: Total time spent is greater than 50% in coordination of care (as documented) at patient's floor/unit and/or counseling patient: Coding Level of Care Code 66640 SUB INP/OBS CARE 2/35MIN Diagnoses HAP (hospital-acquired pneumonia) J18.9; Y95 Chronic kidney disease, stage 4 (severe) N18.4 Chronic myelomonocytic leukemia C93.10 Hypertension I10 BPH (benign prostatic hyperplasia) N40.0 Gout, unspecified cause, unspecified chronicity, unspecified site M10.9 Chronicity: unspecified Gout etiology: unspecified cause Gout site: unspecified site Duodenal ulcer disease K26.9 Acquired hypothyroidism E03.9 Hypothyroidism type: acquired Secondary hyperparathyroidism N25.81 Pericarditis I31.9 Pericarditis type: unspecified type (6) Gout Chronicity: unspecified Gout etiology: unspecified cause Gout site: unspecified site Qualified Code(s): M10.9 - Gout, unspecified (8) Hypothyroidism Hypothyroidism type: acquired Qualified Code(s): E03.9 - Hypothyroidism, unspecified (10) Pericarditis Pericarditis type: unspecified type
--- NOTE | 2025-10-06 13:50 | Pharmacy Report ---
Pharmacy PK ABX Note - Date of Service October 06, 2025 - Assessment and Plan Assessment 80 year old M receiving empiric vancomycin/zosyn for treatment of possible bacterial pericarditis. Hx of CML, CKD stage III. Pertinent microbiologic data includes:Blood cultures pending. Reportedly received vancomycin/zosyn at outside facility and was placed on Augmentin at discharge 10/04. SCr trending upward 3.66 --> 3.89 today. Will dose by levels. Random level 13.6 mcg/mL this afternoon, will redose with 750 mg x 1. Random level in AM. Plan Vancomycin * Loading dose: 1250 mg IV x 1 * Redose with 750 mg x 1, obtain random level in AM Pharmacy will continue to follow and will adjust dose/frequency as necessary. Thank you. Pharmacy has transitioned to AUC monitoring for vancomycin. AUC/MAGUE is the preferred PK/PD target and is associated with decreased risk of nephrotoxicity compared to traditional trough targets.
--- NOTE | 2025-10-06 14:24 | Oncology Consultation ---
Date of Consultation October 06, 2025 Assessment & Plan (1) Chronic myelomonocytic leukemia: (2) Chronic kidney disease, stage 4 (severe): Plan Patient with CMML, worsening monocytosis. Cytopenias persist with anemia and thrombocytopenia. Has been receiving erythropoietin supplementation weekly.As discussed with patient's daughter in the past, there have been rare case reports of worsening renal insufficiency/glomerulopathies in the setting of CMML. Patient also recently had pericardial effusion and is unclear if this could be related to CMML as they have also been case reports relating to this. Unclear if cytology was obtained on pericardial fluid at [facility]. Ideally would recommend patient consider starting treatment for CMML to see if these improve. This was discussed with patient and her daughter. Since treatment decisions are made by [facility] netezza architect, patient's daughter indicated that she would reach out to him to see if he would recommend starting treatment at this time. Options for treatment include hydroxyurea, decitabine, azacitidine. Recently approved Inqovi was mentioned by daughter, but this has not been studied in patients with advanced renal disease/patients with creatinine clearance of less than 30. History of Present Illness Reason for Consultation: CMML, worsening leukocytosis. Attending Physician: Thiago Rosenthal MD, PhD History of Present Illness 80-year-old gentleman with CMML 1, CKD stage IV admitted to [facility] on 10/05/2025 after complaining of palpitations and hypoxia. Of note, he was evaluated at [facility] on 10/03/2025 and was found to have pericardial effusion for which he underwent pericardiocentesis, unclear if cyt ology was obtained from fluid. Was admitted to the ICU for pericarditis and placed on antibiotic due to concern for bacterial infection. Hematology was consulted due to worsening leukocytosis in the setting of CMML. Of note, patient is followed locally by tx for supportive care, erythropoietin injections but most of his treatment decisions are made by his netezza architect at [facility]. Not currently on treatment for CMML.Peripheral smear review was discussed with pathology who did not see any evidence of immature cells to suggest progression to acute leukemia. Allergies Allergy/AdvReac Type Severity Reaction Status Date / Time meloxicam Allergy Intermediate Gastrointestinal Verified 10/05/25 17:23 Upset Home Medications Medication Instructions Recorded Confirmed Type cyanocobalamin (vitamin B-12) 1,000 mcg PO DAILY 08/15/22 10/05/25 History 1,000 mcg tablet sildenafil 100 mg tablet 100 mg PO UD PRN Erectile 08/15/22 10/05/25 History Dysfunction terazosin 2 mg capsule 2 mg PO QPM 08/15/22 10/05/25 History clopidogrel 75 mg tablet (Plavix) 75 mg PO QAM 08/01/23 10/05/25 History TENS unit and electrodes combo pack #1 ea 12/04/23 08/29/25 Rx levothyroxine 75 mcg tablet 75 mcg PO QAM 01/19/24 10/05/25 History polyethylene glycol 3350 17 17 g PO HS 01/19/24 10/05/25 History gram/dose oral powder (Miralax) cholecalciferol (vitamin D3) 50 50 mcg PO DAILY 05/02/24 10/05/25 History mcg (2,000 unit) capsule pantoprazole 40 mg tablet,delayed 40 mg PO DAILY 04/10/25 10/05/25 History release atorvastatin 40 mg tablet 40 mg PO DAILY 07/05/25 10/05/25 History magnesium oxide 400 mg (241.3 mg 400 mg PO BID 07/05/25 10/05/25 History magnesium) tablet allopurinol 300 mg tablet 300 mg PO DAILY #90 tabs 08/08/25 10/05/25 Rx sodium bicarbonate 650 mg tablet 650 mg PO DAILY #90 tabs 09/06/25 10/05/25 Rx amlodipine 5 mg tablet 0 mg PO DAILY 10/05/25 10/05/25 History amoxicillin 500 mg-potassium 1 tab PO UD 10/05/25 10/05/25 History clavulanate 125 mg tablet colchicine 0.6 mg tablet 0.6 mg PO UD 10/05/25 10/05/25 History metoprolol succinate 25 mg 25 mg PO DAILY 10/05/25 10/05/25 History tablet,extended release 24 hr prednisone 5 mg tablet 0 mg PO DAILY 10/05/25 10/05/25 History Patient History Medical History History of stroke ~2021, taken to [place], lt arm and face numbness and tingling for a few minutes; f/u dr. felton, neuro>no current issues Hypothyroidism H/O meningitis ~2022 Cervicalgia Dysarthria Dyslipidemia Surgical History History of bunionectomy of both great toes Hx laparoscopic cholecystectomy History of carpal tunnel surgery of right wrist 09/2021, w/thumb joint replacement Hx of colonoscopy History of bone marrow biopsy 11/2023 Hx of myringoplasty lt ear History of loop recorder implanted 05/2023, for f/u of TIA and syncopal episodes, [facility]; f/u dr. [place] History of esophagogastroduodenoscopy (EGD) Hx of exploratory laparotomy x3, "for my bowels that kept kinking up, never removed any of them," w/removal appendix Family History Mother , age 82 with heart issues Heart disease Father , age 58 of diabetes complications Diabetes Other No family history of adverse response to anesthesia No family history of bleeding disorder Social History Smoking Status: Never smoker Second Hand Exposure: Yes (hx as child); Do You Dip or Chew Tobacco: No; Hx Alcohol Use: No Hx Substance Use: No Preferred Language: Serbian Communication Ability: Effective Communication Ability Comment: wears reading glasses Visual Impairment: No Limitations Hearing Ability: Normal Booster Pump Oiler Required: No Beliefs That Will Affect Care: None marital status: Current Living Situation: Spouse Current Living Situation Comment: One story home with stairs to the basement and a few to get inside current occupational status: retired 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 Other Information That Helps Us Care for You: No Feels Safe at Home: Yes Safety Concerns: Feels Safe At This Time Diet: regular caffeine: Yes (2-3 coffee cups daily) during the past year weight has: remained stable Dental Care, Regularly: Yes Physical Activity Frequency: Does not Exercise Seatbelt Use: always Do you think of yourself as: straight/heterosexual Gender Identity: Male Assistive Devices: None Results & Data Vital Signs (Past 12 Hours) Vital Signs Temp Pulse Resp BP Pulse Ox O2 Del Method O2 Flow Rate 10/06/25 11:25 Room Air 10/06/25 08:49 36.9 C 10/06/25 08:00 115 H 10/06/25 08:00 117 H 24 93 10/06/25 08:00 135/60 10/06/25 07:00 117 H 27 H 96 10/06/25 07:00 120/71 10/06/25 05:00 115 H 17 96 10/06/25 04:51 116 H 23 86 L 10/06/25 04:42 117 H 22 92 10/06/25 04:30 113 H 23 92 10/06/25 04:21 118 H 21 93 10/06/25 04:12 117 H 24 94 10/06/25 04:00 113/64 10/06/25 04:00 117 H 24 94 10/06/25 03:51 117 H 26 H 94 10/06/25 03:42 115 H 26 H 91 10/06/25 03:30 109 H 20 92 10/06/25 03:21 109 H 23 94 10/06/25 03:12 115 H 26 H 93 10/06/25 03:00 114 H 24 91 10/06/25 03:00 98/51 L 10/06/25 02:51 115 H 28 H 90 10/06/25 02:42 114 H 25 H 91 Nasal Cannula 1 10/06/25 02:30 112 H 26 H 89 L
[2025-10-06] MEDS: VANCOMYCIN 750 MG in SODIUM CHLORIDE 0.9% 250 ML IV ONE (14:28)
--- NOTE | 2025-10-06 16:28 | Nephrology Consultation ---
Date of Consultation October 06, 2025 Assessment & Plan (1) QI (acute kidney injury): Non-oliguric. Intravascularly volume depleted. IVF infusing appropriately --> balance IVF with plasma-lyte @150 ml/hr. BP - hypotension improved. Electrolytes acceptable. There is no emergent indication for dialysis. Unfortunately, baseline kidney dysfunction is advanced. WBC is markedly elevated. Waylon has had chronic hyperuricemia. He does not have significant evidence of TLS but this certainly may be considered. I would not exclude leukemic infiltration of the kidneys. Certainly lysozyme induced nephropathy is also a concern. At this time, aggressive hydration (as tolerated) and hematology consultation remain primary management. A renal dietary restriction has been started. Renvela has been started with meals for hyperphosphatemia. Document strict I/O's. Monitor metabolic profile ~twice daily. Continue oral NaHCO3 as Rx. Medications are appropriately dosed for kidney function. Allopurinol 100 mg daily. Vanco dosing based on levels. 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 Followed by Dr. Martinez as outpatient. AVF placed ~4 weeks ago. The vessel is developing nicely and with good thrill and bruit. Ideally, I would advise more time to develop prior to use but I suspect that we may be able attempt cannulation if needed. Thankfully, there is no emergent indication. 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 Peripheral smear pending. Blasts noted but initial suspicion was not for an acute transformation or blast crisis. Thankfully, Waylon is non-oliguric. I would maintain high suspicion for progression. Serum viscosity has been requested. (4) Pericardial effusion: Cardiology consultation reviewed. Maintained on empiric antibiotic therapy for possible infection. Initial studies reassuring. Effusion certainly may be related to kidney disease and chronic leukemia. (5) Hyperuricemia: Continue allopurinol. IV hydration. (6) Hyperphosphatemia: Diet adjusted. Renvela QAC. Close monitoring. History of Present Illness Reason for Consultation: qi on ckd, cml, elevated uric acid Requesting Physician: Thiago Rosenthal MD, PhD Attending Physician: Thiago Rosenthal MD, PhD History of Present Illness Mr. Waylon Marmolejo is an 80 year-old male with chronic kidney disease IV-V A3. Baseline creatinine 3.2-3.5 mg/dL. PCR 1.2. Waylon follows in the [facility] nephrology clinic with Dr. Martinez. There have been multiple episodes of QI and concerning progression of CKD over the past year. A LUE AVF was placed by Dr. Contreras approximately 4 weeks ago. There were no complications with the procedure. Thankfully, Waylon has not had significant symptoms from his kidney disease or severe electrolyte abnormalities. He has had severe hyperuricemia and recent gout. 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 Waylon has not had a kidney biopsy. He follows the [facility] locally with Dr. Craven. He follows with Dr. Booth in the rheumatology clinic. Medical history is also notable for hypertension, hypothyroidism, BPH, and a history of gastric ulcer. He presented to the ER at [facility] yesterday with nausea, diarrhea, and chest pain. Waylon had presented to [facility] on 10/03/2025 for chest pain and was found to have a pericardial effusion for which pericardicentesis with 650ml of fluid removed. He was discharged on 10/04/25 after being started on antibiotics and colchicine for pericarditis. He was admitted to [facility] with hypotension and slight hypoxia. Waylon was seen and evaluated in the ICU this morning. I discussed his history with Dr. Martin. Waylon was resting comfortably in bed at the time of my assessment. He has been non-oliguric. Tma 37.6. WBC markedly elevated at 188-->139. Mild hyperuricemia and hyperphosphatemia noted. Thankfully, evaluation has not demonstrated significant pericardial effusion. There was concern for ST-T changes on EKG but cardiology consultation felt that acute ischemia was unlikely. IVF infusing. Antibiotic therapy started with vancomycin and ceftriaxone in the ER and now continued with vancomycin and Zosyn. Allergies Allergy/AdvReac Type Severity Reaction Status Date / Time meloxicam Allergy Intermediate Gastrointestinal Verified 10/05/25 17:23 Upset Home Medications Medication Instructions Recorded Confirmed Type cyanocobalamin (vitamin B-12) 1,000 mcg PO DAILY 08/15/22 10/05/25 History 1,000 mcg tablet sildenafil 100 mg tablet 100 mg PO UD PRN Erectile 08/15/22 10/05/25 History Dysfunction terazosin 2 mg capsule 2 mg PO QPM 08/15/22 10/05/25 History clopidogrel 75 mg tablet (Plavix) 75 mg PO QAM 08/01/23 10/05/25 History TENS unit and electrodes combo pack #1 ea 12/04/23 08/29/25 Rx levothyroxine 75 mcg tablet 75 mcg PO QAM 01/19/24 10/05/25 History polyethylene glycol 3350 17 17 g PO HS 01/19/24 10/05/25 History gram/dose oral powder (Miralax) cholecalciferol (vitamin D3) 50 50 mcg PO DAILY 05/02/24 10/05/25 History mcg (2,000 unit) capsule pantoprazole 40 mg tablet,delayed 40 mg PO DAILY 04/10/25 10/05/25 History release atorvastatin 40 mg tablet 40 mg PO DAILY 07/05/25 10/05/25 History magnesium oxide 400 mg (241.3 mg 400 mg PO BID 07/05/25 10/05/25 History magnesium) tablet allopurinol 300 mg tablet 300 mg PO DAILY #90 tabs 08/08/25 10/05/25 Rx sodium bicarbonate 650 mg tablet 650 mg PO DAILY #90 tabs 09/06/25 10/05/25 Rx amlodipine 5 mg tablet 0 mg PO DAILY 10/05/25 10/05/25 History amoxicillin 500 mg-potassium 1 tab PO UD 10/05/25 10/05/25 History clavulanate 125 mg tablet colchicine 0.6 mg tablet 0.6 mg PO UD 10/05/25 10/05/25 History metoprolol succinate 25 mg 25 mg PO DAILY 10/05/25 10/05/25 History tablet,extended release 24 hr prednisone 5 mg tablet 0 mg PO DAILY 10/05/25 10/05/25 History Patient History Medical History History of stroke ~2021, taken to [place], lt arm and face numbness and tingling for a few minutes; f/u dr. felton, neuro>no current issues Hypothyroidism H/O meningitis ~2021 Cervicalgia Dysarthria Dyslipidemia Surgical History History of bunionectomy of both great toes Hx laparoscopic cholecystectomy History of carpal tunnel surgery of right wrist 09/2021, w/thumb joint replacement Hx of colonoscopy History of bone marrow biopsy 11/2023 Hx of myringoplasty lt ear History of loop recorder implanted 05/2023, for f/u of TIA and syncopal episodes, [place] [employer]; f/u [employer] [place] History of esophagogastroduodenoscopy (EGD) Hx of exploratory laparotomy x3, "for my bowels that kept kinking up, never removed any of them," w/removal appendix Family History Mother , age 82 with heart issues Heart disease Father , age 58 of diabetes complications Diabetes Other No family history of adverse response to anesthesia No family history of bleeding disorder Social History Smoking Status: Never smoker Second Hand Exposure: Yes (hx as child); Do You Dip or Chew Tobacco: No; Hx Alcohol Use: No Hx Substance Use: No Preferred Language: Taiwanese Communication Ability: Effective Communication Ability Comment: wears reading glasses Visual Impairment: No Limitations Hearing Ability: Normal [employer] Estimator Required: No Beliefs That Will Affect Care: None marital status: Current Living Situation: Spouse Current Living Situation Comment: One story home with stairs to the basement and a few to get inside current occupational status: retired 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 Other Information That Helps Us Care for You: No Feels Safe at Home: Yes Safety Concerns: Feels Safe At This Time Diet: regular caffeine: Yes (2-3 coffee cups daily) during the past year weight has: remained stable Dental Care, Regularly: Yes Physical Activity Frequency: Does not Exercise Seatbelt Use: always Do you think of yourself as: straight/heterosexual Gender Identity: Male Assistive Devices: None Review of Systems 2 Review of Systems: All systems reviewed & are unremarkable except as noted in HPI & below Physical Exam 2 Constitutional: + thin; no acute distress Eyes: + anicteric sclerae; no conjunctival abn ormality ENMT: external ear and nose normal, oropharynx normal Neck: normal visual inspection and trachea midline Respiratory: + tachypneic Auscultation: lungs new r to auscultation bilaterally Cardiovascular: Rate/Rhythm: + tachycardic Heart Sounds: normal S1 and normal S2 Vessels: no JVD Extremities: + AV fistula; no edema Musculoskeletal: Extremities: no cyanosis and no clubbing Skin: normal turgor; no jaundice Neurologic: Motor/Sensory: no tremor and no asterixis Psychiatric: Orientation: alert and oriented x 3 Genitourinary: Lucas draining clear yellow urine Results & Data Vital Signs (Past 12 Hours) Vital Signs Temp Pulse Resp BP Pulse Ox O2 Del Method 10/06/25 16:00 111/57 L 10/06/25 16:00 111/57 L 10/06/25 16:00 111/57 L 10/06/25 16:00 111/57 L 10/06/25 16:00 37.5 C 103 H 19 95 10/06/25 15:00 116/60 10/06/25 15:00 116/60 10/06/25 15:00 116/60 10/06/25 15:00 116/60 10/06/25 15:00 116/60 10/06/25 15:00 116/60 10/06/25 15:00 116/60 10/06/25 15:00 116/60 10/06/25 15:00 116/60 10/06/25 15:00 36.9 C 104 H 22 95 10/06/25 14:00 36.6 C 104 H 22 94 10/06/25 14:00 125/60 10/06/25 14:00 125/60 10/06/25 14:00 125/60 10/06/25 14:00 125/60 10/06/25 13:00 107/61 10/06/25 13:00 107/61 10/06/25 13:00 107/61 10/06/25 13:00 107/61 10/06/25 13:00 107/61 10/06/25 13:00 37.5 C 103 H 22 95 10/06/25 12:00 37.6 C H 104 H 18 96 10/06/25 12:00 128/66 10/06/25 12:00 128/66 10/06/25 12:00 128/66 10/06/25 12:00 128/66 10/06/25 12:00 128/66 10/06/25 11:25 Room Air 10/06/25 11:00 109/62 10/06/25 11:00 109/62 10/06/25 11:00 109/62 10/06/25 11:00 109/62 10/06/25 11:00 109/62 10/06/25 11:00 37.6 C H 104 H 23 96 10/06/25 10:00 112 H 23 93 10/06/25 10:00 120/61 10/06/25 10:00 120/61 10/06/25 10:00 120/61 10/06/25 10:00 120/61 10/06/25 09:00 107/58 L 10/06/25 09:00 107/58 L 10/06/25 09:00 107/58 L 10/06/25 09:00 107/58 L 10/06/25 09:00 107/58 L 10/06/25 09:00 112 H 25 H 91 10/06/25 08:49 36.9 C 10/06/25 08:00 115 H 10/06/25 08:00 117 H 24 93 10/06/25 08:00 135/60 10/06/25 07:00 117 H 27 H 96 10/06/25 07:00 120/71 10/06/25 05:00 115 H 17 96 10/06/25 04:51 116 H 23 86 L 10/06/25 04:42 117 H 22 92 10/06/25 04:30 113 H 23 92 Laboratory Results Laboratory Results - last 24 hr 10/05/25 10/05/25 10/05/25 16:58 17:07 17:12 WBC 188.64 H* RBC 3.25 L Hgb 10.1 L POC Hgb 12.6 L Hct 31.8 L POC Hct 37 L MCV 97.8 MCH 31.1 MCHC 31.8 L RDW Std Deviation 53.[address] of [address] 15.2 H Plt Count 140 MPV 11.5 Absolute Nucleated RBC 0.07 Nucleated RBC % (auto) Neutrophils % (Manual) 64 Lymphocytes % (Manual) 4 Monocytes % (Manual) 18 Eosinophils % (Manual) 1 Basophils % (Manual) Metamyelocytes % (Man) 4 Myelocytes % (Man) 7 Blast Cells % (Manual) 2 Neutrophils # (Manual) 120.73 H Total Absolute Neuts 120.73 H Lymphocytes # (Manual) 7.55 H Total Abs Lymphocytes 7.55 H Monocytes # (Manual) 33.96 H Eosinophils # (Manual) 1.89 H Basophils # (Manual) Metamyelocytes # (Man) 7.55 H Myelocytes # (Manual) 13.20 H Blast Cells # (Man) 3.77 H Toxic Vacuolation Polychromasia 2+ Tear Drop Cells 1+ Echinocytes 1+ ESR Serum Viscosity PT 12.6 H INR 1.2 H APTT 33 H PTT Ratio 1.2 Fibrinogen VBG pH VBG pCO2 VBG pO2 VBG HCO3 VBG O2 Saturation VBG Base Excess POC Sodium 137 Sodium 138 POC Potassium 4.4 Potassium 4.2 POC Chloride 106 Chloride 105 Carbon Dioxide 20 L POC Total CO2 19 L Anion Gap 13 H POC Anion Gap 17.0 POC BUN 70 H BUN 71 H Creatinine 3.66 H POC Creatinine 4.3 H Est Cr Clr Drug Dosing 14.7 eGFR 15.84 BUN/Creatinine Ratio 19.4 Glucose 107 H POC Glucose POC Glucose (other) 107 H Lactate 1.6 Uric Acid Calcium 9.3 POC Ioniz Calcium Niecy 1.21 Ionized Calcium Phosphorus Magnesium 1.8 Total Bilirubin 0.5 Direct Bilirubin 0.2 AST 26 ALT 17 Alkaline Phosphatase 65 Lactate Dehydrogenase Troponin I High Sens 19.2 C-Reactive Protein Total Protein 7.4 Albumin 3.7 Globulin Albumin/Globulin Ratio Procalcitonin 1.42 H Urine Color Yellow Urine Appearance Cloudy A Urine pH 5.0 Ur Specific [place] 1.016 Urine Protein 2+ H Urine Glucose (UA) Negative Urine Ketones Negative Urine Blood Negative Urine Nitrite Negative Urine Bilirubin Negative Urine Urobilinogen Negative Ur Leukocyte Esterase 1+ H Urine WBC (Auto) 0-5 Urine RBC (Auto) 0-2 U Hyaline Cast (Auto) 3-5 H U Epithel Cells (Auto) 3-5 H Urine Bacteria (Auto) None Seen Urine Comment Nasal Screen MRSA (PCR) Stool Occult Bld Scrn Stl C. cayetanensis PCR Stool Rotavirus A PCR Stl Adenov F 40/41 PCR Stool Astrovirus (PCR) Stool Campylobacter PCR Stl C. diff Tox B Gene Stl C.difficile Tox A&B Stl C. diff [id number]-NAP1-[id number] Stool Cryptosporidium PCR Stl E.coli Shiga Tox PCR Stl Enterotoxigenic E PCR Stool EPEC (PCR) Stool EAEC (PCR) Stl E. histolytica PCR Stool Giardia Lamblia PCR Stool Salmonella PCR Stool Sapovirus (PCR) Stl P. shigelloides PCR Stl Shigella/EIEC PCR St Y.enterocolitica PCR Stool Vibrio (PCR) Stl Vibrio cholerae PCR Stl Norovirus GI/GII PCR Random Vancomycin Adenovirus (PCR) B. pertussis DNA (PCR) B.parapertussis DNA PCR C. pneumoniae DNA (PCR) Coronavirus OC43 (PCR) Coronavirus HKU1 (PCR) Coronavirus 229E (PCR) SARS-CoV-2 (PCR) Coronavirus NL63 (PCR) Human Metapneumovir PCR Influenza Type A (PCR) Influenza Type B (PCR) M. pneumoniae (PCR) Parainfluenza 1 (PCR) Parainfluenza 2 (PCR) Parainfluenza 3 (PCR) Parainfluenza 4 (PCR) RSV (PCR) Entero/Rhino (PCR) 10/05/25 10/05/25 10/05/25 17:13 20:07 20:21 WBC RBC Hgb POC Hgb Hct POC Hct MCV MCH MCHC RDW Std Deviation RDW Coeff of Lane Plt Count MPV Absolute Nucleated RBC Nucleated RBC % (auto) Neutrophils % (Manual) Lymphocytes % (Manual) Monocytes % (Manual) Eosinophils % (Manual) Basophils % (Manual) Metamyelocytes % (Man) Myelocytes % (Man) Blast Cells % (Manual) Neutrophils # (Manual) Total Absolute Neuts Lymphocytes # (Manual) Total Abs Lymphocytes Monocytes # (Manual) Eosinophils # (Manual) Basophils # (Manual) Metamyelocytes # (Man) Myelocytes # (Manual) Blast Cells # (Man) Toxic Vacuolation Polychromasia Tear Drop Cells Echinocytes ESR Serum Viscosity PT INR APTT PTT Ratio Fibrinogen VBG pH 7.33 L VBG pCO2 37 L VBG pO2 30 VBG HCO3 20 VBG O2 Saturation < 60.0 VBG Base Excess -5.8 POC Sodium Sodium POC Potassium Potassium POC Chloride Chloride Carbon Dioxide POC Total CO2 Anion Gap POC Anion Gap POC BUN BUN Creatinine POC Creatinine Est Cr Clr Drug Dosing eGFR BUN/Creatinine Ratio Glucose POC Glucose POC Glucose (other) Lactate Uric Acid Calcium POC Ioniz Calcium [place] Ionized Calcium Phosphorus Magnesium Total Bilirubin Direct Bilirubin AST ALT Alkaline Phosphatase Lactate Dehydrogenase Troponin I High Sens 17.2 C-Reactive Protein Total Protein Albumin Globulin Albumin/Globulin Ratio Procalcitonin Urine Color Urine Appearance Urine pH Ur Specific [place] Urine Protein Urine Glucose (UA) Urine Ketones Urine Blood Urine Nitrite Urine Bilirubin Urine Urobilinogen Ur Leukocyte Esterase Urine WBC (Auto) Urine RBC (Auto) U Hyaline Cast (Auto) U Epithel Cells (Auto) Urine Bacteria (Auto) Urine Comment Nasal Screen MRSA (PCR) Negative Stool Occult Bld Scrn Stl C. cayetanensis PCR Stool Rotavirus A PCR Stl Adenov F 40/41 PCR Stool Astrovirus (PCR) Stool Campylobacter PCR Stl C. diff Tox B Gene Stl C.difficile Tox A&B Stl C. diff [id number] Stool Cryptosporidium PCR Stl E.coli Shiga Tox PCR Stl Enterotoxigenic E PCR Stool EPEC (PCR) Stool EAEC (PCR) Stl E. histolytica PCR Stool Giardia Lamblia PCR Stool Salmonella PCR Stool Sapovirus (PCR) Stl P. shigelloides PCR Stl Shigella/EIEC PCR St Y.enterocolitica PCR Stool Vibrio (PCR) Stl Vibrio cholerae PCR Stl Norovirus GI/GII PCR Random Vancomycin Adenovirus (PCR) B. pertussis DNA (PCR) B.parapertussis DNA PCR C. pneumoniae DNA (PCR) Coronavirus OC43 (PCR) Coronavirus HKU1 (PCR) Coronavirus 229E (PCR) SARS-CoV-2 (PCR) Coronavirus NL63 (PCR) Human Metapneumovir PCR Influenza Type A (PCR) Influenza Type B (PCR) M. pneumoniae (PCR) Parainfluenza 1 (PCR) Parainfluenza 2 (PCR) Parainfluenza 3 (PCR) Parainfluenza 4 (PCR) RSV (PCR) Entero/Rhino (PCR) 10/05/25 10/05/25 10/06/25 20:39 23:20 02:32 WBC RBC Hgb POC Hgb Hct POC Hct MCV MCH MCHC RDW Std Deviation RDW Coeff of Lane Plt Count MPV Absolute Nucleated RBC Nucleated RBC % (auto) Neutrophils % (Manual) Lymphocytes % (Manual) Monocytes % (Manual) Eosinophils % (Manual) Basophils % (Manual) Metamyelocytes % (Man) Myelocytes % (Man) Blast Cells % (Manual) Neutrophils # (Manual) Total Absolute Neuts Lymphocytes # (Manual) Total Abs Lymphocytes Monocytes # (Manual) Eosinophils # (Manual) Basophils # (Manual) Metamyelocytes # (Man) Myelocytes # (Manual) Blast Cells # (Man) Toxic Vacuolation Polychromasia Tear Drop Cells Echinocytes ESR Serum Viscosity PT INR APTT PTT Ratio Fibrinogen VBG pH VBG pCO2 VBG pO2 VBG HCO3 VBG O2 Saturation VBG Base Excess POC Sodium Sodium POC Potassium Potassium POC Chloride Chloride Carbon Dioxide POC Total CO2 Anion Gap POC Anion Gap POC BUN BUN Creatinine POC Creatinine Est Cr Clr Drug Dosing eGFR BUN/Creatinine Ratio Glucose POC Glucose 105 H POC Glucose (other) Lactate Uric Acid Calcium POC Ioniz Calcium [place] Ionized Calcium Phosphorus Magnesium Total Bilirubin Direct Bilirubin AST ALT Alkaline Phosphatase Lactate Dehydrogenase Troponin I High Sens 15.9 C-Reactive Protein Total Protein Albumin Globulin Albumin/Globulin Ratio Procalcitonin Urine Color Urine Appearance Urine pH Ur Specific [place] Urine Protein Urine Glucose (UA) Urine Ketones Urine Blood Urine Nitrite Urine Bilirubin Urine Urobilinogen Ur Leukocyte Esterase Urine WBC (Auto) Urine RBC (Auto) U Hyaline Cast (Auto) U Epithel Cells (Auto) Urine Bacteria (Auto) Urine Comment Nasal Screen MRSA (PCR) Stool Occult Bld Scrn Stl C. cayetanensis PCR Not Detected Stool Rotavirus A PCR Not Detected Stl Adenov F 40/41 PCR Not Detected Stool Astrovirus (PCR) Not Detected Stool Campylobacter PCR Not Detected Stl C. diff Tox B Gene Positive Cdiff Gene A Stl C.difficile Tox A&B Negative Cdiff Toxin Stl C. diff [id number] NEGATIVE Stool Cryptosporidium PCR Not Detected Stl E.coli Shiga Tox PCR Not Detected Stl Enterotoxigenic E PCR Not Detected Stool EPEC (PCR) Not Detected Stool EAEC (PCR) Not Detected Stl E. histolytica PCR Not Detected Stool Giardia Lamblia PCR Not Detected Stool Salmonella PCR Not Detected Stool Sapovirus (PCR) Not Detected Stl P. shigelloides PCR Not Detected Stl Shigella/EIEC PCR Not Detected St Y.enterocolitica PCR Not Detected Stool Vibrio (PCR) Not Detected Stl Vibrio cholerae PCR Not Detected Stl Norovirus GI/GII PCR Not Detected Random Vancomycin Adenovirus (PCR) B. pertussis DNA (PCR) B.parapertussis DNA PCR C. pneumoniae DNA (PCR) Coronavirus OC43 (PCR) Coronavirus HKU1 (PCR) Coronavirus 229E (PCR) SARS-CoV-2 (PCR) Coronavirus NL63 (PCR) Human Metapneumovir PCR Influenza Type A (PCR) Influenza Type B (PCR) M. pneumoniae (PCR) Parainfluenza 1 (PCR) Parainfluenza 2 (PCR) Parainfluenza 3 (PCR) Parainfluenza 4 (PCR) RSV (PCR) Entero/Rhino (PCR) 10/06/25 10/06/25 10/06/25 07:34 08:38 08:47 WBC 137.45 H* RBC 2.83 L Hgb 8.6 L POC Hgb Hct 27.7 L POC Hct MCV 97.9 MCH 30.4 MCHC 31.0 L RDW Std Deviation 53.[address] 15.1 H Plt Count 117 L MPV 11.4 Absolute Nucleated RBC 0.07 Nucleated RBC % (auto) 0.1 Neutrophils % (Manual) 69 Lymphocytes % (Manual) 2 Monocytes % (Manual) 14 Eosinophils % (Manual) 1 Basophils % (Manual) 1 Metamyelocytes % (Man) 5 Myelocytes % (Man) 8 Blast Cells % (Manual) Neutrophils # (Manual) 94.84 H Total Absolute Neuts 94.84 H Lymphocytes # (Manual) 2.75 Total Abs Lymphocytes 2.75 Monocytes # (Manual) 19.24 H Eosinophils # (Manual) 1.37 H Basophils # (Manual) 1.37 H Metamyelocytes # (Man) 6.87 H Myelocytes # (Manual) 11.00 H Blast Cells # (Man) Toxic Vacuolation 1+ Polychromasia 1+ Tear Drop Cells 1+ Echinocytes ESR Serum Viscosity PT INR APTT PTT Ratio Fibrinogen VBG pH VBG pCO2 VBG pO2 VBG HCO3 VBG O2 Saturation VBG Base Excess POC Sodium Sodium 139 POC Potassium Potassium 4.2 POC Chloride Chloride 108 H Carbon Dioxide 19 L POC Total CO2 Anion Gap 12 H POC Anion Gap POC BUN BUN 75 H Creatinine 3.89 H POC Creatinine Est Cr Clr Drug Dosing 13.9 eGFR 14.72 BUN/Creatinine Ratio 19.3 Glucose 106 H POC Glucose 112 H POC Glucose (other) Lactate 0.9 Uric Acid 7.8 H Calcium 8.6 POC Ioniz Calcium [place] Ionized Calcium 1.19 Phosphorus 6.1 H Magnesium 1.7 Total Bilirubin 0.4 Direct Bilirubin AST 22 ALT 14 Alkaline Phosphatase 59 Lactate Dehydrogenase 249 H Troponin I High Sens 15.7 C-Reactive Protein Total Protein 6.0 Albumin 2.9 L Globulin 3.1 Albumin/Globulin Ratio 0.9 Procalcitonin 1.10 H Urine Color Urine Appearance Urine pH Ur Specific [place] Urine Protein Urine Glucose (UA) Urine Ketones Urine Blood Urine Nitrite Urine Bilirubin Urine Urobilinogen Ur Leukocyte Esterase Urine WBC (Auto) Urine RBC (Auto) U Hyaline Cast (Auto) U Epithel Cells (Auto) Urine Bacteria (Auto) Urine Comment Nasal Screen MRSA (PCR) Stool Occult Bld Scrn Stl C. cayetanensis PCR Stool Rotavirus A PCR Stl Adenov F 40 PCR Stool Astrovirus (PCR) Stool Campylobacter PCR Stl C. diff Tox B Gene Stl C.difficile Tox A&B Stl C. diff [id number] Stool Cryptosporidium PCR Stl E.coli Shiga Tox PCR Stl Enterotoxigenic E PCR Stool EPEC (PCR) Stool EAEC (PCR) Stl E. histolytica PCR Stool Giardia Lamblia PCR Stool Salmonella PCR Stool Sapovirus (PCR) Stl P. shigelloides PCR Stl Shigella/EIEC PCR St Y.enterocolitica PCR Stool Vibrio (PCR) Stl Vibrio cholerae PCR Stl Norovirus GI/GII PCR Random Vancomycin Adenovirus (PCR) B. pertussis DNA (PCR) B.parapertussis DNA PCR C. pneumoniae DNA (PCR) Coronavirus OC43 (PCR) Coronavirus HKU1 (PCR) Coronavirus 229E (PCR) SARS-CoV-2 (PCR) Coronavirus NL63 (PCR) Human Metapneumovir PCR Influenza Type A (PCR) Influenza Type B (PCR) M. pneumoniae (PCR) Parainfluenza 1 (PCR) Parainfluenza 2 (PCR) Parainfluenza 3 (PCR) Parainfluenza 4 (PCR) RSV (PCR) Entero/Rhino (PCR) 10/06/25 10/06/25 10/06/25 08:58 09:49 11:36 WBC RBC Hgb POC Hgb Hct POC Hct MCV MCH MCHC RDW Std Deviation RDW Coeff of Lane Plt Count MPV Absolute Nucleated RBC Nucleated RBC % (auto) Neutrophils % (Manual) Lymphocytes % (Manual) Monocytes % (Manual) Eosinophils % (Manual) Basophils % (Manual) Metamyelocytes % (Man) Myelocytes % (Man) Blast Cells % (Manual) Neutrophils # (Manual) Total Absolute Neuts Lymphocytes # (Manual) Total Abs Lymphocytes Monocytes # (Manual) Eosinophils # (Manual) Basophils # (Manual) Metamyelocytes # (Man) Myelocytes # (Manual) Blast Cells # (Man) Toxic Vacuolation Polychromasia Tear Drop Cells Echinocytes ESR Serum Viscosity Pending PT 12.8 H INR 1.2 H APTT PTT Ratio Fibrinogen 407 H VBG pH VBG pCO2 VBG pO2 VBG HCO3 VBG O2 Saturation VBG Base Excess POC Sodium Sodium POC Potassium Potassium POC Chloride Chloride Carbon Dioxide POC Total CO2 Anion Gap POC Anion Gap POC BUN BUN Creatinine POC Creatinine Est Cr Clr Drug Dosing eGFR BUN/Creatinine Ratio Glucose POC Glucose POC Glucose (other) Lactate Uric Acid Calcium POC Ioniz Calcium [place] Ionized Calcium Phosphorus Magnesium Total Bilirubin Direct Bilirubin AST ALT Alkaline Phosphatase Lactate Dehydrogenase Troponin I High Sens C-Reactive Protein Total Protein Albumin Globulin Albumin/Globulin Ratio Procalcitonin Urine Color Urine Appearance Urine pH Ur Specific [place] Urine Protein Urine Glucose (UA) Urine Ketones Urine Blood Urine Nitrite Urine Bilirubin Urine Urobilinogen Ur Leukocyte Esterase Urine WBC (Auto) Urine RBC (Auto) U Hyaline Cast (Auto) U Epithel Cells (Auto) Urine Bacteria (Auto) Urine Comment Nasal Screen MRSA (PCR) Stool Occult Bld Scrn Stl C. cayetanensis PCR Stool Rotavirus A PCR Stl Adenov F 40/41 PCR Stool Astrovirus (PCR) Stool Campylobacter PCR Stl C. diff Tox B Gene Stl C.difficile Tox A&B Stl C. diff [id number] Stool Cryptosporidium PCR Stl E.coli Shiga Tox PCR Stl Enterotoxigenic E PCR Stool EPEC (PCR) Stool EAEC (PCR) Stl E. histolytica PCR Stool Giardia Lamblia PCR Stool Salmonella PCR Stool Sapovirus (PCR) Stl P. shigelloides PCR Stl Shigella/EIEC PCR St Y.enterocolitica PCR Stool Vibrio (PCR) Stl Vibrio cholerae PCR Stl Norovirus GI/GII PCR Random Vancomycin 13.6 Adenovirus (PCR) B. pertussis DNA (PCR) B.parapertussis DNA PCR C. pneumoniae DNA (PCR) Coronavirus OC43 (PCR) Coronavirus HKU1 (PCR) Coronavirus 229E (PCR) SARS-CoV-2 (PCR) Coronavirus NL63 (PCR) Human Metapneumovir PCR Influenza Type A (PCR) Influenza Type B (PCR) M. pneumoniae (PCR) Parainfluenza 1 (PCR) Parainfluenza 2 (PCR) Parainfluenza 3 (PCR) Parainfluenza 4 (PCR) RSV (PCR) Entero/Rhino (PCR) 10/06/25 10/06/25 10/06/25 12:04 12:22 Unknown WBC RBC Hgb POC Hgb Hct POC Hct MCV MCH MCHC RDW Std Deviation RDW Coeff of Lane Plt Count MPV Absolute Nucleated RBC Nucleated RBC % (auto) Neutrophils % (Manual) Lymphocytes % (Manual) Monocytes % (Manual) Eosinophils % (Manual) Basophils % (Manual) Metamyelocytes % (Man) Myelocytes % (Man) Blast Cells % (Manual) Neutrophils # (Manual) Total Absolute Neuts Lymphocytes # (Manual) Total Abs Lymphocytes Monocytes # (Manual) Eosinophils # (Manual) Basophils # (Manual) Metamyelocytes # (Man) Myelocytes # (Manual) Blast Cells # (Man) Toxic Vacuolation Polychromasia Tear Drop Cells Echinocytes ESR 9 Serum Viscosity PT INR APTT PTT Ratio Fibrinogen VBG pH VBG pCO2 VBG pO2 VBG HCO3 VBG O2 Saturation VBG Base Excess POC Sodium Sodium POC Potassium Potassium POC Chloride Chloride Carbon Dioxide POC Total CO2 Anion Gap POC Anion Gap POC BUN BUN Creatinine POC Creatinine Est Cr Clr Drug Dosing eGFR BUN/Creatinine Ratio Glucose POC Glucose 105 H POC Glucose (other) Lactate Uric Acid Calcium POC Ioniz Calcium [place] Ionized Calcium Phosphorus Magnesium Total Bilirubin Direct Bilirubin AST ALT Alkaline Phosphatase Lactate Dehydrogenase Troponin I High Sens C-Reactive Protein 7.56 H Total Protein Albumin Globulin Albumin/Globulin Ratio Procalcitonin Urine Color Urine Appearance Urine pH Ur Specific [place] Urine Protein Urine Glucose (UA) Urine Ketones Urine Blood Urine Nitrite Urine Bilirubin Urine Urobilinogen Ur Leukocyte Esterase Urine WBC (Auto) Urine RBC (Auto) U Hyaline Cast (Auto) U Epithel Cells (Auto) Urine Bacteria (Auto) Urine Comment Nasal Screen MRSA (PCR) Stool Occult Bld Scrn Negative Stl C. cayetanensis PCR Stool Rotavirus A PCR Stl Adenov F 40/41 PCR Stool Astrovirus (PCR) Stool Campylobacter PCR Stl C. diff Tox B Gene Stl C.difficile Tox A&B Stl C. diff [id number] Stool Cryptosporidium PCR Stl E.coli Shiga Tox PCR Stl Enterotoxigenic E PCR Stool EPEC (PCR) Stool EAEC (PCR) Stl E. histolytica PCR Stool Giardia Lamblia PCR Stool Salmonella PCR Stool Sapovirus (PCR) Stl P. shigelloides PCR Stl Shigella/EIEC PCR St Y.enterocolitica PCR Stool Vibrio (PCR) Stl Vibrio cholerae PCR Stl Norovirus GI/GII PCR Random Vancomycin Adenovirus (PCR) Not Detected B. pertussis DNA (PCR) Not Detected B.parapertussis DNA PCR Not Detected C. pneumoniae DNA (PCR) Not Detected Coronavirus OC43 (PCR) Not Detected Coronavirus HKU1 (PCR) Not Detected Coronavirus 229E (PCR) Not Detected SARS-CoV-2 (PCR) Not Detected Coronavirus NL63 (PCR) Not Detected Human Metapneumovir PCR Not Detected Influenza Type A (PCR) Not Detected Influenza Type B (PCR) Not Detected M. pneumoniae (PCR) Not Detected Parainfluenza 1 (PCR) Not Detected Parainfluenza 2 (PCR) Not Detected Parainfluenza 3 (PCR) Not Detected Parainfluenza 4 (PCR) Not Detected RSV (PCR) Not Detected Entero/Rhino (PCR) Not Detected Diagnostic Findings CXR: PRIORS: None TECHNIQUE: Frontal view chest FINDINGS: Left-sided cardiac device projecting over the chest. Pulmonary emphysema is suggested. Lung volumes are diminished. Small right and moderate left pleural effusion noted. Heart size is normal. No pneumothorax. Trachea is patent. Osseous structures demonstrate no acute abnormality. No radiopaque foreign body. IMPRESSION: Small to moderate bilateral pleural effusions. Abdomen and pelvis CT without: PRIORS: 11/18/2023 FINDINGS: Pleural effusions present, left greater than right. Chest CT dictated under separate heading. Moderate pericardial effusion. The spleen is enlarged measuring 20 cm in craniocaudal dimension which compares to 15 cm on 11/18/2023. The liver is enlarged measuring 18.6 cm which compares to 16 cm previously. No ascites. Gallbladder surgically absent. Pancreas not well-seen and appears predominantly fatty replaced. The stomach is under distended. Aorta and IVC within normal limits. Moderate atherosclerotic disease of the abdominal aorta. Kidneys are symmetric. No obstructing calculus. Is small right renal cyst present, unchanged. Small retroperitoneal lymph nodes noted. Moderate to severe diverticulosis of the sigmoid colon. No pericolonic inflammatory change. No formed stool identified in the colon. Urinary bladder distends normally. Prostate mildly to moderately enlarged. No free fluid or adenopathy in the pelvis. Mild to moderate osseous demineralization. Moderate to advanced degenerative change at L5-S1. Moderate compression deformity of the superior endplate of T12, appearing in the interval. No high-grade compression fracture. IMPRESSION: 1. Hepatosplenomegaly, increased interval with severe enlargement of the spleen measuring 20 cm which compares to 15 cm on 11/18/2023. Please correlate clinically. 2. Moderate sigmoid colon diverticulosis without pericolonic inflammatory change. 3. Mild to moderate prostamegaly. 4. New mild compression fracture of the T12 vertebral body, appearing since 2022. 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
[2025-10-06] MEDS: SEVELAMER CARBONATE 800 MG TAB PO SCH (17:07)
[2025-10-06] MEDS: PIPERACILLIN/TAZOBACTAM 4.5 GM/100 ML BAG IV SCH (17:07)
[2025-10-06] MEDS: ACETAMINOPHEN 325 MG TAB PO PRN (18:18)
[2025-10-06] MEDS: MAGNESIUM SULFATE / D5W 1 GM/100 ML BAG IV ONE (20:06)
[2025-10-07 04:22] LABS: Hematocrit (blood only) 25.6 % (42.0-52.0); Hemoglobin 7.9 g/dl (14.0-18.0); Mean Corpuscular Hemoglobin 30.6 pg (25.0-34.0); Mean Corpuscular Volume 99.2 fL (80.0-100.0); Platelet Count 101 K/uL (130-400); RDW Standard Deviation 53.9 fL (36.4-46.3); Red Blood Count 2.58 M/uL (4.70-6.10); White Blood Count 127.85 K/ul (4.8-10.8)
[2025-10-07 04:27] LABS: Alanine Aminotransferase 12.0 U/L (7-52); Albumin Globulin Ratio 0.9 (0.9-2); Albumin Level 2.6 gm/dl (3.4-5.0); Alkaline Phosphatase 51.0 U/L (34-104); Anion Gap 11.0 (3-11); Bilirubin,Total 0.5 mg/dl (0.2-1.0); Blood Urea Nitrogen 70.0 mg/dl (6-23); Calcium 8.2 mg/dl (8.6-10.3); Carbon Dioxide 20.0 mmol/L (21-32); Chloride 107.0 mmol/L (98-107); Creatinine Clr Calc Pharmacy 13.1 ml/min; Globulin 3.0 gm/dl (2.5-4.0); Glucose 95.0 mg/dl (70-99(Fasting)); Potassium 4.4 mmol/L (3.5-5.1); Sodium 138.0 mmol/L (136-145); Total Protein 5.6 gm/dl (6.0-8.3)
[2025-10-07 04:39] LABS: ALC (manual) 2.56 K/uL (1.2-3.4); ANC (manual) 94.61 K/uL (1.4-6.5)
--- NOTE | 2025-10-07 08:15 | Nephrology Progress Note ---
Date of Service October 07, 2025 Assessment & Plan (1) QI (acute kidney injury): Plan: * Nonoliguric QI. UO 1800 cc last 24 hours. Patient remains within injury phase. Cr 4.15 this am * Volume status and electrolyte balance remain acceptable. No acute indication for SEX WORKER OR ESCORT * AVF assessed this morning. This was placed 4 weeks ago. 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 Baseline Cr 3.0 (3) Chronic myelomonocytic leukemia: Plan: * Await recommendations from hematology admissions consultant (4) Pericardial effusion: Plan: * s/p pericardiocentesis 10/03/2025 at [facility]. Culture results were no growth to date * [facility] cardiology consultation reviewed. Maintained on empiric antibiotic therapy for possible infection. Effusion possibly related to kidney disease and chronic leukemia. (5) Hyperuricemia: Plan: * Uric acid improved to 6.6 this a.m. * Continue allopurinol. IV hydration. (6) Hyperphosphatemia: Plan: * Diet adjusted. [facility] Admission and Anticipated Discharge Date Admission Date: October 05, 2025 Subjective Mr. Marmolejo was evaluated in the ICU this morning. His and 2 daughters were present at bedside. Mr. Marmolejo reports that his chest discomfort has resolved. He currently denies fever, angina, dyspnea or uremic symptoms. Review of Systems Constitutional: no fever Eyes: no problem reported Ear, Nose, Mouth, Throat: no problem reported Respiratory: no cough and no dyspnea Cardiovascular: no chest pain Gastrointestinal: no abdominal pain, no nausea, no vomiting and no diarrhea/loose stools Neurologic: no problem reported Physical Exam Constitutional: not in distress Eyes: PERRL, conjunctivae normal, anicteric sclerae ENMT: external ear and nose normal, oropharynx normal Neck: trachea midline, no thyromegaly Respiratory: normal respiratory effort, lungs clear to auscultation Cardiovascular: RRR, no murmur, no edema (No rub) Gastrointestinal (Abdomen): normal bowel sounds, soft, nontender, no hepatosplenomegaly Skin: no rashes, warm and dry Neurologic: no focal motor deficits Results & Data Vital Signs (Past 12 Hours) Vital Signs Temp Pulse Resp BP Pulse Ox O2 Del Method O2 Flow Rate 10/07/25 08:00 92 H 10/07/25 05:30 37.1 C 91 H 19 98 Nasal Cannula 2 10/07/25 05:00 37.2 C 93 H 21 125/66 98 Nasal Cannula 2 10/07/25 04:00 37.2 C 90 19 122/66 96 Nasal Cannula 2 10/07/25 03:00 37.2 C 89 19 126/57 L 93 Nasal Cannula 2 10/07/25 02:00 37.1 C 89 19 126/72 98 Nasal Cannula 2 10/07/25 01:30 37.4 C 91 H 21 98 Nasal Cannula 2 10/07/25 01:00 37.3 C 90 20 117/59 L 92 Nasal Cannula 2 10/07/25 00:00 37.3 C 94 H 21 120/62 95 Nasal Cannula 2 10/07/25 00:00 87 10/06/25 23:00 37.4 C 93 H 21 116/61 93 Nasal Cannula 2 10/06/25 22:00 37.5 C 93 H 22 94 Room Air 10/06/25 22:00 110/58 L 10/06/25 21:30 37.6 C H 94 H 22 94 Room Air 10/06/25 21:00 110/65 10/06/25 20:30 37.8 C H 100 H 14 93 Room Air Laboratory Results Laboratory Results - last 24 hr 10/06/25 10/06/25 10/06/25 08:38 08:47 08:58 WBC 137.45 H* RBC 2.83 L Hgb 8.6 L Hct 27.7 L MCV 97.9 MCH 30.4 MCHC 31.0 L RDW Std Deviation 53.[address] 15.1 H Plt Count 117 L MPV 11.4 Absolute Nucleated RBC 0.07 Nucleated RBC % (auto) 0.1 Neutrophils % (Manual) 69 Lymphocytes % (Manual) 2 Monocytes % (Manual) 14 Eosinophils % (Manual) 1 Basophils % (Manual) 1 Metamyelocytes % (Man) 5 Myelocytes % (Man) 8 Neutrophils # (Manual) 94.84 H Total Absolute Neuts 94.84 H Lymphocytes # (Manual) 2.75 Total Abs Lymphocytes 2.75 Monocytes # (Manual) 19.24 H Eosinophils # (Manual) 1.37 H Basophils # (Manual) 1.37 H Metamyelocytes # (Man) 6.87 H Myelocytes # (Manual) 11.00 H Toxic Vacuolation 1+ Polychromasia 1+ Tear Drop Cells 1+ ESR Serum Viscosity Pending PT INR Fibrinogen Sodium 139 Potassium 4.2 Chloride 108 H Carbon Dioxide 19 L Anion Gap 12 H BUN 75 H Creatinine 3.89 H Est Cr Clr Drug Dosing 13.9 eGFR 14.72 BUN/Creatinine Ratio 19.3 Glucose 106 H POC Glucose Lactate 0.9 Uric Acid 7.8 H Calcium 8.6 Ionized Calcium 1.19 Phosphorus 6.1 H Magnesium 1.7 Total Bilirubin 0.4 AST 22 ALT 14 Alkaline Phosphatase 59 Lactate Dehydrogenase 249 H Troponin I High Sens 15.7 C-Reactive Protein Total Protein 6.0 Albumin 2.9 L Globulin 3.1 Albumin/Globulin Ratio 0.9 Procalcitonin 1.10 H PTH Intact Stool Occult Bld Scrn Random Vancomycin Adenovirus (PCR) B. pertussis DNA (PCR) B.parapertussis DNA PCR C. pneumoniae DNA (PCR) Coronavirus OC43 (PCR) Coronavirus HKU1 (PCR) Coronavirus 229E (PCR) SARS-CoV-2 (PCR) Coronavirus NL63 (PCR) Human Metapneumovir PCR Influenza Type A (PCR) Influenza Type B (PCR) M. pneumoniae (PCR) Parainfluenza 1 (PCR) Parainfluenza 2 (PCR) Parainfluenza 3 (PCR) Parainfluenza 4 (PCR) RSV (PCR) Entero/Rhino (PCR) 10/06/25 10/06/25 10/06/25 09:49 11:36 12:04 WBC RBC Hgb Hct MCV MCH MCHC RDW Std Deviation RDW Coeff of Lane Plt Count MPV Absolute Nucleated RBC Nucleated RBC % (auto) Neutrophils % (Manual) Lymphocytes % (Manual) Monocytes % (Manual) Eosinophils % (Manual) Basophils % (Manual) Metamyelocytes % (Man) Myelocytes % (Man) Neutrophils # (Manual) Total Absolute Neuts Lymphocytes # (Manual) Total Abs Lymphocytes Monocytes # (Manual) Eosinophils # (Manual) Basophils # (Manual) Metamyelocytes # (Man) Myelocytes # (Manual) Toxic Vacuolation Polychromasia Tear Drop Cells ESR Serum Viscosity PT 12.8 H INR 1.2 H Fibrinogen 407 H Sodium Potassium Chloride Carbon Dioxide Anion Gap BUN Creatinine Est Cr Clr Drug Dosing eGFR BUN/Creatinine Ratio Glucose POC Glucose 105 H Lactate Uric Acid Calcium Ionized Calcium Phosphorus Magnesium Total Bilirubin AST ALT Alkaline Phosphatase Lactate Dehydrogenase Troponin I High Sens C-Reactive Protein Total Protein Albumin Globulin Albumin/Globulin Ratio Procalcitonin PTH Intact Stool Occult Bld Scrn Random Vancomycin 13.6 Adenovirus (PCR) B. pertussis DNA (PCR) B.parapertussis DNA PCR C. pneumoniae DNA (PCR) Coronavirus OC43 (PCR) Coronavirus HKU1 (PCR) Coronavirus 229E (PCR) SARS-CoV-2 (PCR) Coronavirus NL63 (PCR) Human Metapneumovir PCR Influenza Type A (PCR) Influenza Type B (PCR) M. pneumoniae (PCR) Parainfluenza 1 (PCR) Parainfluenza 2 (PCR) Parainfluenza 3 (PCR) Parainfluenza 4 (PCR) RSV (PCR) Entero/Rhino (PCR) 10/06/25 10/06/25 10/06/25 12:22 16:19 17:05 WBC RBC Hgb Hct MCV MCH MCHC RDW Std Deviation RDW Coeff of Lane Plt Count MPV Absolute Nucleated RBC Nucleated RBC % (auto) Neutrophils % (Manual) Lymphocytes % (Manual) Monocytes % (Manual) Eosinophils % (Manual) Basophils % (Manual) Metamyelocytes % (Man) Myelocytes % (Man) Neutrophils # (Manual) Total Absolute Neuts Lymphocytes # (Manual) Total Abs Lymphocytes Monocytes # (Manual) Eosinophils # (Manual) Basophils # (Manual) Metamyelocytes # (Man) Myelocytes # (Manual) Toxic Vacuolation Polychromasia Tear Drop Cells ESR 9 Serum Viscosity PT INR Fibrinogen Sodium Potassium Chloride Carbon Dioxide Anion Gap BUN Creatinine Est Cr Clr Drug Dosing eGFR BUN/Creatinine Ratio Glucose POC Glucose 104 H Lactate Uric Acid Calcium Ionized Calcium Phosphorus Magnesium Total Bilirubin AST ALT Alkaline Phosphatase Lactate Dehydrogenase Troponin I High Sens C-Reactive Protein 7.56 H Total Protein Albumin Globulin Albumin/Globulin Ratio Procalcitonin PTH Intact 26.1 Stool Occult Bld Scrn Random Vancomycin Adenovirus (PCR) B. pertussis DNA (PCR) B.parapertussis DNA PCR C. pneumoniae DNA (PCR) Coronavirus OC43 (PCR) Coronavirus HKU1 (PCR) Coronavirus 229E (PCR) SARS-CoV-2 (PCR) Coronavirus NL63 (PCR) Human Metapneumovir PCR Influenza Type A (PCR) Influenza Type B (PCR) M. pneumoniae (PCR) Parainfluenza 1 (PCR) Parainfluenza 2 (PCR) Parainfluenza 3 (PCR) Parainfluenza 4 (PCR) RSV (PCR) Entero/Rhino (PCR) 10/06/25 10/06/25 10/07/25 20:53 Unknown 03:59 WBC 127.85 H* RBC 2.58 L Hgb 7.9 L Hct 25.6 L MCV 99.2 MCH 30.6 MCHC 30.9 L RDW Std Deviation 53.[address] 15.1 H Plt Count 101 L MPV 11.2 Absolute Nucleated RBC 0.04 Nucleated RBC % (auto) Neutrophils % (Manual) 74 Lymphocytes % (Manual) 2 Monocytes % (Manual) 9 Eosinophils % (Manual) Basophils % (Manual) Metamyelocytes % (Man) 6 Myelocytes % (Man) 9 Neutrophils # (Manual) 94.61 H Total Absolute Neuts 94.61 H Lymphocytes # (Manual) 2.56 Total Abs Lymphocytes 2.56 Monocytes # (Manual) 11.51 H Eosinophils # (Manual) Basophils # (Manual) Metamyelocytes # (Man) 7.67 H Myelocytes # (Manual) 11.51 H Toxic Vacuolation Polychromasia Tear Drop Cells ESR Serum Viscosity PT INR Fibrinogen Sodium 138 Potassium 4.4 Chloride 107 Carbon Dioxide 20 L Anion Gap 11 BUN 70 H Creatinine 4.15 H Est Cr Clr Drug Dosing 13.1 eGFR 13.62 BUN/Creatinine Ratio 16.9 Glucose 95 POC Glucose 120 H Lactate 0.8 Uric Acid Calcium 8.2 L Ionized Calcium Phosphorus 6.5 H Magnesium Total Bilirubin 0.5 AST 19 ALT 12 Alkaline Phosphatase 51 Lactate Dehydrogenase Troponin I High Sens C-Reactive Protein Total Protein 5.6 L Albumin 2.6 L Globulin 3.0 Albumin/Globulin Ratio 0.9 Procalcitonin 0.78 H PTH Intact Stool Occult Bld Scrn Negative Random Vancomycin 15.9 Adenovirus (PCR) Not Detected B. pertussis DNA (PCR) Not Detected B.parapertussis DNA PCR Not Detected C. pneumoniae DNA (PCR) Not Detected Coronavirus OC43 (PCR) Not Detected Coronavirus HKU1 (PCR) Not Detected Coronavirus 229E (PCR) Not Detected SARS-CoV-2 (PCR) Not Detected Coronavirus NL63 (PCR) Not Detected Human Metapneumovir PCR Not Detected Influenza Type A (PCR) Not Detected Influenza Type B (PCR) Not Detected M. pneumoniae (PCR) Not Detected Parainfluenza 1 (PCR) Not Detected Parainfluenza 2 (PCR) Not Detected Parainfluenza 3 (PCR) Not Detected Parainfluenza 4 (PCR) Not Detected RSV (PCR) Not Detected Entero/Rhino (PCR) Not Detected 10/07/25 07:07 WBC RBC Hgb Hct MCV MCH MCHC RDW Std Deviation RDW Coeff of Lane Plt Count MPV Absolute Nucleated RBC Nucleated RBC % (auto) Neutrophils % (Manual) Lymphocytes % (Manual) Monocytes % (Manual) Eosinophils % (Manual) Basophils % (Manual) Metamyelocytes % (Man) Myelocytes % (Man) Neutrophils # (Manual) Total Absolute Neuts Lymphocytes # (Manual) Total Abs Lymphocytes Monocytes # (Manual) Eosinophils # (Manual) Basophils # (Manual) Metamyelocytes # (Man) Myelocytes # (Manual) Toxic Vacuolation Polychromasia Tear Drop Cells ESR Serum Viscosity PT INR Fibrinogen Sodium Potassium Chloride Carbon Dioxide Anion Gap BUN Creatinine Est Cr Clr Drug Dosing eGFR BUN/Creatinine Ratio Glucose POC Glucose 102 H Lactate Uric Acid Calcium Ionized Calcium Phosphorus Magnesium Total Bilirubin AST ALT Alkaline Phosphatase Lactate Dehydrogenase Troponin I High Sens C-Reactive Protein Total Protein Albumin Globulin Albumin/Globulin Ratio Procalcitonin PTH Intact Stool Occult Bld Scrn Random Vancomycin Adenovirus (PCR) B. pertussis DNA (PCR) B.parapertussis DNA PCR C. pneumoniae DNA (PCR) Coronavirus OC43 (PCR) Coronavirus HKU1 (PCR) Coronavirus 229E (PCR) SARS-CoV-2 (PCR) Coronavirus NL63 (PCR) Human Metapneumovir PCR Influenza Type A (PCR) Influenza Type B (PCR) M. pneumoniae (PCR) Parainfluenza 1 (PCR) Parainfluenza 2 (PCR) Parainfluenza 3 (PCR) Parainfluenza 4 (PCR) RSV (PCR) Entero/Rhino (PCR) PG Care Time/CCT Total # of Minutes Spent Total Time Spent with Patient: 50 minutes provided to review progress notes, laboratory results, daughter was able to pull up [facility] culture results for review, interview and examine patient, assess AVF, discuss indications for SEX WORKER OR ESCORT with patient and family, discussed POC with ICU attending, order am laboratory studies, update medical record Coding Level of Care Code 21178 SUB INP/OBS CARE MIN Diagnoses QI (acute kidney injury) N17.9 CKD (chronic kidney disease) N18.9 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
[2025-10-07 10:02] LABS: Uric Acid 6.6 mg/dl (2.6-7.2)
--- NOTE | 2025-10-07 10:57 | Critical Care Progress Note ---
Date of Service October 07, 2025 Assessment & Plan (1) QI (acute kidney injury): (2) Chronic kidney disease, stage 4 (severe): (3) Fistula: (4) CML (chronic myeloid leukemia): (5) Hyperuricemia: (6) ST elevation: (7) Pericarditis: (8) Gout: (9) GERD (gastroesophageal reflux disease): (10) Pleural effusion: (11) Diarrhea: Plan Patient is an 80-year-old male with a history of CMML, thrombocytopenia, splenomegaly, chronic anemia, hyperuricemia, CKD stage IIIb (fistula created approximately 1 month previously), history of duodenal ulcers previous CVA, hypertension, hyperlipidemia, BPH and GERD. The patient has a significant recent medical history of pericardial effusion and underwent pericardiocentesis on 10/03/2025 at [facility] with 650 cc of fluid drained (differential 61% neutrophils, 2% lymphocytes, monocytes/macrophages 31%, 6% eosinophils, cultures no growth to date). (He was admitted to [facility] and discharged on 10/04/2025 with antibiotics and culture seen for pericarditis. The patient presented back to our facility on 10/05/2025 with a complaints of nausea, diarrhea and chest pain. He had also had a low oxygen saturation at home at 87%. In the emergency department the patient was found to have mild diffuse ST elevation. Heart alert was called. Cardiology reviewed the EKG and did not think that this was likely a STEMI rather ST changes secondary to pericardiocentesis recently. Imaging of the chest with x-ray showed pleural effusions. A CT of the chest was also obtained which showed bilateral effusions, greater on the left as well as a pericardial effusion. Labs were significant for WBC of 188,000, mild anemia and thrombocytopenia. Procalcitonin around 1. Creatinine 3.66. The patient was started on Rocephin and vancomycin. Started on Osmolite fluid resuscitation and admitted to the medical ICU. Patient remained in the medical ICU. Case was discussed with hematology/oncology. Concern for hyperviscosity syndrome, blast crisis or tumor lysis syndrome was considered. Uric acid only mildly elevated. LDH only mildly elevated and trended down. Cardiology evaluated the patient, official echo does not show significant pericardial effusion. They recommend continuing antibiotics. The patient had worsening renal dysfunction. His colchicine was discontinued and nephrology was consulted. Lucas catheter was placed for strict monitoring of urine output. Patient is having good output even with worsening renal dysfunction. Cultures show no growth to date. 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 difficile gene present, toxin negative Hyperuricemia with chronic gout Neuro: History of CVA, no acute neurologic concerns at this time. Cardiovascular: Pericarditis with diffuse ST elevation Pericardial effusion with recent drainage at [facility] 10/03/2025 with 650 cc removed - differential 61% neutrophils, 2% lymphocytes, monocytes/macrophages 31%, 6% eosinophils, cultures no growth to date CT read as moderate pericardial effusion, echo was done today, this shows hyperdynamic LV without regional wall motion abnormalities, concentric LVH, EF greater than 70%, trivial pericardial effusion without evidence of cardiac tamponade. Patient was on colchicine after discharge from [facility] for pericarditis, given worsening renal function we will stop this for now. Continue antibiotics. Cardiology was consulted, they recommend continuing antibiotics for possible bacterial pericarditis. Would hold off on prednisone. Holding amlodipine given acute illness, will continue metoprolol. Pericardial effusion could be secondary to chronic uremia, bun is in the 70s at this time. Respiratory: Pleural effusions appreciated, left greater than right. Echo does not show any evidence of reduced EF. No respiratory distress, on room air. No indication for thoracentesis at this time. GI: Nausea and diarrhea on presentation. C. difficile PCR is positive but toxin is negative. Zofran as needed. Can resume diet. Renal diet. Renal/electrolytes: CKD stage 4, and QI. Had fistula created approximately 1 month ago. Cephalic vein to brachial artery in the left arm. Will place a Lucas catheter for strict I's and O's. Renal function is slightly worse today. Uric acid is 7.8, downtrending today. Will continue IV fluids with LR at 150 an hour for now. Nephrology has been consulted, appreciate assistance with case. Will hold colchicine given worsening renal dysfunction. Continue bicarb tablets. Continue allopurinol. Will get ultrasound of fistula today. : Place Lucas catheter, hold terazosin. Heme: Underlying CMML, usually WBCs are around 100. Significant leukocytosis. Peripheral smear was reviewed by pathology, no evidence of blast crisis at this time. Serum viscosity was ordered, was finally obtained yesterday afternoon, the results are still pending. Less likely tumor lysis syndrome given that uric acid is not rising and LDH is only mildly elevated. Case was discussed in detail with Dr. Craven with hematology oncology. 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 Will continue IV fluids for now. Continue allopurinol. No evidence of DIC. Will follow-up on viscosity. Endo: Monitor blood glucose every 6. Acceptable at this time. Hypothyroidism, continue Synthroid. ID: Possible bacterial pericarditis versus uremic pericarditis with chronic renal failure. Immunocompromise state with CMML. Will stop vancomycin and continue Zosyn. Patient has been on antibiotics since 10/02/2025. Would do a 7 to 10-day course total. MRSA is negative. C. difficile toxin is negative. All cultures are negative today including cultures from pericardiocentesis performed at [facility]. Prophylaxis: -PPI for GI prophylaxis (Home med) -SCD for mechanical DVT prophylaxis Plan: Patient can be transferred out of the ICU today. Recommend continue IV fluids until serum viscosity comes back. Keep Lucas catheter in place. Monitor strict I's and O's. Follow nephrology recommendations. Continue antibiotics for a total of 7 to 10 days (start date would be 10/02/2025) Follow-up on ultrasound of fistula. I have personally spent 55 minutes of critical care time in the direct management of this patient. This is a life/limb threatening event. This includes time spent evaluating patient, direct bedside care, chart review, placing orders, interpretation of diagnostic studies, discussion with consultants, patient, and family members, as well as other required patient management activities. This time is exclusive of all separately billable procedures, and teaching time and separate from and in addition to any other critical care service time. Admission and Anticipated Discharge Date Admission Date: October 05, 2025 Subjective Past 24-hour events: Patient remained in the ICU. Was continued on IV fluid resuscitation. Continued on antibiotics. Nephrology and cardiology evaluated the patient. Lucas catheter was placed. Had good urine output overnight. No fevers or chills. Rounding: Patient doing well this morning. Family is at bedside. No fevers overnight. Not having any chest pain. Making good urine. Intake: 3727 mL Output: 1810 mL Net: +1917 mL Mechanical ventilation: None, on room air Feeding: Taking p.o., regular diet IV infusions: LR running at 150 Indwelling catheters: Lucas catheter, peripheral IVs Laboratory: CBC: 127 WBC, hemoglobin 7.9, platelet 101 Chemistry: Sodium 138, potassium 4.4, chloride 107, bicarb 20, BUN 70, creatinine 4.15, glucose 95, uric acid 6.6, calcium 8.2, Phos 6.5, LDH 236, Pro- Marshal 0.78 ABG: None today Review of Systems Review of Systems: Negative except as in HPI. Physical Exam Physical Exam: Physical examination: General: Appears stated age, well-kept, not in distress. HEENT: Normocephalic, atraumatic. Extraocular movements intact. Sclera are nonicteric. No JVD appreciated. Skin: Warm and dry. No rashes appreciated. No jaundice appreciated. Cardiovascular: Heart is a regular rate and rhythm, no murmurs appreciated on my exam. No significant lower extremity edema. Lungs: Clear bilaterally, no wheezing appreciated. No crackles. Nontachypneic. Resting comfortably on room air. Abdomen: Nondistended, nontender to palpation. Splenomegaly. Musculoskeletal: Normal muscle mass and tone. No gross joint deformity abnormalities. No effusions appreciated. Neurologic: Awake and alert, oriented. CN II through XII are grossly intact. Speech is fluent. Nonfocal exam. Psychiatric: Appropriate cooperative during my exam. Results & Data Results & Data Vital Signs (Past 12 Hours) Vital Signs Temp Pulse Resp BP Pulse Ox O2 Del Method O2 Flow Rate 10/07/25 08:00 37.3 C 97 H 19 124/67 94 Room Air 10/07/25 08:00 92 H 10/07/25 07:45 Room Air 10/07/25 07:00 37.1 C 94 H 24 123/62 97 Nasal Cannula 2 10/07/25 05:30 37.1 C 91 H 19 98 Nasal Cannula 2 10/07/25 05:00 37.2 C 93 H 21 125/66 98 Nasal Cannula 2 10/07/25 04:00 37.2 C 90 19 122/66 96 Nasal Cannula 2 10/07/25 03:00 37.2 C 89 19 126/57 L 93 Nasal Cannula 2 10/07/25 02:00 37.1 C 89 19 126/72 98 Nasal Cannula 2 10/07/25 01:30 37.4 C 91 H 21 98 Nasal Cannula 2 10/07/25 01:00 37.3 C 90 20 117/59 L 92 Nasal Cannula 2 10/07/25 00:00 37.3 C 94 H 21 120/62 95 Nasal Cannula 2 10/07/25 00:00 87 10/06/25 23:00 37.4 C 93 H 21 116/61 93 Nasal Cannula 2 Coding Level of Care Code 74777 CRITICAL CARE 1ST 30-74M Diagnoses QI (acute kidney injury) N17.9 Chronic kidney disease, stage 4 (severe) N18.4 Fistula L98.8 CML (chronic myeloid leukemia) C92.[address] elevation R94.31 Pericarditis I31.9 Pericarditis type: unspecified type Gout, unspecified cause, unspecified chronicity, unspecified site M10.9 Chronicity: unspecified Gout etiology: unspecified cause Gout site: unspecified site GERD (gastroesophageal reflux disease) K21.9 Pleural effusion J90 Diarrhea R19.7 (7) Pericarditis Pericarditis type: unspecified type (8) Gout Chronicity: unspecified Gout etiology: unspecified cause Gout site: unspecified site Qualified Code(s): M10.9 - Gout, unspecified
--- NOTE | 2025-10-07 12:25 | Hospitalist Progress Note ---
Date of Service October 07, 2025 Assessment & Plan (1) HAP (hospital-acquired pneumonia): Plan: cf., Retrocardiac infiltrate reported on 10/04/2025 portable CXR (performed at [facility], prior to hospital discharge home from [facility] on 10/04/2025, 4:00pm). Such retrocardiac infiltrate was not reported on 10/01/2025 admission portable CXR (performed at [facility] ER). CT chest without IV contrast (10/05/2025, 4:57pm): 1. Large bilateral pleural effusions, left greater than right. 2. Bibasilar airspace consolidation and air bronchograms, left greater than right, which could represent compressive atelectasis or possibly pneumonia in the proper clinical setting. 3. Moderate pericardial effusion. s/p vancomycin 1.25g IV x 1 dose (10/05/2025, 9:33pm). s/p ceftriaxone 2g IV daily x 1 dose (10/05/2025, 9:33pm). s/p zosyn 4.5g IV x 1 dose (10/06/2025, 9:05am). s/p vancomycin 750mg IV x 1 dose (10/06/2025, 2:28pm) with antecedent MRSA nares screen negative (10/05/2025, 8:21pm). Hence, no further vancomycin dosing is warranted. Continue zosyn 4.5g IV q12 (start date/time, 10/06/2025, 5:00pm) to treat acute bibasilar HAP with bilateral effusions. I will check repeat vitals with patient breathing comfortably on room air with O2 saturation 94% (10/06/2025, 2:00pm), chest exam, WBC w/differential, lactic acid, and procalcitonin level in the 10/07/2025 am. I will check repeat vitals with patient breathing comfortably on room air with O2 saturation 93% (10/07/2025, 8:00am), chest exam, WBC w/differential, lactic acid, and procalcitonin level in the 10/08/2025 am. (2) Chronic kidney disease, stage 4 (severe): Plan: cf., progressive decline in renal function in 2024 with CKD stage III: cr eatinine 1.90 mg/dL (01/06/2025, 9:09am) to creatinine 2.21 mg/dL (02/01/2025, 10:36am). cf., progressive decline in renal function in 2024 with CKD stage IV : creatinine 3.50 mg/dL (09/21/2025, 8:43am) to creatinine 3.79 mg/dL (09/28/2025, 9:43am). cf., BUN 71, creatinine 3.66, GFR 15.84 (10/05/2025, 5:07pm)(admission date). cf., BUN 75, creatinine 3.89, GFR 14.72 (10/06/2025, 8:38am) cf., BUN 70, creatinine 4.15, GFR 13.62 (10/07/2025, 3:59am) Of note, the interval increase in creatinine level from 10/06/2025, 8:38am to 10/07/2025, 3:59am is probably due to vancomycin 750mg IV x 1 dose (10/06/2025, 2:28pm). Given antecedent MRSA nares screen negative (10/05/2025, 8:21pm), vancomycin is not warranted in this patient with bibasilar HAP with bibasilar effusions on 10/06/2025 or on 10/07/2025. Of note, etiology of CKD stage III/stage IV is most probably due to long- standing HTN. (3) Chronic myelomonocytic leukemia: Plan: cf., WBC 188.64, N64 L4 M18 E1 metamyelocytes 4, myelocytes 7, blasts 2 (10/05/2025, 5:07pm). cf., WBC 137.45, N69 L2 M14 E1 B1, metamyelocytes 5, myelocytes 8 (10/06/2025, 8:47am). cf., WBC 127.85, N74 L2 M 9 metamyelocytes 6, meylocytes 9 (10/07/2025, 3:59am). cf., WBC 25.06. N74 L4 M17 E2 (08/01/2023, 11:25am)(pre-CMML diagnosis WBC). cf., bone marrow biopsy (11/19/2023, [facility] Pathologist Dr. Dacia Driver): Chronic myelomonocytic leukemia-1 cf., bone marrow biopsy (12/11/2023, [facility] Pathologist Dr. Loly Reed): Chronic myelomonocytic leukemia-1 Patient reports that he follows with [facility] Heme-Onc Dr. Michelle Craven, who has recommended continued observation. (4) Hypertension: Plan: Well-controlled with BP 116/60 (10/06/2025, 3:00pm) and current BP 112/60 (10/07/2025, 11:00am) on home-scheduled metoprolol succinate 25mg PO daily, home-scheduled amlodipine 5mg PO daily. (5) BPH (benign prostatic hyperplasia): Plan: Asymptomatic OFF home-scheduled terazosin 2mg PO qpm. Patient maintains brisk urine output of 1.34 mL/kg of body weight per hour (10/06/2025, 12:38pm through 10/07/2025, 12:38pm) via rousseau catheter inserted into patient on 10/06/2025 @ [facility] ICU for strict I/O recordkeeping only, NOT acute urinary retention. (6) Gout: Plan: Chronic gouty arthritis of left ankle, currently asymptomatic. Continue home- scheduled allopurinol 200mg PO daily. (7) Duodenal ulcer disease: Plan: Asymptomatic on home-scheduled protonix 40mg PO daily. (8) Hypothyroidism: Plan: Asymptomatic on home-scheduled levothyroxine 75ug PO daily with normal screening TSH 3.559 uIU/mL (03/07/2025, 12:00am). 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 cf., Ca 8.2, albumin 2.6, Ca corrected 9.3, PO4 6.5 (10/07/2025, 3:59am). cf., intact PTH 26.1 pg/mL (10/06/2025, 4:19pm). cf., normal range for intact PTH, 12.0 - 88.0 pg/mL. Hence, patient does not suffer from secondary hyperparathyroidism, in which elevated PTH levels are seen in combination with low calcium levels and high phosphorus levels. Despite the absence of secondary hyperparathyroidism, I opted to start the patient on phosphate binder sevelamer 800mg PO tid with meals (10/06/2025, 5:00pm) to lower serum PO4 levels (in order to mitigate HTN, vascular calcification, and prophylax against CHF). I will check repeat PO4 level in the 10/08/2025 am to see if acute hyperphosphatemia resolves. (10) Secondary hyperparathyroidism: Plan: Secondary hyperparathyroidism is most probably due to CKD stage III / stage IV, resulting in acute hyperphosphatemia as shown below: (11) Pericarditis: Plan: Acute pericarditis is NOT present on admission date 10/05/2025 or current date 10/07/2025. Plan This is an 80 year old male with a PMH of CML, CKD stage 4, HTN, BPH - coming in with chest pain. Chest Pain - with recent pericardiocentesis (10/03) with 650cc removed - EKG changes likely due to the pericardial effusion recently; pericarditis? - cardiology consult - CT chest ordered and pending - likely needs limited echo to revaluate pericardial effusion - will use Vanc + Rocephin for possible bacterial pericarditis - cont Plavix CML - follows with Dr. Craven CKD stage 4 - creatinine at 3.66 around his baseline - avoid nephrotoxic agents if able BPH - cont home medications Admission and Anticipated Discharge Date Admission Date: October 05, 2025 Subjective "I feel fine. I feel better today (10/07/2025) than when I came in to the hospital (10/05/2025). No complaints at all." Review of Systems Constitutional: Negative for antecedent/coincident fevers, chills, diaphoresis, cough, wheeze, sore throat, hemoptysis, chest pains, palpitations, pleurisy, nausea, vomiting, diarrhea, abdominal pain, pelvic pain, hematemesis, hematochezia, melena, hematuria, dysuria, frequency, urgency, headaches, dizziness, lightheadedness, visual changes, hearing changes, weakness, falls, syncope, trauma, travel history, sick contacts, or food/drug ingestions novel or new. All other review of systems are reported as negative by the patient on 10/07/2025. Physical Exam Constitutional: General: Comfortable, cooperative and coherent. Wide awake and alert. Not confused, lethargic, or obtunded. Patient speaks in complete, fluent, and articulate sentences, without pause, interruption, cough, or wheeze. HEENT: NC/AT. EOMI. PERRL. No nystagmus, gaze paresis, anisocoria, miosis, mydriasis, chemosis, hyphema, scleral injection, conjunctivitis, pterygium. No otorrhea. No rhinorrhea. Neck: Supple, no stridor, bruit, or goiter. Jugular venous pressure 3 cm above the sternal angle of [place], which is typically 5 cm above the right atrium. Lymph: No anterior/posterior cervical lymphadenopathy, supraclavicular/infraclavicular lymphadenopathy, axilla/epitrochlear/inguinal lymphadenopathy. Chest: Symmetric rise and fall with respirations. Non-tender to palpation. Heart: RRR, S1 and S2. No S3 or S4 summation gallop. No tripartite friction rub. No murmur. Lungs: Clear to auscultation and percussion. No audible expiratory wheeze, egophony, pectoriloquy, increase in tactile fremitus, or flatness/dullness to percussion at the bases. Abd: Soft, non-tender, non-distended. Bowel sounds auscultated in all 4 quadrants. No rebound, guarding, Tate's sign. Hepatosplenomegaly present. Ext: No clubbing, cyanosis, or edema. 2+ pedal pulses bilaterally. Skin: No decubitus ulcer or enanthem or exanthem. Neuro: Alert and oriented in regards to person, place, time, and situation. No tremors, tics, or myoclonus. DTR+. 5/5 motor strength in all 4 extremities, both proximally and distally. Urology: + rousseau with 600 cc of clear yellow urine. No diaper. No urethral discharge. Results & Data Results & Data Vital Signs (Past 12 Hours) Vital Signs Temp Pulse Resp BP Pulse Ox O2 Del Method O2 Flow Rate 10/07/25 11:00 37.3 C 90 23 112/60 93 10/07/25 10:00 37.3 C 92 H 25 H 129/62 95 10/07/25 09:00 37.3 C 96 H 16 131/68 94 10/07/25 08:00 37.3 C 97 H 19 124/67 94 Room Air 10/07/25 08:00 92 H 10/07/25 07:45 Room Air 10/07/25 07:00 37.1 C 94 H 24 123/62 97 Nasal Cannula 2 10/07/25 05:30 37.1 C 91 H 19 98 Nasal Cannula 2 10/07/25 05:00 37.2 C 93 H 21 125/66 98 Nasal Cannula 2 10/07/25 04:00 37.2 C 90 19 122/66 96 Nasal Cannula 2 10/07/25 03:00 37.2 C 89 19 126/57 L 93 Nasal Cannula 2 10/07/25 02:00 37.1 C 89 19 126/72 98 Nasal Cannula 2 10/07/25 01:30 37.4 C 91 H 21 98 Nasal Cannula 2 10/07/25 01:00 37.3 C 90 20 117/59 L 92 Nasal Cannula 2 Laboratory Results WBC 188.64, N64 L4 M18 E1 metamyelocytes 4, myelocytes 7, blasts 2, RBC 3.25, Hb 10.1, MCV 97.8, MCHC 31.8, platelet 140 (10/05/2025, 5:07pm). WBC 137.45, N69 L2 M14 E1 B1, metamyelocytes 5, myelocytes 8, RBC 2.83, Hb 8.6, MCV 97.9, MCHC 31.0, platelet 117 (10/06/2025, 8:47am). WBC 127.85, N74 L2 M 9 metamyelocytes 6, meylocytes 9, RBC 2.58, Hb 7.9, MCV 99.2, MCHC 30.9, platelet 101 (10/07/2025, 3:59am). Procalcitonin #1 1.42 ng/mL (10/05/2025, 5:07pm). Procalcitonin #2 1.10 ng/mL (10/06/2025, 8:38am). Procalcitonin #3 0.78 ng/mL (10/07/2025, 3:59am). Lactic acid #1 1.6 mmol/L (10/05/2025, 5:07pm). Lactic acid #2 0.9 mmol/L (10/06/2025, 8:38am). Lactic acid #3 0.8 mmol/L (10/07/2025, 3:59am). U/A (10/05/2025, 4:58pm): cloudy yellow, LE 1+, nitrite-, WBC 0-5, RBC 0-5, epithelial cells 3-5, bacteria none seen Blood culture #1 (10/05/2025, 5:07pm): Blood culture #2 (10/05/2025, 5:15pm): Blood culture #3 (10/06/2025, 8:38am): BUN 71, creatinine 3.66, GFR 15.84 (10/05/2025, 5:07pm). BUN 75, creatinine 3.89, GFR 14.72 (10/06/2025, 8:38am). BUN 70, creatinine 4.15, GFR 13.62 (10/07/2025, 3:59am). Ca 8.6, albumin 2.9, Ca corrected 9.5, PO4 6.1, Mg 1.7 (10/06/2025, 8:38am). Ca 8.2, albumin 2.6, Ca corrected 9.3, PO4 6.5 (10/07/2025, 3:59am). INR 1.2 (10/05/2025, 5:07pm). INR 1.2 (10/06/2025, 9:49am). Diagnostic Findings CT chest without IV contrast (10/05/2025, 4:57pm): 1. Large bilateral pleural effusions, left greater than right. 2. Bibasilar airspace consolidation and air bronchograms, left greater than right, which could represent compressive atelectasis or possibly pneumonia in the proper clinical setting. 3. Moderate pericardial effusion. CT abd/pelvis without IV contrast (10/05/2025, 4:58pm): 1. Hepatosplenomegaly, increased interval with severe enlargement of the spleen measuring 20 cm which compares to 15 cm on 11/18/2023. Please correlate clinically. 2. Moderate sigmoid colon diverticulosis without pericolonic inflammatory change. 3. Mild to moderate prostamegaly. 4. New mild compression fracture of the T12 vertebral body, appearing since 2022. Portable CXR (10/05/2025, 4:58pm): 1. Small to moderate bilateral pleural effusions. 2. No infiltrates, cardiomegaly, pulmonary vascular congestion, or pneumothorax (by my review). EKG #1 (10/05/2025, 8:43pm): sinus tach @ 108, HI 144, QTC 444, 1mm ST elevations in II, III, aVF, V3, V4, V5; 0.5mmm ST elevations in V6, consistent with benign early repolarization, NOT acute pericarditis; no acute ST depressions (by my review). EKG #2 (10/06/2025, 11:01am): sinus tach @ 104, HI 152, QTC 444, no acute ST elevations; no acute ST depressions (by my review). TTE (10/06/2025, 8:56am): 1. LVEF > 70%. 2. No regional wall motion abnormalities. 3. Mild concentric LVH. 4. RV systolic function normal. 5. LA normal size. Borderline KT. No ASD. Resolution does not allow assessment for PFO. 6. No . No AR. 7. PV not well visualized. 8. No MS. No MR. 9. No TS. No TR. 10.Aortic root normal size. 11.Trivial pericardial effusion. No cardiac tamponade. (as per CARDS Dr. Ozzy Banks). PG Care Time/CCT Total # of Minutes Spent Total Time Spent with Patient: Total time spent is greater than 50% in coordination of care (as documented) at patient's floor/unit and/or counseling patient: Coding Level of Care Code 21920 SUB INP/OBS CARE 2/35MIN Diagnoses HAP (hospital-acquired pneumonia) J18.9; Y95 Chronic kidney disease, stage 4 (severe) N18.4 Chronic myelomonocytic leukemia C93.10 Hypertension I10 BPH (benign prostatic hyperplasia) N40.0 Gout, unspecified cause, unspecified chronicity, unspecified site M10.9 Gout site: unspecified site Gout etiology: unspecified cause Chronicity: unspecified Duodenal ulcer disease K26.9 Acquired hypothyroidism E03.9 Hypothyroidism type: acquired 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
[2025-10-08 07:36] LABS: Hematocrit (blood only) 26.2 % (42.0-52.0); Hemoglobin 8.2 g/dl (14.0-18.0); Mean Corpuscular Hemoglobin 31.1 pg (25.0-34.0); Mean Corpuscular Volume 99.2 fL (80.0-100.0); Platelet Count 106 K/uL (130-400); RDW Standard Deviation 53.1 fL (36.4-46.3); Red Blood Count 2.64 M/uL (4.70-6.10); White Blood Count 122.70 K/ul (4.8-10.8)
[2025-10-08 07:44] LABS: Alanine Aminotransferase 9.0 U/L (7-52); Albumin Globulin Ratio 0.9 (0.9-2); Albumin Level 2.9 gm/dl (3.4-5.0); Alkaline Phosphatase 49.0 U/L (34-104); Anion Gap 9.0 (3-11); Bilirubin,Total 0.4 mg/dl (0.2-1.0); Blood Urea Nitrogen 56.0 mg/dl (6-23); Calcium 8.6 mg/dl (8.6-10.3); Carbon Dioxide 23.0 mmol/L (21-32); Chloride 108.0 mmol/L (98-107); Creatinine Clr Calc Pharmacy 14.8 ml/min; Globulin 3.2 gm/dl (2.5-4.0); Glucose 98.0 mg/dl (70-99(Fasting)); Potassium 3.9 mmol/L (3.5-5.1); Sodium 140.0 mmol/L (136-145); Total Protein 6.1 gm/dl (6.0-8.3)
--- NOTE | 2025-10-08 09:19 | Nephrology Progress Note ---
Date of Service October 08, 2025 Assessment & Plan (1) QI (acute kidney injury): Plan: * Nonoliguric QI. UO 2250 cc last 24 hours. Patient remains within injury phase. Cr improved from 4.15-->3.78 this am * Volume status and electrolyte balance remain acceptable. 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 AVF placed 4 weeks ago. Awaiting maturation * Reduce Plasma-Lyte IV to 80 cc/hour * Continue NaHCO3 650 mg daily * Monitor daily UO, BMP (2) Chronic myelomonocytic leukemia: Plan: * Await recommendations from hematology job service consultant (3) Pericardial effusion: Plan: * s/p pericardiocentesis 10/03/2025 at [facility]. Culture results were no growth to date * [facility] cardiology consultation reviewed. Maintained on empiric antibiotic therapy for possible infection. Effusion possibly related to kidney disease and chronic leukemia. (4) Hyperuricemia: Plan: * Uric acid improved to 6.6 * Continue allopurinol. IV hydration. (5) Hyperphosphatemia: Plan: * Diet adjusted. [facility] Admission and Anticipated Discharge Date Admission Date: October 05, 2025 Subjective Mr. Marmolejo was evaluated in his hospital room this morning. His and daughter were present at bedside. Mr. Marmolejo denies chest discomfort, fever, dyspnea or uremic symptoms. Review of Systems Constitutional: no fever Eyes: no problem reported Ear, Nose, Mouth, Throat: no problem reported Respiratory: no cough and no dyspnea Cardiovascular: no chest pain Gastrointestinal: no abdominal pain, no nausea, no vomiting and no diarrhea/loose stools Neurologic: no problem reported Physical Exam Constitutional: not in distress Eyes: PERRL, conjunctivae normal, anicteric sclerae ENMT: external ear and nose normal, oropharynx normal Neck: trachea midline, no thyromegaly Respiratory: normal respiratory effort, lungs clear to auscultation Cardiovascular: RRR, no murmur, no edema (No rub) Gastrointestinal (Abdomen): normal bowel sounds, soft, nontender, no hepatosplenomegaly Skin: no rashes, warm and dry Neurologic: no focal motor deficits Results & Data Vital Signs (Past 12 Hours) Vital Signs Temp Pulse Resp BP Pulse Ox Pulse Ox O2 Del Method 10/08/25 07:07 36.9 C 95 H 16 120/66 94 Room Air 10/08/25 05:21 92 10/08/25 04:00 93 10/08/25 03:20 94 10/08/25 02:35 94 10/08/25 01:15 92 10/07/25 23:14 37.2 C 99 H 16 121/66 94 Room Air 10/07/25 23:00 93 10/07/25 22:15 93 10/07/25 21:20 94 O2 Del Method 10/08/25 07:07 10/08/25 05:21 Room Air 10/08/25 04:00 Room Air 10/08/25 03:20 Room Air 10/08/25 02:35 Room Air 10/08/25 01:15 Room Air 10/07/25 23:14 10/07/25 23:00 Room Air 10/07/25 22:15 Room Air 10/07/25 21:20 Room Air Laboratory Results Laboratory Results - last 24 hr 10/07/25 10/08/25 10/08/25 03:59 07:04 07:08 WBC 122.70 H* RBC 2.64 L Hgb 8.2 L Hct 26.2 L MCV 99.2 MCH 31.1 MCHC 31.3 L RDW Std Deviation 53.[address] 14.9 H Plt Count 106 L MPV 11.4 Absolute Nucleated RBC 0.05 Sodium 140 Potassium 3.9 Chloride 108 H Carbon Dioxide 23 Anion Gap 9 BUN 56 H Creatinine 3.78 H D Est Cr Clr Drug Dosing 14.8 eGFR 15.24 BUN/Creatinine Ratio 14.8 Glucose 98 Lactate 0.8 Uric Acid 6.6 Calcium 8.6 Phosphorus 4.8 D Total Bilirubin 0.4 AST 17 ALT 9 Alkaline Phosphatase 49 Lactate Dehydrogenase 236 Total Protein 6.1 Albumin 2.9 L Globulin 3.2 Albumin/Globulin Ratio 0.9 Procalcitonin 0.76 H PG Care Time/CCT Total # of Minutes Spent Total Time Spent with Patient: 50 minutes provided to review progress notes, laboratory results, interview and examine patient, assess AVF, discuss DIALYSIS 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
--- NOTE | 2025-10-08 15:07 | Ultrasound Report ---
Examination: Doppler venous ultrasound of the upper extremity Comparison: None Technique: Grayscale evaluation with compression, spectral flow, and color Doppler assessment of the deep venous system of the upper extremity Findings: Normal blood flow and waveforms are demonstrated in the internal jugular, subclavian, and axillary veins. Normal compressibility of the brachial, basilic veins, radial and ulnar veins. Occlusive thrombus is seen in the median cubital vein at the antecubital fossa and extending approximately 14 cm into the forearm involving the cephalic vein. A peripheral line is seen within one of the brachial veins. Impression: No evidence for DVT of the right upper extremity Occlusive thrombus within the median cubital vein and extending into the cephalic vein of the forearm as above. Electronically signed by Maurice Mendez 10-08-2025 3:07 PM
[2025-10-08] MEDS: PIPERACILLIN/TAZOBACTAM 4.5 GM/100 ML BAG IV SCH (18:13)
--- NOTE | 2025-10-08 18:40 | Hospitalist Progress Note ---
Date of Service October 08, 2025 Assessment & Plan (1) HAP (hospital-acquired pneumonia): Plan: cf., Retrocardiac infiltrate reported on 10/04/2025 portable CXR (performed at [facility], prior to hospital discharge home from [facility] on 10/04/2025, 4:00pm). Such retrocardiac infiltrate was not reported on 10/01/2025 admission portable CXR (performed at [facility] ER). CT chest without IV contrast (10/05/2025, 4:57pm): 1. Large bilateral pleural effusions, left greater than right. 2. Bibasilar airspace consolidation and air bronchograms, left greater than right, which could represent compressive atelectasis or possibly pneumonia in the proper clinical setting. 3. Moderate pericardial effusion. s/p vancomycin 1.25g IV x 1 dose (10/05/2025, 9:33pm). s/p ceftriaxone 2g IV daily x 1 dose (10/05/2025, 9:33pm). s/p zosyn 4.5g IV x 1 dose (10/06/2025, 9:05am). s/p vancomycin 750mg IV x 1 dose (10/06/2025, 2:28pm) with antecedent MRSA nares screen negative (10/05/2025, 8:21pm). Hence, no further vancomycin dosing is warranted. Continue zosyn 4.5g IV q12 (start date/time, 10/06/2025, 5:00pm) to treat acute bibasilar HAP with bilateral effusions. I will check repeat vitals with patient breathing comfortably on room air with O2 saturation 94% (10/06/2025, 2:00pm), chest exam, WBC w/differential, lactic acid, and procalcitonin level in the 10/07/2025 am. I will check repeat vitals with patient breathing comfortably on room air with O2 saturation 93% (10/07/2025, 8:00am), chest exam, WBC w/differential, lactic acid, and procalcitonin level in the 10/08/2025 am. I will check repeat vitals with patient breathing comfortably on room air with O2 saturation 94% (10/08/2025, 7:07am), chest exam, WBC w/differential, lactic acid, and procalcitonin level in the 10/09/2025 am. (2) Chronic kidney disease, stage 4 (severe): Plan: cf., progressive decline in renal function in 2024 with CKD stage III: creatinine 1.90 mg/dL (01/06/2025, 9:09am) to creatinine 2.21 mg/dL (02/01/2025, 10:36am). cf., progressive decline in renal function in 2024 with CKD stage IV : creatinine 3.50 mg/dL (09/21/2025, 8:43am) to creatinine 3.79 mg/dL (09/28/2025, 9:43am). cf., BUN 71, creatinine 3.66, GFR 15.84 (10/05/2025, 5:07pm)(admission date). cf., BUN 75, creatinine 3.89, GFR 14.72 (10/06/2025, 8:38am) cf., BUN 70, creatinine 4.15, GFR 13.62 (10/07/2025, 3:59am) cf., BUN 56, creatinine 3.78, GFR 15.24 (10/08/2025, 7:04am). Of note, the interval increase in creatinine level from 10/06/2025, 8:38am to 10/07/2025, 3:59am was most probably due to vancomycin 750mg IV x 1 dose (10/06/2025, 2:28pm). Given antecedent MRSA nares screen negative (10/05/2025, 8:21pm), vancomycin is not warranted in this patient with bibasilar HAP with bibasilar effusions on 10/06/2025, 10/07/2025, or on 10/08/2025. Of note, etiology of CKD stage III/stage IV is most probably due to long- standing HTN. (3) Chronic myelomonocytic leukemia: Plan: cf., WBC 188.64, N64 L4 M18 E1 metamyelocytes 4, myelocytes 7, blasts 2 (10/05/2025, 5:07pm). cf., WBC 137.45, N69 L2 M14 E1 B1, metamyelocytes 5, myelocytes 8 (10/06/2025, 8:47am). cf., WBC 127.85, N74 L2 M 9 metamyelocytes 6, myelocytes 9 (10/07/2025, 3:59am). cf., WBC 122.70, no differential, (10/08/2025, 7:04am). cf., WBC 25.06. N74 L4 M17 E2 (08/01/2023, 11:25am)(pre-CMML diagnosis WBC). cf., bone marrow biopsy (11/19/2023, [facility] Pathologist Dr. Dacia Driver): Chronic myelomonocytic leukemia-1 cf., bone marrow biopsy (12/11/2023, [facility] Pathologist Dr. Loly Reed): Chronic myelomonocytic leukemia-1 Patient reports that he follows with [facility] Heme-Onc Dr. Michelle Craven, who has recommended continued observation. (4) Hypertension: Plan: Well-controlled with BP 116/60 (10/06/2025, 3:00pm) and current BP 120/66 (10/08/2025, 7:07am) on home-scheduled metoprolol succinate 25mg PO daily, home- scheduled amlodipine 5mg PO daily. (5) BPH (benign prostatic hyperplasia): Plan: Asymptomatic OFF home-scheduled terazosin 2mg PO qpm. Patient maintains brisk urine output of 1.34 mL/kg of body weight per hour (10/06/2025, 12:38pm through 10/07/2025, 12:38pm) via rousseau catheter inserted into patient on 10/06/2025 @ [facility] ICU for strict I/O recordkeeping only, NOT acute urinary retention. (6) Gout: Plan: Chronic gouty arthritis of left ankle, currently asymptomatic. Continue home- scheduled allopurinol 200mg PO daily. (7) Duodenal ulcer disease: Plan: Asymptomatic on home-scheduled protonix 40mg PO daily. (8) Hypothyroidism: Plan: Asymptomatic on home-scheduled levothyroxine 75ug PO daily with normal screening TSH 3.559 uIU/mL (03/07/2025, 12:00am). Of note, patient has no goiter, lid lag, or proptosis on 10/06/2025 - 10/08/2025 exams. 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 cf., Ca 8.2, albumin 2.6, Ca corrected 9.3, PO4 6.5 (10/07/2025, 3:59am). cf., Ca 8.6, PO4 4.8 (10/08/2025, 7:04am). cf., intact PTH 26.1 pg/mL (10/06/2025, 4:19pm). cf., normal range for intact PTH, 12.0 - 88.0 pg/mL. Hence, patient does not suffer from secondary hyperparathyroidism, in which elevated PTH levels are seen in combination with low calcium levels and high phosphorus levels. Despite the absence of secondary hyperparathyroidism, I opted to start the patient on phosphate binder sevelamer 800mg PO tid x 6 doses with meals (10/06/2025, 5:07pm; 10/07/2025, 7:50am, 11:28am, 5:08pm; 10/08/2025, 8:12am, 12:00pm) to lower serum PO4 levels (in order to mitigate HTN, vascular calcification, and prophylax against CHF). Subsequently, acute hyperphosphatemia RESOLVED with post-treatment PO4 4.8 mg/dL (10/08/2025, 7:04am). Subsequently, I have opted to D/C sevelamer 800mg PO tid with meals after the 6th dose was administered on 10/08/2025, 12:00pm). I will check repeat PO4 level in the 10/09/2025 am to see if acute hy perphosphatemia recurs. (10) Secondary hyperparathyroidism: Plan: Secondary hyperparathyroidism is most probably due to CKD stage III / stage IV, resulting in acute hyperphosphatemia as shown below: (11) Pericarditis: Plan: Acute pericarditis is NOT present on admission date 10/05/2025 or current date 10/08/2025. (12) Acute thrombosis of right cephalic vein: Plan: Right antecubital fossa with infiltration and minimal edema noted at site of prior peripheral IVs x 2 on 10/08/2025; no palpable cord at site of prior peripheral IVs x 2 on 10/08/2025; no erythema, warmth, induration, tenderness, crepitus, fluctuance, discharge (sanguineous, serous, suppurative), ulceration, malodor, or lymphangitic streaking noted on 10/08/2025. Subsequent RUE venous doppler (10/08/2025, 10:38am) revealed no acute DVT, but did reveal an "occlusive thrombus within the median cubital vein and extending 14cm into the cephalic vein of the forearm." Given the complete lack of pain in right forearm and given the patient's chronic anemic/thrombocytopenic state (see lab data below) in the setting of CMML-1, I have opted to treat patient conservative with warm compresses and elevation of right forearm above the level of chest/heart with one pillow, and I have opted to hold OFF from starting patient on oral anticoagulation with eliquis in order to avoid potential hematologic embarrassment should eliquis be started for this right superficial medial cubital vein thrombus extending 14cm into the right cephalic vein. cf., Hb 10.1, MCV 97.8, MCHC 31.8, platelet 140 (10/05/2025, 5:07pm). cf., Hb 8.6, MCV 97.9, MCHC 31.0, platelet 117 (10/06/2025, 8:47am). cf., Hb 7.9, MCV 99.2, MCHC 30.9, platelet 101 (10/07/2025, 3:59am). cf., Hb 8.2, MCV 99.2, MCHC 31.3, platelet 106 (10/08/2025, 7:04am). Plan This is an 80 year old male with a PMH of CML, CKD stage 4, HTN, BPH - coming in with chest pain. Chest Pain - with recent pericardiocentesis (10/03) with 650cc removed - EKG changes likely due to the pericardial effusion recently; pericarditis? - cardiology consult - CT chest ordered and pending - likely needs limited echo to revaluate pericardial effusion - will use Vanc + Rocephin for possible bacterial pericarditis - cont Plavix CML - follows with Dr. Ajala CKD stage 4 - creatinine at 3.66 around his baseline - avoid nephrotoxic agents if able BPH - cont home medications Admission and Anticipated Discharge Date Admission Date: October 05, 2025 Subjective "I am breathing fine. No shortness of breath or coughing or wheezing. I did have IVs in my right forearm, at the crease, that didn't work well, and then my right forearm got a little large/swollen, but it doesn't hurt and it doesn't loo k red. I am ok." Review of Systems Constitutional: Negative for antecedent/coincident fevers, chills, diaphoresis, cough, wheeze, sore throat, hemoptysis, chest pains, palpitations, pleurisy, nausea, vomiting, diarrhea, abdominal pain, pelvic pain, hematemesis, hematochezia, melena, hematuria, dysuria, frequency, urgency, headaches, dizziness, lightheadedness, visual changes, hearing changes, weakness, falls, syncope, trauma, travel history, sick contacts, or food/drug ingestions novel or new. All other review of systems are reported as negative by the patient on 10/08/2025. Physical Exam Constitutional: General: Comfortable, cooperative and coherent. Wide awake and alert. Not confused, lethargic, or obtunded. Patient speaks in complete, fluent, and articulate sentences, without pause, interruption, cough, or wheeze. HEENT: NC/AT. EOMI. PERRL. No nystagmus, gaze paresis, anisocoria, miosis, mydriasis, chemosis, hyphema, scleral injection, conjunctivitis, pterygium, lid lag, or proptosis. No otorrhea. No rhinorrhea. Neck: Supple, no stridor, bruit, or goiter. Jugular venous pressure 3 cm above the sternal angle of [place], which is typically 5 cm above the right atrium. Lymph: No anterior/posterior cervical lymphadenopathy, supraclavicular/infraclavicular lymphadenopathy, axilla/epitrochlear/inguinal lymphadenopathy. Chest: Symmetric rise and fall with respirations. Non-tender to palpation. Heart: RRR, S1 and S2. No S3 or S4 summation gallop. No tripartite friction rub. No murmur. Lungs: Clear to auscultation and percussion. No audible expiratory wheeze, egophony, pectoriloquy, increase in tactile fremitus, or flatness/dullness to percussion at the bases. Abd: Soft, non-tender, non-distended. Bowel sounds auscultated in all 4 quadrants. No rebound, guarding, Tate's sign. Hepatosplenomegaly present. Ext: No clubbing, cyanosis, or edema. 2+ pedal pulses bilaterally. Right antecubital fossa with infiltration and minimal edema noted at site of prior peripheral IVs x 2 on 10/08/2025; no palpable cord at site of prior peripheral IVs x 2 on 10/08/2025; no erythema, warmth, induration, tenderness, crepitus, fluctuance, discharge (sanguineous, serous, suppurative), ulceration, malodor, or lymphangitic streaking noted on 10/08/2025. Subsequent RUE venous doppler (10/08/2025, 10:38am) revealed no acute DVT, but did reveal an "occlusive thrombus within the median cubital vein and extending 14cm into the cephalic vein of the forearm." Skin: No decubitus ulcer or enanthem or exanthem. Neuro: Alert and oriented in regards to person, place, time, and situation. No tremors, tics, or myoclonus. DTR+. 5/5 motor strength in all 4 extremities, both proximally and distally. Urology: + rousseau with 800 cc of clear yellow urine. No diaper. No urethral discharge. Results & Data Results & Data Vital Signs (Past 12 Hours) Vital Signs Temp Pulse Resp BP Pulse Ox Pulse Ox O2 Del Method 10/08/25 17:41 93 10/08/25 16:16 96 10/08/25 15:13 97 10/08/25 15:03 36.5 C 83 16 148/78 H 97 Room Air 10/08/25 14:00 96 10/08/25 13:00 93 10/08/25 12:07 10/08/25 11:00 93 10/08/25 10:17 93 10/08/25 09:00 93 10/08/25 08:00 Room Air 10/08/25 08:00 93 10/08/25 07:07 36.9 C 95 H 16 120/66 94 Room Air 10/08/25 07:00 94 O2 Del Method O2 Flow Rate 10/08/25 17:41 Room Air 10/08/25 16:16 Room Air 10/08/25 15:13 Room Air 10/08/25 15:03 10/08/25 14:00 Room Air 10/08/25 13:00 Room Air 10/08/25 12:07 Room Air 93 10/08/25 11:00 Room Air 10/08/25 10:17 Room Air 10/08/25 09:00 10/08/25 08:00 10/08/25 08:00 Room Air 10/08/25 07:07 10/08/25 07:00 Room Air Laboratory Results WBC 188.64, N64 L4 M18 E1 metamyelocytes 4, myelocytes 7, blasts 2, RBC 3.25, Hb 10.1, MCV 97.8, MCHC 31.8, platelet 140 (10/05/2025, 5:07pm). WBC 137.45, N69 L2 M14 E1 B1, metamyelocytes 5, myelocytes 8, RBC 2.83, Hb 8.6, MCV 97.9, MCHC 31.0, platelet 117 (10/06/2025, 8:47am). WBC 127.85, N74 L2 M 9 metamyelocytes 6, myelocytes 9, RBC 2.58, Hb 7.9, MCV 99.2, MCHC 30.9, platelet 101 (10/07/2025, 3:59am). WBC 122.70, no differential, RBC 2.64, Hb 8.2, MCV 99.2, MCHC 31.3, platelet 106 (10/08/2025, 7:04am). Procalcitonin #1 1.42 ng/mL (10/05/2025, 5:07pm). Procalcitonin #2 1.10 ng/mL (10/06/2025, 8:38am). Procalcitonin #3 0.78 ng/mL (10/07/2025, 3:59am). Procalcitonin #4 0.76 ng/mL (10/08/2025, 7:04am). Lactic acid #1 1.6 mmol/L (10/05/2025, 5:07pm). Lactic acid #2 0.9 mmol/L (10/06/2025, 8:38am). Lactic acid #3 0.8 mmol/L (10/07/2025, 3:59am). Lactic acid #4 0.8 mmol/L (10/08/2025, 7:08am). U/A (10/05/2025, 4:58pm): cloudy yellow, LE 1+, nitrite-, WBC 0-5, RBC 0-5, epithelial cells 3-5, bacteria none seen Blood culture #1 (10/05/2025, 5:07pm): Blood culture #2 (10/05/2025, 5:15pm): Blood culture #3 (10/06/2025, 8:38am): BUN 71, creatinine 3.66, GFR 15.84 (10/05/2025, 5:07pm). BUN 75, creatinine 3.89, GFR 14.72 (10/06/2025, 8:38am). BUN 70, creatinine 4.15, GFR 13.62 (10/07/2025, 3:59am). BUN 56, creatinine 3.78, GFR 15.24 (10/08/2025, 7:04am). Ca 8.6, albumin 2.9, Ca corrected 9.5, PO4 6.1, Mg 1.7 (10/06/2025, 8:38am). Ca 8.2, albumin 2.6, Ca corrected 9.3, PO4 6.5 (10/07/2025, 3:59am). Ca 8.6, PO4 4.8 (10/08/2025, 7:04am). INR 1.2 (10/05/2025, 5:07pm). INR 1.2 (10/06/2025, 9:49am). Diagnostic Findings CT chest without IV contrast (10/05/2025, 4:57pm): 1. Large bilateral pleural effusions, left greater than right. 2. Bibasilar airspace consolidation and air bronchograms, left greater than rig ht, which could represent compressive atelectasis or possibly pneumonia in the proper clinical setting. 3. Moderate pericardial effusion. CT abd/pelvis without IV contrast (10/05/2025, 4:58pm): 1. Hepatosplenomegaly, increased interval with severe enlargement of the spleen measuring 20 cm which compares to 15 cm on 11/18/2023. Please correlate clinically. 2. Moderate sigmoid colon diverticulosis without pericolonic inflammatory change. 3. Mild to moderate prostamegaly. 4. New mild compression fracture of the T12 vertebral body, appearing since 2022. Portable CXR (10/05/2025, 4:58pm): 1. Small to moderate bilateral pleural effusions. 2. No infiltrates, cardiomegaly, pulmonary vascular congestion, or pneumothorax (by my review). EKG #1 (10/05/2025, 8:43pm): sinus tach @ 108, MS 144, QTC 444, 1mm ST elevations in II, III, aVF, V3, V4, V5; 0.5mmm ST elevations in V6, consistent with benign early repolarization, NOT acute pericarditis; no acute ST depressions (by my review). EKG #2 (10/06/2025, 11:01am): sinus tach @ 104, MS 152, QTC 444, no acute ST elevations; no acute ST depressions (by my review). TTE (10/06/2025, 8:56am): 1. LVEF > 70%. 2. No regional wall motion abnormalities. 3. Mild concentric LVH. 4. RV systolic function normal. 5. LA normal size. Borderline KT. No ASD. Resolution does not allow assessment for PFO. 6. No . No AR. 7. PV not well visualized. 8. No MS. No MR. 9. No TS. No TR. 10.Aortic root normal size. 11.Trivial pericardial effusion. No cardiac tamponade. (as per CARDS Dr. Ozzy Banks). RUE venous doppler (10/08/2025, 10:38am)(to address infiltrate @ prior right antecubital fossa peripheral IV sites on 10/07/2025): 1. No acute DVT. 2. Occlusive thrombus within the median cubital vein and extending 14cm into the cephalic vein of the forearm. PG Care Time/CCT Total # of Minutes Spent Total Time Spent with Patient: Total time spent is greater than 50% in coordination of care (as documented) at patient's floor/unit and/or counseling patient: Coding Level of Care Code 67824 SUB INP/OBS CARE MIN Diagnoses HAP (hospital-acquired pneumonia) J18.9; Y95 Chronic kidney disease, stage 4 (severe) N18.4 Chronic myelomonocytic leukemia C93.10 Hypertension I10 BPH (benign prostatic hyperplasia) N40.0 Gout, unspecified cause, unspecified chronicity, unspecified site M10.9 Gout site: unspecified site Gout etiology: unspecified cause Chronicity: unspecified Duodenal ulcer disease K26.9 Acquired hypothyroidism E03.9 Hypothyroidism type: acquired Hyperphosphatemia due to chronic kidney disease E83.39; N18.9 Secondary hyperparathyroidism N25.81 Pericarditis I31.9 Pericarditis type: unspecified type Acute thrombosis of right cephalic vein I82.611 (6) Gout Gout site: unspecified site Gout etiology: unspecified cause Chronicity: unspecified Qualified Code(s): M10.9 - Gout, unspecified (8) Hypothyroidism Hypothyroidism type: acquired Qualified Code(s): E03.9 - Hypothyroidism, unspecified (11) Pericarditis Pericarditis type: unspecified type
[2025-10-09 07:36] LABS: Anion Gap 10.0 (3-11); Blood Urea Nitrogen 50.0 mg/dl (6-23); Calcium 8.7 mg/dl (8.6-10.3); Carbon Dioxide 23.0 mmol/L (21-32); Chloride 109.0 mmol/L (98-107); Creatinine Clr Calc Pharmacy 14.6 ml/min; Glucose 87.0 mg/dl (70-99(Fasting)); Potassium 4.1 mmol/L (3.5-5.1); Sodium 142.0 mmol/L (136-145); Uric Acid 6.9 mg/dl (2.6-7.2)
[2025-10-09 08:01] LABS: ALC (manual) 2.39 K/uL (1.2-3.4); ANC (manual) 94.48 K/uL (1.4-6.5); Blast # (manual) 1.20 K/uL (0-0); Hematocrit (blood only) 27.2 % (42.0-52.0); Hemoglobin 8.2 g/dl (14.0-18.0); Mean Corpuscular Hemoglobin 30.1 pg (25.0-34.0); Mean Corpuscular Volume 100.0 fL (80.0-100.0); Ovalocytes 1+; Platelet Count 108 K/uL (130-400); Polychromasia 1+; RDW Standard Deviation 54.5 fL (36.4-46.3); Red Blood Count 2.72 M/uL (4.70-6.10); White Blood Count 119.60 K/ul (4.8-10.8)
--- NOTE | 2025-10-09 08:35 | Electrocardiogram Report ---
Test Reason : Blood Pressure : */* mmHG Vent. Rate : 115 BPM Atrial Rate : 115 BPM P-R Int : 134 ms QRS Dur : 78 ms QT Int : 326 ms P-R-T Axes : 13 -33 54 degrees QTcB Int : 450 ms Sinus tachycardia Left axis deviation ST elevation, consider early repolarization, pericarditis, or injury Abnormal ECG When compared with ECG of 05-Oct-2025 20:43, No significant change was found Confirmed by Kam Merlos ([id number]) on 10/09/2025 8:35:03 AM Referred By: REFERRED SELF Confirmed By: Kam Merlos
--- NOTE | 2025-10-09 09:01 | Nephrology Progress Note ---
Date of Service October 09, 2025 Assessment & Plan (1) QI (acute kidney injury): Plan: * Nonoliguric QI. UO 3525 cc last 24 hours. Cr remains stable at 3.7 * Volume status and electrolyte balance remain acceptable. 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 AVF placed 4 weeks ago. Awaiting maturation * Continue NaHCO3 650 mg daily * D/c IVF and encourage oral hydration (~ 1200 cc/day) * D/c rousseau catheter * Advance activity as tolerated * Monitor daily UO, BMP * When discharge anticipated, please have patient follow up w/ Dr. Martinez in 1- 2 weeks (2) Chronic myelomonocytic leukemia: Plan: * Await recommendations from hematology hr business partner consultant (3) Pericardial effusion: Plan: * s/p pericardiocentesis 10/03/2025 at [facility]. Culture results were no growth to date * [facility] cardiology consultation reviewed. Maintained on empiric antibiotic therapy for possible infection. Effusion possibly related to kidney disease and chronic leukemia. (4) Hyperuricemia: Plan: * Uric acid remains < 7.0 * Continue allopurinol. Encourage oral hydration (5) Hyperphosphatemia: Plan: * Diet adjusted. [facility] Admission and Anticipated Discharge Date Admission Date: October 05, 2025 Subjective Mr. Marmolejo was evaluated in his hospital room this morning. His was present at bedside. His daughter was present by phone. Mr. Marmolejo stated that he felt poorly. Unfortunately he did not have a specific symptom. He denied chest discomfort, fever, dyspnea or uremic symptoms. Review of Systems Constitutional: no fever Eyes: no problem reported Ear, Nose, Mouth, Throat: no problem reported Respiratory: no cough and no dyspnea Cardiovascular: no chest pain Gastrointestinal: no abdominal pain, no nausea, no vomiting and no diarrhea/loose stools Neurologic: no problem reported Physical Exam Constitutional: not in distress Eyes: PERRL, conjunctivae normal, anicteric sclerae ENMT: external ear and nose normal, oropharynx normal Neck: trachea midline, no thyromegaly Respiratory: normal respiratory effort, lungs clear to auscultation Cardiovascular: RRR, no murmur, no edema (No rub) Gastrointestinal (Abdomen): normal bowel sounds, soft, nontender, no hepatosplenomegaly Skin: no rashes, warm and dry Neurologic: no focal motor deficits Results & Data Vital Signs (Past 12 Hours) Vital Signs Temp Pulse Resp BP Pulse Ox Pulse Ox O2 Del Method 10/09/25 07:37 36.9 C 96 H 16 148/69 H 95 Room Air 10/09/25 07:37 95 10/09/25 06:23 95 10/09/25 05:07 95 10/09/25 04:01 93 10/09/25 03:09 95 10/09/25 02:10 94 10/09/25 01:11 95 10/08/25 23:58 95 10/08/25 23:00 93 10/08/25 22:00 36.9 C 96 H 16 140/65 94 Room Air O2 Del Method 10/09/25 07:37 10/09/25 07:37 Room Air 10/09/25 06:23 Room Air 10/09/25 05:07 Room Air 10/09/25 04:01 Room Air 10/09/25 03:09 Room Air 10/09/25 02:10 Room Air 10/09/25 01:11 Room Air 10/08/25 23:58 Room Air 10/08/25 23:00 Room Air 10/08/25 22:00 Laboratory Results Laboratory Results - last 24 hr 10/09/25 07:03 WBC 119.60 H* RBC 2.72 L Hgb 8.2 L Hct 27.2 L MCV 100.0 MCH 30.1 MCHC 30.1 L RDW Std Deviation 54.[address] of [address] 15.3 H Plt Count 108 L MPV 11.5 Absolute Nucleated RBC 0.04 Neutrophils % (Manual) 79 Lymphocytes % (Manual) 2 Monocytes % (Manual) 11 Eosinophils % (Manual) 0 Basophils % (Manual) 0 Metamyelocytes % (Man) 1 Myelocytes % (Man) 6 Blast Cells % (Manual) 1 Neutrophils # (Manual) 94.48 H Total Absolute Neuts 94.48 H Lymphocytes # (Manual) 2.39 Total Abs Lymphocytes 2.39 Monocytes # (Manual) 13.16 H Eosinophils # (Manual) 0.00 Basophils # (Manual) 0.00 Metamyelocytes # (Man) 1.20 H Myelocytes # (Manual) 7.18 H Blast Cells # (Man) 1.20 H Polychromasia 1+ Ovalocytes 1+ Sodium 142 Potassium 4.1 Chloride 109 H Carbon Dioxide 23 Anion Gap 10 BUN 50 H Creatinine 3.72 H Est Cr Clr Drug Dosing 14.6 eGFR 15.53 BUN/Creatinine Ratio 13.4 Glucose 87 Lactate 0.9 Uric Acid 6.9 Calcium 8.7 Phosphorus 4.8 Procalcitonin 0.60 H PG Care Time/CCT Total # of Minutes Spent Total Time Spent with Patient: 50 minutes provided to review progress notes, laboratory results, interview and examine patient, assess AVF, stop IVF and discuss hydration goals, order d/c Rousseau but continue to measure I&O's, order am laboratory studies, update medical record Coding Level of Care Code 29020 SUB INP/OBS CARE 3/50MIN Diagnoses QI (acute kidney injury) N17.9 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
--- NOTE | 2025-10-09 09:08 | Hospitalist Progress Note ---
Date of Service October 09, 2025 Assessment & Plan (1) HAP (hospital-acquired pneumonia): Plan: cf., Retrocardiac infiltrate reported on 10/04/2025 portable CXR (performed at [facility], prior to hospital discharge home from [facility] on 10/04/2025, 4:00pm). Such retrocardiac infiltrate was not reported on 10/01/2025 admission portable CXR (performed at [facility] ER). CT chest without IV contrast (10/05/2025, 4:57pm): 1. Large bilateral pleural effusions, left greater than right. 2. Bibasilar airspace consolidation and air bronchograms, left greater than right, which could represent compressive atelectasis or possibly pneumonia in the proper clinical setting. 3. Moderate pericardial effusion. s/p vancomycin 1.25g and ceftriaxone 2g on presentation switched to Zosyn, vanco stopped with antecedent MRSA nares screen negative Acute pericarditis is NOT present on admission date 10/05/2025 or current date 10/08/2025. (2) Chronic myelomonocytic leukemia: Plan: persistent leukocytosis with comments of blast present cf., bone marrow biopsy (11/19/2023, [facility] Pathologist Dr. Dacia Driver): Chronic myelomonocytic leukemia-1 cf., bone marrow biopsy (12/11/2023, [facility] Pathologist Dr. Loly Reed): Chronic myelomonocytic leukemia-1 Patient reports that he follows with [facility] Heme-Onc Dr. Michelle Craven, who has recommended continued observation. (3) Hypertension: Plan: Well-controlled continues on scheduled metoprolol succinate 25mg PO daily, home- scheduled amlodipine 5mg PO daily. (4) BPH (benign prostatic hyperplasia): Plan: Asymptomatic OFF home-scheduled terazosin 2mg PO qpm. via rousseau catheter inserted into patient on 10/06/2025 @ [facility] ICU for strict I/O record keeping only, NOT acute urinary retention. (5) Gout: Plan: Chronic gouty arthritis of left ankle, currently asymptomatic. Continue home-scheduled allopurinol 200mg PO daily. (6) Acute thrombosis of right cephalic vein: Plan: treated conservatively Plan This is an 80 year old male with a PMH of CML, CKD stage 4, HTN, BPH - coming in with chest pain. Chest Pain CML - follows with Dr. Craven CKD stage 4 - creatinine at 3.66 around his baseline - avoid nephrotoxic agents if able BPH - cont home medications Admission and Anticipated Discharge Date Admission Date: October 05, 2025 Subjective Mr. Marmolejo was evaluated in his hospital room today. His was present at bedside. His daughter was present by phone. Mr. Marmolejo stated that he felt improved He denied chest discomfort, fever, dyspnea or uremic symptoms. he agreed to have rousseau removed, and was encouraged to ambulate in the halls Physical Exam Physical Exam: pleasant, no distress some diminished breath sounds at bases of lungs Results & Data Results & Data Vital Signs (Past 12 Hours) Vital Signs Temp Pulse Resp BP Pulse Ox Pulse Ox O2 Del Method 10/09/25 07:37 98.4 F 96 H 16 148/69 H 95 Room Air 10/09/25 07:37 95 10/09/25 06:23 95 10/09/25 05:07 95 10/09/25 04:01 93 10/09/25 03:09 95 10/09/25 02:10 94 10/09/25 01:11 95 10/08/25 23:58 95 10/08/25 23:00 93 10/08/25 22:00 98.4 F 96 H 16 140/65 94 Room Air O2 Del Method 10/09/25 07:37 10/09/25 07:37 Room Air 10/09/25 06:23 Room Air 10/09/25 05:07 Room Air 10/09/25 04:01 Room Air 10/09/25 03:09 Room Air 10/09/25 02:10 Room Air 10/09/25 01:11 Room Air 10/08/25 23:58 Room Air 10/08/25 23:00 Room Air 10/08/25 22:00 PG Care Time/CCT Total # of Minutes Spent Total Time Spent with Patient: Total time spent is greater than 50% in coordination of care (as documented) at patient's floor/unit and/or counseling patient: Coding Level of Care Code 13969 SUB INP/OBS CARE 3/50MIN Diagnoses HAP (hospital-acquired pneumonia) J18.9; Y95 Chronic myelomonocytic leukemia C93.10 Hypertension I10 BPH (benign prostatic hyperplasia) N40.0 Gout, unspecified cause, unspecified chronicity, unspecified site M10.9 Chronicity: unspecified Gout etiology: unspecified cause Gout site: unspecified site Acute thrombosis of right cephalic vein I82.611 (5) Gout Chronicity: unspecified Gout etiology: unspecified cause Gout site: unspecified site Qualified Code(s): M10.9 - Gout, unspecified
[2025-10-09] MEDS: EPOETIN ALFA 40,000 UNITS/ML VIAL SQ ONE (17:23)
--- NOTE | 2025-10-10 08:25 | Hospitalist Progress Note ---
Date of Service October 10, 2025 Assessment & Plan (1) HAP (hospital-acquired pneumonia): Plan: Retrocardiac infiltrate reported on 10/04/2025 portable CXR (performed at [facility], prior to hospital discharge home from [facility] on 10/04/2025, 4:00pm). Concern for hospital-acquired pneumonia as part of his symptom complex. CT chest without IV contrast (10/05/2025, 4:57pm): 1. Large bilateral pleural effusions, left greater than right. 2. Bibasilar airspace consolidation and air bronchograms, left greater than right, which could represent compressive atelectasis or possibly pneumonia in the proper clinical setting. 3. Moderate pericardial effusion. s/p vancomycin 1.25g and ceftriaxone 2g on presentation switched to Zosyn, vanco stopped with antecedent MRSA nares screen negative Acute pericarditis is NOT present on admission date 10/05/2025 antibiotics were continued for concern of bacterial pericarditis given this consideration patient will receive 4 weeks of total treatment for bacterial pericarditis in addition to his pneumonia last dose 11/02/2025 (2) Chronic myelomonocytic leukemia: Plan: persistent leukocytosis with comments of blast present cf., bone marrow biopsy (11/19/2023, [facility] Pathologist Dr. Dacia Driver): Chronic myelomonocytic leukemia-1 cf., bone marrow biopsy (12/11/2023, [facility] Pathologist Dr. Loly Reed): Chronic myelomonocytic leukemia-1 Patient reports that he follows with [facility] Heme-Onc Dr. Michelle Craven, who has recommended continued observation. (3) Hypertension: Plan: Well-controlled continues on scheduled metoprolol succinate 25mg PO daily, home- scheduled amlodipine 5mg PO daily. Acute kidney failure with history of chronic kidney disease stage IV creatinine is improving it did peak at 4.15. Current GFR is hovering just above 15 (4) BPH (benign prostatic hyperplasia): Plan: Asymptomatic OFF home-scheduled terazosin 2mg PO qpm. via rousseau catheter inserted into patient on 10/06/2025 @ [facility] ICU for strict I/O record keeping only, NOT acute urinary retention. (5) Gout: Plan: Chronic gouty arthritis of left ankle, currently asymptomatic. Continue home- scheduled allopurinol 200mg PO daily.. Patient's uric acid has been low even during this flare may consider this to be possibly pseudogout (6) Acute thrombosis of right cephalic vein: Plan: treated conservatively Admission and Anticipated Discharge Date Admission Date: October 05, 2025 Anticipated discharge likely would be the or 13 October Home with home health Subjective Patient proving every day. Son is in the room spoke to his daughter on the phone. Patient wants to target going home with home health services Patient is having increasing bowel movements does have C. difficile gene without toxin. Agreeable to trying cholestyramine to bulk up stools Physical Exam Physical Exam: Gentleman no apparent distress no cardiac rub is heard. Lungs are clear Lower extremities are without edema Results & Data Results & Data Vital Signs (Past 12 Hours) Vital Signs Temp Pulse Resp BP Pulse Ox Pulse Ox O2 Del Method 10/10/25 07:36 99.0 F 96 H 16 148/85 H 95 Room Air 10/10/25 03:39 96 10/10/25 01:54 92 10/10/25 00:03 95 10/09/25 23:23 98.6 F 99 H 16 159/70 H 92 Room Air O2 Del Method 10/10/25 07:36 10/10/25 03:39 Room Air 10/10/25 01:54 Room Air 10/10/25 00:03 Room Air 10/09/25 23:23 Laboratory Results Reviewed CBC with CMML white blood cell count is 139,000 with immature cells seen family feels his immature cells are typical he will follow-up with oncology as an outpatient Reviewed chemistry slowly improving chronic kidney disease with creatinine now down to 3.47 PG Care Time/CCT Total # of Minutes Spent Total Time Spent with Patient: Total time spent is greater than 50% in coordination of care (as documented) at patient's floor/unit and/or counseling patient: Coding Level of Care Code 15539 SUB INP/OBS CARE 3/50MIN Diagnoses HAP (hospital-acquired pneumonia) J18.9; Y95 Chronic myelomonocytic leukemia C93.10 Hypertension I10 BPH (benign prostatic hyperplasia) N40.0 Gout, unspecified cause, unspecified chronicity, unspecified site M10.9 Chronicity: unspecified Gout etiology: unspecified cause Gout site: unspecified site Acute thrombosis of right cephalic vein I82.611 (5) Gout Chronicity: unspecified Gout etiology: unspecified cause Gout site: unspecified site Qualified Code(s): M10.9 - Gout, unspecified
--- NOTE | 2025-10-10 09:15 | Nephrology Progress Note ---
Date of Service October 10, 2025 Assessment & Plan (1) QI (acute kidney injury): Plan: * Nonoliguric QI. UO 1400 cc last 24 hours. Cr has improved to 3.4 * Volume status and electrolyte balance remain acceptable. 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 AVF placed 4 weeks ago. Awaiting maturation * Continue NaHCO3 650 mg daily * IVF has been stopped. Encourage oral hydration (~ 1200 cc/day) * Lucas catheter removed 10/09/25. Patient is voiding on his own. Continue to monitor I&O * Advance activity as tolerated * Monitor daily BMP * When discharge anticipated, please have patient follow up w/ Dr. Martinez in 1- 2 weeks (2) Chronic kidney disease, stage 4 (severe): Plan: * Baseline Cr 3.5 w/ EGFR 16 cc/min due to recurrent QI, hypertensive nephrosclerosis (3) Chronic myelomonocytic leukemia: Plan: * Await recommendations from hematology php consultant (note in draft status) (4) Pericardial effusion: Plan: * s/p pericardiocentesis 10/03/2025 at [facility]. Culture results were no growth to date * [facility] cardiology consultation reviewed. Maintained on empiric antibiotic therapy for possible infection. Effusion possibly related to kidney disease and chronic leukemia. (5) Hyperuricemia: Plan: * Uric acid remains < 7.0 * Continue allopurinol. Encourage oral hydration (6) Hyperphosphatemia: Plan: * Diet adjusted. [facility] Admission and Anticipated Discharge Date Admission Date: October 05, 2025 Subjective Mr. Marmolejo was evaluated in his hospital room this morning. His son was present at bedside. His daughter was present by phone. Mr. Marmolejo stated that he feels weak and hopes to continue w/ PT today. Lucas catheter was removed late yesterday afternoon. Patient is voiding without complication. IVF was stopped by clinical staff anesthesiologist this morning. Review of Systems Constitutional: no fever Eyes: no problem reported Ear, Nose, Mouth, Throat: no problem reported Respiratory: no cough and no dyspnea Cardiovascular: no chest pain Gastrointestinal: no abdominal pain, no nausea, no vomiting and no diarrhea/loose stools Neurologic: no problem reported Physical Exam Constitutional: not in distress Eyes: PERRL, conjunctivae normal, anicteric sclerae ENMT: external ear and nose normal, oropharynx normal Neck: trachea midline, no thyromegaly Respiratory: normal respiratory effort, lungs clear to auscultation Cardiovascular: RRR, no murmur, no edema (No rub) Gastrointestinal (Abdomen): normal bowel sounds, soft, nontender, no h epatosplenomegaly Skin: no rashes, warm and dry Neurologic: no focal motor deficits Results & Data Vital Signs (Past 12 Hours) Vital Signs Temp Pulse Resp BP Pulse Ox Pulse Ox O2 Del Method 10/10/25 08:00 95 10/10/25 07:36 37.2 C 96 H 16 148/85 H 95 Room Air 10/10/25 07:00 95 10/10/25 03:39 96 10/10/25 01:54 92 10/10/25 00:03 95 10/09/25 23:23 37.0 C 99 H 16 159/70 H 92 Room Air O2 Del Method 10/10/25 08:00 Room Air 10/10/25 07:36 10/10/25 07:00 Room Air 10/10/25 03:39 Room Air 10/10/25 01:54 Room Air 10/10/25 00:03 Room Air 10/09/25 23:23 Laboratory Results Laboratory Results - last 24 hr 10/10/25 09:22 WBC 139.00 H* RBC 2.81 L Hgb 8.7 L Hct 27.8 L MCV 98.9 MCH 31.0 MCHC 31.3 L RDW Std Deviation 54.[address] 15.3 H Plt Count 104 L MPV 11.5 Absolute Nucleated RBC 0.06 Neutrophils % (Manual) 70 Lymphocytes % (Manual) 3 Monocytes % (Manual) 16 Eosinophils % (Manual) 0 Metamyelocytes % (Man) 4 Myelocytes % (Man) 7 Neutrophils # (Manual) 97.30 H Total Absolute Neuts 97.30 H Lymphocytes # (Manual) 4.17 H Total Abs Lymphocytes 4.17 H Monocytes # (Manual) 22.24 H Eosinophils # (Manual) 0.00 Metamyelocytes # (Man) 5.56 H Myelocytes # (Manual) 9.73 H Polychromasia 1+ Tear Drop Cells 1+ Sodium 141 Potassium 3.8 Chloride 109 H Carbon Dioxide 22 Anion Gap 10 BUN 42 H Creatinine 3.47 H Est Cr Clr Drug Dosing 15.6 eGFR 16.88 BUN/Creatinine Ratio 12.1 Glucose 127 H Calcium 8.6 Total Bilirubin 0.4 AST 25 ALT 9 Alkaline Phosphatase 52 Total Protein 6.5 Albumin 3.2 L Globulin 3.3 Albumin/Globulin Ratio 1.0 PG Care Time/CCT Total # of Minutes Spent Total Time Spent with Patient: 50 minutes provided to review progress notes, laboratory results, interview and examine patient, assess AVF, stop IVF and discuss hydration goals, order am laboratory studies, update medical record Coding Level of Care Code 99114 SUB INP/OBS CARE 3/50MIN Diagnoses QI (acute kidney injury) N17.9 Chronic kidney disease, stage 4 (severe) N18.4 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
[2025-10-10 10:00] LABS: Hematocrit (blood only) 27.8 % (42.0-52.0); Hemoglobin 8.7 g/dl (14.0-18.0); Mean Corpuscular Hemoglobin 31.0 pg (25.0-34.0); Mean Corpuscular Volume 98.9 fL (80.0-100.0); Platelet Count 104 K/uL (130-400); RDW Standard Deviation 54.5 fL (36.4-46.3); Red Blood Count 2.81 M/uL (4.70-6.10); White Blood Count 139.00 K/ul (4.8-10.8)
[2025-10-10 10:08] LABS: Alanine Aminotransferase 9.0 U/L (7-52); Albumin Globulin Ratio 1.0 (0.9-2); Albumin Level 3.2 gm/dl (3.4-5.0); Alkaline Phosphatase 52.0 U/L (34-104); Anion Gap 10.0 (3-11); Bilirubin,Total 0.4 mg/dl (0.2-1.0); Blood Urea Nitrogen 42.0 mg/dl (6-23); Calcium 8.6 mg/dl (8.6-10.3); Carbon Dioxide 22.0 mmol/L (21-32); Chloride 109.0 mmol/L (98-107); Creatinine Clr Calc Pharmacy 15.6 ml/min; Globulin 3.3 gm/dl (2.5-4.0); Glucose 127.0 mg/dl (70-99(Fasting)); Potassium 3.8 mmol/L (3.5-5.1); Sodium 141.0 mmol/L (136-145); Total Protein 6.5 gm/dl (6.0-8.3)
[2025-10-10 10:25] LABS: ALC (manual) 4.17 K/uL (1.2-3.4); ANC (manual) 97.30 K/uL (1.4-6.5); Polychromasia 1+; Tear Drop Cells 1+
[2025-10-10] MEDS: CHOLESTYRAMINE LIGHT 4 GM PKT PO SCH (20:29)
--- NOTE | 2025-10-11 08:57 | Nephrology Progress Note ---
Date of Service October 11, 2025 Assessment & Plan (1) QI (acute kidney injury): Plan: * Nonoliguric QI. UO 1400 cc last 24 hours. Cr has improved to 3.2 * Volume status and electrolyte balance remain acceptable. 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 AVF placed 4 weeks ago. Awaiting maturation * Continue NaHCO3 650 mg daily * IVF has been stopped. Encourage oral hydration (~ 1200 cc/day) * Lucas catheter removed 10/09/25. Patient is voiding on his own. Continue to monitor I&O * Advance activity as tolerated * Monitor daily BMP * Patient already has outpatient visit scheduled w/ Dr. Martinez 10/19/25 at 11am. Orders for nonfasting blood and urine studies prior to visit are active in outpatient EMR (2) Chronic kidney disease, stage 4 (severe): Plan: * Baseline Cr 3.5 w/ EGFR 16 cc/min due to recurrent QI, hypertensive nephrosclerosis (3) Chronic myelomonocytic leukemia: Plan: * Hematology is recommending that patient begin treatment for CMML as outpatient * Considering hydroxyurea, decitabine, azacitidine (4) Pericardial effusion: Plan: * s/p pericardiocentesis 10/03/2025 at [facility]. Culture results were no growth to date * [facility] cardiology consultation reviewed. Maintained on empiric antibiotic therapy for possible infection. Effusion possibly related to kidney disease and chronic leukemia. (5) Hyperuricemia: Plan: * Uric acid remains < 7.0 * Continue allopurinol. Encourage oral hydration (6) Hyperphosphatemia: Plan: * Diet adjusted. [facility] Admission and Anticipated Discharge Date Admission Date: October 05, 2025 Subjective Mr. Marmolejo was evaluated in his hospital room this morning. His was present at bedside. His daughter was present by phone. Mr. Marmolejo stated that he was able to ambulate w/ PT yesterday and hopes to return home w/ home PT. He denies difficulty voiding. He has diarrhea but reports that primary service has added cholestyramine to bulk up his stool Review of Systems Constitutional: no fever Eyes: no problem reported Ear, Nose, Mouth, Throat: no problem reported Respiratory: no cough and no dyspnea Cardiovascular: no chest pain Gastrointestinal: no abdominal pain, no nausea, no vomiting and no diarrhea/loose stools Neurologic: no problem reported Physical Exam Constitutional: not in distress Eyes: PERRL, conjunctivae normal, anicteric sclerae ENMT: external ear and nose normal, oropharynx normal Neck: trachea midline, no thyromegaly Respiratory: normal respiratory effort, lungs clear to auscultation Cardiovascular: RRR, no murmur, no edema (No rub) Gastrointestinal (Abdomen): normal bowel sounds, soft, nontender, no hepatosplenomegaly Skin: no rashes, warm and dry Neurologic: no focal motor deficits Results & Data Vital Signs (Past 12 Hours) Vital Signs Temp Pulse Resp BP Pulse Ox Pulse Ox O2 Del Method 10/11/25 08:03 36.8 C 90 18 167/74 H 95 Room Air 10/11/25 08:00 96 10/11/25 07:00 96 10/11/25 06:09 92 10/11/25 03:00 96 10/11/25 02:00 94 10/11/25 01:00 95 10/11/25 00:00 94 10/10/25 23:15 36.5 C 93 H 18 161/67 H 93 Room Air 10/10/25 23:00 96 10/10/25 22:04 96 O2 Del Method 10/11/25 08:03 10/11/25 08:00 Room Air 10/11/25 07:00 Room Air 10/11/25 06:09 Room Air 10/11/25 03:00 Room Air 10/11/25 02:00 Room Air 10/11/25 01:00 Room Air 10/11/25 00:00 Room Air 10/10/25 23:15 10/10/25 23:00 Room Air 10/10/25 22:04 Room Air Laboratory Results Laboratory Results - last 24 hr 10/10/25 09:22 WBC 139.00 H* RBC 2.81 L Hgb 8.7 L Hct 27.8 L MCV 98.9 MCH 31.0 MCHC 31.3 L RDW Std Deviation 54.[address] of [address] 15.3 H Plt Count 104 L MPV 11.5 Absolute Nucleated RBC 0.06 Neutrophils % (Manual) 70 Lymphocytes % (Manual) 3 Monocytes % (Manual) 16 Eosinophils % (Manual) 0 Metamyelocytes % (Man) 4 Myelocytes % (Man) 7 Neutrophils # (Manual) 97.30 H Total Absolute Neuts 97.30 H Lymphocytes # (Manual) 4.17 H Total Abs Lymphocytes 4.17 H Monocytes # (Manual) 22.24 H Eosinophils # (Manual) 0.00 Metamyelocytes # (Man) 5.56 H Myelocytes # (Manual) 9.73 H Polychromasia 1+ Tear Drop Cells 1+ Sodium 141 Potassium 3.8 Chloride 109 H Carbon Dioxide 22 Anion Gap 10 BUN 42 H Creatinine 3.47 H Est Cr Clr Drug Dosing 15.6 eGFR 16.88 BUN/Creatinine Ratio 12.1 Glucose 127 H Calcium 8.6 Total Bilirubin 0.4 AST 25 ALT 9 Alkaline Phosphatase 52 Total Protein 6.5 Albumin 3.2 L Globulin 3.3 Albumin/Globulin Ratio 1.0 Laboratory Results - last 24 hr 10/10/25 10/11/25 09:22 09:05 WBC 139.00 H* Pending RBC 2.81 L 2.94 L Hgb 8.7 L 8.9 L Hct 27.8 L 29.4 L MCV 98.9 100.0 MCH 31.0 30.3 MCHC 31.3 L 30.3 L RDW Std Deviation 54.5 H 55.2 H RDW Coeff of Alne 15.3 H 15.5 H Plt Count 104 L 103 L MPV 11.5 11.1 Absolute Nucleated RBC 0.06 Neutrophils % (Manual) 70 Lymphocytes % (Manual) 3 Monocytes % (Manual) 16 Eosinophils % (Manual) 0 Metamyelocytes % (Man) 4 Myelocytes % (Man) 7 Neutrophils # (Manual) 97.30 H Total Absolute Neuts 97.30 H Lymphocytes # (Manual) 4.17 H Total Abs Lymphocytes 4.17 H Monocytes # (Manual) 22.24 H Eosinophils # (Manual) 0.00 Metamyelocytes # (Man) 5.56 H Myelocytes # (Manual) 9.73 H Polychromasia 1+ Tear Drop Cells 1+ Sodium 141 140 Potassium 3.8 3.8 Chloride 109 H 109 H Carbon Dioxide 22 23 Anion Gap 10 8 BUN 42 H 36 H Creatinine 3.47 H 3.20 H Est Cr Clr Drug Dosing 15.6 17.1 eGFR 16.88 18.61 BUN/Creatinine Ratio 12.1 11.3 Glucose 127 H 140 H Calcium 8.6 8.9 Total Bilirubin 0.4 AST 25 ALT 9 Alkaline Phosphatase 52 Total Protein 6.5 Albumin 3.2 L Globulin 3.3 Albumin/Globulin Ratio 1.0 PG Care Time/CCT Total # of Minutes Spent Total Time Spent with Patient: 50 minutes provided to review progress notes, review PT notes, hematology recommendations, laboratory results, interview and examine patient, assess AVF, discuss POC w/ and daughter, order am laboratory studies, update medical record Coding Level of Care Code 90489 SUB INP/OBS CARE 3/50MIN Diagnoses QI (acute kidney injury) N17.9 Chronic kidney disease, stage 4 (severe) N18.4 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
[2025-10-11 09:29] LABS: Hematocrit (blood only) 29.4 % (42.0-52.0); Hemoglobin 8.9 g/dL (14.0-18.0); Mean Corpuscular Hemoglobin 30.3 pg (25.0-34.0); Mean Corpuscular Volume 100.0 fL (80.0-100.0); Platelet Count 103 K/uL (130-400); RDW Standard Deviation 55.2 fL (36.4-46.3); Red Blood Count 2.94 M/uL (4.70-6.10)
[2025-10-11 09:47] LABS: Anion Gap 8.0 (3-11); Blood Urea Nitrogen 36.0 mg/dl (6-23); Calcium 8.9 mg/dl (8.6-10.3); Carbon Dioxide 23.0 mmol/L (21-32); Chloride 109.0 mmol/L (98-107); Creatinine Clr Calc Pharmacy 17.1 ml/min; Glucose 140.0 mg/dl (70-99(Fasting)); Potassium 3.8 mmol/L (3.5-5.1); Sodium 140.0 mmol/L (136-145)
[2025-10-11 09:59] LABS: White Blood Count 140.48 K/ul (4.8-10.8)
[2025-10-11 10:15] LABS: ALC (manual) 2.81 K/uL (1.2-3.4); ANC (manual) 99.74 K/uL (1.4-6.5); Polychromasia 1+
[2025-10-11] MEDS: VANCOMYCIN HCL 125 MG CAP PO SCH (13:17)
[2025-10-11] MEDS: ADVANCED PROBIOTIC 625 MG CAPSULE PO SCH (13:17)
--- NOTE | 2025-10-11 21:57 | Hospitalist Progress Note ---
Date of Service October 11, 2025 Assessment & Plan (1) HAP (hospital-acquired pneumonia): Plan: Retrocardiac infiltrate reported on 10/04/2025 portable CXR (performed at [facility], prior to hospital discharge home from [facility] on 10/04/2025, 4:00pm). Concern for hospital-acquired pneumonia as part of his symptom complex. Along with positive procalcitonin. s/p vancomycin 1.25g and ceftriaxone 2g on presentation switched to Zosyn, vanco stopped with antecedent MRSA nares screen negative Acute pericarditis is NOT present on admission date 10/05/2025. Antibiotics were continued for concern of bacterial pericarditis given this consideration prior provider recommending 4 weeks of antibiotics. Will contact [facility] to see if any growth in culture and repeat procalcitonin to assess need for continued antibiotics. He was discharged on Augmentin and unclear reasons for this. Given history of c. diff will start PO vancomycin for prophylaxis while on antibiotics and for 7 days afterwards. C. diff gene positive but toxin negative on 10/05. (2) Chronic myelomonocytic leukemia: Plan: persistent leukocytosis with comments of blast present cf., bone marrow biopsy (11/19/2023, [facility] Pathologist Dr. Dacia Driver): Chronic myelomonocytic leukemia-1 cf., bone marrow biopsy (12/11/2023, [facility] Pathologist Dr. Loly Reed): Chronic myelomonocytic leukemia-1 Patient reports that he follows with [facility] Heme-Onc Dr. Michelle Craven, who has recommended continued observation. Planning on starting chemotherapy as outpatient. Daughter planning on reaching out to [facility] associate professor of media arts. (3) Hypertension: Plan: Well-controlled continues on scheduled metoprolol succinate 25mg PO daily, home- scheduled amlodipine 5mg PO daily. Amlodipine has been held since admission here. Acute kidney failure with history of chronic kidney disease stage IV creatinine is improving it did peak at 4.15. Current GFR is hovering just above 15. (4) BPH (benign prostatic hyperplasia): Plan: Asymptomatic OFF home-scheduled terazosin 2mg PO qpm. via rousseau catheter inserted into patient on 10/06/2025 @ [facility] ICU for strict I/O record keeping only, NOT acute urinary retention. (5) Gout: Plan: Chronic gouty arthritis of left ankle, currently asymptomatic. Allopurinol decreased to 100mg PO daily by nephrology. (6) Acute thrombosis of right cephalic vein: Plan: treat conservatively Admission and Anticipated Discharge Date Admission Date: October 05, 2025 Subjective Patient reports feeling well. No cough, fever, nasal congestion. Ongoing diarrhea but not watery. Physical Exam Respiratory: normal respiratory effort, lungs clear to auscultation Cardiovascular: RRR, no murmur, no edema Gastrointestinal (Abdomen): normal bowel sounds, soft, nontender, no hepatosplenomegaly Results & Data Results & Data Vital Signs (Past 12 Hours) Vital Signs Temp Pulse Resp BP Pulse Ox Pulse Ox O2 Del Method 10/11/25 15:07 36.9 C 89 18 149/65 H 95 Room Air 10/11/25 13:00 96 10/11/25 12:00 96 10/11/25 11:00 95 10/11/25 10:00 96 O2 Del Method 10/11/25 15:07 10/11/25 13:00 Room Air 10/11/25 12:00 Room Air 10/11/25 11:00 Room Air 10/11/25 10:00 Room Air PG Care Time/CCT Total # of Minutes Spent Total Time Spent with Patient: Total time spent is greater than 50% in coordination of care (as documented) at patient's floor/unit and/or counseling patient: Coding Level of Care Code 74844 SUB INP/OBS CARE 2/35MIN Diagnoses HAP (hospital-acquired pneumonia) J18.9; Y95 Chronic myelomonocytic leukemia C93.10 Hypertension I10 BPH (benign prostatic hyperplasia) N40.0 Gout, unspecified cause, unspecified chronicity, unspecified site M10.9 Chronicity: unspecified Gout etiology: unspecified cause Gout site: unspecified site Acute thrombosis of right cephalic vein I82.611 (5) Gout Chronicity: unspecified Gout etiology: unspecified cause Gout site: unspecified site Qualified Code(s): M10.9 - Gout, unspecified
[2025-10-12 07:56] VITALS: RESP 16
[2025-10-12 08:02] LABS: Hematocrit (blood only) 27.5 % (42.0-52.0); Hemoglobin 8.5 g/dL (14.0-18.0); Mean Corpuscular Hemoglobin 30.7 pg (25.0-34.0); Mean Corpuscular Volume 99.3 fL (80.0-100.0); Platelet Count 100 K/uL (130-400); RDW Standard Deviation 54.4 fL (36.4-46.3); Red Blood Count 2.77 M/uL (4.70-6.10); White Blood Count 136.97 K/ul (4.8-10.8)
[2025-10-12 08:23] LABS: Anion Gap 9.0 (3-11); Blood Urea Nitrogen 37.0 mg/dl (6-23); Calcium 8.8 mg/dl (8.6-10.3); Carbon Dioxide 22.0 mmol/L (21-32); Chloride 109.0 mmol/L (98-107); Creatinine Clr Calc Pharmacy 17.3 ml/min; Glucose 92.0 mg/dl (70-99(Fasting)); Potassium 3.9 mmol/L (3.5-5.1); Sodium 140.0 mmol/L (136-145)
[2025-10-12 08:32] LABS: ALC (manual) 4.11 K/uL (1.2-3.4); ANC (manual) 90.40 K/uL (1.4-6.5); Acanthocytes 1+; Blast # (manual) 1.37 K/uL (0-0); Polychromasia 2+; Target Cells 1+; Tear Drop Cells 1+
--- NOTE | 2025-10-12 09:02 | Nephrology Progress Note ---
Date of Service October 12, 2025 Assessment & Plan (1) QI (acute kidney injury): Plan: * Nonoliguric QI. UO 2400 cc last 24 hours. Cr has improved to 3.1 * Volume status and electrolyte balance remain acceptable * AVF w/ positive thrill and bruit. AVF placed 4 weeks ago. Awaiting maturation * Continue NaHCO3 650 mg daily * Continue to encourage 1200 cc oral hydration/day * Advance activity as tolerated * Monitor daily BMP * Patient already has outpatient visit scheduled w/ Dr. Martinez 10/19/25 at 11am. Orders for nonfasting blood and urine studies prior to visit are active in outpatient EMR * No further nephrology recommendations at this time. Will sign off. Please call if further assistance is needed (2) Chronic kidney disease, stage 4 (severe): Plan: * Baseline Cr 3.5 w/ EGFR 16 cc/min due to recurrent QI, hypertensive nephrosclerosis (3) Chronic myelomonocytic leukemia: Plan: * Hematology is recommending that patient begin treatment for CMML as outpatient * Considering hydroxyurea, decitabine, azacitidine (4) Pericardial effusion: Plan: * s/p pericardiocentesis 10/03/2025 at [facility]. Culture results were no growth to date * [facility] cardiology consultation reviewed. Maintained on empiric antibiotic therapy for possible infection. Effusion possibly related to kidney disease and chronic leukemia. (5) Hyperuricemia: Plan: * Uric acid remains < 7.0 * Continue allopurinol. Encourage oral hydration (6) Hyperphosphatemia: Plan: * Diet adjusted. [facility] Admission and Anticipated Discharge Date Admission Date: October 05, 2025 Subjective Mr. Marmolejo was evaluated in his hospital room this morning. His was present at bedside. His daughter was present by phone. Mr. Marmolejo stated that he was able to ambulate in the hallway yesterday w/ PT. Case management is arranging for home PT and DME. Mr. Marmolejo denies difficulty voiding. His diarrhea is subjectively improved Review of Systems Constitutional: no fever Eyes: no problem reported Ear, Nose, Mouth, Throat: no problem reported Respiratory: no cough and no dyspnea Cardiovascular: no chest pain Gastrointestinal: no abdominal pain, no nausea, no vomiting and no diarrhea/loose stools Neurologic: no problem reported Physical Exam Constitutional: not in distress Eyes: PERRL, conjunctivae normal, anicteric sclerae ENMT: external ear and nose normal, oropharynx normal Neck: trachea midline, no thyromegaly Respiratory: normal respiratory effort, lungs clear to auscultation Cardiovascular: RRR, no murmur, no edema (No rub) Gastrointestinal (Abdomen): normal bowel sounds, soft, nontender, no hepatosplenomegaly Skin: no rashes, warm and dry Neurologic: no focal motor deficits Results & Data Vital Signs (Past 12 Hours) Vital Signs Temp Pulse Resp BP Pulse Ox O2 Del Method 10/12/25 07:00 36.8 C 88 16 135/63 94 Room Air 10/11/25 23:20 37.1 C 94 H 18 148/71 H 96 Room Air Laboratory Results Laboratory Results - last 24 hr 10/06/25 10/11/25 10/11/25 16:21 09:05 12:08 WBC 140.48 H* RBC 2.94 L Hgb 8.9 L Hct 29.4 L MCV 100.0 MCH 30.3 MCHC 30.3 L RDW Std Deviation 55.[address] 15.5 H Plt Count 103 L MPV 11.1 Absolute Nucleated RBC 0.18 H Nucleated RBC % (auto) 0.1 Neutrophils % (Manual) 71 Lymphocytes % (Manual) 2 Monocytes % (Manual) 17 Eosinophils % (Manual) 1 Metamyelocytes % (Man) 3 Myelocytes % (Man) 6 Blast Cells % (Manual) Neutrophils # (Manual) 99.74 H Total Absolute Neuts 99.74 H Lymphocytes # (Manual) 2.81 Total Abs Lymphocytes 2.81 Monocytes # (Manual) 23.88 H Eosinophils # (Manual) 1.40 H Metamyelocytes # (Man) 4.21 H Myelocytes # (Manual) 8.43 H Blast Cells # (Man) Polychromasia 1+ Target Cells Tear Drop Cells Acanthocytes (Spur) Serum Viscosity 1.6 Sodium 140 Potassium 3.8 Chloride 109 H Carbon Dioxide 23 Anion Gap 8 BUN 36 H Creatinine 3.20 H Est Cr Clr Drug Dosing 17.1 eGFR 18.61 BUN/Creatinine Ratio 11.3 Glucose 140 H Calcium 8.9 C-Reactive Protein 1.46 H Procalcitonin 1.27 H 10/12/25 07:27 WBC 136.97 H* RBC 2.77 L Hgb 8.5 L Hct 27.5 L MCV 99.3 MCH 30.7 MCHC 30.9 L RDW Std Deviation 54.[address] of [address] 15.1 H Plt Count 100 L MPV 11.4 Absolute Nucleated RBC 0.33 H Nucleated RBC % (auto) 0.2 Neutrophils % (Manual) 66 Lymphocytes % (Manual) 3 Monocytes % (Manual) 17 Eosinophils % (Manual) Metamyelocytes % (Man) 6 Myelocytes % (Man) 7 Blast Cells % (Manual) 1 Neutrophils # (Manual) 90.40 H Total Absolute Neuts 90.40 H Lymphocytes # (Manual) 4.11 H Total Abs Lymphocytes 4.11 H Monocytes # (Manual) 23.28 H Eosinophils # (Manual) Metamyelocytes # (Man) 8.22 H Myelocytes # (Manual) 9.59 H Blast Cells # (Man) 1.37 H Polychromasia 2+ Target Cells 1+ Tear Drop Cells 1+ Acanthocytes (Spur) 1+ Serum Viscosity Sodium 140 Potassium 3.9 Chloride 109 H Carbon Dioxide 22 Anion Gap 9 BUN 37 H Creatinine 3.16 H Est Cr Clr Drug Dosing 17.3 eGFR 18.89 BUN/Creatinine Ratio 11.7 Glucose 92 Calcium 8.8 C-Reactive Protein Procalcitonin 1.22 H PG Care Time/CCT Total # of Minutes Spent Total Time Spent with Patient: 40 minutes provided to review progress notes, hematology recommendations, laboratory results, interview and examine patient, assess AVF, discuss POC w/ and daughter, update medical record Coding Level of Care Code 45912 SUB INP/OBS CARE 2/35MIN Diagnoses QI (acute kidney injury) N17.9 Chronic kidney disease, stage 4 (severe) N18.4 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
[2025-10-12 15:29] VITALS: BP 165/95; PULSE 100; TEMP 98.1; O2SAT 95
--- NOTE | 2025-10-12 16:05 | Discharge Summary ---
Discharge Summary Date of Service October 12, 2025 Principal Dx & Hospital Course #1 = Principal Diagnosis (1) HAP (hospital-acquired pneumonia): (2) Chronic myelomonocytic leukemia: (3) Hypertension: (4) BPH (benign prostatic hyperplasia): (5) Gout: (6) Acute thrombosis of right cephalic vein: Plan Waylon Marmolejo is an 80 year old male admitted to [facility] from October 05 - 2024 due to generalized weakness, nausea and diarrhea. This was following recent pericardiocentesis from [facility] [facility] for pericardial effusion suspect due to his CMML. He was discharged on Augmentin from [facility] [facility] due to possible pneumonia and initial concern here was for sepsis, hospital acquired pneumonia and pericarditis. Repeat echocardiogram showed trivial residual pericardial effusion. Blood cultures were subsequently negative. He received a total of 8 days of intravenous Zosyn to cover for pneumonia and is now medically stable for discharge. No further antibiotics are indicated on discharge as no evidence of bacterial pericarditis exists with no growth from culture from [facility] and only trace pericardial effusion remaining on echocardiogram here. However notably his procalcitonin is up the last 2 days of admission this hasn't correlated with any clinical worsening, occurred while on IV Zosyn and suspect is more related to his CKD than a good infection marker to follow. Suspect his diagnosis was mostly diarrhea related however and likely as a result of colchicine which was subsequently discontinued and fortunately his chest pain has not recurred. He was started on cholestyramine to help with the diarrhea which has been improving and he is now keeping up with oral intake. If further chest pain we could consider prednisone for pericarditis. He was started on vancomycin orally for c. diff prophylaxis (due to history of this) and should continue this for a further 7 days to prevent c. diff infection. He was noted to have an occlusive thrombosis in his right cephalic and medial cubital veins. This likely formed from an intravenous line and should be managed conservatively initially with limb elevation and compression. Notes For Next Care Provider He should follow up with pulmonology due to his pleural effusions and hematology/oncology for his CMML. He should follow up with cardiology for your pericardial effusion. Routine PCP hospital discharge follow up - concentrating on right cephalic vein thrombosis Medication Changes From Visit Allopurinol was decreased by his cargo station worker due to chronic kidney disease. Cholestyramine prescribed for diarrhea Stop prednisone - this appears to be an old prescription Stop colchicine due to diarrhea in setting of CKD Oral vancomycin for c. diff prophylaxis Admission HPI Per Admitting Provider This is an 80 year old male with a PMH of CML, CKD stage 4, HTN, BPH - coming in with chest pain. Was at [facility] on Thursday for chest pain and on 10/03/25 was found to have significant fluid around the heart and had a pericardiocentesis with 650cc fluid removed. He was discharged yesterday with abx (family unsure of which ones). at home, patient felt palpitations and low oxygen level; found to have SPO2 at home of 87% and HR of 113; the certified nurses aide at [facility] was contacted and recommended ER visit. Patient decided to come to our ER instead of [facility]. On arrival here, EKG was done and shows ST elevation; a heart alert was called and cardiology (Dr. Fry) saw the patient. He stated that this was not likely an acute VT, so patient not sent to the label pinker. CT chest done and results pending. Discharge Exam Respiratory normal respiratory effort, lungs clear to auscultation Cardiovascular RRR, no murmur, no edema Gastrointestinal (Abdomen) normal bowel sounds, soft, nontender, no hepatosplenomegaly Discharge Plan Discharge Items Patient Disposition: Home - Home Health Services Reason For Visit: HEART ALERT Discharge Diagnosis: Pericarditics Possible pneumonia Diarrhea due to colchicine and possibly antibiotics Condition on Discharge: Good Activity: Resume your previous activity Non-emergency contact: Primary Care Provider Call non-emergency contact if: you have any medication questions and your symptoms worsen Follow-up/Referrals: Eliazar Ramos MD, FCCP [Physician] - (Follow up pleural effusions) Mihir Mello [Primary Care Provider] - 10/19/25 1:00 pm (with JODI Moura) Diet: Heart Healthy Addtl Attending Provider Instructions: You were admitted to [facility] from October 05 - 2024 due to generalized weakness, nausea and diarrhea. This was following recent pericardiocentesis from [place]. You were discharged on Augmentin from [place] due to possible pneumonia and initial concern here was for sepsis and pericarditis. Repeat echocardiogram showed trivial residual pericardial effusion. Blood cultures were subsequently negative. You received antibiotics to cover for pneumonia and now medically stable for discharge. Colchicine was discontinued due to diarrhea and chronic kidney disease. You were started on vancomycin orally for c. diff prophylaxis and should continue this for a further 7 days. Allopurinol was decreased by your cargo station worker due to chronic kidney disease. Recommend following up with pulmonology due to you pleural effusions and hematology/oncology for your CMML. Please follow up with cardiology for your pericardial effusion. Pending Studies at Discharge: No Stand-Alone Forms: [facility] Medications and DC Order Prescriptions: New allopurinol 100 mg Tablet 100 mg PO DAILY Qty: 30 0RF vancomycin 125 mg Capsule 125 mg PO DAILY 7 Days Qty: 7 0RF Cholestyramine Light 4 gram powder 4 g PO BID 7 Days Qty: 201.6 0RF Rx Instructions: administer w/meal; avoid other meds within 1hr before or 4-6hr after dose Continued cholecalciferol (vitamin D3) 50 mcg (2,000 unit) capsule 50 mcg PO DAILY Patient Comments: 10/05- otc unable to verify sodium bicarbonate 650 mg tablet 650 mg PO DAILY Qty: 90 6RF (DME) TENS unit and electrodes Combo Pack See Rx Instructions .ROUTE .MEDSUPPLY Qty: 1 0RF Rx Instructions: As directed atorvastatin 40 mg tablet 40 mg PO DAILY magnesium oxide 400 mg (241.3 mg magnesium) tablet 400 mg PO BID pantoprazole 40 mg tablet,delayed release (DR/EC) 40 mg PO DAILY clopidogrel [Plavix] 75 mg tablet 75 mg PO QAM terazosin 2 mg capsule 2 mg PO QPM cyanocobalamin (vitamin B-12) 1,000 mcg Tablet 1,000 mcg PO DAILY Patient Comments: 10/05- otc unable to verify sildenafil 100 mg tablet 100 mg PO UD PRN (Reason: Erectile Dysfunction) Rx Instructions: take 1 hour prior to intercourse levothyroxine 75 mcg Tablet 75 mcg PO QAM polyethylene glycol 3350 [Miralax] 17 gram/dose Powder 17 g PO HS Patient Comments: 10/05- otc unable to verify metoprolol succinate 25 mg tablet extended release 24 hr 25 mg PO DAILY Held amlodipine 5 mg tablet 0 mg PO DAILY Hold Instructions: Resume on 10/19/25. hold until follow up with your primary care provider Patient Comments: 10/05- 5mg dose last filled 07/24 90 day supply; 2.5mg dose filled 08/08 90 day supply Discontinued allopurinol 300 mg tablet 300 mg PO DAILY Qty: 90 0RF colchicine 0.6 mg tablet 0.6 mg PO UD amoxicillin-pot clavulanate 500-125 mg tablet 1 tab PO UD prednisone 5 mg tablet 0 mg PO DAILY Patient Comments: 10/05- last filled 06/20 10 day supply #30 Discharge Orders: Discharge Order (Routine); Ordered 10/12/25 Ordered By: Margarito Guido Admission Data Admit Date/Time: 10/05/25 20:26 Attending Provider: Margarito Guido Admit Provider: Jonna Salamanca Primary Care Provider: Mihir Mello Other Providers: Samaria Martin; Ozzy Banks; Michelle Craven; Joe Pereyra; [facility]; Luigi Pablo Other Interventions: Discharge Summary Assessment (RN) Last Done: 10/12/25 16:49 Hospital Stay Data Consultations 10/05/25 20:26 Consult Produce Wrapper Routine 10/06/25 08:37 Consult Cardiology Routine 10/06/25 08:56 Consult Hematology Stat 10/06/25 10:08 Consult Nephrology Routine Procedures Performed Operation Date: 10/05/25 18:00 <No data on this case meets the specified criteria> Diagnostic Imagining Performed 10/05/25 16:57 CT chest diagnostic wo con Stat IMPRESSION: 1. Large bilateral pleural effusions, left greater than right. 2. Bibasilar airspace consolidation and air bronchograms, left greater than right, which could represent compressive atelectasis or possibly pneumonia in the proper clinical setting. 3. Moderate pericardial effusion. 10/05/25 16:58 CT abd pelvis wo con Stat IMPRESSION: 1. Hepatosplenomegaly, increased interval with severe enlargement of the spleen measuring 20 cm which compares to 15 cm on 11/18/2023. Please correlate clinically. 2. Moderate sigmoid colon diverticulosis without pericolonic inflammatory change. 3. Mild to moderate prostamegaly. 4. New mild compression fracture of the T12 vertebral body, appearing since 2022. 10/05/25 17:29 CL Cath Imgs for PACS use only Stat 10/08/25 10:38 US venous doppler UE RT Stat Impression: No evidence for DVT of the right upper extremity Occlusive thrombus within the median cubital vein and extending into the cephalic vein of the forearm as above. Pending Results Patient Have Any Pending Studies at Discharge: No Discharge Instructions Given to Patient (Per Discharging Provider) You were admitted to [facility] from October 05 - 2024 due to generalized weakness, nausea and diarrhea. This was following recent pericardiocentesis from [place]. You were discharged on Augmentin from [place] due to possible pneumonia and initial concern here was for sepsis and pericarditis. Repeat echocardiogram showed trivial residual pericardial effusi on. Blood cultures were subsequently negative. You received antibiotics to cover for pneumonia and now medically stable for discharge. Colchicine was discontinued due to diarrhea and chronic kidney disease. You were started on vancomycin orally for c. diff prophylaxis and should continue this for a further 7 days. Allopurinol was decreased by your cargo station worker due to chronic kidney disease. Recommend following up with pulmonology due to you pleural effusions and hematology/oncology for your CMML. Please follow up with cardiology for your pericardial effusion. Total Time Total Time Spent Total Time Spent (In Minutes): 40 Total Time Includes: Examination of the Patient, Discharge Planning and Medication Reconciliation Coding Level of Care Code 92049 INP/OBS DISCH >30 MIN Diagnoses HAP (hospital-acquired pneumonia) J18.9; Y95 Chronic myelomonocytic leukemia C93.10 Hypertension I10 BPH (benign prostatic hyperplasia) N40.0 Gout, unspecified cause, unspecified chronicity, unspecified site M10.9 Chronicity: unspecified Gout etiology: unspecified cause Gout site: unspecified site Acute thrombosis of right cephalic vein I82.611
--- NOTE | 2025-10-13 09:23 | Electrocardiogram Report ---
Test Reason : Blood Pressure : */* mmHG Vent. Rate : 92 BPM Atrial Rate : 92 BPM P-R Int : 144 ms QRS Dur : 78 ms QT Int : 352 ms P-R-T Axes : 25 -35 22 degrees QTcB Int : 435 ms Normal sinus rhythm Left axis deviation Abnormal ECG When compared with ECG of 06-Oct-2025 11:01, QRS axis Shifted left Non-specific change in ST segment in Inferior leads Confirmed by Kam Merlos ([id number]) on 10/13/2025 9:23:17 AM Referred By: REFERRED SELF Confirmed By: Kam Merlos
== END 2025-10-12 17:34 | disposition home health service (06) | DRG 314 ==
LOC: ED 16:33 → 1E 20:26 → SUATTDRO 20:26 → 1E 20:42 → 3W 10-07 15:13
DX: N18.4 Chronic kidney disease, stage 4 (severe); R19.7 Diarrhea, unspecified; Z79.890 Hormone replacement therapy; E83.39 Other disorders of phosphorus metabolism; C92.10 Chronic myeloid leukemia, BCR/ABL-positive, not having achieved remission; Z79.899 Other long term (current) drug therapy; N40.0 Benign prostatic hyperplasia without lower urinary tract symptoms; J18.9 Pneumonia, unspecified organism; I30.1 Infective pericarditis; Z86.73 Personal history of transient ischemic attack (TIA), and cerebral infarction without residual deficits; N25.81 Secondary hyperparathyroidism of renal origin; K26.9 Duodenal ulcer, unspecified as acute or chronic, without hemorrhage or perforation; Y95 Nosocomial condition; R94.31 Abnormal electrocardiogram [ECG] [EKG]; M1A.0720 Idiopathic chronic gout, left ankle and foot, without tophus (tophi); J90 Pleural effusion, not elsewhere classified; E03.9 Hypothyroidism, unspecified; Z88.6 Allergy status to analgesic agent; E78.2 Mixed hyperlipidemia; N17.9 Acute kidney failure, unspecified; R73.9 Hyperglycemia, unspecified; K21.9 Gastro-esophageal reflux disease without esophagitis; Z79.02 Long term (current) use of antithrombotics/antiplatelets; I12.9 Hypertensive chronic kidney disease with stage 1 through stage 4 chronic kidney disease, or unspecified chronic kidney disease; D84.9 Immunodeficiency, unspecified; Z77.22 Contact with and (suspected) exposure to environmental tobacco smoke (acute) (chronic)